=== PATIENT | female | born 2005 | race African-American/Black ===

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

== ENCOUNTER 2024-03-23 18:25 | Emergency (ER) | payer OTHER, SELFPAY ==
--- OUTSIDE RECORDS SUMMARY | 2024-03-23 18:38 | XMS REPORT | Continuity of Care Document ---
Author Name Unknown Address [address] [facility] [address] [place] [address] [facility] Address [address] [facility] [address] [place] [address] Care Team Providers Care Weekend Caregiver Name Role Phone Abhijit MEYERS, Fanta Primary Care Physician MAYTE MULTANI Attending Clinician Unavailable Jonny Pink Attending Clinician [phone] Unknown, Attending Attending Clinician Unavailab JONNY Baker Attending Clinician Unavailable Doctor Unassigned, Carrick Attending Clinician U Russ Gaspar MD Attending Clinician [phone] HOLLY ROBLEDO Attending Clinician Unavailable THAI CURRIE Attending Clinician Unavailable Thai Currie DO Attending Clinician [phone] RUSS ULLOA Attending Clinician UnavailRUSS Jonas Attending Clinician UnavailBRYNN Harmon Attending Clinician Unavailable Brynn Ying PA-C Attending Clinician [phone] Unknown, Attending Attending Clinician UnavailClaribel Kelley MD Attending Clinician [phone] GETACHEW NICOLE Attending Clinician Unavailable Getachew Nicole PA-C Attending Clinician [phone] CLARIBEL CHOU Attending Clinician UnavailAdarsh Barbosa Attending Clinician Unavailable Ryan Cordero RN Attending Clinician Unavailabl e Only, Ang Db Test Attending Clinician Unavailabl angela Rodriguez MD, Seven Martinez Attending Clinician [phone] SEVEN RODRIGUEZ Attending Clinician Unavailable [place] WIRE LOOP MACHINE OPERATOR, Anikadebbie Attending Clinician [phone] OMEDWARD ABARCAADRIANAYAMILE Attending Clinician Unavailabl e Omaghomi WIRE LOOP MACHINE OPERATOR, Omayemi Attending Clinician [phone] SANJANA ODONNELL Attending Clinician Unavailabl e Belle WIRE LOOP MACHINE OPERATOR, Sanjana Attending Clinician [phone] Provider, [facility] Attending Clinician Unavailable ZIYAD MATOS Attending Clinician Unavaila ble Maunie ACNP, Ziyad Attending Clinician + [phone] SYMONE GILMAN Attending Clinician Unavailable Ebrahim WIRE LOOP MACHINE OPERATOR, Tayia Attending Clinician [phone] ELISE LOOMIS Attending Clinician Unavailable KENYETTA MIMS Attending Clinician Unavailable Kenyetta Mims MD Attending Clinician [phone] Nurse, Adc Pob Immunization Attending Clinician Unavailable Jonathan Rodriguez DO Attending Clinician [phone] JONATHAN RODRIGUEZ Attending Clinician Unavail able SHANTELLE MCALLISTER Attending Clinician Unavailable Shantelle Mcallister NP Attending Clinician [phone] Sendy SAL, Rekha Oliver Attending Clinician Unavailab babar Enriquez WIRE LOOP MACHINE OPERATOR, Arielle Attending Clinician [phone] ARIELLE ENRIQUEZ Attending Clinician Unavailable Juan Pablo SAL, Sunni Vinson Attending Clinician Unavaila ble Provider, [facility] Attending Clinician Un available MariiaChristen Miguel Attending Clinician [phone] CHRISTEN WARREN Attending Clinician Unavailab le Hugo, Adarsh Fam Pob I Attending Clinician Unavailab babar PEREZ, Huan Attending Clinician [phone] HUAN RAZO Attending Clinician Unavailable Jairo MEYERS, Len Arndt Attending Clinici an Carlos Napoles Attending Clinician [phone] CARLOS FORD Attending Clinician Unavailtatum Canseco RN, Swetha Rangel Attending Clinician Unavailable Joyce Oliver Attending Clinician LEN GILL Attending Clinician Unavailable RUSS ULLOA Admitting Clinician SANJANA Lobato Admitting Clinician Cristina miller Payers Payer Name Policy Type Policy Number Effective Date Expirati on Date Source [employer] MEDICAID [id number] 2014 00:00:00 Problems Condition Name Condition Details Condition Category Status Onset Date Resolution Date Last Treatment Date Treating Clinician Comments Source No known active problems No known active problems Disease [facility] Allergies, Adverse Reactions, Alerts Allergy Name Allergy Type Status Severity Reaction(s) Onset Date Inactive Date Treating Clinician Comments Source NO KNOWN ALLERGIE S Drug Class Active [facility] Social History Social Habit Start Date Stop Date Quantity Comments Source History SDOH Alcohol Comment [place] [facility] Gender identity [facility] Alcoholic beverage intake 2023-09-29 00:00:00 2023-09-29 00:00:00 Lifetime non-drinker (finding) [facility] Alcohol intake 2023-07-01 00:00:00 2023-07-01 00:00:00 Lifetime non-drinker (finding) [facility] History of Social function 2022-11-05 00:00:00 2022-11-05 00:00:00 [facility] Exposure to SARS-CoV-2 (event) 2022-06-29 00:00:00 2022-07-09 08:17:00 Not sure [facility] Tobacco use and exposure 2021-11-25 00:00:00 2021-11-25 00:00:00 Smokeless tobacco non-user [facility] History SDOH Alcohol Frequency 2020-01-16 00:00:00 2020-01-16 00:00:00 1 [facility] History SDOH Alcohol Std Drinks 2020-01-16 00:00:00 2020-01-16 00:00:00 99 [facility] History SDOH Alcohol Binge 2020-01-16 00:00:00 2020-01-16 00:00:00 1 [facility] Sex assigned at 2004 00:00:00 2005 00:00:00 [facility] Smoking Status Start Date Stop Date Source Never smoked tobacco [facility] Medications Ordered Medication Name Filled Medication Name Start Date Stop Date Current Medication? Ordering Clinician Indication Dosage Frequency Signature (SIG) Comments Components Source ondansetron 8 mg tablet 2023-04 0-04 00:00: 00 02-02 04:59 :00 Yes [id number] 8mg Take 1 tablet by mouth every 8 (eight) hours as needed for Nausea and Vomiting (N/V) for up to 5 days. [facility] norethindro ne-e.estrad ioL-iron (LOESTRIN FE 1.5/30) 1.5 mg-30 mcg (21)/75 mg (7) tablet 6- 00:00: 00 Yes [id number] 1{tbl} Take 1 tablet by mouth in the morning. [facility] fluticasone propionate 50 mcg/actuati on nasal spray 06-23 00:00: 00 Yes [id number] 2{spray } Use 2 Sprays in each nostril in the morning. [facility] cetirizine 10 mg tablet 06-23 00:00: 00 Yes [id number] 10mg Take 1 tablet by mouth in the morning. [facility] azelastine 137 mcg (0.1 %) nasal spray 06-23 00:00: 00 Yes [id number] 1{spray } Use 1 [place] in each nostril in the morning and 1 [place] in the evening. Use in each nostril as directed [facility] bromphenira mine-pseudo ephedrine-D M (BROMFED DM) 2-30-10 mg/5 mL syrup 06-23 00:00: 00 Yes [id number] 5mL Take 5 mL by mouth 3 (three) times daily as needed for Cough or Cold symptoms. [facility] oseltamivir (TAMIFLU) 75 mg capsule 2022-04- 00:00: 00 04-13 05:59 :00 No [id number] 75mg Take 1 capsule by mouth in the morning and 1 capsule in the evening. Do all this for 5 days. [facility] ciprofloxac in-dexameth asone 0.3-0.1 % otic drops 7-13 00:00: 00 Yes [id number] 19619 4[drp] Place 4 Drops in left ear in the morning and 4 Drops in the evening. [facility] norethindro ne-e.estrad ioL-iron (LOESTRIN FE 1.5/30) 1.5 mg-30 mcg (21)/75 mg (7) per tablet 15 00:00: 00 09-28 00:00 :00 No [id number] 1{tbl} Take 1 tablet by mouth in the morning. [facility] triamcinolo ne acetonide 0.1 % cream 10-05 00:00: 00 10-16 04:59 :00 No [id number] Apply to area(s) 3 (three) times daily for 10 days. [facility] norethindro ne-e.estrad ioL-iron (LOESTRIN FE 1.5/30) 1.5 mg-30 mcg (21)/75 mg (7) per tablet -16 00:00: 00 10-08 00:00 :00 No [id number] 1{tbl} Take 1 tablet by mouth in the morning. [facility] benzonatate 200 mg capsule 2-16 00:00: 00 Yes [id number] 200mg Take 1 capsule by mouth 3 (three) times daily as needed for Cough. [facility] fluticasone propionate 50 mcg/actuati on nasal spray 2-16 00:00: 00 Yes [id number] 1{spray } Use 1 [place] in each nostril in the morning. [facility] medroxyPROG ESTERone (PROVERA) 10 mg tablet 2-09 00:00: 00 06-19 05:59 :00 No [id number] 10mg Take 1 tablet by mouth in the morning for 14 days. [facility] bromphenira mine-pseudo ephedrine-D M (BROMFED DM) 2-30-10 mg/5 mL syrup 2021-04 00:00: 00 Yes [id number] 5mL Take 5 mL by mouth 4 (four) times daily as needed for Congestion /Allergies or Cough. [facility] fluticasone propionate 50 mcg/actuati on nasal spray 2021-04 00:00: 00 Yes [id number] 2{spray } Use 2 Sprays in each nostril in the morning. [facility] ibuprofen (IBU) tablet 600 mg 12-24 07:00: 00 12-24 06:14 :00 No 600mg 600 mg, Oral, ONCE, 1 dose, On Wed12/24/21 at 0200, DAMARI [facility] APPLY TOPICALLY TO THE AFFECTED AREA THREE TIMES DAILY 12-08 00:00: 00 No &lt - 00:00: 00 No TAKE 12.5 ML BY MOUTH TWICE DAILY FOR 5 DAYS 12-03 00:00: 00 No 6 TAKE 1 TABLET BY MOUTH ONCE DAILY 12-03 00:00: 00 No 75 hydrocortis one 2.5 % cream 11-25 00:00: 00 Yes [id number] Apply to area(s) 3 (three) times daily. [facility] diphenhydrA MINE (BENADRYL) 25 mg capsule 11-25 00:00: 00 12-01 04:59 :00 No [id number] 50mg Take 2 capsules by mouth every 6 (six) hours as needed for Allergies or Itching for up to 5 days. [facility] meloxicam 7.5 mg tablet 10-22 00:00: 00 Yes 7.5mg Take 7.5 mg by mouth in the morning. [facility] traMADoL-ac etaminophen 37.5-325 mg per tablet 10-22 00:00: 00 Yes TAKE 1 TABLET BY MOUTH EVERY 6 HOURS NEEDED FOR 10 DAYS [facility] &lt - 00:00: 00 No ibuprofen (IBU) tablet 600 mg 2020-04 03:00: 00 04-01 02:05 :00 No 600mg 600 mg, Oral, ONCE, 1 dose, On Wed03/31/21 at 2100, [facility] acetaminoph en (TYLENOL) tablet 650 mg 2020-04 03:00: 00 04-01 02:05 :00 No 650mg 650 mg, Oral, ONCE, 1 dose, On Wed03/31/21 at 2100, [facility] triamcinolo ne acetonide 0.1 % cream 2019-04 00:00: 00 Yes [id number] Apply to area(s) 2 (two) times daily. [facility] PREVIDENT 5000 BOOSTER PLUS 1.1 % Pste 12-27 00:00: 00 Yes BRUSH IN TEETH BID. DO NOT RINSE AFTER. [facility] cetirizine 10 mg tablet 12-14 00:00: 00 No 1mg cetirizine (ZYRTEC) 5 mg chewable tablet 08-15 23:22: 12 Yes 5mg Take 5 mg by mouth daily. [facility] cetirizine 10 mg tablet 01-01 00:00: 00 No 1mg Flonase 50 mcg/actuati on nasal spray,suspe nsion 01-01 00:00: 00 No 1mcg/ac tuation Loratadine- D 10 mg-240 mg tablet,exte nded release 24 hr 08-17 00:00: 00 No 1mg cetirizine 10 mg tablet 05-17 00:00: 00 No 1mg Bromfed DM 2 mg-30 mg-10 mg/5 mL syrup 05-17 00:00: 00 No 10mg/5 mL azithromyci n 250 mg tablet 07-14 00:00: 00 No mg Flonase 50 mcg/actuati on nasal spray,suspe nsion 05-05 00:00: 00 No 1mcg/ac tuation cetirizine 10 mg tablet 12-31 00:00: 00 No 1mg Flonase 50 mcg/actuati on nasal spray,suspe nsion 12-31 00:00: 00 No 1mcg/ac tuation Bromfed DM 2 mg-30 mg-10 mg/5 mL syrup 09-24 00:00: 00 No 75mg/5 mL cetirizine 10 mg tablet 12-12 00:00: 00 No 1mg Amoxil 875 mg tablet 12-12 00:00: 00 No 1mg cetirizine 10 mg tablet 11-27 00:00: 00 No 1mg Flonase 50 mcg/actuati on nasal spray,suspe nsion 11-27 00:00: 00 No 1mcg/ac tuation Tessalon Perle 100 mg capsule 09-25 00:00: 00 No 12mg amoxicillin 500 mg tablet 08-24 00:00: 00 No 1mg Zyrtec 5 mg chewable tablet 16 00:00: 00 No 1mg No known medications No Un caty ity [facility] No known medications No Un caty ity [facility] No known medications No Un caty ity [facility] No known medications No Un caty ity [facility] No known medications No Un caty ity [facility] No known medications No Un caty ity [facility] No known medications No Un caty [facility] Immunizations Ordered Immunization Name Filled Immunization Name Date Status Comments Source Meningococcal B, OMV 2023-03-22 00:00:00 Completed [facility] Influenza Virus Vaccine Quad IM, Preserv and ABX Free 6 MO-64 YRS (FLUCELVAX) 2023-02-17 00:00:00 Completed [facility] Meningococcal B, OMV 2023-02-17 00:00:00 Completed SARS-COV-2 COVID-19 PFIZER KARAN-SUCROSE VACCINE (VERONICA TOP) 2021-05-28 00:00:00 Completed [facility] SARS-COV-2 COVID-19 PFIZER KARAN-SUCROSE VACCINE (VERONICA TOP) 2021-05-28 00:00:00 Completed [facility] SARS-COV-2 COVID-19 PFIZER KARAN-SUCROSE VACCINE (VERONICA TOP) 2021-05-28 00:00:00 Completed [facility] SARS-COV-2 COVID-19 PFIZER KARAN-SUCROSE VACCINE (VERONICA TOP) 2021-05-28 00:00:00 Completed [facility] SARS-COV-2 COVID-19 PFIZER KARAN-SUCROSE VACCINE (VERONICA TOP) 2021-05-28 00:00:00 Completed [facility] SARS-COV-2 COVID-19 PFIZER KARAN-SUCROSE VACCINE (VERONICA TOP) 2021-05-28 00:00:00 Completed [facility] SARS-COV-2 COVID-19 PFIZER KARAN-SUCROSE VACCINE (VERONICA TOP) 2021-05-28 00:00:00 Completed [facility] SARS-COV-2 COVID-19 PFIZER KARAN-SUCROSE VACCINE (VERONICA TOP) 2021-05-28 00:00:00 Completed [facility] SARS-COV-2 COVID-19 PFIZER KARAN-SUCROSE VACCINE (VERONICA TOP) 2021-05-28 00:00:00 Completed [facility] SARS-COV-2 COVID-19 PFIZER KARAN-SUCROSE VACCINE (VERONICA TOP) 2021-05-28 00:00:00 Completed [facility] SARS-COV-2 COVID-19 PFIZER KARAN-SUCROSE VACCINE (VERONICA TOP) 2021-05-28 00:00:00 Completed [facility] SARS-COV-2 COVID-19 PFIZER KARAN-SUCROSE VACCINE (VERONICA TOP) 2021-05-28 00:00:00 Completed [facility] SARS-COV-2 COVID-19 PFIZER KARAN-SUCROSE VACCINE (VERONICA TOP) 2021-05-28 00:00:00 Completed [facility] SARS-COV-2 COVID-19 PFIZER KARAN-SUCROSE VACCINE (VERONICA TOP) 2021-05-28 00:00:00 Completed [facility] SARS-COV-2 COVID-19 PFIZER KARAN-SUCROSE VACCINE (VERONICA TOP) 2021-05-28 00:00:00 Completed [facility] SARS-COV-2 COVID-19 PFIZER KARAN-SUCROSE VACCINE (VERONICA TOP) 2021-05-28 00:00:00 Completed [facility] SARS-COV-2 COVID-19 PFIZER KARAN-SUCROSE VACCINE (VERONICA TOP) 2021-05-28 00:00:00 Completed [facility] SARS-COV-2 COVID-19 PFIZER KARAN-SUCROSE VACCINE (VERONICA TOP) 2021-05-28 00:00:00 Completed [facility] SARS-COV-2 COVID-19 PFIZER KARAN-SUCROSE VACCINE (VEROINCA TOP) 2021-05-28 00:00:00 Completed [facility] SARS-COV-2 COVID-19 PFIZER KARAN-SUCROSE VACCINE (VERONICA TOP) 2021-05-28 00:00:00 Completed [facility] SARS-COV-2 COVID-19 PFIZER KARAN-SUCROSE VACCINE (VERONICA TOP) 2021-05-28 00:00:00 Completed [facility] SARS-COV-2 COVID-19 PFIZER KARAN-SUCROSE VACCINE (VERONICA TOP) 2021-05-28 00:00:00 Completed [facility] SARS-COV-2 COVID-19 PFIZER KARAN-SUCROSE VACCINE (VERONICA TOP) 2021-05-28 00:00:00 Completed [facility] SARS-COV-2 COVID-19 PFIZER KARAN-SUCROSE VACCINE (VERONICA TOP) 2021-05-28 00:00:00 Completed [facility] SARS-COV-2 COVID-19 PFIZER KARAN-SUCROSE VACCINE (VERONICA TOP) 2021-05-28 00:00:00 Completed [facility] SARS-COV-2 COVID-19 PFIZER KARAN-SUCROSE VACCINE (VERONICA TOP) 2021-05-28 00:00:00 Completed [facility] SARS-COV-2 COVID-19 PFIZER KARAN-SUCROSE VACCINE (VERONICA TOP) 2021-05-28 00:00:00 Completed [facility] SARS-COV-2 COVID-19 PFIZER KARAN-SUCROSE VACCINE (VERONICA TOP) 2021-05-28 00:00:00 Completed [facility] SARS-COV-2 COVID-19 PFIZER KARAN-SUCROSE VACCINE (VERONICA TOP) 2021-05-28 00:00:00 Completed [facility] SARS-COV-2 COVID-19 PFIZER KARAN-SUCROSE VACCINE (VERONICA TOP) 2021-05-28 00:00:00 Completed [facility] SARS-COV-2 COVID-19 PFIZER KARAN-SUCROSE VACCINE (VERONICA TOP) 2021-05-28 00:00:00 Completed [facility] SARS-COV-2 COVID-19 PFIZER KARAN-SUCROSE VACCINE (VERONICA TOP) 2021-05-28 00:00:00 Completed [facility] Meningococcal Polysaccharide (groups A, C, Y and W-135) conjugate vaccine (MCV4P) 2020-12-26 00:00:00 Completed meningococcal MCV4P 2020-12-26 00:00:00 Completed meningococcal MCV4P 2020-12-26 00:00:00 Completed SARS-COV-2 COVID-19 PFIZER VACCINE 2020-09-30 00:00:00 Completed [facility] SARS-COV-2 COVID-19 PFIZER VACCINE 2020-09-30 00:00:00 Completed [facility] SARS-COV-2 COVID-19 PFIZER VACCINE 2020-09-30 00:00:00 Completed [facility] SARS-COV-2 COVID-19 PFIZER VACCINE 2020-09-30 00:00:00 Completed [facility] SARS-COV-2 COVID-19 PFIZER VACCINE 2020-09-30 00:00:00 Completed [facility] SARS-COV-2 COVID-19 PFIZER VACCINE 2020-09-30 00:00:00 Completed [facility] SARS-COV-2 COVID-19 PFIZER VACCINE 2020-09-30 00:00:00 Completed [facility] SARS-COV-2 COVID-19 PFIZER VACCINE 2020-09-30 00:00:00 Completed [facility] SARS-COV-2 COVID-19 PFIZER VACCINE 2020-09-30 00:00:00 Completed [facility] SARS-COV-2 COVID-19 PFIZER VACCINE 2020-09-30 00:00:00 Completed [facility] SARS-COV-2 COVID-19 PFIZER VACCINE 2020-09-30 00:00:00 Completed [facility] SARS-COV-2 COVID-19 PFIZER VACCINE 2020-09-30 00:00:00 Completed [facility] SARS-COV-2 COVID-19 PFIZER VACCINE 2020-09-30 00:00:00 Completed [facility] SARS-COV-2 COVID-19 PFIZER VACCINE 2020-09-30 00:00:00 Completed [facility] SARS-COV-2 COVID-19 PFIZER VACCINE 2020-09-30 00:00:00 Completed [facility] SARS-COV-2 COVID-19 PFIZER VACCINE 2020-09-30 00:00:00 Completed [facility] SARS-COV-2 COVID-19 PFIZER VACCINE 2020-09-30 00:00:00 Completed [facility] SARS-COV-2 COVID-19 PFIZER VACCINE 2020-09-30 00:00:00 Completed [facility] SARS-COV-2 COVID-19 PFIZER VACCINE 2020-09-30 00:00:00 Completed [facility] SARS-COV-2 COVID-19 PFIZER VACCINE 2020-09-30 00:00:00 Completed [facility] SARS-COV-2 COVID-19 PFIZER VACCINE 2020-09-30 00:00:00 Completed [facility] SARS-COV-2 COVID-19 PFIZER VACCINE 2020-09-30 00:00:00 Completed [facility] SARS-COV-2 COVID-19 PFIZER VACCINE 2020-09-30 00:00:00 Completed [facility] SARS-COV-2 COVID-19 PFIZER VACCINE 2020-09-30 00:00:00 Completed [facility] SARS-COV-2 COVID-19 PFIZER VACCINE 2020-09-30 00:00:00 Completed [facility] SARS-COV-2 COVID-19 PFIZER VACCINE 2020-09-30 00:00:00 Completed [facility] SARS-COV-2 COVID-19 PFIZER VACCINE 2020-09-30 00:00:00 Completed [facility] SARS-COV-2 COVID-19 PFIZER VACCINE 2020-09-30 00:00:00 Completed [facility] SARS-COV-2 COVID-19 PFIZER VACCINE 2020-09-30 00:00:00 Completed [facility] SARS-COV-2 COVID-19 PFIZER VACCINE 2020-09-30 00:00:00 Completed [facility] SARS-COV-2 COVID-19 PFIZER VACCINE 2020-09-30 00:00:00 Completed [facility] SARS-COV-2 COVID-19 PFIZER VACCINE 2020-09-30 00:00:00 Completed [facility] SARS-COV-2 COVID-19 PFIZER VACCINE 2020-09-30 00:00:00 Completed [facility] SARS-COV-2 COVID-19 PFIZER VACCINE 2020-09-30 00:00:00 Completed [facility] SARS-COV-2 COVID-19 PFIZER VACCINE 2020-09-30 00:00:00 Completed [facility] SARS-COV-2 COVID-19 PFIZER VACCINE 2020-09-30 00:00:00 Completed [facility] SARS-COV-2 COVID-19 PFIZER VACCINE 2020-09-30 00:00:00 Completed [facility] SARS-COV-2 COVID-19 PFIZER VACCINE 2020-09-30 00:00:00 Completed [facility] SARS-COV-2 COVID-19 PFIZER VACCINE 2020-09-30 00:00:00 Completed [facility] SARS-COV-2 COVID-19 PFIZER VACCINE 2020-09-30 00:00:00 Completed [facility] SARS-COV-2 COVID-19 PFIZER VACCINE 2020-09-30 00:00:00 Completed SARS-COV-2 COVID-19 PFIZER VACCINE 2020-09-10 00:00:00 Completed [facility] SARS-COV-2 COVID-19 PFIZER VACCINE 2020-09-10 00:00:00 Completed [facility] SARS-COV-2 COVID-19 PFIZER VACCINE 2020-09-10 00:00:00 Completed [facility] SARS-COV-2 COVID-19 PFIZER VACCINE 2020-09-10 00:00:00 Completed [facility] SARS-COV-2 COVID-19 PFIZER VACCINE 2020-09-10 00:00:00 Completed [facility] SARS-COV-2 COVID-19 PFIZER VACCINE 2020-09-10 00:00:00 Completed [facility] SARS-COV-2 COVID-19 PFIZER VACCINE 2020-09-10 00:00:00 Completed [facility] SARS-COV-2 COVID-19 PFIZER VACCINE 2020-09-10 00:00:00 Completed [facility] SARS-COV-2 COVID-19 PFIZER VACCINE 2020-09-10 00:00:00 Completed [facility] SARS-COV-2 COVID-19 PFIZER VACCINE 2020-09-10 00:00:00 Completed [facility] SARS-COV-2 COVID-19 PFIZER VACCINE 2020-09-10 00:00:00 Completed [facility] SARS-COV-2 COVID-19 PFIZER VACCINE 2020-09-10 00:00:00 Completed [facility] SARS-COV-2 COVID-19 PFIZER VACCINE 2020-09-10 00:00:00 Completed [facility] SARS-COV-2 COVID-19 PFIZER VACCINE 2020-09-10 00:00:00 Completed [facility] SARS-COV-2 COVID-19 PFIZER VACCINE 2020-09-10 00:00:00 Completed [facility] SARS-COV-2 COVID-19 PFIZER VACCINE 2020-09-10 00:00:00 Completed [facility] SARS-COV-2 COVID-19 PFIZER VACCINE 2020-09-10 00:00:00 Completed [facility] SARS-COV-2 COVID-19 PFIZER VACCINE 2020-09-10 00:00:00 Completed [facility] SARS-COV-2 COVID-19 PFIZER VACCINE 2020-09-10 00:00:00 Completed [facility] SARS-COV-2 COVID-19 PFIZER VACCINE 2020-09-10 00:00:00 Completed [facility] SARS-COV-2 COVID-19 PFIZER VACCINE 2020-09-10 00:00:00 Completed [facility] SARS-COV-2 COVID-19 PFIZER VACCINE 2020-09-10 00:00:00 Completed [facility] SARS-COV-2 COVID-19 PFIZER VACCINE 2020-09-10 00:00:00 Completed [facility] SARS-COV-2 COVID-19 PFIZER VACCINE 2020-09-10 00:00:00 Completed [facility] SARS-COV-2 COVID-19 PFIZER VACCINE 2020-09-10 00:00:00 Completed [facility] SARS-COV-2 COVID-19 PFIZER VACCINE 2020-09-10 00:00:00 Completed [facility] SARS-COV-2 COVID-19 PFIZER VACCINE 2020-09-10 00:00:00 Completed [facility] SARS-COV-2 COVID-19 PFIZER VACCINE 2020-09-10 00:00:00 Completed [facility] SARS-COV-2 COVID-19 PFIZER VACCINE 2020-09-10 00:00:00 Completed [facility] SARS-COV-2 COVID-19 PFIZER VACCINE 2020-09-10 00:00:00 Completed [facility] SARS-COV-2 COVID-19 PFIZER VACCINE 2020-09-10 00:00:00 Completed [facility] SARS-COV-2 COVID-19 PFIZER VACCINE 2020-09-10 00:00:00 Completed [facility] SARS-COV-2 COVID-19 PFIZER VACCINE 2020-09-10 00:00:00 Completed [facility] SARS-COV-2 COVID-19 PFIZER VACCINE 2020-09-10 00:00:00 Completed [facility] SARS-COV-2 COVID-19 PFIZER VACCINE 2020-09-10 00:00:00 Completed [facility] SARS-COV-2 COVID-19 PFIZER VACCINE 2020-09-10 00:00:00 Completed [facility] SARS-COV-2 COVID-19 PFIZER VACCINE 2020-09-10 00:00:00 Completed [facility] SARS-COV-2 COVID-19 PFIZER VACCINE 2020-09-10 00:00:00 Completed [facility] SARS-COV-2 COVID-19 PFIZER VACCINE 2020-09-10 00:00:00 Completed [facility] SARS-COV-2 COVID-19 PFIZER VACCINE 2020-09-10 00:00:00 Completed [facility] SARS-COV-2 COVID-19 PFIZER VACCINE 2020-09-10 00:00:00 Completed [facility] Influenza Virus Vaccine 2019-03-04 00:00:00 Completed [facility] Influenza Virus Vaccine 2019-03-04 00:00:00 Completed [facility] Influenza Virus Vaccine 2019-03-04 00:00:00 Completed [facility] Influenza Virus Vaccine 2019-03-04 00:00:00 Completed [facility] Influenza Virus Vaccine 2019-03-04 00:00:00 Completed [facility] Influenza Virus Vaccine 2019-03-04 00:00:00 Completed [facility] Influenza Virus Vaccine 2019-03-04 00:00:00 Completed [facility] Influenza Virus Vaccine 2019-03-04 00:00:00 Completed [facility] Influenza Virus Vaccine 2019-03-04 00:00:00 Completed [facility] Influenza Virus Vaccine 2019-03-04 00:00:00 Completed [facility] Influenza Virus Vaccine 2019-03-04 00:00:00 Completed [facility] Influenza Virus Vaccine 2019-03-04 00:00:00 Completed [facility] Influenza Virus Vaccine 2019-03-04 00:00:00 Completed [facility] Influenza Virus Vaccine 2019-03-04 00:00:00 Completed [facility] Influenza Virus Vaccine 2019-03-04 00:00:00 Completed [facility] Influenza Virus Vaccine 2019-03-04 00:00:00 Completed [facility] Influenza Virus Vaccine 2019-03-04 00:00:00 Completed [facility] Influenza Virus Vaccine 2019-03-04 00:00:00 Completed [facility] Influenza Virus Vaccine 2019-03-04 00:00:00 Completed [facility] Influenza Virus Vaccine 2019-03-04 00:00:00 Completed [facility] Influenza Virus Vaccine 2019-03-04 00:00:00 Completed [facility] Influenza Virus Vaccine 2019-03-04 00:00:00 Completed [facility] Influenza Virus Vaccine 2019-03-04 00:00:00 Completed [facility] Influenza Virus Vaccine 2019-03-04 00:00:00 Completed [facility] Influenza Virus Vaccine 2019-03-04 00:00:00 Completed [facility] Influenza Virus Vaccine 2019-03-04 00:00:00 Completed [facility] Influenza Virus Vaccine 2019-03-04 00:00:00 Completed [facility] Influenza Virus Vaccine 2019-03-04 00:00:00 Completed [facility] Influenza Virus Vaccine 2019-03-04 00:00:00 Completed [facility] Influenza Virus Vaccine 2019-03-04 00:00:00 Completed [facility] Influenza Virus Vaccine 2019-03-04 00:00:00 Completed [facility] Influenza Virus Vaccine 2019-03-04 00:00:00 Completed [facility] Influenza Virus Vaccine 2019-03-04 00:00:00 Completed [facility] Influenza Virus Vaccine 2019-03-04 00:00:00 Completed [facility] Influenza Virus Vaccine 2019-03-04 00:00:00 Completed [facility] Influenza Virus Vaccine 2019-03-04 00:00:00 Completed [facility] Influenza Virus Vaccine 2019-03-04 00:00:00 Completed [facility] Influenza Virus Vaccine 2019-03-04 00:00:00 Completed [facility] Influenza Virus Vaccine 2019-03-04 00:00:00 Completed [facility] Influenza Virus Vaccine 2019-03-04 00:00:00 Completed [facility] Influenza Virus Vaccine 2019-03-04 00:00:00 Completed [facility] Influenza Virus Vaccine 2019-03-04 00:00:00 Completed [facility] Influenza Virus Vaccine 2019-03-04 00:00:00 Completed [facility] Influenza Virus Vaccine 2019-03-04 00:00:00 Completed Influenza Virus Vaccine 2019-03-04 00:00:00 Completed [facility] Influenza Virus Vaccine Quad IM, Preserv and ABX Free 6 MO-64 YRS (FLUCELVAX) 2019-03-04 00:00:00 Completed Influenza Virus Vaccine 2019-03-04 00:00:00 Completed [facility] Influenza Virus Vaccine 2019-03-04 00:00:00 Completed [facility] Influenza Virus Vaccine 2019-03-04 00:00:00 Completed [facility] Influenza Virus Vaccine 2019-03-04 00:00:00 Completed [facility] Influenza Virus Vaccine 2019-03-04 00:00:00 Completed [facility] Influenza Virus Vaccine 2019-03-04 00:00:00 Completed [facility] Influenza Virus Vaccine 2019-03-04 00:00:00 Completed [facility] Influenza Virus Vaccine 2019-03-04 00:00:00 Completed [facility] Influenza Virus Vaccine 2018-03-11 00:00:00 Completed [facility] Influenza Virus Vaccine 2018-03-11 00:00:00 Completed [facility] Influenza Virus Vaccine 2018-03-11 00:00:00 Completed [facility] Influenza Virus Vaccine 2018-03-11 00:00:00 Completed [facility] Influenza Virus Vaccine 2018-03-11 00:00:00 Completed [facility] Influenza Virus Vaccine 2018-03-11 00:00:00 Completed [facility] Influenza Virus Vaccine 2018-03-11 00:00:00 Completed [facility] Influenza Virus Vaccine 2018-03-11 00:00:00 Completed [facility] Influenza Virus Vaccine 2018-03-11 00:00:00 Completed [facility] Influenza Virus Vaccine 2018-03-11 00:00:00 Completed [facility] Influenza Virus Vaccine 2018-03-11 00:00:00 Completed [facility] Influenza Virus Vaccine 2018-03-11 00:00:00 Completed [facility] Influenza Virus Vaccine 2018-03-11 00:00:00 Completed [facility] Influenza Virus Vaccine 2018-03-11 00:00:00 Completed [facility] Influenza Virus Vaccine 2018-03-11 00:00:00 Completed [facility] Influenza Virus Vaccine 2018-03-11 00:00:00 Completed [facility] Influenza Virus Vaccine 2018-03-11 00:00:00 Completed [facility] Influenza Virus Vaccine 2018-03-11 00:00:00 Completed [facility] Influenza Virus Vaccine 2018-03-11 00:00:00 Completed [facility] Influenza Virus Vaccine 2018-03-11 00:00:00 Completed [facility] Influenza Virus Vaccine 2018-03-11 00:00:00 Completed [facility] Influenza Virus Vaccine 2018-03-11 00:00:00 Completed [facility] Influenza Virus Vaccine 2018-03-11 00:00:00 Completed [facility] Influenza Virus Vaccine 2018-03-11 00:00:00 Completed [facility] Influenza Virus Vaccine 2018-03-11 00:00:00 Completed [facility] Influenza Virus Vaccine 2018-03-11 00:00:00 Completed [facility] Influenza Virus Vaccine 2018-03-11 00:00:00 Completed [facility] Influenza Virus Vaccine 2018-03-11 00:00:00 Completed [facility] Influenza Virus Vaccine 2018-03-11 00:00:00 Completed [facility] Influenza Virus Vaccine 2018-03-11 00:00:00 Completed [facility] Influenza Virus Vaccine 2018-03-11 00:00:00 Completed [facility] Influenza Virus Vaccine 2018-03-11 00:00:00 Completed [facility] Influenza Virus Vaccine 2018-03-11 00:00:00 Completed [facility] Influenza Virus Vaccine 2018-03-11 00:00:00 Completed [facility] Influenza Virus Vaccine 2018-03-11 00:00:00 Completed [facility] Influenza Virus Vaccine 2018-03-11 00:00:00 Completed [facility] Influenza Virus Vaccine 2018-03-11 00:00:00 Completed [facility] Influenza Virus Vaccine 2018-03-11 00:00:00 Completed [facility] Influenza Virus Vaccine 2018-03-11 00:00:00 Completed [facility] Influenza Virus Vaccine 2018-03-11 00:00:00 Completed [facility] Influenza Virus Vaccine 2018-03-11 00:00:00 Completed [facility] Influenza Virus Vaccine 2018-03-11 00:00:00 Completed [facility] Influenza Virus Vaccine 2018-03-11 00:00:00 Completed [facility] Influenza Virus Vaccine 2018-03-11 00:00:00 Completed Influenza Virus Vaccine 2018-03-11 00:00:00 Completed [facility] Influenza Virus Vaccine - Whole 2018-03-11 00:00:00 Completed Influenza Virus Vaccine 2018-03-11 00:00:00 Completed [facility] Influenza Virus Vaccine 2018-03-11 00:00:00 Completed [facility] Influenza Virus Vaccine 2018-03-11 00:00:00 Completed [facility] Influenza Virus Vaccine 2018-03-11 00:00:00 Completed [facility] Influenza Virus Vaccine 2018-03-11 00:00:00 Completed [facility] Influenza Virus Vaccine 2018-03-11 00:00:00 Completed [facility] Influenza Virus Vaccine 2018-03-11 00:00:00 Completed [facility] Influenza Virus Vaccine 2018-03-11 00:00:00 Completed [facility] Influenza, seasonal, inj 2018-03-11 00:00:00 Completed Influenza, seasonal, inj 2018-03-11 00:00:00 Completed Influenza, seasonal, inj 2017-05-14 00:00:00 Completed Influenza, seasonal, inj 2017-05-14 00:00:00 Completed HPV 2017-04-17 00:00:00 Completed [facility] HPV 2017-04-17 00:00:00 Completed [facility] HPV 2017-04-17 00:00:00 Completed [facility] HPV 2017-04-17 00:00:00 Completed [facility] HPV 2017-04-17 00:00:00 Completed [facility] HPV 2017-04-17 00:00:00 Completed [facility] HPV 2017-04-17 00:00:00 Completed [facility] HPV 2017-04-17 00:00:00 Completed [facility] HPV 2017-04-17 00:00:00 Completed [facility] HPV 2017-04-17 00:00:00 Completed [facility] HPV 2017-04-17 00:00:00 Completed [facility] HPV 2017-04-17 00:00:00 Completed [facility] HPV 2017-04-17 00:00:00 Completed [facility] HPV 2017-04-17 00:00:00 Completed [facility] HPV 2017-04-17 00:00:00 Completed [facility] HPV 2017-04-17 00:00:00 Completed [facility] HPV 2017-04-17 00:00:00 Completed [facility] HPV 2017-04-17 00:00:00 Completed [facility] HPV 2017-04-17 00:00:00 Completed [facility] HPV 2017-04-17 00:00:00 Completed [facility] HPV 2017-04-17 00:00:00 Completed [facility] HPV 2017-04-17 00:00:00 Completed [facility] HPV 2017-04-17 00:00:00 Completed [facility] HPV 2017-04-17 00:00:00 Completed [facility] HPV 2017-04-17 00:00:00 Completed [facility] HPV 2017-04-17 00:00:00 Completed [facility] HPV 2017-04-17 00:00:00 Completed [facility] HPV 2017-04-17 00:00:00 Completed [facility] HPV 2017-04-17 00:00:00 Completed [facility] HPV 2017-04-17 00:00:00 Completed [facility] HPV 2017-04-17 00:00:00 Completed [facility] HPV 2017-04-17 00:00:00 Completed [facility] HPV 2017-04-17 00:00:00 Completed [facility] HPV 2017-04-17 00:00:00 Completed [facility] HPV 2017-04-17 00:00:00 Completed [facility] HPV 2017-04-17 00:00:00 Completed [facility] HPV 2017-04-17 00:00:00 Completed [facility] HPV 2017-04-17 00:00:00 Completed [facility] HPV 2017-04-17 00:00:00 Completed [facility] HPV 2017-04-17 00:00:00 Completed [facility] HPV 2017-04-17 00:00:00 Completed [facility] HPV 2017-04-17 00:00:00 Completed [facility] HPV 2017-04-17 00:00:00 Completed [facility] HPV 2017-04-17 00:00:00 Completed [facility] HPV 2017-04-17 00:00:00 Completed HPV 2017-04-17 00:00:00 Completed [facility] HPV 2017-04-17 00:00:00 Completed [facility] HPV 2017-04-17 00:00:00 Completed [facility] HPV 2017-04-17 00:00:00 Completed [facility] HPV 2017-04-17 00:00:00 Completed [facility] HPV 2017-04-17 00:00:00 Completed [facility] HPV 2017-04-17 00:00:00 Completed [facility] HPV 2017-04-17 00:00:00 Completed [facility] HPV9 2017-04-07 00:00:00 Completed HPV9 2017-04-07 00:00:00 Completed HPV9 2017-04-07 00:00:00 Completed Influenza, seasonal, inj 2017-02-12 00:00:00 Completed Influenza, seasonal, inj 2017-02-12 00:00:00 Completed HPV 2016-10-06 00:00:00 Completed [facility] Meningococcal Vaccine 2016-10-06 00:00:00 Completed [facility] TDAP 2016-10-06 00:00:00 Completed [facility] HPV 2016-10-06 00:00:00 Completed [facility] Meningococcal Vaccine 2016-10-06 00:00:00 Completed [facility] TDAP 2016-10-06 00:00:00 Completed [facility] HPV 2016-10-06 00:00:00 Completed [facility] Meningococcal Vaccine 2016-10-06 00:00:00 Completed [facility] TDAP 2016-10-06 00:00:00 Completed [facility] HPV 2016-10-06 00:00:00 Completed [facility] Meningococcal Vaccine 2016-10-06 00:00:00 Completed [facility] TDAP 2016-10-06 00:00:00 Completed [facility] HPV 2016-10-06 00:00:00 Completed [facility] Meningococcal Vaccine 2016-10-06 00:00:00 Completed [facility] TDAP 2016-10-06 00:00:00 Completed [facility] HPV 2016-10-06 00:00:00 Completed [facility] Meningococcal Vaccine 2016-10-06 00:00:00 Completed [facility] TDAP 2016-10-06 00:00:00 Completed [facility] HPV 2016-10-06 00:00:00 Completed [facility] Meningococcal Vaccine 2016-10-06 00:00:00 Completed [facility] TDAP 2016-10-06 00:00:00 Completed [facility] HPV 2016-10-06 00:00:00 Completed [facility] Meningococcal Vaccine 2016-10-06 00:00:00 Completed [facility] TDAP 2016-10-06 00:00:00 Completed [facility] HPV 2016-10-06 00:00:00 Completed [facility] Meningococcal Vaccine 2016-10-06 00:00:00 Completed [facility] TDAP 2016-10-06 00:00:00 Completed [facility] HPV 2016-10-06 00:00:00 Completed [facility] Meningococcal Vaccine 2016-10-06 00:00:00 Completed [facility] TDAP 2016-10-06 00:00:00 Completed [facility] HPV 2016-10-06 00:00:00 Completed [facility] Meningococcal Vaccine 2016-10-06 00:00:00 Completed [facility] TDAP 2016-10-06 00:00:00 Completed [facility] HPV 2016-10-06 00:00:00 Completed [facility] Meningococcal Vaccine 2016-10-06 00:00:00 Completed [facility] TDAP 2016-10-06 00:00:00 Completed [facility] HPV 2016-10-06 00:00:00 Completed [facility] Meningococcal Vaccine 2016-10-06 00:00:00 Completed [facility] TDAP 2016-10-06 00:00:00 Completed [facility] HPV 2016-10-06 00:00:00 Completed [facility] Meningococcal Vaccine 2016-10-06 00:00:00 Completed [facility] TDAP 2016-10-06 00:00:00 Completed [facility] HPV 2016-10-06 00:00:00 Completed [facility] Meningococcal Vaccine 2016-10-06 00:00:00 Completed [facility] TDAP 2016-10-06 00:00:00 Completed [facility] HPV 2016-10-06 00:00:00 Completed [facility] Meningococcal Vaccine 2016-10-06 00:00:00 Completed [facility] TDAP 2016-10-06 00:00:00 Completed [facility] HPV 2016-10-06 00:00:00 Completed [facility] HPV 2016-10-06 00:00:00 Completed [facility] Meningococcal Vaccine 2016-10-06 00:00:00 Completed [facility] TDAP 2016-10-06 00:00:00 Completed [facility] Meningococcal Vaccine 2016-10-06 00:00:00 Completed [facility] HPV 2016-10-06 00:00:00 Completed [facility] Meningococcal Vaccine 2016-10-06 00:00:00 Completed [facility] TDAP 2016-10-06 00:00:00 Completed [facility] HPV 2016-10-06 00:00:00 Completed [facility] TDAP 2016-10-06 00:00:00 Completed [facility] Meningococcal Vaccine 2016-10-06 00:00:00 Completed [facility] TDAP 2016-10-06 00:00:00 Completed [facility] HPV 2016-10-06 00:00:00 Completed [facility] Meningococcal Vaccine 2016-10-06 00:00:00 Completed [facility] TDAP 2016-10-06 00:00:00 Completed [facility] HPV 2016-10-06 00:00:00 Completed [facility] Meningococcal Vaccine 2016-10-06 00:00:00 Completed [facility] TDAP 2016-10-06 00:00:00 Completed [facility] HPV 2016-10-06 00:00:00 Completed [facility] Meningococcal Vaccine 2016-10-06 00:00:00 Completed [facility] TDAP 2016-10-06 00:00:00 Completed [facility] HPV 2016-10-06 00:00:00 Completed [facility] Meningococcal Vaccine 2016-10-06 00:00:00 Completed [facility] TDAP 2016-10-06 00:00:00 Completed [facility] HPV 2016-10-06 00:00:00 Completed [facility] Meningococcal Vaccine 2016-10-06 00:00:00 Completed [facility] TDAP 2016-10-06 00:00:00 Completed [facility] HPV 2016-10-06 00:00:00 Completed [facility] Meningococcal Vaccine 2016-10-06 00:00:00 Completed [facility] TDAP 2016-10-06 00:00:00 Completed [facility] HPV 2016-10-06 00:00:00 Completed [facility] Meningococcal Vaccine 2016-10-06 00:00:00 Completed [facility] TDAP 2016-10-06 00:00:00 Completed [facility] HPV 2016-10-06 00:00:00 Completed [facility] Meningococcal Vaccine 2016-10-06 00:00:00 Completed [facility] TDAP 2016-10-06 00:00:00 Completed [facility] HPV 2016-10-06 00:00:00 Completed [facility] Meningococcal Vaccine 2016-10-06 00:00:00 Completed [facility] TDAP 2016-10-06 00:00:00 Completed [facility] HPV 2016-10-06 00:00:00 Completed [facility] Meningococcal Vaccine 2016-10-06 00:00:00 Completed [facility] TDAP 2016-10-06 00:00:00 Completed [facility] HPV 2016-10-06 00:00:00 Completed [facility] Meningococcal Vaccine 2016-10-06 00:00:00 Completed [facility] TDAP 2016-10-06 00:00:00 Completed [facility] HPV 2016-10-06 00:00:00 Completed [facility] Meningococcal Vaccine 2016-10-06 00:00:00 Completed [facility] TDAP 2016-10-06 00:00:00 Completed [facility] HPV 2016-10-06 00:00:00 Completed [facility] HPV 2016-10-06 00:00:00 Completed [facility] Meningococcal Vaccine 2016-10-06 00:00:00 Completed [facility] TDAP 2016-10-06 00:00:00 Completed [facility] Meningococcal Vaccine 2016-10-06 00:00:00 Completed [facility] HPV 2016-10-06 00:00:00 Completed [facility] Meningococcal Vaccine 2016-10-06 00:00:00 Completed [facility] TDAP 2016-10-06 00:00:00 Completed [facility] HPV 2016-10-06 00:00:00 Completed [facility] Tdap 2016-10-06 00:00:00 Completed [facility] Meningococcal Vaccine 2016-10-06 00:00:00 Completed [facility] TDAP 2016-10-06 00:00:00 Completed [facility] HPV 2016-10-06 00:00:00 Completed [facility] Meningococcal Vaccine 2016-10-06 00:00:00 Completed [facility] TDAP 2016-10-06 00:00:00 Completed [facility] HPV 2016-10-06 00:00:00 Completed [facility] Meningococcal Vaccine 2016-10-06 00:00:00 Completed [facility] TDAP 2016-10-06 00:00:00 Completed [facility] HPV 2016-10-06 00:00:00 Completed [facility] HPV 2016-10-06 00:00:00 Completed [facility] Meningococcal Vaccine 2016-10-06 00:00:00 Completed [facility] TDAP 2016-10-06 00:00:00 Completed [facility] Meningococcal Vaccine 2016-10-06 00:00:00 Completed [facility] HPV 2016-10-06 00:00:00 Completed [facility] Meningococcal Vaccine 2016-10-06 00:00:00 Completed [facility] TDAP 2016-10-06 00:00:00 Completed [facility] HPV 2016-10-06 00:00:00 Completed [facility] Tdap 2016-10-06 00:00:00 Completed [facility] Meningococcal Vaccine 2016-10-06 00:00:00 Completed [facility] TDAP 2016-10-06 00:00:00 Completed [facility] HPV 2016-10-06 00:00:00 Completed [facility] Meningococcal Vaccine 2016-10-06 00:00:00 Completed [facility] TDAP 2016-10-06 00:00:00 Completed [facility] HPV 2016-10-06 00:00:00 Completed [facility] HPV 2016-10-06 00:00:00 Completed Meningococcal Vaccine 2016-10-06 00:00:00 Completed TDAP 2016-10-06 00:00:00 Completed Meningococcal Vaccine 2016-10-06 00:00:00 Completed [facility] HPV9 2016-10-06 00:00:00 Completed Meningococcal Polysaccharide (groups A, C, Y and W-135) conjugate vaccine (MCV4P) 2016-10-06 00:00:00 Completed TDAP 2016-10-06 00:00:00 Completed [facility] HPV 2016-10-06 00:00:00 Completed [facility] Meningococcal Vaccine 2016-10-06 00:00:00 Completed [facility] TDAP 2016-10-06 00:00:00 Completed [facility] HPV 2016-10-06 00:00:00 Completed [facility] Meningococcal Vaccine 2016-10-06 00:00:00 Completed [facility] TDAP 2016-10-06 00:00:00 Completed [facility] HPV 2016-10-06 00:00:00 Completed [facility] Meningococcal Vaccine 2016-10-06 00:00:00 Completed [facility] TDAP 2016-10-06 00:00:00 Completed [facility] HPV 2016-10-06 00:00:00 Completed [facility] Meningococcal Vaccine 2016-10-06 00:00:00 Completed [facility] TDAP 2016-10-06 00:00:00 Completed [facility] HPV 2016-10-06 00:00:00 Completed [facility] Meningococcal Vaccine 2016-10-06 00:00:00 Completed [facility] TDAP 2016-10-06 00:00:00 Completed [facility] HPV 2016-10-06 00:00:00 Completed [facility] Meningococcal Vaccine 2016-10-06 00:00:00 Completed [facility] TDAP 2016-10-06 00:00:00 Completed [facility] HPV 2016-10-06 00:00:00 Completed [facility] Meningococcal Vaccine 2016-10-06 00:00:00 Completed [facility] TDAP 2016-10-06 00:00:00 Completed [facility] HPV 2016-10-06 00:00:00 Completed [facility] Meningococcal Vaccine 2016-10-06 00:00:00 Completed [facility] TDAP 2016-10-06 00:00:00 Completed [facility] Tdap 2016-10-06 00:00:00 Completed meningococcal MCV4P 2016-10-06 00:00:00 Completed HPV9 2016-10-06 00:00:00 Completed Tdap 2016-10-06 00:00:00 Completed meningococcal MCV4P 2016-10-06 00:00:00 Completed HPV9 2016-10-06 00:00:00 Completed Influenza Virus Vaccine 2016-01-15 00:00:00 Completed [facility] Influenza Virus Vaccine 2016-01-15 00:00:00 Completed [facility] Influenza Virus Vaccine 2016-01-15 00:00:00 Completed [facility] Influenza Virus Vaccine 2016-01-15 00:00:00 Completed [facility] Influenza Virus Vaccine 2016-01-15 00:00:00 Completed [facility] Influenza Virus Vaccine 2016-01-15 00:00:00 Completed [facility] Influenza Virus Vaccine 2016-01-15 00:00:00 Completed [facility] Influenza Virus Vaccine 2016-01-15 00:00:00 Completed [facility] Influenza Virus Vaccine 2016-01-15 00:00:00 Completed [facility] Influenza Virus Vaccine 2016-01-15 00:00:00 Completed [facility] Influenza Virus Vaccine 2016-01-15 00:00:00 Completed [facility] Influenza Virus Vaccine 2016-01-15 00:00:00 Completed [facility] Influenza Virus Vaccine 2016-01-15 00:00:00 Completed [facility] Influenza Virus Vaccine 2016-01-15 00:00:00 Completed [facility] Influenza Virus Vaccine 2016-01-15 00:00:00 Completed [facility] Influenza Virus Vaccine 2016-01-15 00:00:00 Completed [facility] Influenza Virus Vaccine 2016-01-15 00:00:00 Completed [facility] Influenza Virus Vaccine 2016-01-15 00:00:00 Completed [facility] Influenza Virus Vaccine 2016-01-15 00:00:00 Completed [facility] Influenza Virus Vaccine 2016-01-15 00:00:00 Completed [facility] Influenza Virus Vaccine 2016-01-15 00:00:00 Completed [facility] Influenza Virus Vaccine 2016-01-15 00:00:00 Completed [facility] Influenza Virus Vaccine 2016-01-15 00:00:00 Completed [facility] Influenza Virus Vaccine 2016-01-15 00:00:00 Completed [facility] Influenza Virus Vaccine 2016-01-15 00:00:00 Completed [facility] Influenza Virus Vaccine 2016-01-15 00:00:00 Completed [facility] Influenza Virus Vaccine 2016-01-15 00:00:00 Completed [facility] Influenza Virus Vaccine 2016-01-15 00:00:00 Completed [facility] Influenza Virus Vaccine 2016-01-15 00:00:00 Completed [facility] Influenza Virus Vaccine 2016-01-15 00:00:00 Completed [facility] Influenza Virus Vaccine 2016-01-15 00:00:00 Completed [facility] Influenza Virus Vaccine 2016-01-15 00:00:00 Completed [facility] Influenza Virus Vaccine 2016-01-15 00:00:00 Completed [facility] Influenza Virus Vaccine 2016-01-15 00:00:00 Completed [facility] Influenza Virus Vaccine 2016-01-15 00:00:00 Completed [facility] Influenza Virus Vaccine 2016-01-15 00:00:00 Completed [facility] Influenza Virus Vaccine 2016-01-15 00:00:00 Completed [facility] Influenza Virus Vaccine 2016-01-15 00:00:00 Completed [facility] Influenza Virus Vaccine 2016-01-15 00:00:00 Completed [facility] Influenza Virus Vaccine 2016-01-15 00:00:00 Completed [facility] Influenza Virus Vaccine 2016-01-15 00:00:00 Completed [facility] Influenza Virus Vaccine 2016-01-15 00:00:00 Completed [facility] Influenza Virus Vaccine 2016-01-15 00:00:00 Completed [facility] Influenza Virus Vaccine 2016-01-15 00:00:00 Completed [facility] Influenza Virus Vaccine 2016-01-15 00:00:00 Completed Influenza Virus Vaccine - Whole 2016-01-15 00:00:00 Completed Influenza Virus Vaccine 2016-01-15 00:00:00 Completed [facility] Influenza Virus Vaccine 2016-01-15 00:00:00 Completed [facility] Influenza Virus Vaccine 2016-01-15 00:00:00 Completed [facility] Influenza Virus Vaccine 2016-01-15 00:00:00 Completed [facility] Influenza Virus Vaccine 2016-01-15 00:00:00 Completed [facility] Influenza Virus Vaccine 2016-01-15 00:00:00 Completed [facility] Influenza Virus Vaccine 2016-01-15 00:00:00 Completed [facility] Influenza Virus Vaccine 2016-01-15 00:00:00 Completed [facility] Influenza, seasonal, inj 2016-01-15 00:00:00 Completed Influenza, seasonal, inj 2016-01-15 00:00:00 Completed Influenza, seasonal, inj 2016-01-15 00:00:00 Completed Influenza, seasonal, inj 2016-01-15 00:00:00 Completed Influenza Virus Vaccine 2014-02-20 00:00:00 Completed [facility] Influenza Virus Vaccine 2014-02-20 00:00:00 Completed [facility] Influenza Virus Vaccine 2014-02-20 00:00:00 Completed [facility] Influenza Virus Vaccine 2014-02-20 00:00:00 Completed [facility] Influenza Virus Vaccine 2014-02-20 00:00:00 Completed [facility] Influenza Virus Vaccine 2014-02-20 00:00:00 Completed [facility] Influenza Virus Vaccine 2014-02-20 00:00:00 Completed [facility] Influenza Virus Vaccine 2014-02-20 00:00:00 Completed [facility] Influenza Virus Vaccine 2014-02-20 00:00:00 Completed [facility] Influenza Virus Vaccine 2014-02-20 00:00:00 Completed [facility] Influenza Virus Vaccine 2014-02-20 00:00:00 Completed [facility] Influenza Virus Vaccine 2014-02-20 00:00:00 Completed [facility] Influenza Virus Vaccine 2014-02-20 00:00:00 Completed [facility] Influenza Virus Vaccine 2014-02-20 00:00:00 Completed [facility] Influenza Virus Vaccine 2014-02-20 00:00:00 Completed [facility] Influenza Virus Vaccine 2014-02-20 00:00:00 Completed [facility] Influenza Virus Vaccine 2014-02-20 00:00:00 Completed [facility] Influenza Virus Vaccine 2014-02-20 00:00:00 Completed [facility] Influenza Virus Vaccine 2014-02-20 00:00:00 Completed [facility] Influenza Virus Vaccine 2014-02-20 00:00:00 Completed [facility] Influenza Virus Vaccine 2014-02-20 00:00:00 Completed [facility] Influenza Virus Vaccine 2014-02-20 00:00:00 Completed [facility] Influenza Virus Vaccine 2014-02-20 00:00:00 Completed [facility] Influenza Virus Vaccine 2014-02-20 00:00:00 Completed [facility] Influenza Virus Vaccine 2014-02-20 00:00:00 Completed [facility] Influenza Virus Vaccine 2014-02-20 00:00:00 Completed [facility] Influenza Virus Vaccine 2014-02-20 00:00:00 Completed [facility] Influenza Virus Vaccine 2014-02-20 00:00:00 Completed [facility] Influenza Virus Vaccine 2014-02-20 00:00:00 Completed [facility] Influenza Virus Vaccine 2014-02-20 00:00:00 Completed [facility] Influenza Virus Vaccine 2014-02-20 00:00:00 Completed [facility] Influenza Virus Vaccine 2014-02-20 00:00:00 Completed [facility] Influenza Virus Vaccine 2014-02-20 00:00:00 Completed [facility] Influenza Virus Vaccine 2014-02-20 00:00:00 Completed [facility] Influenza Virus Vaccine 2014-02-20 00:00:00 Completed [facility] Influenza Virus Vaccine 2014-02-20 00:00:00 Completed [facility] Influenza Virus Vaccine 2014-02-20 00:00:00 Completed [facility] Influenza Virus Vaccine 2014-02-20 00:00:00 Completed [facility] Influenza Virus Vaccine 2014-02-20 00:00:00 Completed [facility] Influenza Virus Vaccine 2014-02-20 00:00:00 Completed [facility] Influenza Virus Vaccine 2014-02-20 00:00:00 Completed [facility] Influenza Virus Vaccine 2014-02-20 00:00:00 Completed [facility] Influenza Virus Vaccine 2014-02-20 00:00:00 Completed [facility] Influenza Virus Vaccine 2014-02-20 00:00:00 Completed [facility] Influenza Virus Vaccine 2014-02-20 00:00:00 Completed Influenza Virus Vaccine - Whole 2014-02-20 00:00:00 Completed Influenza Virus Vaccine 2014-02-20 00:00:00 Completed [facility] Influenza Virus Vaccine 2014-02-20 00:00:00 Completed [facility] Influenza Virus Vaccine 2014-02-20 00:00:00 Completed [facility] Influenza Virus Vaccine 2014-02-20 00:00:00 Completed [facility] Influenza Virus Vaccine 2014-02-20 00:00:00 Completed [facility] Influenza Virus Vaccine 2014-02-20 00:00:00 Completed [facility] Influenza Virus Vaccine 2014-02-20 00:00:00 Completed [facility] Influenza Virus Vaccine 2014-02-20 00:00:00 Completed [facility] Influenza, seasonal, inj 2014-02-20 00:00:00 Completed Influenza, seasonal, inj 2014-02-20 00:00:00 Completed Influenza Virus Vaccine 2013-03-20 00:00:00 Completed [facility] Influenza Virus Vaccine 2013-03-20 00:00:00 Completed [facility] Influenza Virus Vaccine 2013-03-20 00:00:00 Completed [facility] Influenza Virus Vaccine 2013-03-20 00:00:00 Completed [facility] Influenza Virus Vaccine 2013-03-20 00:00:00 Completed [facility] Influenza Virus Vaccine 2013-03-20 00:00:00 Completed [facility] Influenza Virus Vaccine 2013-03-20 00:00:00 Completed [facility] Influenza Virus Vaccine 2013-03-20 00:00:00 Completed [facility] Influenza Virus Vaccine 2013-03-20 00:00:00 Completed [facility] Influenza Virus Vaccine 2013-03-20 00:00:00 Completed [facility] Influenza Virus Vaccine 2013-03-20 00:00:00 Completed [facility] Influenza Virus Vaccine 2013-03-20 00:00:00 Completed [facility] Influenza Virus Vaccine 2013-03-20 00:00:00 Completed [facility] Influenza Virus Vaccine 2013-03-20 00:00:00 Completed [facility] Influenza Virus Vaccine 2013-03-20 00:00:00 Completed [facility] Influenza Virus Vaccine 2013-03-20 00:00:00 Completed [facility] Influenza Virus Vaccine 2013-03-20 00:00:00 Completed [facility] Influenza Virus Vaccine 2013-03-20 00:00:00 Completed [facility] Influenza Virus Vaccine 2013-03-20 00:00:00 Completed [facility] Influenza Virus Vaccine 2013-03-20 00:00:00 Completed [facility] Influenza Virus Vaccine 2013-03-20 00:00:00 Completed [facility] Influenza Virus Vaccine 2013-03-20 00:00:00 Completed [facility] Influenza Virus Vaccine 2013-03-20 00:00:00 Completed [facility] Influenza Virus Vaccine 2013-03-20 00:00:00 Completed [facility] Influenza Virus Vaccine 2013-03-20 00:00:00 Completed [facility] Influenza Virus Vaccine 2013-03-20 00:00:00 Completed [facility] Influenza Virus Vaccine 2013-03-20 00:00:00 Completed [facility] Influenza Virus Vaccine 2013-03-20 00:00:00 Completed [facility] Influenza Virus Vaccine 2013-03-20 00:00:00 Completed [facility] Influenza Virus Vaccine 2013-03-20 00:00:00 Completed [facility] Influenza Virus Vaccine 2013-03-20 00:00:00 Completed [facility] Influenza Virus Vaccine 2013-03-20 00:00:00 Completed [facility] Influenza Virus Vaccine 2013-03-20 00:00:00 Completed [facility] Influenza Virus Vaccine 2013-03-20 00:00:00 Completed [facility] Influenza Virus Vaccine 2013-03-20 00:00:00 Completed [facility] Influenza Virus Vaccine 2013-03-20 00:00:00 Completed [facility] Influenza Virus Vaccine 2013-03-20 00:00:00 Completed [facility] Influenza Virus Vaccine 2013-03-20 00:00:00 Completed [facility] Influenza Virus Vaccine 2013-03-20 00:00:00 Completed [facility] Influenza Virus Vaccine 2013-03-20 00:00:00 Completed [facility] Influenza Virus Vaccine 2013-03-20 00:00:00 Completed [facility] Influenza Virus Vaccine 2013-03-20 00:00:00 Completed [facility] Influenza Virus Vaccine 2013-03-20 00:00:00 Completed [facility] Influenza Virus Vaccine 2013-03-20 00:00:00 Completed [facility] Influenza Virus Vaccine 2013-03-20 00:00:00 Completed Influenza Virus Vaccine - Whole 2013-03-20 00:00:00 Completed Influenza Virus Vaccine 2013-03-20 00:00:00 Completed [facility] Influenza Virus Vaccine 2013-03-20 00:00:00 Completed [facility] Influenza Virus Vaccine 2013-03-20 00:00:00 Completed [facility] Influenza Virus Vaccine 2013-03-20 00:00:00 Completed [facility] Influenza Virus Vaccine 2013-03-20 00:00:00 Completed [facility] Influenza Virus Vaccine 2013-03-20 00:00:00 Completed [facility] Influenza Virus Vaccine 2013-03-20 00:00:00 Completed [facility] Influenza Virus Vaccine 2013-03-20 00:00:00 Completed [facility] Influenza, seasonal, inj 2013-03-20 00:00:00 Completed Influenza, seasonal, inj 2013-03-20 00:00:00 Completed MMR 2009-12-06 00:00:00 Completed [facility] MMR 2009-12-06 00:00:00 Completed [facility] Polio (IPV/OPV) 2009-12-06 00:00:00 Completed [facility] DTP 2009-12-06 00:00:00 Completed [facility] Polio (IPV/OPV) 2009-12-06 00:00:00 Completed [facility] DTP 2009-12-06 00:00:00 Completed [facility] MMR 2009-12-06 00:00:00 Completed [facility] Polio (IPV/OPV) 2009-12-06 00:00:00 Completed [facility] DTP 2009-12-06 00:00:00 Completed [facility] MMR 2009-12-06 00:00:00 Completed [facility] Polio (IPV/OPV) 2009-12-06 00:00:00 Completed [facility] DTP 2009-12-06 00:00:00 Completed [facility] MMR 2009-12-06 00:00:00 Completed [facility] Polio (IPV/OPV) 2009-12-06 00:00:00 Completed [facility] DTP 2009-12-06 00:00:00 Completed [facility] MMR 2009-12-06 00:00:00 Completed [facility] Polio (IPV/OPV) 2009-12-06 00:00:00 Completed [facility] DTP 2009-12-06 00:00:00 Completed [facility] MMR 2009-12-06 00:00:00 Completed [facility] Polio (IPV/OPV) 2009-12-06 00:00:00 Completed [facility] DTP 2009-12-06 00:00:00 Completed [facility] MMR 2009-12-06 00:00:00 Completed [facility] Polio (IPV/OPV) 2009-12-06 00:00:00 Completed [facility] DTP 2009-12-06 00:00:00 Completed [facility] MMR 2009-12-06 00:00:00 Completed [facility] Polio (IPV/OPV) 2009-12-06 00:00:00 Completed [facility] DTP 2009-12-06 00:00:00 Completed [facility] MMR 2009-12-06 00:00:00 Completed [facility] Polio (IPV/OPV) 2009-12-06 00:00:00 Completed [facility] DTP 2009-12-06 00:00:00 Completed [facility] MMR 2009-12-06 00:00:00 Completed [facility] Polio (IPV/OPV) 2009-12-06 00:00:00 Completed [facility] DTP 2009-12-06 00:00:00 Completed [facility] MMR 2009-12-06 00:00:00 Completed [facility] Polio (IPV/OPV) 2009-12-06 00:00:00 Completed [facility] DTP 2009-12-06 00:00:00 Completed [facility] MMR 2009-12-06 00:00:00 Completed [facility] Polio (IPV/OPV) 2009-12-06 00:00:00 Completed [facility] DTP 2009-12-06 00:00:00 Completed [facility] MMR 2009-12-06 00:00:00 Completed [facility] Polio (IPV/OPV) 2009-12-06 00:00:00 Completed [facility] DTP 2009-12-06 00:00:00 Completed [facility] DTP 2009-12-06 00:00:00 Completed [facility] MMR 2009-12-06 00:00:00 Completed [facility] Polio (IPV/OPV) 2009-12-06 00:00:00 Completed [facility] DTP 2009-12-06 00:00:00 Completed [facility] MMR 2009-12-06 00:00:00 Completed [facility] Polio (IPV/OPV) 2009-12-06 00:00:00 Completed [facility] DTP 2009-12-06 00:00:00 Completed [facility] MMR 2009-12-06 00:00:00 Completed [facility] Polio (IPV/OPV) 2009-12-06 00:00:00 Completed [facility] DTP 2009-12-06 00:00:00 Completed [facility] MMR 2009-12-06 00:00:00 Completed [facility] MMR 2009-12-06 00:00:00 Completed [facility] Polio (IPV/OPV) 2009-12-06 00:00:00 Completed [facility] DTP 2009-12-06 00:00:00 Completed [facility] Polio (IPV/OPV) 2009-12-06 00:00:00 Completed [facility] MMR 2009-12-06 00:00:00 Completed [facility] Polio (IPV/OPV) 2009-12-06 00:00:00 Completed [facility] DTP 2009-12-06 00:00:00 Completed [facility] MMR 2009-12-06 00:00:00 Completed [facility] Polio (IPV/OPV) 2009-12-06 00:00:00 Completed [facility] DTP 2009-12-06 00:00:00 Completed [facility] MMR 2009-12-06 00:00:00 Completed [facility] Polio (IPV/OPV) 2009-12-06 00:00:00 Completed [facility] DTP 2009-12-06 00:00:00 Completed [facility] MMR 2009-12-06 00:00:00 Completed [facility] Polio (IPV/OPV) 2009-12-06 00:00:00 Completed [facility] DTP 2009-12-06 00:00:00 Completed [facility] MMR 2009-12-06 00:00:00 Completed [facility] Polio (IPV/OPV) 2009-12-06 00:00:00 Completed [facility] DTP 2009-12-06 00:00:00 Completed [facility] MMR 2009-12-06 00:00:00 Completed [facility] Polio (IPV/OPV) 2009-12-06 00:00:00 Completed [facility] DTP 2009-12-06 00:00:00 Completed [facility] MMR 2009-12-06 00:00:00 Completed [facility] Polio (IPV/OPV) 2009-12-06 00:00:00 Completed [facility] DTP 2009-12-06 00:00:00 Completed [facility] MMR 2009-12-06 00:00:00 Completed [facility] Polio (IPV/OPV) 2009-12-06 00:00:00 Completed [facility] DTP 2009-12-06 00:00:00 Completed [facility] MMR 2009-12-06 00:00:00 Completed [facility] Polio (IPV/OPV) 2009-12-06 00:00:00 Completed [facility] DTP 2009-12-06 00:00:00 Completed [facility] MMR 2009-12-06 00:00:00 Completed [facility] Polio (IPV/OPV) 2009-12-06 00:00:00 Completed [facility] DTP 2009-12-06 00:00:00 Completed [facility] MMR 2009-12-06 00:00:00 Completed [facility] Polio (IPV/OPV) 2009-12-06 00:00:00 Completed [facility] DTP 2009-12-06 00:00:00 Completed [facility] DTP 2009-12-06 00:00:00 Completed [facility] MMR 2009-12-06 00:00:00 Completed [facility] Polio (IPV/OPV) 2009-12-06 00:00:00 Completed [facility] DTP 2009-12-06 00:00:00 Completed [facility] MMR 2009-12-06 00:00:00 Completed [facility] Polio (IPV/OPV) 2009-12-06 00:00:00 Completed [facility] DTP 2009-12-06 00:00:00 Completed [facility] MMR 2009-12-06 00:00:00 Completed [facility] Polio (IPV/OPV) 2009-12-06 00:00:00 Completed [facility] DTP 2009-12-06 00:00:00 Completed [facility] MMR 2009-12-06 00:00:00 Completed [facility] Polio (IPV/OPV) 2009-12-06 00:00:00 Completed [facility] MMR 2009-12-06 00:00:00 Completed [facility] DTP 2009-12-06 00:00:00 Completed [facility] Polio (IPV/OPV) 2009-12-06 00:00:00 Completed [facility] MMR 2009-12-06 00:00:00 Completed [facility] Polio (IPV/OPV) 2009-12-06 00:00:00 Completed [facility] DTP 2009-12-06 00:00:00 Completed [facility] MMR 2009-12-06 00:00:00 Completed [facility] Polio (IPV/OPV) 2009-12-06 00:00:00 Completed [facility] DTP 2009-12-06 00:00:00 Completed [facility] DTP 2009-12-06 00:00:00 Completed [facility] MMR 2009-12-06 00:00:00 Completed [facility] Polio (IPV/OPV) 2009-12-06 00:00:00 Completed [facility] DTP 2009-12-06 00:00:00 Completed [facility] MMR 2009-12-06 00:00:00 Completed [facility] Polio (IPV/OPV) 2009-12-06 00:00:00 Completed [facility] DTP 2009-12-06 00:00:00 Completed [facility] MMR 2009-12-06 00:00:00 Completed [facility] MMR 2009-12-06 00:00:00 Completed [facility] Polio (IPV/OPV) 2009-12-06 00:00:00 Completed [facility] DTP 2009-12-06 00:00:00 Completed [facility] Polio (IPV/OPV) 2009-12-06 00:00:00 Completed [facility] MMR 2009-12-06 00:00:00 Completed [facility] Polio (IPV/OPV) 2009-12-06 00:00:00 Completed [facility] DTP 2009-12-06 00:00:00 Completed [facility] DTP 2009-12-06 00:00:00 Completed [facility] MMR 2009-12-06 00:00:00 Completed [facility] Polio (IPV/OPV) 2009-12-06 00:00:00 Completed [facility] DTP 2009-12-06 00:00:00 Completed [facility] DTP 2009-12-06 00:00:00 Completed MMR 2009-12-06 00:00:00 Completed [facility] Polio (IPV/OPV) 2009-12-06 00:00:00 Completed Dtap/ipv 2009-12-06 00:00:00 Completed MMR 2009-12-06 00:00:00 Completed [facility] Polio (IPV/OPV) 2009-12-06 00:00:00 Completed [facility] DTP 2009-12-06 00:00:00 Completed [facility] MMR 2009-12-06 00:00:00 Completed [facility] Polio (IPV/OPV) 2009-12-06 00:00:00 Completed [facility] DTP 2009-12-06 00:00:00 Completed [facility] MMR 2009-12-06 00:00:00 Completed [facility] Polio (IPV/OPV) 2009-12-06 00:00:00 Completed [facility] DTP 2009-12-06 00:00:00 Completed [facility] MMR 2009-12-06 00:00:00 Completed [facility] Polio (IPV/OPV) 2009-12-06 00:00:00 Completed [facility] DTP 2009-12-06 00:00:00 Completed [facility] MMR 2009-12-06 00:00:00 Completed [facility] Polio (IPV/OPV) 2009-12-06 00:00:00 Completed [facility] DTP 2009-12-06 00:00:00 Completed [facility] MMR 2009-12-06 00:00:00 Completed [facility] Polio (IPV/OPV) 2009-12-06 00:00:00 Completed [facility] DTP 2009-12-06 00:00:00 Completed [facility] MMR 2009-12-06 00:00:00 Completed [facility] DTaP-IPV 2009-12-06 00:00:00 Completed Polio (IPV/OPV) 2009-12-06 00:00:00 Completed [facility] DTP 2009-12-06 00:00:00 Completed [facility] MMR 2009-12-06 00:00:00 Completed [facility] Polio (IPV/OPV) 2009-12-06 00:00:00 Completed [facility] DTP 2009-12-06 00:00:00 Completed [facility] MMR 2009-12-06 00:00:00 Completed [facility] Polio (IPV/OPV) 2009-12-06 00:00:00 Completed [facility] MMR 2009-12-06 00:00:00 Completed DTaP-IPV 2009-12-06 00:00:00 Completed MMR 2009-12-06 00:00:00 Completed HEPATITIS A 2007-05-09 00:00:00 Completed [facility] HEPATITIS A 2007-05-09 00:00:00 Completed [facility] HEPATITIS A 2007-05-09 00:00:00 Completed [facility] HEPATITIS A 2007-05-09 00:00:00 Completed [facility] HEPATITIS A 2007-05-09 00:00:00 Completed [facility] HEPATITIS A 2007-05-09 00:00:00 Completed [facility] HEPATITIS A 2007-05-09 00:00:00 Completed [facility] HEPATITIS A 2007-05-09 00:00:00 Completed [facility] HEPATITIS A 2007-05-09 00:00:00 Completed [facility] HEPATITIS A 2007-05-09 00:00:00 Completed [facility] HEPATITIS A 2007-05-09 00:00:00 Completed [facility] HEPATITIS A 2007-05-09 00:00:00 Completed [facility] HEPATITIS A 2007-05-09 00:00:00 Completed [facility] HEPATITIS A 2007-05-09 00:00:00 Completed [facility] HEPATITIS A 2007-05-09 00:00:00 Completed [facility] HEPATITIS A 2007-05-09 00:00:00 Completed [facility] HEPATITIS A 2007-05-09 00:00:00 Completed [facility] HEPATITIS A 2007-05-09 00:00:00 Completed [facility] HEPATITIS A 2007-05-09 00:00:00 Completed [facility] HEPATITIS A 2007-05-09 00:00:00 Completed [facility] HEPATITIS A 2007-05-09 00:00:00 Completed [facility] HEPATITIS A 2007-05-09 00:00:00 Completed [facility] HEPATITIS A 2007-05-09 00:00:00 Completed [facility] HEPATITIS A 2007-05-09 00:00:00 Completed [facility] HEPATITIS A 2007-05-09 00:00:00 Completed [facility] HEPATITIS A 2007-05-09 00:00:00 Completed [facility] HEPATITIS A 2007-05-09 00:00:00 Completed [facility] HEPATITIS A 2007-05-09 00:00:00 Completed [facility] HEPATITIS A 2007-05-09 00:00:00 Completed [facility] HEPATITIS A 2007-05-09 00:00:00 Completed [facility] HEPATITIS A 2007-05-09 00:00:00 Completed [facility] HEPATITIS A 2007-05-09 00:00:00 Completed [facility] HEPATITIS A 2007-05-09 00:00:00 Completed [facility] Hep A, ped/adol, 2 dose 2007-05-09 00:00:00 Completed HEPATITIS A 2007-05-09 00:00:00 Completed [facility] HEPATITIS A 2007-05-09 00:00:00 Completed [facility] HEPATITIS A 2007-05-09 00:00:00 Completed [facility] HEPATITIS A 2007-05-09 00:00:00 Completed [facility] HEPATITIS A 2007-05-09 00:00:00 Completed [facility] HEPATITIS A 2007-05-09 00:00:00 Completed [facility] HEPATITIS A 2007-05-09 00:00:00 Completed [facility] HEPATITIS A 2007-05-09 00:00:00 Completed [facility] HEPATITIS A 2007-05-09 00:00:00 Completed [facility] HEPATITIS A 2007-05-09 00:00:00 Completed [facility] Hep A, ped/adol, 2 dose 2007-05-09 00:00:00 Completed HEPATITIS A 2007-05-09 00:00:00 Completed [facility] HEPATITIS A 2007-05-09 00:00:00 Completed [facility] HEPATITIS A 2007-05-09 00:00:00 Completed [facility] HEPATITIS A 2007-05-09 00:00:00 Completed [facility] HEPATITIS A 2007-05-09 00:00:00 Completed [facility] HEPATITIS A 2007-05-09 00:00:00 Completed [facility] HEPATITIS A 2007-05-09 00:00:00 Completed [facility] HEPATITIS A 2007-05-09 00:00:00 Completed [facility] HEPATITIS A 2007-05-09 00:00:00 Completed [facility] HEPATITIS A 2007-05-09 00:00:00 Completed [facility] DTaP 2006-07-23 00:00:00 Completed MMR 2006-07-23 00:00:00 Completed [facility] HIB 4 Dose Schedule 2006-07-23 00:00:00 Completed [facility] MMR 2006-07-23 00:00:00 Completed [facility] Varicella (varivax)(chicken pox) 2006-07-23 00:00:00 Completed [facility] Pneumococcal 7 Conjugate, PCV7 (Prevnar7) 2006-07-23 00:00:00 [facility] [facility] D[facility] 2006-07-23 00:00:00 Completed [facility] HEPATITIS A 2006-07-23 00:00:00 Completed [facility] HIB 4 Dose Schedule 2006-07-23 00:00:00 Completed [facility] Varicella (varivax)(chicken pox) 2006-07-23 00:00:00 Completed [facility] Pneumococcal 7 Conjugate, PCV7 (Prevnar7) 2006-07-23 00:00:00 Completed [facility] Hep A, ped/adol, 2 dose 2006-07-23 00:00:00 Completed DTP 2006-07-23 00:00:00 Completed [facility] HEPATITIS A 2006-07-23 00:00:00 Completed [facility] HIB 4 Dose Schedule 2006-07-23 00:00:00 Completed [facility] MMR 2006-07-23 00:00:00 Completed [facility] Varicella (varivax)(chicken pox) 2006-07-23 00:00:00 Completed [facility] Pneumococcal 7 Conjugate, PCV7 (Prevnar7) 2006-07-23 00:00:00 Completed [facility] DTP 2006-07-23 00:00:00 Completed [facility] HEPATITIS A 2006-07-23 00:00:00 Completed [facility] HIB 4 Dose Schedule 2006-07-23 00:00:00 Completed [facility] MMR 2006-07-23 00:00:00 Completed [facility] Hib (PRP-OMP) 2006-07-23 00:00:00 Completed Varicella (varivax)(chicken pox) 2006-07-23 00:00:00 Completed [facility] Pneumococcal 7 Conjugate, PCV7 (Prevnar7) 2006-07-23 00:00:00 Completed [facility] DTP 2006-07-23 00:00:00 Completed [facility] HEPATITIS A 2006-07-23 00:00:00 Completed [facility] HIB 4 Dose Schedule 2006-07-23 00:00:00 Completed [facility] MMR 2006-07-23 00:00:00 Completed [facility] Varicella (varivax)(chicken pox) 2006-07-23 00:00:00 Completed [facility] Pneumococcal 7 Conjugate, PCV7 (Prevnar7) 2006-07-23 00:00:00 Completed [facility] DTP 2006-07-23 00:00:00 Completed [facility] HEPATITIS A 2006-07-23 00:00:00 Completed [facility] MMRV 2006-07-23 00:00:00 Completed HIB 4 Dose Schedule 2006-07-23 00:00:00 Completed [facility] MMR 2006-07-23 00:00:00 Completed [facility] Varicella (varivax)(chicken pox) 2006-07-23 00:00:00 Completed [facility] Pneumococcal 7 Conjugate, PCV7 (Prevnar7) 2006-07-23 00:00:00 Completed [facility] DTP 2006-07-23 00:00:00 Completed [facility] HEPATITIS A 2006-07-23 00:00:00 Completed [facility] HIB 4 Dose Schedule 2006-07-23 00:00:00 Completed [facility] MMR 2006-07-23 00:00:00 Completed [facility] Varicella (varivax)(chicken pox) 2006-07-23 00:00:00 Completed [facility] Pneumococcal 7 Conjugate, PCV7 (Prevnar7) 2006-07-23 00:00:00 Completed [facility] Pneumococcal conjugate P 2006-07-23 00:00:00 Completed DTP 2006-07-23 00:00:00 Completed [facility] HEPATITIS A 2006-07-23 00:00:00 Completed [facility] HIB 4 Dose Schedule 2006-07-23 00:00:00 Completed [facility] MMR 2006-07-23 00:00:00 Completed [facility] Varicella (varivax)(chicken pox) 2006-07-23 00:00:00 Completed [facility] Pneumococcal 7 Conjugate, PCV7 (Prevnar7) 2006-07-23 00:00:00 Completed [facility] DTP 2006-07-23 00:00:00 Completed [facility] HEPATITIS A 2006-07-23 00:00:00 Completed [facility] HIB 4 Dose Schedule 2006-07-23 00:00:00 Completed [facility] MMR 2006-07-23 00:00:00 Completed [facility] DTaP 2006-07-23 00:00:00 Completed Varicella (varivax)(chicken pox) 2006-07-23 00:00:00 Completed [facility] Pneumococcal 7 Conjugate, PCV7 (Prevnar7) 2006-07-23 00:00:00 Completed [facility] DTP 2006-07-23 00:00:00 Completed [facility] HEPATITIS A 2006-07-23 00:00:00 Completed [facility] HIB 4 Dose Schedule 2006-07-23 00:00:00 Completed [facility] MMR 2006-07-23 00:00:00 Completed [facility] Varicella (varivax)(chicken pox) 2006-07-23 00:00:00 Completed [facility] Pneumococcal 7 Conjugate, PCV7 (Prevnar7) 2006-07-23 00:00:00 Completed [facility] DTP 2006-07-23 00:00:00 Completed [facility] HEPATITIS A 2006-07-23 00:00:00 Completed [facility] Hep A, ped/adol, 2 dose 2006-07-23 00:00:00 Completed HIB 4 Dose Schedule 2006-07-23 00:00:00 Completed [facility] MMR 2006-07-23 00:00:00 Completed [facility] Varicella (varivax)(chicken pox) 2006-07-23 00:00:00 Completed [facility] Pneumococcal 7 Conjugate, PCV7 (Prevnar7) 2006-07-23 00:00:00 Completed [facility] DTP 2006-07-23 00:00:00 Completed [facility] HEPATITIS A 2006-07-23 00:00:00 Completed [facility] HIB 4 Dose Schedule 2006-07-23 00:00:00 Completed [facility] MMR 2006-07-23 00:00:00 Completed [facility] Varicella (varivax)(chicken pox) 2006-07-23 00:00:00 Completed [facility] Pneumococcal 7 Conjugate, PCV7 (Prevnar7) 2006-07-23 00:00:00 Completed [facility] Hib (PRP-OMP) 2006-07-23 00:00:00 Completed DTP 2006-07-23 00:00:00 Completed [facility] HEPATITIS A 2006-07-23 00:00:00 Completed [facility] HIB 4 Dose Schedule 2006-07-23 00:00:00 Completed [facility] MMR 2006-07-23 00:00:00 Completed [facility] Varicella (varivax)(chicken pox) 2006-07-23 00:00:00 Completed [facility] Pneumococcal 7 Conjugate, PCV7 (Prevnar7) 2006-07-23 00:00:00 Completed [facility] DTP 2006-07-23 00:00:00 Completed [facility] HEPATITIS A 2006-07-23 00:00:00 Completed [facility] HIB 4 Dose Schedule 2006-07-23 00:00:00 Completed [facility] MMR 2006-07-23 00:00:00 Completed [facility] MMRV 2006-07-23 00:00:00 Completed Varicella (varivax)(chicken pox) 2006-07-23 00:00:00 Completed [facility] Pneumococcal 7 Conjugate, PCV7 (Prevnar7) 2006-07-23 00:00:00 Completed [facility] DTP 2006-07-23 00:00:00 Completed [facility] DTP 2006-07-23 00:00:00 Completed [facility] HEPATITIS A 2006-07-23 00:00:00 Completed [facility] HEPATITIS A 2006-07-23 00:00:00 Completed [facility] HIB 4 Dose Schedule 2006-07-23 00:00:00 Completed [facility] MMR 2006-07-23 00:00:00 Completed [facility] Varicella (varivax)(chicken pox) 2006-07-23 00:00:00 Completed [facility] Pneumococcal 7 Conjugate, PCV7 (Prevnar7) 2006-07-23 00:00:00 Completed [facility] Pneumococcal conjugate P 2006-07-23 00:00:00 Completed DTP 2006-07-23 00:00:00 Completed [facility] HEPATITIS A 2006-07-23 00:00:00 Completed [facility] HIB 4 Dose Schedule 2006-07-23 00:00:00 Completed [facility] MMR 2006-07-23 00:00:00 Completed [facility] Varicella (varivax)(chicken pox) 2006-07-23 00:00:00 Completed [facility] HIB 4 Dose Schedule 2006-07-23 00:00:00 Completed [facility] Pneumococcal 7 Conjugate, PCV7 (Prevnar7) 2006-07-23 00:00:00 Completed [facility] DTP 2006-07-23 00:00:00 Completed [facility] HEPATITIS A 2006-07-23 00:00:00 Completed [facility] HIB 4 Dose Schedule 2006-07-23 00:00:00 Completed [facility] MMR 2006-07-23 00:00:00 Completed [facility] Varicella (varivax)(chicken pox) 2006-07-23 00:00:00 Completed [facility] Pneumococcal 7 Conjugate, PCV7 (Prevnar7) 2006-07-23 00:00:00 Completed [facility] DTP 2006-07-23 00:00:00 Completed [facility] HEPATITIS A 2006-07-23 00:00:00 Completed [facility] HIB 4 Dose Schedule 2006-07-23 00:00:00 Completed [facility] MMR 2006-07-23 00:00:00 Completed [facility] MMR 2006-07-23 00:00:00 Completed [facility] Varicella (varivax)(chicken pox) 2006-07-23 00:00:00 Completed [facility] Pneumococcal 7 Conjugate, PCV7 (Prevnar7) 2006-07-23 00:00:00 Completed [facility] DTP 2006-07-23 00:00:00 Completed [facility] HEPATITIS A 2006-07-23 00:00:00 Completed [facility] HIB 4 Dose Schedule 2006-07-23 00:00:00 Completed [facility] MMR 2006-07-23 00:00:00 Completed [facility] Varicella (varivax)(chicken pox) 2006-07-23 00:00:00 Completed [facility] Pneumococcal 7 Conjugate, PCV7 (Prevnar7) 2006-07-23 00:00:00 Completed [facility] Varicella (varivax)(chicken pox) 2006-07-23 00:00:00 Completed [facility] DTP 2006-07-23 00:00:00 Completed [facility] HEPATITIS A 2006-07-23 00:00:00 Completed [facility] HIB 4 Dose Schedule 2006-07-23 00:00:00 Completed [facility] MMR 2006-07-23 00:00:00 Completed [facility] Varicella (varivax)(chicken pox) 2006-07-23 00:00:00 Completed [facility] Pneumococcal 7 Conjugate, PCV7 (Prevnar7) 2006-07-23 00:00:00 Completed [facility] Pneumococcal 7 Conjugate, PCV7 (Prevnar7) 2006-07-23 00:00:00 Completed [facility] DTP 2006-07-23 00:00:00 Completed [facility] HEPATITIS A 2006-07-23 00:00:00 Completed [facility] HIB 4 Dose Schedule 2006-07-23 00:00:00 Completed [facility] MMR 2006-07-23 00:00:00 Completed [facility] Varicella (varivax)(chicken pox) 2006-07-23 00:00:00 Completed [facility] Pneumococcal 7 Conjugate, PCV7 (Prevnar7) 2006-07-23 00:00:00 Completed [facility] DTP 2006-07-23 00:00:00 Completed [facility] HEPATITIS A 2006-07-23 00:00:00 Completed [facility] HIB 4 Dose Schedule 2006-07-23 00:00:00 Completed [facility] MMR 2006-07-23 00:00:00 Completed [facility] Varicella (varivax)(chicken pox) 2006-07-23 00:00:00 Completed [facility] Pneumococcal 7 Conjugate, PCV7 (Prevnar7) 2006-07-23 00:00:00 Completed [facility] DTP 2006-07-23 00:00:00 Completed [facility] HEPATITIS A 2006-07-23 00:00:00 Completed [facility] HIB 4 Dose Schedule 2006-07-23 00:00:00 Completed [facility] MMR 2006-07-23 00:00:00 Completed [facility] Varicella (varivax)(chicken pox) 2006-07-23 00:00:00 Completed [facility] Pneumococcal 7 Conjugate, PCV7 (Prevnar7) 2006-07-23 00:00:00 Completed [facility] DTP 2006-07-23 00:00:00 Completed [facility] HEPATITIS A 2006-07-23 00:00:00 Completed [facility] HIB 4 Dose Schedule 2006-07-23 00:00:00 Completed [facility] MMR 2006-07-23 00:00:00 Completed [facility] Varicella (varivax)(chicken pox) 2006-07-23 00:00:00 Completed [facility] Pneumococcal 7 Conjugate, PCV7 (Prevnar7) 2006-07-23 00:00:00 Completed [facility] DTP 2006-07-23 00:00:00 Completed [facility] HEPATITIS A 2006-07-23 00:00:00 Completed [facility] HIB 4 Dose Schedule 2006-07-23 00:00:00 Completed [facility] MMR 2006-07-23 00:00:00 Completed [facility] Varicella (varivax)(chicken pox) 2006-07-23 00:00:00 Completed [facility] Pneumococcal 7 Conjugate, PCV7 (Prevnar7) 2006-07-23 00:00:00 Completed [facility] DTP 2006-07-23 00:00:00 Completed [facility] HEPATITIS A 2006-07-23 00:00:00 Completed [facility] HIB 4 Dose Schedule 2006-07-23 00:00:00 Completed [facility] MMR 2006-07-23 00:00:00 Completed [facility] Varicella (varivax)(chicken pox) 2006-07-23 00:00:00 Completed [facility] Pneumococcal 7 Conjugate, PCV7 (Prevnar7) 2006-07-23 00:00:00 Completed [facility] DTP 2006-07-23 00:00:00 Completed [facility] HEPATITIS A 2006-07-23 00:00:00 Completed [facility] HIB 4 Dose Schedule 2006-07-23 00:00:00 Completed [facility] MMR 2006-07-23 00:00:00 Completed [facility] Varicella (varivax)(chicken pox) 2006-07-23 00:00:00 Completed [facility] Pneumococcal 7 Conjugate, PCV7 (Prevnar7) 2006-07-23 00:00:00 Completed [facility] DTP 2006-07-23 00:00:00 Completed [facility] HEPATITIS A 2006-07-23 00:00:00 Completed [facility] HIB 4 Dose Schedule 2006-07-23 00:00:00 Completed [facility] MMR 2006-07-23 00:00:00 Completed [facility] Varicella (varivax)(chicken pox) 2006-07-23 00:00:00 Completed [facility] Pneumococcal 7 Conjugate, PCV7 (Prevnar7) 2006-07-23 00:00:00 Completed [facility] DTP 2006-07-23 00:00:00 Completed [facility] HEPATITIS A 2006-07-23 00:00:00 Completed [facility] HIB 4 Dose Schedule 2006-07-23 00:00:00 Completed [facility] MMR 2006-07-23 00:00:00 Completed [facility] Varicella (varivax)(chicken pox) 2006-07-23 00:00:00 Completed [facility] Pneumococcal 7 Conjugate, PCV7 (Prevnar7) 2006-07-23 00:00:00 Completed [facility] DTP 2006-07-23 00:00:00 Completed [facility] HEPATITIS A 2006-07-23 00:00:00 Completed [facility] DTP 2006-07-23 00:00:00 Completed [facility] HIB 4 Dose Schedule 2006-07-23 00:00:00 Completed [facility] MMR 2006-07-23 00:00:00 Completed [facility] HEPATITIS A 2006-07-23 00:00:00 Completed [facility] Varicella (varivax)(chicken pox) 2006-07-23 00:00:00 Completed [facility] Pneumococcal 7 Conjugate, PCV7 (Prevnar7) 2006-07-23 00:00:00 Completed [facility] DTP 2006-07-23 00:00:00 Completed [facility] HEPATITIS A 2006-07-23 00:00:00 Completed [facility] HIB 4 Dose Schedule 2006-07-23 00:00:00 Completed [facility] MMR 2006-07-23 00:00:00 Completed [facility] Varicella (varivax)(chicken pox) 2006-07-23 00:00:00 Completed [facility] Pneumococcal 7 Conjugate, PCV7 (Prevnar7) 2006-07-23 00:00:00 Completed [facility] HIB 4 Dose Schedule 2006-07-23 00:00:00 Completed [facility] DTP 2006-07-23 00:00:00 Completed [facility] HEPATITIS A 2006-07-23 00:00:00 Completed [facility] HIB 4 Dose Schedule 2006-07-23 00:00:00 Completed [facility] MMR 2006-07-23 00:00:00 Completed [facility] Varicella (varivax)(chicken pox) 2006-07-23 00:00:00 Completed [facility] Pneumococcal 7 Conjugate, PCV7 (Prevnar7) 2006-07-23 00:00:00 Completed [facility] DTP 2006-07-23 00:00:00 Completed [facility] HEPATITIS A 2006-07-23 00:00:00 Completed [facility] HIB 4 Dose Schedule 2006-07-23 00:00:00 Completed [facility] MMR 2006-07-23 00:00:00 Completed [facility] MMR 2006-07-23 00:00:00 Completed [facility] Varicella (varivax)(chicken pox) 2006-07-23 00:00:00 Completed [facility] Pneumococcal 7 Conjugate, PCV7 (Prevnar7) 2006-07-23 00:00:00 Completed [facility] DTP 2006-07-23 00:00:00 Completed [facility] HEPATITIS A 2006-07-23 00:00:00 Completed [facility] HIB 4 Dose Schedule 2006-07-23 00:00:00 Completed [facility] MMR 2006-07-23 00:00:00 Completed [facility] Varicella (varivax)(chicken pox) 2006-07-23 00:00:00 Completed [facility] Pneumococcal 7 Conjugate, PCV7 (Prevnar7) 2006-07-23 00:00:00 Completed [facility] Varicella (varivax)(chicken pox) 2006-07-23 00:00:00 Completed [facility] Pneumococcal 7 Conjugate, PCV7 (Prevnar7) 2006-07-23 00:00:00 Completed [facility] DTP 2006-07-23 00:00:00 Completed [facility] HEPATITIS A 2006-07-23 00:00:00 Completed [facility] HIB 4 Dose Schedule 2006-07-23 00:00:00 Completed [facility] MMR 2006-07-23 00:00:00 Completed [facility] Varicella (varivax)(chicken pox) 2006-07-23 00:00:00 Completed [facility] Pneumococcal 7 Conjugate, PCV7 (Prevnar7) 2006-07-23 00:00:00 Completed [facility] DTP 2006-07-23 00:00:00 Completed [facility] DTP 2006-07-23 00:00:00 Completed [facility] HEPATITIS A 2006-07-23 00:00:00 Completed [facility] HIB 4 Dose Schedule 2006-07-23 00:00:00 Completed [facility] MMR 2006-07-23 00:00:00 Completed [facility] HEPATITIS A 2006-07-23 00:00:00 Completed [facility] Varicella (varivax)(chicken pox) 2006-07-23 00:00:00 Completed [facility] Pneumococcal 7 Conjugate, PCV7 (Prevnar7) 2006-07-23 00:00:00 Completed [facility] HIB 4 Dose Schedule 2006-07-23 00:00:00 Completed [facility] DTP 2006-07-23 00:00:00 Completed [facility] HEPATITIS A 2006-07-23 00:00:00 Completed [facility] HIB 4 Dose Schedule 2006-07-23 00:00:00 Completed [facility] MMR 2006-07-23 00:00:00 Completed [facility] Varicella (varivax)(chicken pox) 2006-07-23 00:00:00 Completed [facility] Pneumococcal 7 Conjugate, PCV7 (Prevnar7) 2006-07-23 00:00:00 Completed [facility] DTP 2006-07-23 00:00:00 Completed [facility] HEPATITIS A 2006-07-23 00:00:00 Completed [facility] HIB 4 Dose Schedule 2006-07-23 00:00:00 Completed [facility] MMR 2006-07-23 00:00:00 Completed [facility] MMR 2006-07-23 00:00:00 Completed [facility] Varicella (varivax)(chicken pox) 2006-07-23 00:00:00 Completed [facility] Pneumococcal 7 Conjugate, PCV7 (Prevnar7) 2006-07-23 00:00:00 Completed [facility] DTP 2006-07-23 00:00:00 Completed [facility] HEPATITIS A 2006-07-23 00:00:00 Completed [facility] HIB 4 Dose Schedule 2006-07-23 00:00:00 Completed [facility] MMR 2006-07-23 00:00:00 Completed [facility] Varicella (varivax)(chicken pox) 2006-07-23 00:00:00 Completed [facility] Pneumococcal 7 Conjugate, PCV7 (Prevnar7) 2006-07-23 00:00:00 Completed [facility] Varicella (varivax)(chicken pox) 2006-07-23 00:00:00 Completed [facility] Pneumococcal 7 Conjugate, PCV7 (Prevnar7) 2006-07-23 00:00:00 Completed [facility] DTP 2006-07-23 00:00:00 Completed [facility] HEPATITIS A 2006-07-23 00:00:00 Completed [facility] DTP 2006-07-23 00:00:00 Completed [facility] HEPATITIS A 2006-07-23 00:00:00 Completed [facility] HIB 4 Dose Schedule 2006-07-23 00:00:00 Completed [facility] MMR 2006-07-23 00:00:00 Completed [facility] Varicella (varivax)(chicken pox) 2006-07-23 00:00:00 Completed [facility] Pneumococcal 7 Conjugate, PCV7 (Prevnar7) 2006-07-23 00:00:00 Completed [facility] DTP 2006-07-23 00:00:00 Completed [facility] HEPATITIS A 2006-07-23 00:00:00 Completed [facility] HIB 4 Dose Schedule 2006-07-23 00:00:00 Completed [facility] DTP 2006-07-23 00:00:00 Completed HEPATITIS A 2006-07-23 00:00:00 Completed [facility] HIB 4 Dose Schedule 2006-07-23 00:00:00 Completed MMR 2006-07-23 00:00:00 Completed Varicella (varivax)(chicken pox) 2006-07-23 00:00:00 Completed Pneumococcal 7 Conjugate, PCV7 (Prevnar7) 2006-07-23 00:00:00 Completed [facility] DTaP, Unspecified Formulation 2006-07-23 00:00:00 Completed [facility] Hib-HbOC 2006-07-23 00:00:00 Completed MMR 2006-07-23 00:00:00 Completed [facility] Proquad (MMR/VARICELLA) 2006-07-23 00:00:00 Completed Varicella (varivax)(chicken pox) 2006-07-23 00:00:00 Completed [facility] Pneumococcal 7 Conjugate, PCV7 (Prevnar7) 2006-07-23 00:00:00 Completed [facility] DTP 2006-07-23 00:00:00 Completed [facility] HEPATITIS A 2006-07-23 00:00:00 Completed [facility] HIB 4 Dose Schedule 2006-07-23 00:00:00 Completed [facility] MMR 2006-07-23 00:00:00 Completed [facility] Varicella (varivax)(chicken pox) 2006-07-23 00:00:00 Completed [facility] Pneumococcal 7 Conjugate, PCV7 (Prevnar7) 2006-07-23 00:00:00 Completed [facility] DTP 2006-07-23 00:00:00 Completed [facility] HEPATITIS A 2006-07-23 00:00:00 Completed [facility] HIB 4 Dose Schedule 2006-07-23 00:00:00 Completed [facility] MMR 2006-07-23 00:00:00 Completed [facility] Varicella (varivax)(chicken pox) 2006-07-23 00:00:00 Completed [facility] Pneumococcal 7 Conjugate, PCV7 (Prevnar7) 2006-07-23 00:00:00 Completed [facility] DTP 2006-07-23 00:00:00 Completed [facility] HEPATITIS A 2006-07-23 00:00:00 Completed [facility] HIB 4 Dose Schedule 2006-07-23 00:00:00 Completed [facility] MMR 2006-07-23 00:00:00 Completed [facility] Varicella (varivax)(chicken pox) 2006-07-23 00:00:00 Completed [facility] Pneumococcal 7 Conjugate, PCV7 (Prevnar7) 2006-07-23 00:00:00 Completed [facility] DTP 2006-07-23 00:00:00 Completed [facility] HEPATITIS A 2006-07-23 00:00:00 Completed [facility] HIB 4 Dose Schedule 2006-07-23 00:00:00 Completed [facility] MMR 2006-07-23 00:00:00 Completed [facility] Varicella (varivax)(chicken pox) 2006-07-23 00:00:00 Completed [facility] Pneumococcal 7 Conjugate, PCV7 (Prevnar7) 2006-07-23 00:00:00 Completed [facility] DTP 2006-07-23 00:00:00 Completed [facility] HEPATITIS A 2006-07-23 00:00:00 Completed [facility] HIB 4 Dose Schedule 2006-07-23 00:00:00 Completed [facility] MMR 2006-07-23 00:00:00 Completed [facility] Varicella (varivax)(chicken pox) 2006-07-23 00:00:00 Completed [facility] Pneumococcal 7 Conjugate, PCV7 (Prevnar7) 2006-07-23 00:00:00 Completed [facility] DTP 2006-07-23 00:00:00 Completed [facility] HEPATITIS A 2006-07-23 00:00:00 Completed [facility] HIB 4 Dose Schedule 2006-07-23 00:00:00 Completed [facility] MMR 2006-07-23 00:00:00 Completed [facility] Varicella (varivax)(chicken pox) 2006-07-23 00:00:00 Completed [facility] Pneumococcal 7 Conjugate, PCV7 (Prevnar7) 2006-07-23 00:00:00 Completed [facility] DTP 2006-07-23 00:00:00 Completed [facility] HEPATITIS A 2006-07-23 00:00:00 Completed [facility] HIB 4 Dose Schedule 2006-07-23 00:00:00 Completed [facility] MMR 2006-07-23 00:00:00 Completed [facility] Varicella (varivax)(chicken pox) 2006-07-23 00:00:00 Completed [facility] Pneumococcal 7 Conjugate, PCV7 (Prevnar7) 2006-07-23 00:00:00 Completed [facility] DTP 2006-07-23 00:00:00 Completed [facility] HEPATITIS A 2006-07-23 00:00:00 Completed [facility] HIB 4 Dose Schedule 2006-07-23 00:00:00 Completed [facility] MMR 2006-07-23 00:00:00 Completed [facility] Varicella (varivax)(chicken pox) 2006-07-23 00:00:00 Completed [facility] Pneumococcal 7 Conjugate, PCV7 (Prevnar7) 2006-07-23 00:00:00 Completed [facility] Pneumococcal conjugate P 2005-12-18 00:00:00 Completed varicella 2005-12-18 00:00:00 Completed Pneumococcal conjugate P 2005-12-18 00:00:00 Completed varicella 2005-12-18 00:00:00 Completed Varicella (varivax)(chicken pox) 2005-12-18 00:00:00 Completed [facility] Pneumococcal 7 Conjugate, PCV7 (Prevnar7) 2005-12-18 00:00:00 Completed [facility] Varicella (varivax)(chicken pox) 2005-12-18 00:00:00 Completed [facility] Pneumococcal 7 Conjugate, PCV7 (Prevnar7) 2005-12-18 00:00:00 Completed [facility] Varicella (varivax)(chicken pox) 2005-12-18 00:00:00 Completed [facility] Pneumococcal 7 Conjugate, PCV7 (Prevnar7) 2005-12-18 00:00:00 Completed [facility] Varicella (varivax)(chicken pox) 2005-12-18 00:00:00 Completed [facility] Pneumococcal 7 Conjugate, PCV7 (Prevnar7) 2005-12-18 00:00:00 Completed [facility] Varicella (varivax)(chicken pox) 2005-12-18 00:00:00 Completed [facility] Pneumococcal 7 Conjugate, PCV7 (Prevnar7) 2005-12-18 00:00:00 Completed [facility] Varicella (varivax)(chicken pox) 2005-12-18 00:00:00 Completed [facility] Pneumococcal 7 Conjugate, PCV7 (Prevnar7) 2005-12-18 00:00:00 Completed [facility] Varicella (varivax)(chicken pox) 2005-12-18 00:00:00 Completed [facility] Pneumococcal 7 Conjugate, PCV7 (Prevnar7) 2005-12-18 00:00:00 Completed [facility] Varicella (varivax)(chicken pox) 2005-12-18 00:00:00 Completed [facility] Pneumococcal 7 Conjugate, PCV7 (Prevnar7) 2005-12-18 00:00:00 Completed [facility] Varicella (varivax)(chicken pox) 2005-12-18 00:00:00 Completed [facility] Pneumococcal 7 Conjugate, PCV7 (Prevnar7) 2005-12-18 00:00:00 Completed [facility] Varicella (varivax)(chicken pox) 2005-12-18 00:00:00 Completed [facility] Pneumococcal 7 Conjugate, PCV7 (Prevnar7) 2005-12-18 00:00:00 Completed [facility] Varicella (varivax)(chicken pox) 2005-12-18 00:00:00 Completed [facility] Pneumococcal 7 Conjugate, PCV7 (Prevnar7) 2005-12-18 00:00:00 Completed [facility] Varicella (varivax)(chicken pox) 2005-12-18 00:00:00 Completed [facility] Pneumococcal 7 Conjugate, PCV7 (Prevnar7) 2005-12-18 00:00:00 Completed [facility] Varicella (varivax)(chicken pox) 2005-12-18 00:00:00 Completed [facility] Pneumococcal 7 Conjugate, PCV7 (Prevnar7) 2005-12-18 00:00:00 Completed [facility] Varicella (varivax)(chicken pox) 2005-12-18 00:00:00 Completed [facility] Pneumococcal 7 Conjugate, PCV7 (Prevnar7) 2005-12-18 00:00:00 Completed [facility] Varicella (varivax)(chicken pox) 2005-12-18 00:00:00 Completed [facility] Pneumococcal 7 Conjugate, PCV7 (Prevnar7) 2005-12-18 00:00:00 Completed [facility] Varicella (varivax)(chicken pox) 2005-12-18 00:00:00 Completed [facility] Pneumococcal 7 Conjugate, PCV7 (Prevnar7) 2005-12-18 00:00:00 Completed [facility] Varicella (varivax)(chicken pox) 2005-12-18 00:00:00 Completed [facility] Pneumococcal 7 Conjugate, PCV7 (Prevnar7) 2005-12-18 00:00:00 Completed [facility] Varicella (varivax)(chicken pox) 2005-12-18 00:00:00 Completed [facility] Pneumococcal 7 Conjugate, PCV7 (Prevnar7) 2005-12-18 00:00:00 Completed [facility] Varicella (varivax)(chicken pox) 2005-12-18 00:00:00 Completed [facility] Varicella (varivax)(chicken pox) 2005-12-18 00:00:00 Completed [facility] Pneumococcal 7 Conjugate, PCV7 (Prevnar7) 2005-12-18 00:00:00 Completed [facility] Pneumococcal 7 Conjugate, PCV7 (Prevnar7) 2005-12-18 00:00:00 Completed [facility] Varicella (varivax)(chicken pox) 2005-12-18 00:00:00 Completed [facility] Pneumococcal 7 Conjugate, PCV7 (Prevnar7) 2005-12-18 00:00:00 Completed [facility] Varicella (varivax)(chicken pox) 2005-12-18 00:00:00 Completed [facility] Pneumococcal 7 Conjugate, PCV7 (Prevnar7) 2005-12-18 00:00:00 Completed [facility] Varicella (varivax)(chicken pox) 2005-12-18 00:00:00 Completed [facility] Pneumococcal 7 Conjugate, PCV7 (Prevnar7) 2005-12-18 00:00:00 Completed [facility] Varicella (varivax)(chicken pox) 2005-12-18 00:00:00 Completed [facility] Pneumococcal 7 Conjugate, PCV7 (Prevnar7) 2005-12-18 00:00:00 Completed [facility] Varicella (varivax)(chicken pox) 2005-12-18 00:00:00 Completed [facility] Pneumococcal 7 Conjugate, PCV7 (Prevnar7) 2005-12-18 00:00:00 Completed [facility] Varicella (varivax)(chicken pox) 2005-12-18 00:00:00 Completed [facility] Pneumococcal 7 Conjugate, PCV7 (Prevnar7) 2005-12-18 00:00:00 Completed [facility] Varicella (varivax)(chicken pox) 2005-12-18 00:00:00 Completed [facility] Pneumococcal 7 Conjugate, PCV7 (Prevnar7) 2005-12-18 00:00:00 Completed [facility] Varicella (varivax)(chicken pox) 2005-12-18 00:00:00 Completed [facility] Pneumococcal 7 Conjugate, PCV7 (Prevnar7) 2005-12-18 00:00:00 Completed [facility] Varicella (varivax)(chicken pox) 2005-12-18 00:00:00 Completed [facility] Pneumococcal 7 Conjugate, PCV7 (Prevnar7) 2005-12-18 00:00:00 Completed [facility] Varicella (varivax)(chicken pox) 2005-12-18 00:00:00 Completed [facility] Pneumococcal 7 Conjugate, PCV7 (Prevnar7) 2005-12-18 00:00:00 Completed [facility] Varicella (varivax)(chicken pox) 2005-12-18 00:00:00 Completed [facility] Pneumococcal 7 Conjugate, PCV7 (Prevnar7) 2005-12-18 00:00:00 Completed [facility] Varicella (varivax)(chicken pox) 2005-12-18 00:00:00 Completed [facility] Pneumococcal 7 Conjugate, PCV7 (Prevnar7) 2005-12-18 00:00:00 Completed [facility] Varicella (varivax)(chicken pox) 2005-12-18 00:00:00 Completed [facility] Pneumococcal 7 Conjugate, PCV7 (Prevnar7) 2005-12-18 00:00:00 Completed [facility] Varicella (varivax)(chicken pox) 2005-12-18 00:00:00 Completed [facility] Pneumococcal 7 Conjugate, PCV7 (Prevnar7) 2005-12-18 00:00:00 Completed [facility] Varicella (varivax)(chicken pox) 2005-12-18 00:00:00 Completed [facility] Varicella (varivax)(chicken pox) 2005-12-18 00:00:00 Completed [facility] Pneumococcal 7 Conjugate, PCV7 (Prevnar7) 2005-12-18 00:00:00 Completed [facility] Pneumococcal 7 Conjugate, PCV7 (Prevnar7) 2005-12-18 00:00:00 Completed [facility] Varicella (varivax)(chicken pox) 2005-12-18 00:00:00 Completed [facility] Pneumococcal 7 Conjugate, PCV7 (Prevnar7) 2005-12-18 00:00:00 Completed [facility] Varicella (varivax)(chicken pox) 2005-12-18 00:00:00 Completed [facility] Pneumococcal 7 Conjugate, PCV7 (Prevnar7) 2005-12-18 00:00:00 Completed [facility] Varicella (varivax)(chicken pox) 2005-12-18 00:00:00 Completed [facility] Pneumococcal 7 Conjugate, PCV7 (Prevnar7) 2005-12-18 00:00:00 Completed [facility] Varicella (varivax)(chicken pox) 2005-12-18 00:00:00 Completed [facility] Pneumococcal 7 Conjugate, PCV7 (Prevnar7) 2005-12-18 00:00:00 Completed [facility] Varicella (varivax)(chicken pox) 2005-12-18 00:00:00 Completed [facility] Varicella (varivax)(chicken pox) 2005-12-18 00:00:00 Completed [facility] Pneumococcal 7 Conjugate, PCV7 (Prevnar7) 2005-12-18 00:00:00 Completed [facility] Pneumococcal 7 Conjugate, PCV7 (Prevnar7) 2005-12-18 00:00:00 Completed [facility] Varicella (varivax)(chicken pox) 2005-12-18 00:00:00 Completed [facility] Pneumococcal 7 Conjugate, PCV7 (Prevnar7) 2005-12-18 00:00:00 Completed [facility] Varicella (varivax)(chicken pox) 2005-12-18 00:00:00 Completed Pneumococcal 7 Conjugate, PCV7 (Prevnar7) 2005-12-18 00:00:00 Completed Pneumococcal 13 Conjugate, PCV13 (Prevnar 13) 2005-12-18 00:00:00 Completed Varicella (varivax)(chicken pox) 2005-12-18 00:00:00 Completed [facility] Pneumococcal 7 Conjugate, PCV7 (Prevnar7) 2005-12-18 00:00:00 Completed [facility] Varicella (varivax)(chicken pox) 2005-12-18 00:00:00 Completed [facility] Pneumococcal 7 Conjugate, PCV7 (Prevnar7) 2005-12-18 00:00:00 Completed [facility] Varicella (varivax)(chicken pox) 2005-12-18 00:00:00 Completed [facility] Pneumococcal 7 Conjugate, PCV7 (Prevnar7) 2005-12-18 00:00:00 Completed [facility] Varicella (varivax)(chicken pox) 2005-12-18 00:00:00 Completed [facility] Pneumococcal 7 Conjugate, PCV7 (Prevnar7) 2005-12-18 00:00:00 Completed [facility] Varicella (varivax)(chicken pox) 2005-12-18 00:00:00 Completed [facility] Pneumococcal 7 Conjugate, PCV7 (Prevnar7) 2005-12-18 00:00:00 Completed [facility] Varicella (varivax)(chicken pox) 2005-12-18 00:00:00 Completed [facility] Pneumococcal 7 Conjugate, PCV7 (Prevnar7) 2005-12-18 00:00:00 Completed [facility] Varicella (varivax)(chicken pox) 2005-12-18 00:00:00 Completed [facility] Pneumococcal 7 Conjugate, PCV7 (Prevnar7) 2005-12-18 00:00:00 Completed [facility] Varicella (varivax)(chicken pox) 2005-12-18 00:00:00 Completed [facility] Pneumococcal 7 Conjugate, PCV7 (Prevnar7) 2005-12-18 00:00:00 Completed [facility] Varicella (varivax)(chicken pox) 2005-12-18 00:00:00 Completed [facility] Pneumococcal 7 Conjugate, PCV7 (Prevnar7) 2005-12-18 00:00:00 Completed [facility] DTaP-Hep B-IPV 2005-07-22 00:00:00 Completed Hib (PRP-OMP) 2005-07-22 00:00:00 Completed Pneumococcal conjugate P 2005-07-22 00:00:00 Completed DTaP-Hep B-IPV 2005-07-22 00:00:00 Completed Hib (PRP-OMP) 2005-07-22 00:00:00 Completed Pneumococcal conjugate P 2005-07-22 00:00:00 Completed HIB 4 Dose Schedule 2005-07-22 00:00:00 Completed [facility] Hep B, Adol or Pedi Dosage 2005-07-22 00:00:00 Completed [facility] Polio (IPV/OPV) 2005-07-22 00:00:00 Completed [facility] Pneumococcal 7 Conjugate, PCV7 (Prevnar7) 2005-07-22 00:00:00 Completed [facility] DTP 2005-07-22 00:00:00 Completed [facility] Polio (IPV/OPV) 2005-07-22 00:00:00 Completed [facility] HIB 4 Dose Schedule 2005-07-22 00:00:00 Completed [facility] Hep B, Adol or Pedi Dosage 2005-07-22 00:00:00 Completed [facility] Pneumococcal 7 Conjugate, PCV7 (Prevnar7) 2005-07-22 00:00:00 Completed [facility] DTP 2005-07-22 00:00:00 Completed [facility] HIB 4 Dose Schedule 2005-07-22 00:00:00 Completed [facility] Hep B, Adol or Pedi Dosage 2005-07-22 00:00:00 Completed [facility] Polio (IPV/OPV) 2005-07-22 00:00:00 Completed [facility] Pneumococcal 7 Conjugate, PCV7 (Prevnar7) 2005-07-22 00:00:00 Completed [facility] DTP 2005-07-22 00:00:00 Completed [facility] HIB 4 Dose Schedule 2005-07-22 00:00:00 Completed [facility] Hep B, Adol or Pedi Dosage 2005-07-22 00:00:00 Completed [facility] Polio (IPV/OPV) 2005-07-22 00:00:00 Completed [facility] Pneumococcal 7 Conjugate, PCV7 (Prevnar7) 2005-07-22 00:00:00 Completed [facility] DTP 2005-07-22 00:00:00 Completed [facility] HIB 4 Dose Schedule 2005-07-22 00:00:00 Completed [facility] Hep B, Adol or Pedi Dosage 2005-07-22 00:00:00 Completed [facility] Polio (IPV/OPV) 2005-07-22 00:00:00 Completed [facility] Pneumococcal 7 Conjugate, PCV7 (Prevnar7) 2005-07-22 00:00:00 Completed [facility] DTP 2005-07-22 00:00:00 Completed [facility] HIB 4 Dose Schedule 2005-07-22 00:00:00 Completed [facility] Hep B, Adol or Pedi Dosage 2005-07-22 00:00:00 Completed [facility] Polio (IPV/OPV) 2005-07-22 00:00:00 Completed [facility] Pneumococcal 7 Conjugate, PCV7 (Prevnar7) 2005-07-22 00:00:00 Completed [facility] DTP 2005-07-22 00:00:00 Completed [facility] HIB 4 Dose Schedule 2005-07-22 00:00:00 Completed [facility] Hep B, Adol or Pedi Dosage 2005-07-22 00:00:00 Completed [facility] Polio (IPV/OPV) 2005-07-22 00:00:00 Completed [facility] Pneumococcal 7 Conjugate, PCV7 (Prevnar7) 2005-07-22 00:00:00 Completed [facility] DTP 2005-07-22 00:00:00 Completed [facility] HIB 4 Dose Schedule 2005-07-22 00:00:00 Completed [facility] Hep B, Adol or Pedi Dosage 2005-07-22 00:00:00 Completed [facility] Polio (IPV/OPV) 2005-07-22 00:00:00 Completed [facility] Pneumococcal 7 Conjugate, PCV7 (Prevnar7) 2005-07-22 00:00:00 Completed [facility] DTP 2005-07-22 00:00:00 Completed [facility] HIB 4 Dose Schedule 2005-07-22 00:00:00 Completed [facility] Hep B, Adol or Pedi Dosage 2005-07-22 00:00:00 Completed [facility] Polio (IPV/OPV) 2005-07-22 00:00:00 Completed [facility] Pneumococcal 7 Conjugate, PCV7 (Prevnar7) 2005-07-22 00:00:00 Completed [facility] DTP 2005-07-22 00:00:00 Completed [facility] HIB 4 Dose Schedule 2005-07-22 00:00:00 Completed [facility] Hep B, Adol or Pedi Dosage 2005-07-22 00:00:00 Completed [facility] Polio (IPV/OPV) 2005-07-22 00:00:00 Completed [facility] Pneumococcal 7 Conjugate, PCV7 (Prevnar7) 2005-07-22 00:00:00 Completed [facility] DTP 2005-07-22 00:00:00 Completed [facility] HIB 4 Dose Schedule 2005-07-22 00:00:00 Completed [facility] Hep B, Adol or Pedi Dosage 2005-07-22 00:00:00 Completed [facility] Polio (IPV/OPV) 2005-07-22 00:00:00 Completed [facility] Pneumococcal 7 Conjugate, PCV7 (Prevnar7) 2005-07-22 00:00:00 Completed [facility] DTP 2005-07-22 00:00:00 Completed [facility] HIB 4 Dose Schedule 2005-07-22 00:00:00 Completed [facility] Hep B, Adol or Pedi Dosage 2005-07-22 00:00:00 Completed [facility] Polio (IPV/OPV) 2005-07-22 00:00:00 Completed [facility] Pneumococcal 7 Conjugate, PCV7 (Prevnar7) 2005-07-22 00:00:00 Completed [facility] DTP 2005-07-22 00:00:00 Completed [facility] HIB 4 Dose Schedule 2005-07-22 00:00:00 Completed [facility] Hep B, Adol or Pedi Dosage 2005-07-22 00:00:00 Completed [facility] Polio (IPV/OPV) 2005-07-22 00:00:00 Completed [facility] Pneumococcal 7 Conjugate, PCV7 (Prevnar7) 2005-07-22 00:00:00 Completed [facility] DTP 2005-07-22 00:00:00 Completed [facility] HIB 4 Dose Schedule 2005-07-22 00:00:00 Completed [facility] Hep B, Adol or Pedi Dosage 2005-07-22 00:00:00 Completed [facility] Polio (IPV/OPV) 2005-07-22 00:00:00 Completed [facility] Pneumococcal 7 Conjugate, PCV7 (Prevnar7) 2005-07-22 00:00:00 Completed [facility] DTP 2005-07-22 00:00:00 Completed [facility] DTP 2005-07-22 00:00:00 Completed [facility] HIB 4 Dose Schedule 2005-07-22 00:00:00 Completed [facility] Hep B, Adol or Pedi Dosage 2005-07-22 00:00:00 Completed [facility] Polio (IPV/OPV) 2005-07-22 00:00:00 Completed [facility] Pneumococcal 7 Conjugate, PCV7 (Prevnar7) 2005-07-22 00:00:00 Completed [facility] DTP 2005-07-22 00:00:00 Completed [facility] HIB 4 Dose Schedule 2005-07-22 00:00:00 Completed [facility] Hep B, Adol or Pedi Dosage 2005-07-22 00:00:00 Completed [facility] HIB 4 Dose Schedule 2005-07-22 00:00:00 Completed [facility] Polio (IPV/OPV) 2005-07-22 00:00:00 Completed [facility] Pneumococcal 7 Conjugate, PCV7 (Prevnar7) 2005-07-22 00:00:00 Completed [facility] Hep B, Adol or Pedi Dosage 2005-07-22 00:00:00 Completed [facility] DTP 2005-07-22 00:00:00 Completed [facility] HIB 4 Dose Schedule 2005-07-22 00:00:00 Completed [facility] Hep B, Adol or Pedi Dosage 2005-07-22 00:00:00 Completed [facility] Polio (IPV/OPV) 2005-07-22 00:00:00 Completed [facility] Pneumococcal 7 Conjugate, PCV7 (Prevnar7) 2005-07-22 00:00:00 Completed [facility] DTP 2005-07-22 00:00:00 Completed [facility] HIB 4 Dose Schedule 2005-07-22 00:00:00 Completed [facility] Hep B, Adol or Pedi Dosage 2005-07-22 00:00:00 Completed [facility] Polio (IPV/OPV) 2005-07-22 00:00:00 Completed [facility] Pneumococcal 7 Conjugate, PCV7 (Prevnar7) 2005-07-22 00:00:00 Completed [facility] Polio (IPV/OPV) 2005-07-22 00:00:00 Completed [facility] DTP 2005-07-22 00:00:00 Completed [facility] HIB 4 Dose Schedule 2005-07-22 00:00:00 Completed [facility] Hep B, Adol or Pedi Dosage 2005-07-22 00:00:00 Completed [facility] Polio (IPV/OPV) 2005-07-22 00:00:00 Completed [facility] Pneumococcal 7 Conjugate, PCV7 (Prevnar7) 2005-07-22 00:00:00 Completed [facility] DTP 2005-07-22 00:00:00 Completed [facility] Pneumococcal 7 Conjugate, PCV7 (Prevnar7) 2005-07-22 00:00:00 Completed [facility] HIB 4 Dose Schedule 2005-07-22 00:00:00 Completed [facility] Hep B, Adol or Pedi Dosage 2005-07-22 00:00:00 Completed [facility] Polio (IPV/OPV) 2005-07-22 00:00:00 Completed [facility] Pneumococcal 7 Conjugate, PCV7 (Prevnar7) 2005-07-22 00:00:00 Completed [facility] DTP 2005-07-22 00:00:00 Completed [facility] HIB 4 Dose Schedule 2005-07-22 00:00:00 Completed [facility] Hep B, Adol or Pedi Dosage 2005-07-22 00:00:00 Completed [facility] Polio (IPV/OPV) 2005-07-22 00:00:00 Completed [facility] Pneumococcal 7 Conjugate, PCV7 (Prevnar7) 2005-07-22 00:00:00 Completed [facility] DTP 2005-07-22 00:00:00 Completed [facility] HIB 4 Dose Schedule 2005-07-22 00:00:00 Completed [facility] Hep B, Adol or Pedi Dosage 2005-07-22 00:00:00 Completed [facility] Polio (IPV/OPV) 2005-07-22 00:00:00 Completed [facility] Pneumococcal 7 Conjugate, PCV7 (Prevnar7) 2005-07-22 00:00:00 Completed [facility] DTP 2005-07-22 00:00:00 Completed [facility] HIB 4 Dose Schedule 2005-07-22 00:00:00 Completed [facility] Hep B, Adol or Pedi Dosage 2005-07-22 00:00:00 Completed [facility] Polio (IPV/OPV) 2005-07-22 00:00:00 Completed [facility] Pneumococcal 7 Conjugate, PCV7 (Prevnar7) 2005-07-22 00:00:00 Completed [facility] DTP 2005-07-22 00:00:00 Completed [facility] HIB 4 Dose Schedule 2005-07-22 00:00:00 Completed [facility] Hep B, Adol or Pedi Dosage 2005-07-22 00:00:00 Completed [facility] Polio (IPV/OPV) 2005-07-22 00:00:00 Completed [facility] Pneumococcal 7 Conjugate, PCV7 (Prevnar7) 2005-07-22 00:00:00 Completed [facility] DTP 2005-07-22 00:00:00 Completed [facility] HIB 4 Dose Schedule 2005-07-22 00:00:00 Completed [facility] Hep B, Adol or Pedi Dosage 2005-07-22 00:00:00 Completed [facility] Polio (IPV/OPV) 2005-07-22 00:00:00 Completed [facility] Pneumococcal 7 Conjugate, PCV7 (Prevnar7) 2005-07-22 00:00:00 Completed [facility] DTP 2005-07-22 00:00:00 Completed [facility] HIB 4 Dose Schedule 2005-07-22 00:00:00 Completed [facility] Hep B, Adol or Pedi Dosage 2005-07-22 00:00:00 Completed [facility] Polio (IPV/OPV) 2005-07-22 00:00:00 Completed [facility] Pneumococcal 7 Conjugate, PCV7 (Prevnar7) 2005-07-22 00:00:00 Completed [facility] DTP 2005-07-22 00:00:00 Completed [facility] HIB 4 Dose Schedule 2005-07-22 00:00:00 Completed [facility] Hep B, Adol or Pedi Dosage 2005-07-22 00:00:00 Completed [facility] Polio (IPV/OPV) 2005-07-22 00:00:00 Completed [facility] Pneumococcal 7 Conjugate, PCV7 (Prevnar7) 2005-07-22 00:00:00 Completed [facility] DTP 2005-07-22 00:00:00 Completed [facility] HIB 4 Dose Schedule 2005-07-22 00:00:00 Completed [facility] Hep B, Adol or Pedi Dosage 2005-07-22 00:00:00 Completed [facility] Polio (IPV/OPV) 2005-07-22 00:00:00 Completed [facility] Pneumococcal 7 Conjugate, PCV7 (Prevnar7) 2005-07-22 00:00:00 Completed [facility] DTP 2005-07-22 00:00:00 Completed [facility] HIB 4 Dose Schedule 2005-07-22 00:00:00 Completed [facility] Hep B, Adol or Pedi Dosage 2005-07-22 00:00:00 Completed [facility] Polio (IPV/OPV) 2005-07-22 00:00:00 Completed [facility] Pneumococcal 7 Conjugate, PCV7 (Prevnar7) 2005-07-22 00:00:00 Completed [facility] DTP 2005-07-22 00:00:00 Completed [facility] DTP 2005-07-22 00:00:00 Completed [facility] HIB 4 Dose Schedule 2005-07-22 00:00:00 Completed [facility] Hep B, Adol or Pedi Dosage 2005-07-22 00:00:00 Completed [facility] Polio (IPV/OPV) 2005-07-22 00:00:00 Completed [facility] Pneumococcal 7 Conjugate, PCV7 (Prevnar7) 2005-07-22 00:00:00 Completed [facility] DTP 2005-07-22 00:00:00 Completed [facility] HIB 4 Dose Schedule 2005-07-22 00:00:00 Completed [facility] Hep B, Adol or Pedi Dosage 2005-07-22 00:00:00 Completed [facility] Polio (IPV/OPV) 2005-07-22 00:00:00 Completed [facility] Pneumococcal 7 Conjugate, PCV7 (Prevnar7) 2005-07-22 00:00:00 Completed [facility] HIB 4 Dose Schedule 2005-07-22 00:00:00 Completed [facility] Hep B, Adol or Pedi Dosage 2005-07-22 00:00:00 Completed [facility] DTP 2005-07-22 00:00:00 Completed [facility] HIB 4 Dose Schedule 2005-07-22 00:00:00 Completed [facility] Hep B, Adol or Pedi Dosage 2005-07-22 00:00:00 Completed [facility] Polio (IPV/OPV) 2005-07-22 00:00:00 Completed [facility] Pneumococcal 7 Conjugate, PCV7 (Prevnar7) 2005-07-22 00:00:00 Completed [facility] DTP 2005-07-22 00:00:00 Completed [facility] HIB 4 Dose Schedule 2005-07-22 00:00:00 Completed [facility] Hep B, Adol or Pedi Dosage 2005-07-22 00:00:00 Completed [facility] Polio (IPV/OPV) 2005-07-22 00:00:00 Completed [facility] Pneumococcal 7 Conjugate, PCV7 (Prevnar7) 2005-07-22 00:00:00 Completed [facility] Polio (IPV/OPV) 2005-07-22 00:00:00 Completed [facility] DTP 2005-07-22 00:00:00 Completed [facility] HIB 4 Dose Schedule 2005-07-22 00:00:00 Completed [facility] Hep B, Adol or Pedi Dosage 2005-07-22 00:00:00 Completed [facility] Polio (IPV/OPV) 2005-07-22 00:00:00 Completed [facility] Pneumococcal 7 Conjugate, PCV7 (Prevnar7) 2005-07-22 00:00:00 Completed [facility] Pneumococcal 7 Conjugate, PCV7 (Prevnar7) 2005-07-22 00:00:00 Completed [facility] DTP 2005-07-22 00:00:00 Completed [facility] HIB 4 Dose Schedule 2005-07-22 00:00:00 Completed [facility] Hep B, Adol or Pedi Dosage 2005-07-22 00:00:00 Completed [facility] Polio (IPV/OPV) 2005-07-22 00:00:00 Completed [facility] Pneumococcal 7 Conjugate, PCV7 (Prevnar7) 2005-07-22 00:00:00 Completed [facility] DTP 2005-07-22 00:00:00 Completed [facility] DTP 2005-07-22 00:00:00 Completed [facility] HIB 4 Dose Schedule 2005-07-22 00:00:00 Completed [facility] Hep B, Adol or Pedi Dosage 2005-07-22 00:00:00 Completed [facility] Polio (IPV/OPV) 2005-07-22 00:00:00 Completed [facility] Pneumococcal 7 Conjugate, PCV7 (Prevnar7) 2005-07-22 00:00:00 Completed [facility] HIB 4 Dose Schedule 2005-07-22 00:00:00 Completed [facility] Hep B, Adol or Pedi Dosage 2005-07-22 00:00:00 Completed [facility] DTP 2005-07-22 00:00:00 Completed [facility] HIB 4 Dose Schedule 2005-07-22 00:00:00 Completed [facility] Hep B, Adol or Pedi Dosage 2005-07-22 00:00:00 Completed [facility] Polio (IPV/OPV) 2005-07-22 00:00:00 Completed [facility] Pneumococcal 7 Conjugate, PCV7 (Prevnar7) 2005-07-22 00:00:00 Completed [facility] DTP 2005-07-22 00:00:00 Completed [facility] HIB 4 Dose Schedule 2005-07-22 00:00:00 Completed [facility] Hep B, Adol or Pedi Dosage 2005-07-22 00:00:00 Completed [facility] Polio (IPV/OPV) 2005-07-22 00:00:00 Completed [facility] Pneumococcal 7 Conjugate, PCV7 (Prevnar7) 2005-07-22 00:00:00 Completed [facility] Polio (IPV/OPV) 2005-07-22 00:00:00 Completed [facility] DTP 2005-07-22 00:00:00 Completed [facility] HIB 4 Dose Schedule 2005-07-22 00:00:00 Completed [facility] Hep B, Adol or Pedi Dosage 2005-07-22 00:00:00 Completed [facility] Polio (IPV/OPV) 2005-07-22 00:00:00 Completed [facility] Pneumococcal 7 Conjugate, PCV7 (Prevnar7) 2005-07-22 00:00:00 Completed [facility] DTP 2005-07-22 00:00:00 Completed [facility] Pneumococcal 7 Conjugate, PCV7 (Prevnar7) 2005-07-22 00:00:00 Completed [facility] DTP 2005-07-22 00:00:00 Completed [facility] HIB 4 Dose Schedule 2005-07-22 00:00:00 Completed [facility] Hep B, Adol or Pedi Dosage 2005-07-22 00:00:00 Completed [facility] Polio (IPV/OPV) 2005-07-22 00:00:00 Completed [facility] Pneumococcal 7 Conjugate, PCV7 (Prevnar7) 2005-07-22 00:00:00 Completed [facility] DTP 2005-07-22 00:00:00 Completed [facility] HIB 4 Dose Schedule 2005-07-22 00:00:00 Completed [facility] Hep B, Adol or Pedi Dosage 2005-07-22 00:00:00 Completed [facility] DTP 2005-07-22 00:00:00 Completed HIB 4 Dose Schedule 2005-07-22 00:00:00 Completed [facility] Hep B, Adol or Pedi Dosage 2005-07-22 00:00:00 Completed Polio (IPV/OPV) 2005-07-22 00:00:00 Completed Pneumococcal 7 Conjugate, PCV7 (Prevnar7) 2005-07-22 00:00:00 Completed [facility] Pediarix (dtap/hep B/ipv) 2005-07-22 00:00:00 Completed Polio (IPV/OPV) 2005-07-22 00:00:00 Completed [facility] Pneumococcal 7 Conjugate, PCV7 (Prevnar7) 2005-07-22 00:00:00 Completed [facility] DTP 2005-07-22 00:00:00 Completed [facility] HIB 4 Dose Schedule 2005-07-22 00:00:00 Completed [facility] Hep B, Adol or Pedi Dosage 2005-07-22 00:00:00 Completed [facility] Polio (IPV/OPV) 2005-07-22 00:00:00 Completed [facility] Pneumococcal 7 Conjugate, PCV7 (Prevnar7) 2005-07-22 00:00:00 Completed [facility] DTP 2005-07-22 00:00:00 Completed [facility] HIB 4 Dose Schedule 2005-07-22 00:00:00 Completed [facility] Hep B, Adol or Pedi Dosage 2005-07-22 00:00:00 Completed [facility] Polio (IPV/OPV) 2005-07-22 00:00:00 Completed [facility] Pneumococcal 7 Conjugate, PCV7 (Prevnar7) 2005-07-22 00:00:00 Completed [facility] DTP 2005-07-22 00:00:00 Completed [facility] HIB 4 Dose Schedule 2005-07-22 00:00:00 Completed [facility] Hep B, Adol or Pedi Dosage 2005-07-22 00:00:00 Completed [facility] Polio (IPV/OPV) 2005-07-22 00:00:00 Completed [facility] Pneumococcal 7 Conjugate, PCV7 (Prevnar7) 2005-07-22 00:00:00 Completed [facility] DTP 2005-07-22 00:00:00 Completed [facility] HIB 4 Dose Schedule 2005-07-22 00:00:00 Completed [facility] Hep B, Adol or Pedi Dosage 2005-07-22 00:00:00 Completed [facility] Polio (IPV/OPV) 2005-07-22 00:00:00 Completed [facility] Pneumococcal 7 Conjugate, PCV7 (Prevnar7) 2005-07-22 00:00:00 Completed [facility] DTP 2005-07-22 00:00:00 Completed [facility] HIB 4 Dose Schedule 2005-07-22 00:00:00 Completed [facility] Hep B, Adol or Pedi Dosage 2005-07-22 00:00:00 Completed [facility] Polio (IPV/OPV) 2005-07-22 00:00:00 Completed [facility] Pneumococcal 7 Conjugate, PCV7 (Prevnar7) 2005-07-22 00:00:00 Completed [facility] DTP 2005-07-22 00:00:00 Completed [facility] HIB 4 Dose Schedule 2005-07-22 00:00:00 Completed [facility] Hep B, Adol or Pedi Dosage 2005-07-22 00:00:00 Completed [facility] Polio (IPV/OPV) 2005-07-22 00:00:00 Completed [facility] Pneumococcal 7 Conjugate, PCV7 (Prevnar7) 2005-07-22 00:00:00 Completed [facility] DTP 2005-07-22 00:00:00 Completed [facility] HIB 4 Dose Schedule 2005-07-22 00:00:00 Completed [facility] Hep B, Adol or Pedi Dosage 2005-07-22 00:00:00 Completed [facility] Polio (IPV/OPV) 2005-07-22 00:00:00 Completed [facility] Pneumococcal 7 Conjugate, PCV7 (Prevnar7) 2005-07-22 00:00:00 Completed [facility] DTP 2005-07-22 00:00:00 Completed [facility] HIB 4 Dose Schedule 2005-07-22 00:00:00 Completed [facility] Hep B, Adol or Pedi Dosage 2005-07-22 00:00:00 Completed [facility] Polio (IPV/OPV) 2005-07-22 00:00:00 Completed [facility] Pneumococcal 7 Conjugate, PCV7 (Prevnar7) 2005-07-22 00:00:00 Completed [facility] DTaP-Hep B-IPV 2005-04-22 00:00:00 Completed Hib (PRP-OMP) 2005-04-22 00:00:00 Completed Pneumococcal conjugate P 2005-04-22 00:00:00 Completed DTaP-Hep B-IPV 2005-04-22 00:00:00 Completed Hib (PRP-OMP) 2005-04-22 00:00:00 Completed Pneumococcal conjugate P 2005-04-22 00:00:00 Completed HIB 4 Dose Schedule 2005-04-22 00:00:00 Completed [facility] Polio (IPV/OPV) 2005-04-22 00:00:00 Completed [facility] Pneumococcal 7 Conjugate, PCV7 (Prevnar7) 2005-04-22 00:00:00 Completed [facility] Polio (IPV/OPV) 2005-04-22 00:00:00 Completed [facility] DTP 2005-04-22 00:00:00 Completed [facility] Hep B, Adol or Pedi Dosage 2005-04-22 00:00:00 Completed [facility] HIB 4 Dose Schedule 2005-04-22 00:00:00 Completed [facility] Pneumococcal 7 Conjugate, PCV7 (Prevnar7) 2005-04-22 00:00:00 Completed [facility] DTP 2005-04-22 00:00:00 Completed [facility] Hep B, Adol or Pedi Dosage 2005-04-22 00:00:00 Completed [facility] HIB 4 Dose Schedule 2005-04-22 00:00:00 Completed [facility] Polio (IPV/OPV) 2005-04-22 00:00:00 Completed [facility] Pneumococcal 7 Conjugate, PCV7 (Prevnar7) 2005-04-22 00:00:00 Completed [facility] DTP 2005-04-22 00:00:00 Completed [facility] Hep B, Adol or Pedi Dosage 2005-04-22 00:00:00 Completed [facility] HIB 4 Dose Schedule 2005-04-22 00:00:00 Completed [facility] Polio (IPV/OPV) 2005-04-22 00:00:00 Completed [facility] Pneumococcal 7 Conjugate, PCV7 (Prevnar7) 2005-04-22 00:00:00 Completed [facility] DTP 2005-04-22 00:00:00 Completed [facility] Hep B, Adol or Pedi Dosage 2005-04-22 00:00:00 Completed [facility] HIB 4 Dose Schedule 2005-04-22 00:00:00 Completed [facility] Polio (IPV/OPV) 2005-04-22 00:00:00 Completed [facility] Pneumococcal 7 Conjugate, PCV7 (Prevnar7) 2005-04-22 00:00:00 Completed [facility] DTP 2005-04-22 00:00:00 Completed [facility] Hep B, Adol or Pedi Dosage 2005-04-22 00:00:00 Completed [facility] HIB 4 Dose Schedule 2005-04-22 00:00:00 Completed [facility] Polio (IPV/OPV) 2005-04-22 00:00:00 Completed [facility] Pneumococcal 7 Conjugate, PCV7 (Prevnar7) 2005-04-22 00:00:00 Completed [facility] DTP 2005-04-22 00:00:00 Completed [facility] Hep B, Adol or Pedi Dosage 2005-04-22 00:00:00 Completed [facility] HIB 4 Dose Schedule 2005-04-22 00:00:00 Completed [facility] Polio (IPV/OPV) 2005-04-22 00:00:00 Completed [facility] Pneumococcal 7 Conjugate, PCV7 (Prevnar7) 2005-04-22 00:00:00 Completed [facility] DTP 2005-04-22 00:00:00 Completed [facility] Hep B, Adol or Pedi Dosage 2005-04-22 00:00:00 Completed [facility] HIB 4 Dose Schedule 2005-04-22 00:00:00 Completed [facility] Polio (IPV/OPV) 2005-04-22 00:00:00 Completed [facility] Pneumococcal 7 Conjugate, PCV7 (Prevnar7) 2005-04-22 00:00:00 Completed [facility] DTP 2005-04-22 00:00:00 Completed [facility] Hep B, Adol or Pedi Dosage 2005-04-22 00:00:00 Completed [facility] HIB 4 Dose Schedule 2005-04-22 00:00:00 Completed [facility] Polio (IPV/OPV) 2005-04-22 00:00:00 Completed [facility] Pneumococcal 7 Conjugate, PCV7 (Prevnar7) 2005-04-22 00:00:00 Completed [facility] DTP 2005-04-22 00:00:00 Completed [facility] Hep B, Adol or Pedi Dosage 2005-04-22 00:00:00 Completed [facility] HIB 4 Dose Schedule 2005-04-22 00:00:00 Completed [facility] Polio (IPV/OPV) 2005-04-22 00:00:00 Completed [facility] Pneumococcal 7 Conjugate, PCV7 (Prevnar7) 2005-04-22 00:00:00 Completed [facility] DTP 2005-04-22 00:00:00 Completed [facility] Hep B, Adol or Pedi Dosage 2005-04-22 00:00:00 Completed [facility] HIB 4 Dose Schedule 2005-04-22 00:00:00 Completed [facility] Polio (IPV/OPV) 2005-04-22 00:00:00 Completed [facility] Pneumococcal 7 Conjugate, PCV7 (Prevnar7) 2005-04-22 00:00:00 Completed [facility] DTP 2005-04-22 00:00:00 Completed [facility] Hep B, Adol or Pedi Dosage 2005-04-22 00:00:00 Completed [facility] HIB 4 Dose Schedule 2005-04-22 00:00:00 Completed [facility] Polio (IPV/OPV) 2005-04-22 00:00:00 Completed [facility] Pneumococcal 7 Conjugate, PCV7 (Prevnar7) 2005-04-22 00:00:00 Completed [facility] DTP 2005-04-22 00:00:00 Completed [facility] Hep B, Adol or Pedi Dosage 2005-04-22 00:00:00 Completed [facility] HIB 4 Dose Schedule 2005-04-22 00:00:00 Completed [facility] Polio (IPV/OPV) 2005-04-22 00:00:00 Completed [facility] Pneumococcal 7 Conjugate, PCV7 (Prevnar7) 2005-04-22 00:00:00 Completed [facility] DTP 2005-04-22 00:00:00 Completed [facility] Hep B, Adol or Pedi Dosage 2005-04-22 00:00:00 Completed [facility] HIB 4 Dose Schedule 2005-04-22 00:00:00 Completed [facility] Polio (IPV/OPV) 2005-04-22 00:00:00 Completed [facility] DTP 2005-04-22 00:00:00 Completed [facility] Pneumococcal 7 Conjugate, PCV7 (Prevnar7) 2005-04-22 00:00:00 Completed [facility] DTP 2005-04-22 00:00:00 Completed [facility] Hep B, Adol or Pedi Dosage 2005-04-22 00:00:00 Completed [facility] HIB 4 Dose Schedule 2005-04-22 00:00:00 Completed [facility] Polio (IPV/OPV) 2005-04-22 00:00:00 Completed [facility] Pneumococcal 7 Conjugate, PCV7 (Prevnar7) 2005-04-22 00:00:00 Completed [facility] Hep B, Adol or Pedi Dosage 2005-04-22 00:00:00 Completed [facility] DTP 2005-04-22 00:00:00 Completed [facility] Hep B, Adol or Pedi Dosage 2005-04-22 00:00:00 Completed [facility] HIB 4 Dose Schedule 2005-04-22 00:00:00 Completed [facility] HIB 4 Dose Schedule 2005-04-22 00:00:00 Completed [facility] Polio (IPV/OPV) 2005-04-22 00:00:00 Completed [facility] Pneumococcal 7 Conjugate, PCV7 (Prevnar7) 2005-04-22 00:00:00 Completed [facility] DTP 2005-04-22 00:00:00 Completed [facility] Hep B, Adol or Pedi Dosage 2005-04-22 00:00:00 Completed [facility] HIB 4 Dose Schedule 2005-04-22 00:00:00 Completed [facility] Polio (IPV/OPV) 2005-04-22 00:00:00 Completed [facility] Pneumococcal 7 Conjugate, PCV7 (Prevnar7) 2005-04-22 00:00:00 Completed [facility] DTP 2005-04-22 00:00:00 Completed [facility] Hep B, Adol or Pedi Dosage 2005-04-22 00:00:00 Completed [facility] HIB 4 Dose Schedule 2005-04-22 00:00:00 Completed [facility] Polio (IPV/OPV) 2005-04-22 00:00:00 Completed [facility] Pneumococcal 7 Conjugate, PCV7 (Prevnar7) 2005-04-22 00:00:00 Completed [facility] Polio (IPV/OPV) 2005-04-22 00:00:00 Completed [facility] DTP 2005-04-22 00:00:00 Completed [facility] Hep B, Adol or Pedi Dosage 2005-04-22 00:00:00 Completed [facility] HIB 4 Dose Schedule 2005-04-22 00:00:00 Completed [facility] Polio (IPV/OPV) 2005-04-22 00:00:00 Completed [facility] Pneumococcal 7 Conjugate, PCV7 (Prevnar7) 2005-04-22 00:00:00 Completed [facility] DTP 2005-04-22 00:00:00 Completed [facility] Pneumococcal 7 Conjugate, PCV7 (Prevnar7) 2005-04-22 00:00:00 Completed [facility] Hep B, Adol or Pedi Dosage 2005-04-22 00:00:00 Completed [facility] HIB 4 Dose Schedule 2005-04-22 00:00:00 Completed [facility] Polio (IPV/OPV) 2005-04-22 00:00:00 Completed [facility] Pneumococcal 7 Conjugate, PCV7 (Prevnar7) 2005-04-22 00:00:00 Completed [facility] DTP 2005-04-22 00:00:00 Completed [facility] Hep B, Adol or Pedi Dosage 2005-04-22 00:00:00 Completed [facility] HIB 4 Dose Schedule 2005-04-22 00:00:00 Completed [facility] Polio (IPV/OPV) 2005-04-22 00:00:00 Completed [facility] Pneumococcal 7 Conjugate, PCV7 (Prevnar7) 2005-04-22 00:00:00 Completed [facility] DTP 2005-04-22 00:00:00 Completed [facility] Hep B, Adol or Pedi Dosage 2005-04-22 00:00:00 Completed [facility] HIB 4 Dose Schedule 2005-04-22 00:00:00 Completed [facility] Polio (IPV/OPV) 2005-04-22 00:00:00 Completed [facility] Pneumococcal 7 Conjugate, PCV7 (Prevnar7) 2005-04-22 00:00:00 Completed [facility] DTP 2005-04-22 00:00:00 Completed [facility] Hep B, Adol or Pedi Dosage 2005-04-22 00:00:00 Completed [facility] HIB 4 Dose Schedule 2005-04-22 00:00:00 Completed [facility] Polio (IPV/OPV) 2005-04-22 00:00:00 Completed [facility] Pneumococcal 7 Conjugate, PCV7 (Prevnar7) 2005-04-22 00:00:00 Completed [facility] DTP 2005-04-22 00:00:00 Completed [facility] Hep B, Adol or Pedi Dosage 2005-04-22 00:00:00 Completed [facility] HIB 4 Dose Schedule 2005-04-22 00:00:00 Completed [facility] Polio (IPV/OPV) 2005-04-22 00:00:00 Completed [facility] Pneumococcal 7 Conjugate, PCV7 (Prevnar7) 2005-04-22 00:00:00 Completed [facility] DTP 2005-04-22 00:00:00 Completed [facility] Hep B, Adol or Pedi Dosage 2005-04-22 00:00:00 Completed [facility] HIB 4 Dose Schedule 2005-04-22 00:00:00 Completed [facility] Polio (IPV/OPV) 2005-04-22 00:00:00 Completed [facility] Pneumococcal 7 Conjugate, PCV7 (Prevnar7) 2005-04-22 00:00:00 Completed [facility] DTP 2005-04-22 00:00:00 Completed [facility] Hep B, Adol or Pedi Dosage 2005-04-22 00:00:00 Completed [facility] HIB 4 Dose Schedule 2005-04-22 00:00:00 Completed [facility] Polio (IPV/OPV) 2005-04-22 00:00:00 Completed [facility] Pneumococcal 7 Conjugate, PCV7 (Prevnar7) 2005-04-22 00:00:00 Completed [facility] DTP 2005-04-22 00:00:00 Completed [facility] Hep B, Adol or Pedi Dosage 2005-04-22 00:00:00 Completed [facility] HIB 4 Dose Schedule 2005-04-22 00:00:00 Completed [facility] Polio (IPV/OPV) 2005-04-22 00:00:00 Completed [facility] Pneumococcal 7 Conjugate, PCV7 (Prevnar7) 2005-04-22 00:00:00 Completed [facility] DTP 2005-04-22 00:00:00 Completed [facility] Hep B, Adol or Pedi Dosage 2005-04-22 00:00:00 Completed [facility] HIB 4 Dose Schedule 2005-04-22 00:00:00 Completed [facility] Polio (IPV/OPV) 2005-04-22 00:00:00 Completed [facility] Pneumococcal 7 Conjugate, PCV7 (Prevnar7) 2005-04-22 00:00:00 Completed [facility] DTP 2005-04-22 00:00:00 Completed [facility] Hep B, Adol or Pedi Dosage 2005-04-22 00:00:00 Completed [facility] HIB 4 Dose Schedule 2005-04-22 00:00:00 Completed [facility] Polio (IPV/OPV) 2005-04-22 00:00:00 Completed [facility] Pneumococcal 7 Conjugate, PCV7 (Prevnar7) 2005-04-22 00:00:00 Completed [facility] DTP 2005-04-22 00:00:00 Completed [facility] DTP 2005-04-22 00:00:00 Completed [facility] Hep B, Adol or Pedi Dosage 2005-04-22 00:00:00 Completed [facility] HIB 4 Dose Schedule 2005-04-22 00:00:00 Completed [facility] Polio (IPV/OPV) 2005-04-22 00:00:00 Completed [facility] Pneumococcal 7 Conjugate, PCV7 (Prevnar7) 2005-04-22 00:00:00 Completed [facility] DTP 2005-04-22 00:00:00 Completed [facility] Hep B, Adol or Pedi Dosage 2005-04-22 00:00:00 Completed [facility] Hep B, Adol or Pedi Dosage 2005-04-22 00:00:00 Completed [facility] HIB 4 Dose Schedule 2005-04-22 00:00:00 Completed [facility] Polio (IPV/OPV) 2005-04-22 00:00:00 Completed [facility] HIB 4 Dose Schedule 2005-04-22 00:00:00 Completed [facility] Pneumococcal 7 Conjugate, PCV7 (Prevnar7) 2005-04-22 00:00:00 Completed [facility] DTP 2005-04-22 00:00:00 Completed [facility] Hep B, Adol or Pedi Dosage 2005-04-22 00:00:00 Completed [facility] HIB 4 Dose Schedule 2005-04-22 00:00:00 Completed [facility] Polio (IPV/OPV) 2005-04-22 00:00:00 Completed [facility] Pneumococcal 7 Conjugate, PCV7 (Prevnar7) 2005-04-22 00:00:00 Completed [facility] DTP 2005-04-22 00:00:00 Completed [facility] Hep B, Adol or Pedi Dosage 2005-04-22 00:00:00 Completed [facility] HIB 4 Dose Schedule 2005-04-22 00:00:00 Completed [facility] Polio (IPV/OPV) 2005-04-22 00:00:00 Completed [facility] Pneumococcal 7 Conjugate, PCV7 (Prevnar7) 2005-04-22 00:00:00 Completed [facility] Polio (IPV/OPV) 2005-04-22 00:00:00 Completed [facility] DTP 2005-04-22 00:00:00 Completed [facility] Hep B, Adol or Pedi Dosage 2005-04-22 00:00:00 Completed [facility] HIB 4 Dose Schedule 2005-04-22 00:00:00 Completed [facility] Polio (IPV/OPV) 2005-04-22 00:00:00 Completed [facility] Pneumococcal 7 Conjugate, PCV7 (Prevnar7) 2005-04-22 00:00:00 Completed [facility] Pneumococcal 7 Conjugate, PCV7 (Prevnar7) 2005-04-22 00:00:00 Completed [facility] DTP 2005-04-22 00:00:00 Completed [facility] Hep B, Adol or Pedi Dosage 2005-04-22 00:00:00 Completed [facility] HIB 4 Dose Schedule 2005-04-22 00:00:00 Completed [facility] Polio (IPV/OPV) 2005-04-22 00:00:00 Completed [facility] Pneumococcal 7 Conjugate, PCV7 (Prevnar7) 2005-04-22 00:00:00 Completed [facility] DTP 2005-04-22 00:00:00 Completed [facility] DTP 2005-04-22 00:00:00 Completed [facility] Hep B, Adol or Pedi Dosage 2005-04-22 00:00:00 Completed [facility] HIB 4 Dose Schedule 2005-04-22 00:00:00 Completed [facility] Polio (IPV/OPV) 2005-04-22 00:00:00 Completed [facility] Pneumococcal 7 Conjugate, PCV7 (Prevnar7) 2005-04-22 00:00:00 Completed [facility] Hep B, Adol or Pedi Dosage 2005-04-22 00:00:00 Completed [facility] HIB 4 Dose Schedule 2005-04-22 00:00:00 Completed [facility] DTP 2005-04-22 00:00:00 Completed [facility] Hep B, Adol or Pedi Dosage 2005-04-22 00:00:00 Completed [facility] HIB 4 Dose Schedule 2005-04-22 00:00:00 Completed [facility] Polio (IPV/OPV) 2005-04-22 00:00:00 Completed [facility] Pneumococcal 7 Conjugate, PCV7 (Prevnar7) 2005-04-22 00:00:00 Completed [facility] DTP 2005-04-22 00:00:00 Completed [facility] Hep B, Adol or Pedi Dosage 2005-04-22 00:00:00 Completed [facility] HIB 4 Dose Schedule 2005-04-22 00:00:00 Completed [facility] DTP 2005-04-22 00:00:00 Completed [facility] Polio (IPV/OPV) 2005-04-22 00:00:00 Completed [facility] Pneumococcal 7 Conjugate, PCV7 (Prevnar7) 2005-04-22 00:00:00 Completed [facility] Polio (IPV/OPV) 2005-04-22 00:00:00 Completed [facility] DTP 2005-04-22 00:00:00 Completed [facility] Hep B, Adol or Pedi Dosage 2005-04-22 00:00:00 Completed [facility] HIB 4 Dose Schedule 2005-04-22 00:00:00 Completed [facility] Polio (IPV/OPV) 2005-04-22 00:00:00 Completed [facility] Pneumococcal 7 Conjugate, PCV7 (Prevnar7) 2005-04-22 00:00:00 Completed [facility] Pneumococcal 7 Conjugate, PCV7 (Prevnar7) 2005-04-22 00:00:00 Completed [facility] Hep B, Adol or Pedi Dosage 2005-04-22 00:00:00 Completed [facility] DTP 2005-04-22 00:00:00 Completed [facility] Hep B, Adol or Pedi Dosage 2005-04-22 00:00:00 Completed [facility] HIB 4 Dose Schedule 2005-04-22 00:00:00 Completed [facility] Polio (IPV/OPV) 2005-04-22 00:00:00 Completed [facility] Pneumococcal 7 Conjugate, PCV7 (Prevnar7) 2005-04-22 00:00:00 Completed [facility] DTP 2005-04-22 00:00:00 Completed [facility] Hep B, Adol or Pedi Dosage 2005-04-22 00:00:00 Completed [facility] HIB 4 Dose Schedule 2005-04-22 00:00:00 Completed [facility] DTP 2005-04-22 00:00:00 Completed Hep B, Adol or Pedi Dosage 2005-04-22 00:00:00 Completed HIB 4 Dose Schedule 2005-04-22 00:00:00 Completed Polio (IPV/OPV) 2005-04-22 00:00:00 Completed Pneumococcal 7 Conjugate, PCV7 (Prevnar7) 2005-04-22 00:00:00 Completed [facility]iar[facility] (dtap/hep B/ipv) 2005-04-22 00:00:00 Completed HIB 3 Dose Schedule 2005-04-22 00:00:00 Completed Pneumococcal 13 Conjugate, PCV13 (Prevnar 13) 2005-04-22 00:00:00 Completed Polio (IPV/OPV) 2005-04-22 00:00:00 Completed [facility] Pneumococcal 7 Conjugate, PCV7 (Prevnar7) 2005-04-22 00:00:00 Completed [facility] DTP 2005-04-22 00:00:00 Completed [facility] Hep B, Adol or Pedi Dosage 2005-04-22 00:00:00 Completed [facility] HIB 4 Dose Schedule 2005-04-22 00:00:00 Completed [facility] Polio (IPV/OPV) 2005-04-22 00:00:00 Completed [facility] Pneumococcal 7 Conjugate, PCV7 (Prevnar7) 2005-04-22 00:00:00 Completed [facility] DTP 2005-04-22 00:00:00 Completed [facility] Hep B, Adol or Pedi Dosage 2005-04-22 00:00:00 Completed [facility] HIB 4 Dose Schedule 2005-04-22 00:00:00 Completed [facility] Polio (IPV/OPV) 2005-04-22 00:00:00 Completed [facility] Pneumococcal 7 Conjugate, PCV7 (Prevnar7) 2005-04-22 00:00:00 Completed [facility] DTP 2005-04-22 00:00:00 Completed [facility] Hep B, Adol or Pedi Dosage 2005-04-22 00:00:00 Completed [facility] HIB 4 Dose Schedule 2005-04-22 00:00:00 Completed [facility] Polio (IPV/OPV) 2005-04-22 00:00:00 Completed [facility] Pneumococcal 7 Conjugate, PCV7 (Prevnar7) 2005-04-22 00:00:00 Completed [facility] DTP 2005-04-22 00:00:00 Completed [facility] Hep B, Adol or Pedi Dosage 2005-04-22 00:00:00 Completed [facility] HIB 4 Dose Schedule 2005-04-22 00:00:00 Completed [facility] Polio (IPV/OPV) 2005-04-22 00:00:00 Completed [facility] Pneumococcal 7 Conjugate, PCV7 (Prevnar7) 2005-04-22 00:00:00 Completed [facility] DTP 2005-04-22 00:00:00 Completed [facility] Hep B, Adol or Pedi Dosage 2005-04-22 00:00:00 Completed [facility] HIB 4 Dose Schedule 2005-04-22 00:00:00 Completed [facility] Polio (IPV/OPV) 2005-04-22 00:00:00 Completed [facility] Pneumococcal 7 Conjugate, PCV7 (Prevnar7) 2005-04-22 00:00:00 Completed [facility] DTP 2005-04-22 00:00:00 Completed [facility] Hep B, Adol or Pedi Dosage 2005-04-22 00:00:00 Completed [facility] HIB 4 Dose Schedule 2005-04-22 00:00:00 Completed [facility] Polio (IPV/OPV) 2005-04-22 00:00:00 Completed [facility] Pneumococcal 7 Conjugate, PCV7 (Prevnar7) 2005-04-22 00:00:00 Completed [facility] DTP 2005-04-22 00:00:00 Completed [facility] Hep B, Adol or Pedi Dosage 2005-04-22 00:00:00 Completed [facility] HIB 4 Dose Schedule 2005-04-22 00:00:00 Completed [facility] Polio (IPV/OPV) 2005-04-22 00:00:00 Completed [facility] Pneumococcal 7 Conjugate, PCV7 (Prevnar7) 2005-04-22 00:00:00 Completed [facility] DTP 2005-04-22 00:00:00 Completed [facility] Hep B, Adol or Pedi Dosage 2005-04-22 00:00:00 Completed [facility] [facility] 2005-04-22 00:00:00 Completed [facility] Polio (IPV/OPV) 2005-04-22 00:00:00 Completed [facility] Pneumococcal 7 Conjugate, PCV7 (Prevnar7) 2005-04-22 00:00:00 Completed [facility] DTaP-Hep B-IPV 2005-02-12 00:00:00 Completed Hib (PRP-OMP) 2005-02-12 00:00:00 Completed Pneumococcal conjugate P 2005-02-12 00:00:00 Completed DTaP-Hep B-IPV 2005-02-12 00:00:00 Completed Hib (PRP-OMP) 2005-02-12 00:00:00 Completed Pneumococcal conjugate P 2005-02-12 00:00:00 Completed Polio (IPV/OPV) 2005-02-12 00:00:00 Completed [facility] Polio (IPV/OPV) 2005-02-12 00:00:00 Completed [facility] Pneumococcal 7 Conjugate, PCV7 (Prevnar7) 2005-02-12 00:00:00 Completed [facility] DTP 2005-02-12 00:00:00 Completed [facility] Hep B, Adol or Pedi Dosage 2005-02-12 00:00:00 Completed [facility] HIB 4 Dose Schedule 2005-02-12 00:00:00 Completed [facility] Pneumococcal 7 Conjugate, PCV7 (Prevnar7) 2005-02-12 00:00:00 Completed [facility] DTP 2005-02-12 00:00:00 Completed [facility] Hep B, Adol or Pedi Dosage 2005-02-12 00:00:00 Completed [facility] HIB 4 Dose Schedule 2005-02-12 00:00:00 Completed [facility] Polio (IPV/OPV) 2005-02-12 00:00:00 Completed [facility] Pneumococcal 7 Conjugate, PCV7 (Prevnar7) 2005-02-12 00:00:00 Completed [facility] DTP 2005-02-12 00:00:00 Completed [facility] Hep B, Adol or Pedi Dosage 2005-02-12 00:00:00 Completed [facility] HIB 4 Dose Schedule 2005-02-12 00:00:00 Completed [facility] Polio (IPV/OPV) 2005-02-12 00:00:00 Completed [facility] Pneumococcal 7 Conjugate, PCV7 (Prevnar7) 2005-02-12 00:00:00 Completed [facility] DTP 2005-02-12 00:00:00 Completed [facility] Hep B, Adol or Pedi Dosage 2005-02-12 00:00:00 Completed [facility] HIB 4 Dose Schedule 2005-02-12 00:00:00 Completed [facility] Polio (IPV/OPV) 2005-02-12 00:00:00 Completed [facility] Pneumococcal 7 Conjugate, PCV7 (Prevnar7) 2005-02-12 00:00:00 Completed [facility] DTP 2005-02-12 00:00:00 Completed [facility] Hep B, Adol or Pedi Dosage 2005-02-12 00:00:00 Completed [facility] HIB 4 Dose Schedule 2005-02-12 00:00:00 Completed [facility] Polio (IPV/OPV) 2005-02-12 00:00:00 Completed [facility] Pneumococcal 7 Conjugate, PCV7 (Prevnar7) 2005-02-12 00:00:00 Completed [facility] DTP 2005-02-12 00:00:00 Completed [facility] Hep B, Adol or Pedi Dosage 2005-02-12 00:00:00 Completed [facility] HIB 4 Dose Schedule 2005-02-12 00:00:00 Completed [facility] Polio (IPV/OPV) 2005-02-12 00:00:00 Completed [facility] Pneumococcal 7 Conjugate, PCV7 (Prevnar7) 2005-02-12 00:00:00 Completed [facility] DTP 2005-02-12 00:00:00 Completed [facility] Hep B, Adol or Pedi Dosage 2005-02-12 00:00:00 Completed [facility] HIB 4 Dose Schedule 2005-02-12 00:00:00 Completed [facility] Polio (IPV/OPV) 2005-02-12 00:00:00 Completed [facility] Pneumococcal 7 Conjugate, PCV7 (Prevnar7) 2005-02-12 00:00:00 Completed [facility] DTP 2005-02-12 00:00:00 Completed [facility] Hep B, Adol or Pedi Dosage 2005-02-12 00:00:00 Completed [facility] HIB 4 Dose Schedule 2005-02-12 00:00:00 Completed [facility] Polio (IPV/OPV) 2005-02-12 00:00:00 Completed [facility] Pneumococcal 7 Conjugate, PCV7 (Prevnar7) 2005-02-12 00:00:00 Completed [facility] DTP 2005-02-12 00:00:00 Completed [facility] Hep B, Adol or Pedi Dosage 2005-02-12 00:00:00 Completed [facility] HIB 4 Dose Schedule 2005-02-12 00:00:00 Completed [facility] Polio (IPV/OPV) 2005-02-12 00:00:00 Completed [facility] Pneumococcal 7 Conjugate, PCV7 (Prevnar7) 2005-02-12 00:00:00 Completed [facility] DTP 2005-02-12 00:00:00 Completed [facility] Hep B, Adol or Pedi Dosage 2005-02-12 00:00:00 Completed [facility] HIB 4 Dose Schedule 2005-02-12 00:00:00 Completed [facility] Polio (IPV/OPV) 2005-02-12 00:00:00 Completed [facility] Pneumococcal 7 Conjugate, PCV7 (Prevnar7) 2005-02-12 00:00:00 Completed [facility] DTP 2005-02-12 00:00:00 Completed [facility] Hep B, Adol or Pedi Dosage 2005-02-12 00:00:00 Completed [facility] HIB 4 Dose Schedule 2005-02-12 00:00:00 Completed [facility] Polio (IPV/OPV) 2005-02-12 00:00:00 Completed [facility] Pneumococcal 7 Conjugate, PCV7 (Prevnar7) 2005-02-12 00:00:00 Completed [facility] DTP 2005-02-12 00:00:00 Completed [facility] Hep B, Adol or Pedi Dosage 2005-02-12 00:00:00 Completed [facility] HIB 4 Dose Schedule 2005-02-12 00:00:00 Completed [facility] Polio (IPV/OPV) 2005-02-12 00:00:00 Completed [facility] Pneumococcal 7 Conjugate, PCV7 (Prevnar7) 2005-02-12 00:00:00 Completed [facility] DTP 2005-02-12 00:00:00 Completed [facility] Hep B, Adol or Pedi Dosage 2005-02-12 00:00:00 Completed [facility] HIB 4 Dose Schedule 2005-02-12 00:00:00 Completed [facility] DTP 2005-02-12 00:00:00 Completed [facility] Polio (IPV/OPV) 2005-02-12 00:00:00 Completed [facility] Pneumococcal 7 Conjugate, PCV7 (Prevnar7) 2005-02-12 00:00:00 Completed [facility] DTP 2005-02-12 00:00:00 Completed [facility] Hep B, Adol or Pedi Dosage 2005-02-12 00:00:00 Completed [facility] HIB 4 Dose Schedule 2005-02-12 00:00:00 Completed [facility] Polio (IPV/OPV) 2005-02-12 00:00:00 Completed [facility] Pneumococcal 7 Conjugate, PCV7 (Prevnar7) 2005-02-12 00:00:00 Completed [facility] Hep B, Adol or Pedi Dosage 2005-02-12 00:00:00 Completed [facility] DTP 2005-02-12 00:00:00 Completed [facility] HIB 4 Dose Schedule 2005-02-12 00:00:00 Completed [facility] Hep B, Adol or Pedi Dosage 2005-02-12 00:00:00 Completed [facility] HIB 4 Dose Schedule 2005-02-12 00:00:00 Completed [facility] Polio (IPV/OPV) 2005-02-12 00:00:00 Completed [facility] Pneumococcal 7 Conjugate, PCV7 (Prevnar7) 2005-02-12 00:00:00 Completed [facility] DTP 2005-02-12 00:00:00 Completed [facility] Hep B, Adol or Pedi Dosage 2005-02-12 00:00:00 Completed [facility] HIB 4 Dose Schedule 2005-02-12 00:00:00 Completed [facility] Polio (IPV/OPV) 2005-02-12 00:00:00 Completed [facility] Pneumococcal 7 Conjugate, PCV7 (Prevnar7) 2005-02-12 00:00:00 Completed [facility] DTP 2005-02-12 00:00:00 Completed [facility] Hep B, Adol or Pedi Dosage 2005-02-12 00:00:00 Completed [facility] HIB 4 Dose Schedule 2005-02-12 00:00:00 Completed [facility] Polio (IPV/OPV) 2005-02-12 00:00:00 Completed [facility] Pneumococcal 7 Conjugate, PCV7 (Prevnar7) 2005-02-12 00:00:00 Completed [facility] Polio (IPV/OPV) 2005-02-12 00:00:00 Completed [facility] DTP 2005-02-12 00:00:00 Completed [facility] Hep B, Adol or Pedi Dosage 2005-02-12 00:00:00 Completed [facility] HIB 4 Dose Schedule 2005-02-12 00:00:00 Completed [facility] Polio (IPV/OPV) 2005-02-12 00:00:00 Completed [facility] Pneumococcal 7 Conjugate, PCV7 (Prevnar7) 2005-02-12 00:00:00 Completed [facility] Pneumococcal 7 Conjugate, PCV7 (Prevnar7) 2005-02-12 00:00:00 Completed [facility] DTP 2005-02-12 00:00:00 Completed [facility] Hep B, Adol or Pedi Dosage 2005-02-12 00:00:00 Completed [facility] HIB 4 Dose Schedule 2005-02-12 00:00:00 Completed [facility] Polio (IPV/OPV) 2005-02-12 00:00:00 Completed [facility] Pneumococcal 7 Conjugate, PCV7 (Prevnar7) 2005-02-12 00:00:00 Completed [facility] DTP 2005-02-12 00:00:00 Completed [facility] Hep B, Adol or Pedi Dosage 2005-02-12 00:00:00 Completed [facility] HIB 4 Dose Schedule 2005-02-12 00:00:00 Completed [facility] Polio (IPV/OPV) 2005-02-12 00:00:00 Completed [facility] Pneumococcal 7 Conjugate, PCV7 (Prevnar7) 2005-02-12 00:00:00 Completed [facility] DTP 2005-02-12 00:00:00 Completed [facility] Hep B, Adol or Pedi Dosage 2005-02-12 00:00:00 Completed [facility] HIB 4 Dose Schedule 2005-02-12 00:00:00 Completed [facility] Polio (IPV/OPV) 2005-02-12 00:00:00 Completed [facility] Pneumococcal 7 Conjugate, PCV7 (Prevnar7) 2005-02-12 00:00:00 Completed [facility] DTP 2005-02-12 00:00:00 Completed [facility] Hep B, Adol or Pedi Dosage 2005-02-12 00:00:00 Completed [facility] HIB 4 Dose Schedule 2005-02-12 00:00:00 Completed [facility] Polio (IPV/OPV) 2005-02-12 00:00:00 Completed [facility] Pneumococcal 7 Conjugate, PCV7 (Prevnar7) 2005-02-12 00:00:00 Completed [facility] DTP 2005-02-12 00:00:00 Completed [facility] Hep B, Adol or Pedi Dosage 2005-02-12 00:00:00 Completed [facility] HIB 4 Dose Schedule 2005-02-12 00:00:00 Completed [facility] Polio (IPV/OPV) 2005-02-12 00:00:00 Completed [facility] Pneumococcal 7 Conjugate, PCV7 (Prevnar7) 2005-02-12 00:00:00 Completed [facility] DTP 2005-02-12 00:00:00 Completed [facility] Hep B, Adol or Pedi Dosage 2005-02-12 00:00:00 Completed [facility] HIB 4 Dose Schedule 2005-02-12 00:00:00 Completed [facility] Polio (IPV/OPV) 2005-02-12 00:00:00 Completed [facility] Pneumococcal 7 Conjugate, PCV7 (Prevnar7) 2005-02-12 00:00:00 Completed [facility] DTP 2005-02-12 00:00:00 Completed [facility] Hep B, Adol or Pedi Dosage 2005-02-12 00:00:00 Completed [facility] HIB 4 Dose Schedule 2005-02-12 00:00:00 Completed [facility] Polio (IPV/OPV) 2005-02-12 00:00:00 Completed [facility] Pneumococcal 7 Conjugate, PCV7 (Prevnar7) 2005-02-12 00:00:00 Completed [facility] DTP 2005-02-12 00:00:00 Completed [facility] Hep B, Adol or Pedi Dosage 2005-02-12 00:00:00 Completed [facility] HIB 4 Dose Schedule 2005-02-12 00:00:00 Completed [facility] Polio (IPV/OPV) 2005-02-12 00:00:00 Completed [facility] Pneumococcal 7 Conjugate, PCV7 (Prevnar7) 2005-02-12 00:00:00 Completed [facility] DTP 2005-02-12 00:00:00 Completed [facility] Hep B, Adol or Pedi Dosage 2005-02-12 00:00:00 Completed [facility] HIB 4 Dose Schedule 2005-02-12 00:00:00 Completed [facility] Polio (IPV/OPV) 2005-02-12 00:00:00 Completed [facility] Pneumococcal 7 Conjugate, PCV7 (Prevnar7) 2005-02-12 00:00:00 Completed [facility] DTP 2005-02-12 00:00:00 Completed [facility] Hep B, Adol or Pedi Dosage 2005-02-12 00:00:00 Completed [facility] HIB 4 Dose Schedule 2005-02-12 00:00:00 Completed [facility] Polio (IPV/OPV) 2005-02-12 00:00:00 Completed [facility] DTP 2005-02-12 00:00:00 Completed [facility] Pneumococcal 7 Conjugate, PCV7 (Prevnar7) 2005-02-12 00:00:00 Completed [facility] DTP 2005-02-12 00:00:00 Completed [facility] Hep B, Adol or Pedi Dosage 2005-02-12 00:00:00 Completed [facility] HIB 4 Dose Schedule 2005-02-12 00:00:00 Completed [facility] Polio (IPV/OPV) 2005-02-12 00:00:00 Completed [facility] Pneumococcal 7 Conjugate, PCV7 (Prevnar7) 2005-02-12 00:00:00 Completed [facility] Hep B, Adol or Pedi Dosage 2005-02-12 00:00:00 Completed [facility] DTP 2005-02-12 00:00:00 Completed [facility] Hep B, Adol or Pedi Dosage 2005-02-12 00:00:00 Completed [facility] HIB 4 Dose Schedule 2005-02-12 00:00:00 Completed [facility] HIB 4 Dose Schedule 2005-02-12 00:00:00 Completed [facility] Polio (IPV/OPV) 2005-02-12 00:00:00 Completed [facility] Pneumococcal 7 Conjugate, PCV7 (Prevnar7) 2005-02-12 00:00:00 Completed [facility] DTP 2005-02-12 00:00:00 Completed [facility] Hep B, Adol or Pedi Dosage 2005-02-12 00:00:00 Completed [facility] HIB 4 Dose Schedule 2005-02-12 00:00:00 Completed [facility] Polio (IPV/OPV) 2005-02-12 00:00:00 Completed [facility] Pneumococcal 7 Conjugate, PCV7 (Prevnar7) 2005-02-12 00:00:00 Completed [facility] DTP 2005-02-12 00:00:00 Completed [facility] Hep B, Adol or Pedi Dosage 2005-02-12 00:00:00 Completed [facility] HIB 4 Dose Schedule 2005-02-12 00:00:00 Completed [facility] Polio (IPV/OPV) 2005-02-12 00:00:00 Completed [facility] Pneumococcal 7 Conjugate, PCV7 (Prevnar7) 2005-02-12 00:00:00 Completed [facility] Polio (IPV/OPV) 2005-02-12 00:00:00 Completed [facility] DTP 2005-02-12 00:00:00 Completed [facility] Hep B, Adol or Pedi Dosage 2005-02-12 00:00:00 Completed [facility] HIB 4 Dose Schedule 2005-02-12 00:00:00 Completed [facility] Polio (IPV/OPV) 2005-02-12 00:00:00 Completed [facility] Pneumococcal 7 Conjugate, PCV7 (Prevnar7) 2005-02-12 00:00:00 Completed [facility] Pneumococcal 7 Conjugate, PCV7 (Prevnar7) 2005-02-12 00:00:00 Completed [facility] DTP 2005-02-12 00:00:00 Completed [facility] Hep B, Adol or Pedi Dosage 2005-02-12 00:00:00 Completed [facility] HIB 4 Dose Schedule 2005-02-12 00:00:00 Completed [facility] Polio (IPV/OPV) 2005-02-12 00:00:00 Completed [facility] Pneumococcal 7 Conjugate, PCV7 (Prevnar7) 2005-02-12 00:00:00 Completed [facility] DTP 2005-02-12 00:00:00 Completed [facility] DTP 2005-02-12 00:00:00 Completed [facility] Hep B, Adol or Pedi Dosage 2005-02-12 00:00:00 Completed [facility] HIB 4 Dose Schedule 2005-02-12 00:00:00 Completed [facility] Polio (IPV/OPV) 2005-02-12 00:00:00 Completed [facility] Pneumococcal 7 Conjugate, PCV7 (Prevnar7) 2005-02-12 00:00:00 Completed [facility] Hep B, Adol or Pedi Dosage 2005-02-12 00:00:00 Completed [facility] HIB 4 Dose Schedule 2005-02-12 00:00:00 Completed [facility] DTP 2005-02-12 00:00:00 Completed [facility] DTP 2005-02-12 00:00:00 Completed [facility] Hep B, Adol or Pedi Dosage 2005-02-12 00:00:00 Completed [facility] HIB 4 Dose Schedule 2005-02-12 00:00:00 Completed [facility] Polio (IPV/OPV) 2005-02-12 00:00:00 Completed [facility] Pneumococcal 7 Conjugate, PCV7 (Prevnar7) 2005-02-12 00:00:00 Completed [facility] DTP 2005-02-12 00:00:00 Completed [facility] Hep B, Adol or Pedi Dosage 2005-02-12 00:00:00 Completed [facility] HIB 4 Dose Schedule 2005-02-12 00:00:00 Completed [facility] Polio (IPV/OPV) 2005-02-12 00:00:00 Completed [facility] Pneumococcal 7 Conjugate, PCV7 (Prevnar7) 2005-02-12 00:00:00 Completed [facility] Polio (IPV/OPV) 2005-02-12 00:00:00 Completed [facility] DTP 2005-02-12 00:00:00 Completed [facility] Hep B, Adol or Pedi Dosage 2005-02-12 00:00:00 Completed [facility] HIB 4 Dose Schedule 2005-02-12 00:00:00 Completed [facility] Polio (IPV/OPV) 2005-02-12 00:00:00 Completed [facility] Pneumococcal 7 Conjugate, PCV7 (Prevnar7) 2005-02-12 00:00:00 Completed [facility] Pneumococcal 7 Conjugate, PCV7 (Prevnar7) 2005-02-12 00:00:00 Completed [facility] Hep B, Adol or Pedi Dosage 2005-02-12 00:00:00 Completed [facility] HIB 4 Dose Schedule 2005-02-12 00:00:00 Completed [facility] DTP 2005-02-12 00:00:00 Completed [facility] Hep B, Adol or Pedi Dosage 2005-02-12 00:00:00 Completed [facility] HIB 4 Dose Schedule 2005-02-12 00:00:00 Completed [facility] Polio (IPV/OPV) 2005-02-12 00:00:00 Completed [facility] Pneumococcal 7 Conjugate, PCV7 (Prevnar7) 2005-02-12 00:00:00 Completed [facility] DTP 2005-02-12 00:00:00 Completed [facility] Hep B, Adol or Pedi Dosage 2005-02-12 00:00:00 Completed [facility] HIB 4 Dose Schedule 2005-02-12 00:00:00 Completed [facility] DTP 2005-02-12 00:00:00 Completed [facility] Hep B, Adol or Pedi Dosage 2005-02-12 00:00:00 Completed HIB 4 Dose Schedule 2005-02-12 00:00:00 Completed Polio (IPV/OPV) 2005-02-12 00:00:00 Completed Pneumococcal 7 Conjugate, PCV7 (Prevnar7) 2005-02-12 00:00:00 Completed [facility] (dtap/hep B/ipv) 2005-02-12 00:00:00 Completed HIB 3 Dose Schedule 2005-02-12 00:00:00 Completed Pneumococcal 13 Conjugate, PCV13 (Prevnar 13) 2005-02-12 00:00:00 Completed Polio (IPV/OPV) 2005-02-12 00:00:00 Completed [facility] Pneumococcal 7 Conjugate, PCV7 (Prevnar7) 2005-02-12 00:00:00 Completed [facility] DTP 2005-02-12 00:00:00 Completed [facility] Hep B, Adol or Pedi Dosage 2005-02-12 00:00:00 Completed [facility] HIB 4 Dose Schedule 2005-02-12 00:00:00 Completed [facility] Polio (IPV/OPV) 2005-02-12 00:00:00 Completed [facility] Pneumococcal 7 Conjugate, PCV7 (Prevnar7) 2005-02-12 00:00:00 Completed [facility] DTP 2005-02-12 00:00:00 Completed [facility] Hep B, Adol or Pedi Dosage 2005-02-12 00:00:00 Completed [facility] HIB 4 Dose Schedule 2005-02-12 00:00:00 Completed [facility] Polio (IPV/OPV) 2005-02-12 00:00:00 Completed [facility] Pneumococcal 7 Conjugate, PCV7 (Prevnar7) 2005-02-12 00:00:00 Completed [facility] DTP 2005-02-12 00:00:00 Completed [facility] Hep B, Adol or Pedi Dosage 2005-02-12 00:00:00 Completed [facility] HIB 4 Dose Schedule 2005-02-12 00:00:00 Completed [facility] Polio (IPV/OPV) 2005-02-12 00:00:00 Completed [facility] Pneumococcal 7 Conjugate, PCV7 (Prevnar7) 2005-02-12 00:00:00 Completed [facility] DTP 2005-02-12 00:00:00 Completed [facility] Hep B, Adol or Pedi Dosage 2005-02-12 00:00:00 Completed [facility] HIB 4 Dose Schedule 2005-02-12 00:00:00 Completed [facility] Polio (IPV/OPV) 2005-02-12 00:00:00 Completed [facility] Pneumococcal 7 Conjugate, PCV7 (Prevnar7) 2005-02-12 00:00:00 Completed [facility] DTP 2005-02-12 00:00:00 Completed [facility] Hep B, Adol or Pedi Dosage 2005-02-12 00:00:00 Completed [facility] HIB 4 Dose Schedule 2005-02-12 00:00:00 Completed [facility] Polio (IPV/OPV) 2005-02-12 00:00:00 Completed [facility] Pneumococcal 7 Conjugate, PCV7 (Prevnar7) 2005-02-12 00:00:00 Completed [facility] DTP 2005-02-12 00:00:00 Completed [facility] Hep B, Adol or Pedi Dosage 2005-02-12 00:00:00 Completed [facility] HIB 4 Dose Schedule 2005-02-12 00:00:00 Completed [facility] Polio (IPV/OPV) 2005-02-12 00:00:00 Completed [facility] Pneumococcal 7 Conjugate, PCV7 (Prevnar7) 2005-02-12 00:00:00 Completed [facility] DTP 2005-02-12 00:00:00 Completed [facility] Hep B, Adol or Pedi Dosage 2005-02-12 00:00:00 Completed [facility] HIB 4 Dose Schedule 2005-02-12 00:00:00 Completed [facility] Polio (IPV/OPV) 2005-02-12 00:00:00 Completed [facility] Pneumococcal 7 Conjugate, PCV7 (Prevnar7) 2005-02-12 00:00:00 Completed [facility] DTP 2005-02-12 00:00:00 Completed [facility] Hep B, Adol or Pedi Dosage 2005-02-12 00:00:00 Completed [facility] HIB 4 Dose Schedule 2005-02-12 00:00:00 Completed [facility] Polio (IPV/OPV) 2005-02-12 00:00:00 Completed [facility] Pneumococcal 7 Conjugate, PCV7 (Prevnar7) 2005-02-12 00:00:00 Completed [facility] Hep B, adolescent or ped 2004 00:00:00 Completed Hep B, adolescent or ped 2004 00:00:00 Completed Hep B, Adol or Pedi Dosage 2004 00:00:00 Completed [facility] Hep B, Adol or Pedi Dosage 2004 00:00:00 Completed [facility] Hep B, Adol or Pedi Dosage 2004 00:00:00 Completed [facility] Hep B, Adol or Pedi Dosage 2004 00:00:00 Completed [facility] Hep B, Adol or Pedi Dosage 2004 00:00:00 Completed [facility] Hep B, Adol or Pedi Dosage 2004 00:00:00 Completed [facility] Hep B, Adol or Pedi Dosage 2004 00:00:00 Completed [facility] Hep B, Adol or Pedi Dosage 2004 00:00:00 Completed [facility] Hep B, Adol or Pedi Dosage 2004 00:00:00 Completed [facility] Hep B, Adol or Pedi Dosage 2004 00:00:00 Completed [facility] Hep B, Adol or Pedi Dosage 2004 00:00:00 Completed [facility] Hep B, Adol or Pedi Dosage 2004 00:00:00 Completed [facility] Hep B, Adol or Pedi Dosage 2004 00:00:00 Completed [facility] Hep B, Adol or Pedi Dosage 2004 00:00:00 Completed [facility] Hep B, Adol or Pedi Dosage 2004 00:00:00 Completed [facility] Hep B, Adol or Pedi Dosage 2004 00:00:00 Completed [facility] Hep B, Adol or Pedi Dosage 2004 00:00:00 Completed [facility] Hep B, Adol or Pedi Dosage 2004 00:00:00 Completed [facility] Hep B, Adol or Pedi Dosage 2004 00:00:00 Completed [facility] Hep B, Adol or Pedi Dosage 2004 00:00:00 Completed [facility] Hep B, Adol or Pedi Dosage 2004 00:00:00 Completed [facility] Hep B, Adol or Pedi Dosage 2004 00:00:00 Completed [facility] Hep B, Adol or Pedi Dosage 2004 00:00:00 Completed [facility] Hep B, Adol or Pedi Dosage 2004 00:00:00 Completed [facility] Hep B, Adol or Pedi Dosage 2004 00:00:00 Completed [facility] Hep B, Adol or Pedi Dosage 2004 00:00:00 Completed [facility] Hep B, Adol or Pedi Dosage 2004 00:00:00 Completed [facility] Hep B, Adol or Pedi Dosage 2004 00:00:00 Completed [facility] Hep B, Adol or Pedi Dosage 2004 00:00:00 Completed [facility] Hep B, Adol or Pedi Dosage 2004 00:00:00 Completed [facility] Hep B, Adol or Pedi Dosage 2004 00:00:00 Completed [facility] Hep B, Adol or Pedi Dosage 2004 00:00:00 Completed [facility] Hep B, Adol or Pedi Dosage 2004 00:00:00 Completed [facility] Hep B, Adol or Pedi Dosage 2004 00:00:00 Completed [facility] Hep B, Adol or Pedi Dosage 2004 00:00:00 Completed [facility] Hep B, Adol or Pedi Dosage 2004 00:00:00 Completed [facility] Hep B, Adol or Pedi Dosage 2004 00:00:00 Completed [facility] Hep B, Adol or Pedi Dosage 2004 00:00:00 Completed [facility] Hep B, Adol or Pedi Dosage 2004 00:00:00 Completed [facility] Hep B, Adol or Pedi Dosage 2004 00:00:00 Completed [facility] Hep B, Adol or Pedi Dosage 2004 00:00:00 Completed [facility] Hep B, Adol or Pedi Dosage 2004 00:00:00 Completed [facility] Hep B, Adol or Pedi Dosage 2004 00:00:00 Completed [facility] Hep B, Adol or Pedi Dosage 2004 00:00:00 Completed [facility] Hep B, Adol or Pedi Dosage 2004 00:00:00 Completed Hep B, Adol or Pedi Dosage 2004 00:00:00 Completed [facility] Hep B, Adol or Pedi Dosage 2004 00:00:00 Completed [facility] Hep B, Adol or Pedi Dosage 2004 00:00:00 Completed [facility] Hep B, Adol or Pedi Dosage 2004 00:00:00 Completed [facility] Hep B, Adol or Pedi Dosage 2004 00:00:00 Completed [facility] Hep B, Adol or Pedi Dosage 2004 00:00:00 Completed [facility] Hep B, Adol or Pedi Dosage 2004 00:00:00 Completed [facility] Hep B, Adol or Pedi Dosage 2004 00:00:00 Completed [facility] DTP Unknown Completed [facility] HEPATITIS A Unknown Completed [facility] Hep B, Adol or Pedi Dosage Unknown Completed [facility] HIB 4 Dose Schedule Unknown Completed [facility] HPV Unknown Completed [facility] Influenza Virus Vaccine Unknown Completed [facility] Meningococcal Vaccine Unknown Completed [facility] MMR Unknown Completed [facility] Polio (IPV/OPV) [facility] Completed [facility] Varicella (varivax)(chicken pox) Unknown Completed [facility] Pneumococcal 7 Conjugate, PCV7 (Prevnar7) Unknown Completed [facility] SARS-COV-2 COVID-19 PFIZER VACCINE Unknown Completed [facility] SARS-COV-2 COVID-19 PFIZER KARAN-SUCROSE VACCINE (VERONICA TOP) Unknown Completed [facility] DTP Unknown Completed [facility] HEPATITIS A Unknown Completed [facility] Hep B, Adol or Pedi Dosage Unknown Completed [facility] HIB 4 Dose Schedule Unknown Completed [facility] HPV Unknown Completed [facility] Influenza Virus Vaccine Unknown Completed [facility] Meningococcal Vaccine Unknown Completed [facility] MMR Unknown Completed [facility] Polio (IPV/OPV) Unknown [facility] Unknown Completed [facility] Varicella (varivax)(chicken pox) Unknown Completed [facility] Pneumococcal 7 Conjugate, PCV7 (Prevnar7) Unknown Completed [facility] SARS-COV-2 COVID-19 PFIZER VACCINE Unknown Completed [facility] SARS-COV-2 COVID-19 PFIZER KARAN-SUCROSE VACCINE (VERONICA TOP) Unknown Completed [facility] DTP Unknown Completed [facility] HEPATITIS A Unknown Completed [facility] Hep B, Adol or Pedi Dosage Unknown Completed [facility] HIB 4 Dose Schedule Unknown Completed [facility] HPV Unknown Completed [facility] Influenza Virus Vaccine Unknown Completed [facility] Meningococcal Vaccine Unknown Completed [facility] MMR Unknown Completed [facility] Polio (IPV/OPV) Unknown [facility] Unknown Completed [facility] Varicella (varivax)(chicken pox) Unknown Completed [facility] Pneumococcal 7 Conjugate, PCV7 (Prevnar7) Unknown Completed [facility] SARS-COV-2 COVID-19 PFIZER VACCINE Unknown Completed [facility] SARS-COV-2 COVID-19 PFIZER KARAN-SUCROSE VACCINE (VERONICA TOP) Unknown Completed [facility] DTaP, Unspecified Formulation Unknown Completed [facility] Pediarix (dtap/hep B/ipv) Unknown Completed [facility] Dtap/ipv Unknown Completed [facility] Influenza Virus Vaccine Quad IM, Preserv and ABX Free 6 MO-64 YRS (FLUCELVAX) Unknown Completed [facility] Influenza Virus Vaccine - Whole Unknown Completed [facility] Hib-HbOC Unknown Completed [facility] HIB 3 Dose Schedule Unknown Completed [facility] HPV9 Unknown Completed [facility] Meningococcal Polysaccharide (groups A, C, Y and W-135) conjugate vaccine (MCV4P) Unknown Completed [facility] Proquad (MMR/VARICELLA) Unknown Completed [facility] Pneumococcal 13 Conjugate, PCV13 (Prevnar 13) Unknown Completed [facility] Meningococcal B, OMV Unknown Completed [facility] DTP Unknown Completed [facility] HEPATITIS A Unknown Completed [facility] Hep B, Adol or Pedi Dosage Unknown Completed [facility] HIB 4 Dose Schedule Unknown Completed [facility] HPV Unknown Completed [facility] Influenza Virus Vaccine Unknown Completed [facility] Meningococcal Vaccine Unknown Completed [facility] MMR Unknown Completed [facility] Polio (IPV/OPV) Unknown [facility] Unknown Completed [facility] Varicella (varivax)(chicken pox) Unknown Completed [facility] Pneumococcal 7 Conjugate, PCV7 (Prevnar7) Unknown Completed [facility] SARS-COV-2 COVID-19 PFIZER VACCINE Unknown Completed [facility] SARS-COV-2 COVID-19 PFIZER KARAN-SUCROSE VACCINE (VERONICA TOP) Unknown Completed [facility] DTaP, Unspecified Formulation Unknown Completed [facility] Pediarix (dtap/hep B/ipv) Unknown Completed [facility] Dtap/ipv Unknown Completed [facility] Influenza Virus Vaccine Quad IM, Preserv and ABX Free 6 MO-64 YRS (FLUCELVAX) Unknown Completed [facility] Influenza Virus Vaccine - Whole Unknown Completed [facility] Hib-HbOC Unknown Completed [facility] HIB 3 Dose Schedule Unknown Completed [facility] HPV9 Unknown Completed [facility] Meningococcal Polysaccharide (groups A, C, Y and W-135) conjugate vaccine (MCV4P) Unknown Completed [facility] Proquad (MMR/VARICELLA) Unknown Completed [facility] Pneumococcal 13 Conjugate, PCV13 (Prevnar 13) Unknown Completed [facility] Meningococcal B, OMV Unknown Completed [facility] DTP Unknown Completed [facility] HEPATITIS A Unknown Completed [facility] Hep B, Adol or Pedi Dosage Unknown Completed [facility] HIB 4 Dose Schedule Unknown Completed [facility] HPV Unknown Completed [facility] Influenza Virus Vaccine Unknown Completed [facility] Meningococcal Vaccine Unknown Completed [facility] MMR Unknown Completed [facility] Polio (IPV/OPV) Unknown [facility] Unknown Completed [facility] Varicella (varivax)(chicken pox) Unknown Completed [facility] Pneumococcal 7 Conjugate, PCV7 (Prevnar7) Unknown Completed [facility] SARS-COV-2 COVID-19 PFIZER VACCINE Unknown Completed [facility] SARS-COV-2 COVID-19 PFIZER KARAN-SUCROSE VACCINE (VERONICA TOP) Unknown Completed [facility] DTaP, Unspecified Formulation Unknown Completed [facility] Pediarix (dtap/hep B/ipv) Unknown Completed [facility] Dtap/ipv Unknown Completed [facility] Influenza Virus Vaccine Quad IM, Preserv and ABX Free 6 MO-64 YRS (FLUCELVAX) Unknown Completed [facility] Influenza Virus Vaccine - Whole Unknown Completed [facility] Hib-HbOC Unknown Completed [facility] HIB 3 Dose Schedule Unknown Completed [facility] HPV9 Unknown Completed [facility] Meningococcal Polysaccharide (groups A, C, Y and W-135) conjugate vaccine (MCV4P) Unknown Completed [facility] Proquad (MMR/VARICELLA) Unknown Completed [facility] Pneumococcal 13 Conjugate, PCV13 (Prevnar 13) Unknown Completed [facility] Meningococcal B, OMV Unknown Completed [facility] DTP Unknown Completed [facility] HEPATITIS A Unknown Completed [facility] Hep B, Adol or Pedi Dosage Unknown Completed [facility] HIB 4 Dose Schedule Unknown Completed [facility] HPV Unknown Completed [facility] Influenza Virus Vaccine Unknown Completed [facility] Meningococcal Vaccine Unknown Completed [facility] MMR Unknown Completed [facility] Polio (IPV/OPV) Unknown [facility] Unknown Completed [facility] Varicella (varivax)(chicken pox) Unknown Completed [facility] Pneumococcal 7 Conjugate, PCV7 (Prevnar7) Unknown Completed [facility] SARS-COV-2 COVID-19 PFIZER VACCINE Unknown Completed [facility] SARS-COV-2 COVID-19 PFIZER KARAN-SUCROSE VACCINE (VERONICA TOP) Unknown Completed [facility] DTaP, Unspecified Formulation Unknown Completed [facility] Pediarix (dtap/hep B/ipv) Unknown Completed [facility] Dtap/ipv Unknown Completed [facility] Influenza Virus Vaccine Quad IM, Preserv and ABX Free 6 MO-64 YRS (FLUCELVAX) Unknown Completed [facility] Influenza Virus Vaccine - Whole Unknown Completed [facility] Hib-HbOC Unknown Completed [facility] HIB 3 Dose Schedule Unknown Completed [facility] HPV9 Unknown Completed [facility] Meningococcal Polysaccharide (groups A, C, Y and W-135) conjugate vaccine (MCV4P) Unknown Completed [facility] Proquad (MMR/VARICELLA) Unknown Completed [facility] Pneumococcal 13 Conjugate, PCV13 (Prevnar 13) Unknown Completed [facility] Meningococcal B, OMV Unknown Completed [facility] DTP Unknown Completed [facility] HEPATITIS A Unknown Completed [facility] Hep B, Adol or Pedi Dosage Unknown Completed [facility] HIB 4 Dose Schedule Unknown Completed [facility] HPV Unknown Completed [facility] Influenza Virus Vaccine Unknown Completed [facility] Meningococcal Vaccine Unknown Completed [facility] MMR Unknown Completed [facility] Polio (IPV/OPV) Unknown [facility] Unknown Completed [facility] Varicella (varivax)(chicken pox) Unknown Completed [facility] Pneumococcal 7 Conjugate, PCV7 (Prevnar7) Unknown Completed [facility] SARS-COV-2 COVID-19 PFIZER VACCINE Unknown Completed [facility] SARS-COV-2 COVID-19 PFIZER KARAN-SUCROSE VACCINE (VERONICA TOP) Unknown Completed [facility] DTaP, Unspecified Formulation Unknown Completed [facility] Pediarix (dtap/hep B/ipv) Unknown Completed [facility] Dtap/ipv Unknown Completed [facility] Influenza Virus Vaccine Quad IM, Preserv and ABX Free 6 MO-64 YRS (FLUCELVAX) Unknown Completed [facility] Influenza Virus Vaccine - Whole Unknown Completed [facility] Hib-HbOC Unknown Completed [facility] HIB 3 Dose Schedule Unknown Completed [facility] HPV9 Unknown Completed [facility] Meningococcal Polysaccharide (groups A, C, Y and W-135) conjugate vaccine (MCV4P) Unknown Completed [facility] Proquad (MMR/VARICELLA) Unknown Completed [facility] Pneumococcal 13 Conjugate, PCV13 (Prevnar 13) Unknown Completed [facility] Meningococcal B, OMV Unknown Completed [facility] DTP Unknown Completed [facility] HEPATITIS A Unknown Completed [facility] Hep B, Adol or Pedi Dosage Unknown Completed [facility] HIB 4 Dose Schedule Unknown Completed [facility] HPV Unknown Completed [facility] Influenza Virus Vaccine Unknown Completed [facility] Meningococcal Vaccine Unknown Completed [facility] MMR Unknown Completed [facility] Polio (IPV/OPV) Unknown [facility] Unknown Completed [facility] Varicella (varivax)(chicken pox) Unknown Completed [facility] Pneumococcal 7 Conjugate, PCV7 (Prevnar7) Unknown Completed [facility] SARS-COV-2 COVID-19 PFIZER VACCINE Unknown Completed [facility] SARS-COV-2 COVID-19 PFIZER KARAN-SUCROSE VACCINE (VERONICA TOP) Unknown Completed [facility] DTaP, Unspecified Formulation Unknown Completed [facility] Pediarix (dtap/hep B/ipv) Unknown Completed [facility] Dtap/ipv Unknown Completed [facility] Influenza Virus Vaccine Quad IM, Preserv and ABX Free 6 MO-64 YRS (FLUCELVAX) Unknown Completed [facility] Influenza Virus Vaccine - Whole Unknown Completed [facility] Hib-HbOC Unknown Completed [facility] HIB 3 Dose Schedule Unknown Completed [facility] HPV9 Unknown Completed [facility] Meningococcal Polysaccharide (groups A, C, Y and W-135) conjugate vaccine (MCV4P) Unknown Completed [facility] Proquad (MMR/VARICELLA) Unknown Completed [facility] Pneumococcal 13 Conjugate, PCV13 (Prevnar 13) Unknown Completed [facility] Meningococcal B, OMV Unknown Completed [facility] DTP Unknown Completed [facility] HEPATITIS A Unknown Completed [facility] Hep B, Adol or Pedi Dosage Unknown Completed [facility] HIB 4 Dose Schedule Unknown Completed [facility] HPV Unknown Completed [facility] Influenza Virus Vaccine Unknown Completed [facility] Meningococcal Vaccine Unknown Completed [facility] MMR Unknown Completed [facility] Polio (IPV/OPV) Unknown [facility] TD[facility] Unknown Completed [facility] Varicella (varivax)(chicken pox) Unknown Completed [facility] Pneumococcal 7 Conjugate, PCV7 (Prevnar7) Unknown Completed [facility] SARS-COV-2 COVID-19 PFIZER VACCINE Unknown Completed [facility] SARS-COV-2 COVID-19 PFIZER KARAN-SUCROSE VACCINE (VERONICA TOP) Unknown Completed [facility] DTaP, Unspecified Formulation Unknown Completed [facility] Pediarix (dtap/hep B/ipv) Unknown Completed [facility] Dtap/ipv Unknown Completed [facility] Influenza Virus Vaccine Quad IM, Preserv and ABX Free 6 MO-64 YRS (FLUCELVAX) Unknown Completed [facility] Influenza Virus Vaccine - Whole Unknown Completed [facility] Hib-HbOC Unknown Completed [facility] HIB 3 Dose Schedule Unknown Completed [facility] HPV9 Unknown Completed [facility] Meningococcal Polysaccharide (groups A, C, Y and W-135) conjugate vaccine (MCV4P) Unknown Completed [facility] Proquad (MMR/VARICELLA) Unknown Completed [facility] Pneumococcal 13 Conjugate, PCV13 (Prevnar 13) Unknown Completed [facility] Meningococcal B, OMV Unknown Completed [facility] DTP Unknown Completed [facility] HEPATITIS A Unknown Completed [facility] Hep B, Adol or Pedi Dosage Unknown Completed [facility] HIB 4 Dose Schedule Unknown Completed [facility] HPV Unknown Completed [facility] Influenza Virus Vaccine Unknown Completed [facility] Meningococcal Vaccine Unknown Completed [facility] MMR Unknown Completed [facility] Polio (IPV/OPV) Unknown [facility] TD[facility] Unknown Completed [facility] Varicella (varivax)(chicken pox) Unknown Completed [facility] Pneumococcal 7 Conjugate, PCV7 (Prevnar7) Unknown Completed [facility] SARS-COV-2 COVID-19 PFIZER VACCINE Unknown Completed [facility] SARS-COV-2 COVID-19 PFIZER KARAN-SUCROSE VACCINE (VERONICA TOP) Unknown Completed [facility] DTaP, Unspecified Formulation Unknown Completed [facility] Pediarix (dtap/hep B/ipv) Unknown Completed [facility] Dtap/ipv Unknown Completed [facility] Influenza Virus Vaccine Quad IM, Preserv and ABX Free 6 MO-64 YRS (FLUCELVAX) Unknown Completed [facility] Influenza Virus Vaccine - Whole Unknown Completed [facility] Hib-HbOC Unknown Completed [facility] HIB 3 Dose Schedule Unknown Completed [facility] HPV9 Unknown Completed [facility] Meningococcal Polysaccharide (groups A, C, Y and W-135) conjugate vaccine (MCV4P) Unknown Completed [facility] Proquad (MMR/VARICELLA) Unknown Completed [facility] Pneumococcal 13 Conjugate, PCV13 (Prevnar 13) Unknown Completed [facility] Meningococcal B, OMV Unknown Completed [facility] Meningococcal Vaccine Unknown Completed [facility] TDAP Unknown Completed [facility] SARS-COV-2 COVID-19 PFIZER KARAN-SUCROSE VACCINE (VERONICA TOP) Unknown Completed [facility] DTaP, Unspecified Formulation Unknown Completed [facility] Dtap/ipv Unknown Completed [facility] Hib-HbOC Unknown Completed [facility] Proquad (MMR/VARICELLA) Unknown Completed [facility] DTP Unknown Completed [facility] HEPATITIS A Unknown Completed [facility] Hep B, Adol or Pedi Dosage Unknown Completed [facility] HIB 4 Dose Schedule Unknown Completed [facility] HPV Unknown Completed [facility] Influenza Virus Vaccine Unknown Completed [facility] MMR Unknown Completed [facility] Polio (IPV/OPV) Unknown [facility] Varicella (varivax)(chicken pox) Unknown Completed [facility] Pneumococcal 7 Conjugate, PCV7 (Prevnar7) Unknown Completed [facility] SARS-COV-2 COVID-19 PFIZER VACCINE Unknown Completed [facility] Pediarix (dtap/hep B/ipv) Unknown Completed [facility] Influenza Virus Vaccine Quad IM, Preserv and ABX Free 6 MO-64 YRS (FLUCELVAX) Unknown Completed [facility] Influenza Virus Vaccine - Whole Unknown Completed [facility] HIB 3 Dose Schedule Unknown Completed [facility] HPV9 Unknown Completed [facility] Meningococcal Polysaccharide (groups A, C, Y and W-135) conjugate vaccine (MCV4P) Unknown Completed [facility] Pneumococcal 13 Conjugate, PCV13 (Prevnar 13) Unknown Completed [facility] Meningococcal B, OMV Unknown Completed [facility] Meningococcal Vaccine Unknown Completed [facility] TDAP Unknown Completed [facility] SARS-COV-2 COVID-19 PFIZER KARAN-SUCROSE VACCINE (VERONICA TOP) Unknown Completed [facility] DTaP, Unspecified Formulation Unknown Completed [facility] Dtap/ipv Unknown Completed [facility] Hib-HbOC Unknown Completed [facility] Proquad (MMR/VARICELLA) Unknown Completed [facility] DTP Unknown Completed [facility] HEPATITIS A Unknown Completed [facility] Hep B, Adol or Pedi Dosage Unknown Completed [facility] HIB 4 Dose Schedule Unknown Completed [facility] HPV Unknown Completed [facility] Influenza Virus Vaccine Unknown Completed [facility] MMR Unknown Completed [facility] Polio (IPV/OPV) Unknown [facility] Varicella (varivax)(chicken pox) Unknown Completed [facility] Pneumococcal 7 Conjugate, PCV7 (Prevnar7) Unknown Completed [facility] SARS-COV-2 COVID-19 PFIZER VACCINE Unknown Completed [facility] Pediarix (dtap/hep B/ipv) Unknown Completed [facility] Influenza Virus Vaccine Quad IM, Preserv and ABX Free 6 MO-64 YRS (FLUCELVAX) Unknown Completed [facility] Influenza Virus Vaccine - Whole Unknown Completed [facility] HIB 3 Dose Schedule Unknown Completed [facility] HPV9 Unknown Completed [facility] Meningococcal Polysaccharide (groups A, C, Y and W-135) conjugate vaccine (MCV4P) Unknown Completed [facility] Pneumococcal 13 Conjugate, PCV13 (Prevnar 13) Unknown Completed [facility] Meningococcal B, OMV Unknown Completed [facility] DTP Unknown Completed [facility] HEPATITIS A Unknown Completed [facility] Hep B, Adol or Pedi Dosage Unknown Completed [facility] HIB 4 Dose Schedule Unknown Completed [facility] HPV Unknown Completed [facility] Influenza Virus Vaccine Unknown Completed [facility] Meningococcal Vaccine Unknown Completed [facility] MMR Unknown Completed [facility] Polio (IPV/OPV) Unknown [facility] TD[facility] Unknown Completed [facility] Varicella (varivax)(chicken pox) Unknown Completed [facility] Pneumococcal 7 Conjugate, PCV7 (Prevnar7) Unknown Completed [facility] SARS-COV-2 COVID-19 PFIZER VACCINE Unknown Completed [facility] SARS-COV-2 COVID-19 PFIZER KARAN-SUCROSE VACCINE (VERONICA TOP) Unknown Completed [facility] DTaP, Unspecified Formulation Unknown Completed [facility] Pediarix (dtap/hep B/ipv) Unknown Completed [facility] Dtap/ipv Unknown Completed [facility] Influenza Virus Vaccine Quad IM, Preserv and ABX Free 6 MO-64 YRS (FLUCELVAX) Unknown Completed [facility] Influenza Virus Vaccine - Whole Unknown Completed [facility] Hib-HbOC Unknown Completed [facility] HIB 3 Dose Schedule Unknown Completed [facility] HPV9 Unknown Completed [facility] Meningococcal Polysaccharide (groups A, C, Y and W-135) conjugate vaccine (MCV4P) Unknown Completed [facility] Proquad (MMR/VARICELLA) Unknown Completed [facility] Pneumococcal 13 Conjugate, PCV13 (Prevnar 13) Unknown Completed [facility] Meningococcal B, OMV Unknown Completed [facility] DTP Unknown Completed [facility] HEPATITIS A Unknown Completed [facility] Hep B, Adol or Pedi Dosage Unknown Completed [facility] HIB 4 Dose Schedule Unknown Completed [facility] HPV Unknown Completed [facility] Influenza Virus Vaccine Unknown Completed [facility] Meningococcal Vaccine Unknown Completed [facility] MMR Unknown Completed [facility] Polio (IPV/OPV) Unknown [facility] TDAP Unknown Completed [facility] Varicella (varivax)(chicken pox) Unknown Completed [facility] Pneumococcal 7 Conjugate, PCV7 (Prevnar7) Unknown Completed [facility] SARS-COV-2 COVID-19 PFIZER VACCINE Unknown Completed [facility] SARS-COV-2 COVID-19 PFIZER KARAN-SUCROSE VACCINE (VERONICA TOP) Unknown Completed [facility] DTaP, Unspecified Formulation Unknown Completed [facility] Pediarix (dtap/hep B/ipv) Unknown Completed [facility] Dtap/ipv Unknown Completed [facility] Influenza Virus Vaccine Quad IM, Preserv and ABX Free 6 MO-64 YRS (FLUCELVAX) Unknown Completed [facility] Influenza Virus Vaccine - Whole Unknown Completed [facility] Hib-HbOC Unknown Completed [facility] HIB 3 Dose Schedule Unknown Completed [facility] HPV9 Unknown Completed [facility] Meningococcal Polysaccharide (groups A, C, Y and W-135) conjugate vaccine (MCV4P) Unknown Completed [facility] Proquad (MMR/VARICELLA) Unknown Completed [facility] Pneumococcal 13 Conjugate, PCV13 (Prevnar 13) Unknown Completed [facility] Meningococcal B, OMV Unknown Completed [facility] DTP Unknown Completed [facility] HEPATITIS A Unknown Completed [facility] Hep B, Adol or Pedi Dosage Unknown Completed [facility] HIB 4 Dose Schedule Unknown Completed [facility] HPV Unknown Completed [facility] Influenza Virus Vaccine Unknown Completed [facility] Meningococcal Vaccine Unknown Completed [facility] MMR Unknown Completed [facility] Polio (IPV/OPV) Unknown [facility] TD[facility] Unknown Completed [facility] Varicella (varivax)(chicken pox) Unknown Completed [facility] Pneumococcal 7 Conjugate, PCV7 (Prevnar7) Unknown Completed [facility] SARS-COV-2 COVID-19 PFIZER VACCINE Unknown Completed [facility] SARS-COV-2 COVID-19 PFIZER KARAN-SUCROSE VACCINE (VERONICA TOP) Unknown Completed [facility] DTaP, Unspecified Formulation Unknown Completed [facility] Pediarix (dtap/hep B/ipv) Unknown Completed [facility] Dtap/ipv Unknown Completed [facility] Influenza Virus Vaccine Quad IM, Preserv and ABX Free 6 MO-64 YRS (FLUCELVAX) Unknown Completed [facility] Influenza Virus Vaccine - Whole Unknown Completed [facility] Hib-HbOC Unknown Completed [facility] HIB 3 Dose Schedule Unknown Completed [facility] HPV9 Unknown Completed [facility] Meningococcal Polysaccharide (groups A, C, Y and W-135) conjugate vaccine (MCV4P) Unknown Completed [facility] Proquad (MMR/VARICELLA) Unknown Completed [facility] Pneumococcal 13 Conjugate, PCV13 (Prevnar 13) Unknown Completed [facility] Meningococcal B, OMV Unknown Completed [facility] DTP Unknown Completed [facility] HEPATITIS A Unknown Completed [facility] Hep B, Adol or Pedi Dosage Unknown Completed [facility] HIB 4 Dose Schedule Unknown Completed [facility] HPV Unknown Completed [facility] Influenza Virus Vaccine Unknown Completed [facility] Meningococcal Vaccine Unknown Completed [facility] MMR Unknown Completed [facility] Polio (IPV/OPV) Unknown [facility] TDAP Unknown Completed [facility] Varicella (varivax)(chicken pox) Unknown Completed [facility] Pneumococcal 7 Conjugate, PCV7 (Prevnar7) Unknown Completed [facility] SARS-COV-2 COVID-19 PFIZER VACCINE Unknown Completed [facility] SARS-COV-2 COVID-19 PFIZER KARAN-SUCROSE VACCINE (VERONICA TOP) Unknown Completed [facility] DTaP, Unspecified Formulation Unknown Completed [facility] Pediarix (dtap/hep B/ipv) Unknown Completed [facility] Dtap/ipv Unknown Completed [facility] Influenza Virus Vaccine Quad IM, Preserv and ABX Free 6 MO-64 YRS (FLUCELVAX) Unknown Completed [facility] Influenza Virus Vaccine - Whole Unknown Completed [facility] Hib-HbOC Unknown Completed [facility] HIB 3 Dose Schedule Unknown Completed [facility] HPV9 Unknown Completed [facility] Meningococcal Polysaccharide (groups A, C, Y and W-135) conjugate vaccine (MCV4P) Unknown Completed [facility] Proquad (MMR/VARICELLA) Unknown Completed [facility] Pneumococcal 13 Conjugate, PCV13 (Prevnar 13) Unknown Completed [facility] Meningococcal B, OMV Unknown Completed [facility] Meningococcal Vaccine Unknown Completed [facility] TDAP Unknown Completed [facility] SARS-COV-2 COVID-19 PFIZER KARAN-SUCROSE VACCINE (VERONICA TOP) Unknown Completed [facility] DTaP, Unspecified Formulation Unknown Completed [facility] Dtap/ipv Unknown Completed [facility] Hib-HbOC Unknown Completed [facility] Proquad (MMR/VARICELLA) Unknown Completed [facility] DTP Unknown Completed [facility] HEPATITIS A Unknown Completed [facility] Hep B, Adol or Pedi Dosage Unknown Completed [facility] HIB 4 Dose Schedule Unknown Completed [facility] HPV Unknown Completed [facility] Influenza Virus Vaccine Unknown Completed [facility] MMR Unknown Completed [facility] Polio (IPV/OPV) Unknown [facility] Varicella (varivax)(chicken pox) Unknown Completed [facility] Pneumococcal 7 Conjugate, PCV7 (Prevnar7) Unknown Completed [facility] SARS-COV-2 COVID-19 PFIZER VACCINE Unknown Completed [facility] Pediarix (dtap/hep B/ipv) Unknown Completed [facility] Influenza Virus Vaccine Quad IM, Preserv and ABX Free 6 MO-64 YRS (FLUCELVAX) Unknown Completed [facility] Influenza Virus Vaccine - Whole Unknown Completed [facility] HIB 3 Dose Schedule Unknown Completed [facility] HPV9 Unknown Completed [facility] Meningococcal Polysaccharide (groups A, C, Y and W-135) conjugate vaccine (MCV4P) Unknown Completed [facility] Pneumococcal 13 Conjugate, PCV13 (Prevnar 13) Unknown Completed [facility] Meningococcal B, OMV Unknown Completed [facility] DTP Unknown Completed [facility] HEPATITIS A Unknown Completed [facility] Hep B, Adol or Pedi Dosage Unknown Completed [facility] HIB 4 Dose Schedule Unknown Completed [facility] HPV Unknown Completed [facility] Influenza Virus Vaccine Unknown Completed [facility] Meningococcal Vaccine Unknown Completed [facility] MMR Unknown Completed [facility] Polio (IPV/OPV) Unknown [facility] TDAP Unknown Completed [facility] Varicella (varivax)(chicken pox) Unknown Completed [facility] Pneumococcal 7 Conjugate, PCV7 (Prevnar7) Unknown Completed [facility] SARS-COV-2 COVID-19 PFIZER VACCINE Unknown Completed [facility] SARS-COV-2 COVID-19 PFIZER KARAN-SUCROSE VACCINE (VERONICA TOP) Unknown Completed [facility] DTaP, Unspecified Formulation Unknown Completed [facility] Pediarix (dtap/hep B/ipv) Unknown Completed [facility] Dtap/ipv Unknown Completed [facility] Influenza Virus Vaccine Quad IM, Preserv and ABX Free 6 MO-64 YRS (FLUCELVAX) Unknown Completed [facility] Influenza Virus Vaccine - Whole Unknown Completed [facility] Hib-HbOC Unknown Completed [facility] HIB 3 Dose Schedule Unknown Completed [facility] HPV9 Unknown Completed [facility] Meningococcal Polysaccharide (groups A, C, Y and W-135) conjugate vaccine (MCV4P) Unknown Completed [facility] Proquad (MMR/VARICELLA) Unknown Completed [facility] Pneumococcal 13 Conjugate, PCV13 (Prevnar 13) Unknown Completed [facility] Meningococcal B, OMV Unknown Completed [facility] DTP Unknown Completed [facility] HEPATITIS A Unknown Completed [facility] Hep B, Adol or Pedi Dosage Unknown Completed [facility] HIB 4 Dose Schedule Unknown Completed [facility] HPV Unknown Completed [facility] Influenza Virus Vaccine Unknown Completed [facility] Meningococcal Vaccine Unknown Completed [facility] MMR Unknown Completed [facility] Polio (IPV/OPV) Unknown [facility] TDAP Unknown Completed [facility] Varicella (varivax)(chicken pox) Unknown Completed [facility] Pneumococcal 7 Conjugate, PCV7 (Prevnar7) Unknown Completed [facility] SARS-COV-2 COVID-19 PFIZER VACCINE Unknown Completed [facility] SARS-COV-2 COVID-19 PFIZER KARAN-SUCROSE VACCINE (VERONICA TOP) Unknown Completed [facility] DTaP, Unspecified Formulation Unknown Completed [facility] Pediarix (dtap/hep B/ipv) Unknown Completed [facility] Dtap/ipv Unknown Completed [facility] Influenza Virus Vaccine Quad IM, Preserv and ABX Free 6 MO-64 YRS (FLUCELVAX) Unknown Completed [facility] Influenza Virus Vaccine - Whole Unknown Completed [facility] Hib-HbOC Unknown Completed [facility] HIB 3 Dose Schedule Unknown Completed [facility] HPV9 Unknown Completed [facility] Meningococcal Polysaccharide (groups A, C, Y and W-135) conjugate vaccine (MCV4P) Unknown Completed [facility] Proquad (MMR/VARICELLA) Unknown Completed [facility] Pneumococcal 13 Conjugate, PCV13 (Prevnar 13) Unknown Completed [facility] Meningococcal B, OMV Unknown Completed [facility] Vital Signs Vital Name Observation Time Observation Value Comments S ource Systolic blood pressure 2024-01-28 15:36:00 106 mm[Hg] [facility] Diastolic blood pressure 2024-01-28 15:36:00 74 mm[Hg] [facility] Heart rate 2024-01-28 15:36:00 80 /min [facility] Body temperature 2024-01-28 15:36:00 36.78 [facility] Respiratory rate 2024-01-28 15:36:00 20 /min [facility] Body weight 2024-01-28 15:36:00 101.878 kg [facility] Oxygen saturation in Arterial blood by Pulse oximetry 2024-01-28 15:36:00 99 /min [facility] Systolic blood pressure 2023-09-29 15:25:00 121 mm[Hg] [facility] Diastolic blood pressure 2023-09-29 15:25:00 65 mm[Hg] [facility] Heart rate 2023-09-29 15:25:00 71 /min [facility] Respiratory rate 2023-09-29 15:25:00 18 /min [facility] Body height 2023-09-29 15:25:00 180.3 cm [facility] Body weight 2023-09-29 15:25:00 97.07 kg [facility] BMI 2023-09-29 15:25:00 29.85 kg/m2 [facility] Body mass index (BMI) [Percentile] Per age and sex 2023-09-29 15:25:00 93.87 % [facility] Systolic blood pressure 2023-09-13 02:53:00 127 mm[Hg] [facility] Diastolic blood pressure 2023-09-13 02:53:00 89 mm[Hg] [facility] Heart rate 2023-09-13 02:53:00 91 /min [facility] Body temperature 2023-09-13 02:53:00 37.5 [facility] Respiratory rate 2023-09-13 02:53:00 18 /min [facility] Body height 2023-09-13 02:53:00 180.3 cm [facility] Body weight 2023-09-13 02:53:00 99.791 kg [facility] BMI 2023-09-13 02:53:00 30.68 kg/m2 [facility] Body mass index (BMI) [Percentile] Per age and sex 2023-09-13 02:53:00 94.84 % [facility] Oxygen saturation in Arterial blood by Pulse oximetry 2023-09-13 02:53:00 99 /min [facility] Systolic blood pressure 2023-07-01 20:03:00 128 mm[Hg] [facility] Diastolic blood pressure 2023-07-01 20:03:00 82 mm[Hg] [facility] Heart rate 2023-07-01 20:03:00 91 /min [facility] Respiratory rate 2023-07-01 20:03:00 20 /min [facility] Body height 2023-07-01 20:03:00 177.8 cm [facility] Body weight 2023-07-01 20:03:00 107.956 kg [facility] BMI 2023-07-01 20:03:00 34.15 kg/m2 [facility] Body mass index (BMI) [Percentile] Per age and sex 2023-07-01 20:03:00 96.81 % [facility] Oxygen saturation in Arterial blood by Pulse oximetry 2023-07-01 20:03:00 98 /min [facility] Systolic blood pressure 2023-06-24 00:21:00 131 mm[Hg] [facility] Diastolic blood pressure 2023-06-24 00:21:00 81 mm[Hg] [facility] Heart rate 2023-06-24 00:21:00 111 /min [facility] Body temperature 2023-06-24 00:21:00 36.67 [facility] Body height 2023-06-24 00:21:00 180.3 cm [facility] Body weight 2023-06-24 00:21:00 107.049 kg [facility] BMI 2023-06-24 00:21:00 32.92 kg/m2 [facility] Body mass index (BMI) [Percentile] Per age and sex 2023-06-24 00:21:00 96.20 % [facility] Systolic blood pressure 2023-06-17 15:10:00 102 mm[Hg] [facility] Diastolic blood pressure 2023-06-17 15:10:00 65 mm[Hg] [facility] Heart rate 2023-06-17 15:10:00 72 /min [facility] Body height 2023-06-17 15:10:00 180.3 cm [facility] Body weight 2023-06-17 15:10:00 109.408 kg [facility] BMI 2023-06-17 15:10:00 33.64 kg/m2 [facility] Body mass index (BMI) [Percentile] Per age and sex 2023-06-17 15:10:00 96.57 % [facility] Oxygen saturation in Arterial blood by Pulse oximetry 2023-06-17 15:10:00 100 /min [facility] Systolic blood pressure 2023-04-07 23:27:00 115 mm[Hg] [facility] Diastolic blood pressure 2023-04-07 23:27:00 70 mm[Hg] [facility] Heart rate 2023-04-07 23:27:00 103 /min [facility] Body temperature 2023-04-07 23:27:00 37.22 [facility] Respiratory rate 2023-04-07 23:27:00 18 /min [facility] Body height 2023-04-07 23:27:00 177.8 cm [facility] Body weight 2023-04-07 23:27:00 107.094 kg [facility] BMI 2023-04-07 23:27:00 33.88 kg/m2 [facility] Body mass index (BMI) [Percentile] Per age and sex 2023-04-07 23:27:00 96.77 % [facility] Oxygen saturation in Arterial blood by Pulse oximetry 2023-04-07 23:27:00 97 /min [facility] Systolic blood pressure 2023-02-17 14:46:00 113 mm[Hg] [facility] Diastolic blood pressure 2023-02-17 14:46:00 77 mm[Hg] [facility] Heart rate 2023-02-17 14:46:00 118 /min [facility] Body temperature 2023-02-17 14:46:00 37.11 [facility] Respiratory rate 2023-02-17 14:46:00 16 /min [facility] Body height 2023-02-17 14:46:00 177.8 cm [facility] Body weight 2023-02-17 14:46:00 103.964 kg [facility] BMI 2023-02-17 14:46:00 32.89 kg/m2 [facility] Body mass index (BMI) [Percentile] Per age and sex 2023-02-17 14:46:00 96.32 % [facility] Oxygen saturation in Arterial blood by Pulse oximetry 2023-02-17 14:46:00 98 /min [facility] Systolic blood pressure 2022-11-05 14:09:00 108 mm[Hg] [facility] Diastolic blood pressure 2022-11-05 14:09:00 73 mm[Hg] [facility] Heart rate 2022-11-05 14:09:00 87 /min [facility] Body temperature 2022-11-05 14:09:00 37.17 [facility] Body height 2022-11-05 14:09:00 177.8 cm [facility] Body weight 2022-11-05 14:09:00 108.041 kg [facility] BMI 2022-11-05 14:09:00 34.18 kg/m2 [facility] Body mass index (BMI) [Percentile] Per age and sex 2022-11-05 14:09:00 97.54 % [facility] Systolic blood pressure 2022-10-08 16:11:00 121 mm[Hg] [facility] Diastolic blood pressure 2022-10-08 16:11:00 73 mm[Hg] [facility] Heart rate 2022-10-08 16:11:00 72 /min [facility] Body temperature 2022-10-08 16:11:00 36.72 [facility] Respiratory rate 2022-10-08 16:11:00 18 /min [facility] Body height 2022-10-08 16:11:00 177.8 cm [facility] Body weight 2022-10-08 16:11:00 108.591 kg [facility] BMI 2022-10-08 16:11:00 34.35 kg/m2 [facility] Body mass index (BMI) [Percentile] Per age and sex 2022-10-08 16:11:00 97.63 % [facility] Systolic blood pressure 2022-10-05 16:38:00 123 mm[Hg] [facility] Diastolic blood pressure 2022-10-05 16:38:00 78 mm[Hg] [facility] Heart rate 2022-10-05 16:38:00 104 /min [facility] Body temperature 2022-10-05 16:38:00 37.17 [facility] Respiratory rate 2022-10-05 16:38:00 18 /min [facility] Body height 2022-10-05 16:38:00 177.8 cm [facility] Body weight 2022-10-05 16:38:00 109.816 kg [facility] BMI 2022-10-05 16:38:00 34.74 kg/m2 [facility] Body mass index (BMI) [Percentile] Per age and sex 2022-10-05 16:38:00 97.77 % [facility] Oxygen saturation in Arterial blood by Pulse oximetry 2022-10-05 16:38:00 97 /min [facility] Systolic blood pressure 2022-07-09 13:48:00 112 mm[Hg] [facility] Diastolic blood pressure 2022-07-09 13:48:00 72 mm[Hg] [facility] Heart rate 2022-07-09 13:48:00 90 /min [facility] Body temperature 2022-07-09 13:48:00 36.61 [facility] Respiratory rate 2022-07-09 13:48:00 18 /min [facility] Body height 2022-07-09 13:48:00 167.6 cm [facility] Body weight 2022-07-09 13:48:00 113.127 kg [facility] BMI 2022-07-09 13:48:00 40.25 kg/m2 [facility] Body mass index (BMI) [Percentile] Per age and sex 2022-07-09 13:48:00 98.93 % [facility] Systolic blood pressure 2022-06-11 19:09:00 120 mm[Hg] [facility] Diastolic blood pressure 2022-06-11 19:09:00 79 mm[Hg] [facility] Heart rate 2022-06-11 19:09:00 73 /min [facility] Body temperature 2022-06-11 19:09:00 36.89 [facility] Respiratory rate 2022-06-11 19:09:00 14 /min [facility] Body height 2022-06-11 19:09:00 177.8 cm [facility] Body weight 2022-06-11 19:09:00 112.9 kg [facility] BMI 2022-06-11 19:09:00 35.71 kg/m2 [facility] Body mass index (BMI) [Percentile] Per age and sex 2022-06-11 19:09:00 98.16 % [facility] Oxygen saturation in Arterial blood by Pulse oximetry 2022-06-11 19:09:00 99 /min [facility] Systolic blood pressure 2022-06-04 15:41:00 112 mm[Hg] [facility] Diastolic blood pressure 2022-06-04 15:41:00 76 mm[Hg] [facility] Heart rate 2022-06-04 15:41:00 99 /min [facility] Body temperature 2022-06-04 15:41:00 36.94 [facility] Respiratory rate 2022-06-04 15:41:00 18 /min [facility] Body height 2022-06-04 15:41:00 177.8 cm [facility] Body weight 2022-06-04 15:41:00 113.671 kg [facility] BMI 2022-06-04 15:41:00 35.96 kg/m2 [facility] Body mass index (BMI) [Percentile] Per age and sex 2022-06-04 15:41:00 98.23 % [facility] Systolic blood pressure 2022-03-30 21:00:00 111 mm[Hg] [facility] Diastolic blood pressure 2022-03-30 21:00:00 72 mm[Hg] [facility] Heart rate 2022-03-30 21:00:00 73 /min [facility] Body temperature 2022-03-30 21:00:00 36.78 [facility] Respiratory rate 2022-03-30 21:00:00 16 /min [facility] Body height 2022-03-30 21:00:00 180.4 cm [facility] Body weight 2022-03-30 21:00:00 112.265 kg [facility] BMI 2022-03-30 21:00:00 34.51 kg/m2 [facility] Body mass index (BMI) [Percentile] Per age and sex 2022-03-30 21:00:00 97.88 % [facility] Oxygen saturation in Arterial blood by Pulse oximetry 2022-03-30 21:00:00 98 /min [facility] Systolic blood pressure 2022-02-25 18:12:00 123 mm[Hg] [facility] Diastolic blood pressure 2022-02-25 18:12:00 80 mm[Hg] [facility] Heart rate 2022-02-25 18:12:00 109 /min [facility] Body temperature 2022-02-25 18:12:00 37.11 [facility] Respiratory rate 2022-02-25 18:12:00 18 /min [facility] Body height 2022-02-25 18:12:00 180.3 cm [facility] Body weight 2022-02-25 18:12:00 112.038 kg [facility] BMI 2022-02-25 18:12:00 34.45 kg/m2 [facility] Body mass index (BMI) [Percentile] Per age and sex 2022-02-25 18:12:00 97.89 % [facility] Oxygen saturation in Arterial blood by Pulse oximetry 2022-02-25 18:12:00 98 /min [facility] Systolic blood pressure 2021-12-24 05:55:00 133 mm[Hg] [facility] Diastolic blood pressure 2021-12-24 05:55:00 87 mm[Hg] [facility] Heart rate 2021-12-24 05:55:00 114 /min [facility] Body temperature 2021-12-24 05:55:00 37.33 [facility] Respiratory rate 2021-12-24 05:55:00 18 /min [facility] Body height 2021-12-24 05:55:00 180.3 cm [facility] Body weight 2021-12-24 05:55:00 108.863 kg [facility] BMI 2021-12-24 05:55:00 33.47 kg/m2 [facility] Body mass index (BMI) [Percentile] Per age and sex 2021-12-24 05:55:00 97.60 % [facility] Oxygen saturation in Arterial blood by Pulse oximetry 2021-12-24 05:55:00 97 /min [facility] Systolic blood pressure 2021-11-25 14:09:00 100 mm[Hg] [facility] Diastolic blood pressure 2021-11-25 14:09:00 67 mm[Hg] [facility] Heart rate 2021-11-25 14:09:00 90 /min [facility] Body temperature 2021-11-25 14:09:00 36.72 [facility] Respiratory rate 2021-11-25 14:09:00 18 /min [facility] Body height 2021-11-25 14:09:00 177.1 cm [facility] Body weight 2021-11-25 14:09:00 110.632 kg [facility] BMI 2021-11-25 14:09:00 35.27 kg/m2 [facility] Body mass index (BMI) [Percentile] Per age and sex 2021-11-25 14:09:00 98.21 % [facility] Oxygen saturation in Arterial blood by Pulse oximetry 2021-11-25 14:09:00 98 /min [facility] Systolic blood pressure 2021-06-03 07:12:00 122 mm[Hg] [facility] Diastolic blood pressure 2021-06-03 07:12:00 80 mm[Hg] [facility] Heart rate 2021-06-03 07:12:00 113 /min [facility] Body temperature 2021-06-03 07:12:00 36 [facility] Respiratory rate 2021-06-03 07:12:00 20 /min [facility] Body height 2021-06-03 07:12:00 172.7 cm [facility] Body weight 2021-06-03 07:12:00 108.138 kg [facility] BMI 2021-06-03 07:12:00 36.25 kg/m2 [facility] Body mass index (BMI) [Percentile] Per age and sex 2021-06-03 07:12:00 98.58 % [facility] Oxygen saturation in Arterial blood by Pulse oximetry 2021-06-03 07:12:00 100 /min [facility] Systolic blood pressure 2021-04-01 03:45:00 102 mm[Hg] [facility] Diastolic blood pressure 2021-04-01 03:45:00 60 mm[Hg] [facility] Heart rate 2021-04-01 03:45:00 126 /min [facility] Body temperature 2021-04-01 03:45:00 37.89 [facility] Oxygen saturation in Arterial blood by Pulse oximetry 2021-04-01 03:45:00 96 /min [facility] Respiratory rate 2021-04-01 01:47:00 22 /min [facility] Body weight 2021-04-01 01:47:00 107.049 kg [facility] Systolic blood pressure 2020-12-20 16:01:00 112 mm[Hg] [facility] Diastolic blood pressure 2020-12-20 16:01:00 73 mm[Hg] [facility] Heart rate 2020-12-20 16:01:00 79 /min [facility] Body temperature 2020-12-20 16:01:00 37.17 [facility] Respiratory rate 2020-12-20 16:01:00 18 /min [facility] Body weight 2020-12-20 16:01:00 108.546 kg [facility] Oxygen saturation in Arterial blood by Pulse oximetry 2020-12-20 16:01:00 97 /min [facility] Systolic blood pressure 2020-08-21 00:26:00 118 mm[Hg] [facility] Diastolic blood pressure 2020-08-21 00:26:00 75 mm[Hg] [facility] Heart rate 2020-08-21 00:26:00 92 /min [facility] Body temperature 2020-08-21 00:26:00 37.39 [facility] Respiratory rate 2020-08-21 00:26:00 17 /min [facility] Body weight 2020-08-21 00:26:00 109.226 kg [facility] Oxygen saturation in Arterial blood by Pulse oximetry 2020-08-21 00:26:00 99 /min [facility] Systolic blood pressure 2020-03-11 23:58:00 123 mm[Hg] [facility] Diastolic blood pressure 2020-03-11 23:58:00 74 mm[Hg] [facility] Heart rate 2020-03-11 23:58:00 90 /min [facility] Body temperature 2020-03-11 23:58:00 36.33 [facility] Respiratory rate 2020-03-11 23:58:00 16 /min [facility] Body height 2020-03-11 23:58:00 160 cm [facility] Body weight 2020-03-11 23:58:00 106.595 kg [facility] BMI 2020-03-11 23:58:00 41.63 kg/m2 [facility] Oxygen saturation in Arterial blood by Pulse oximetry 2020-03-11 23:58:00 99 /min [facility] Systolic blood pressure 2020-01-16 13:32:00 131 mm[Hg] [facility] Diastolic blood pressure 2020-01-16 13:32:00 85 mm[Hg] [facility] Heart rate 2020-01-16 13:32:00 111 /min [facility] Body temperature 2020-01-16 13:32:00 37.06 Cynthia [facility] Respiratory rate 2020-01-16 13:32:00 16 /min [facility] Body height 2020-01-16 13:32:00 175.3 cm [facility] Body weight 2020-01-16 13:32:00 107.616 kg [facility] BMI 2020-01-16 13:32:00 35.04 kg/m2 [facility] Systolic blood pressure 2019-12-19 18:58:00 128 mm[Hg] [facility] Diastolic blood pressure 2019-12-19 18:58:00 80 mm[Hg] [facility] Heart rate 2019-12-19 18:58:00 93 /min [facility] Body temperature 2019-12-19 18:58:00 37.44 Cynthia [facility] Respiratory rate 2019-12-19 18:58:00 18 /min [facility] Body weight 2019-12-19 18:58:00 99.791 kg [facility] acute hospital Oxygen saturation in Arterial blood by Pulse oximetry 2019-12-19 18:58:00 100 /min [facility] BP Systolic 2021-12-08 08:28:00 120 mm[Hg] BP [...] 14:28:00 107.00 /min Respiratory Rate 2021-12-03 14:28:00 Body Temperature 2021-02-07 17:46:00 Heart Rate 2021-02-07 17:46:00 124.00 /min Respiratory Rate 2021-02-07 17:46:00 BP Systolic 2021-02-07 17:46:00 126 mm[Hg] BP Diastolic 2021-02-07 17:46:00 78 mm[Hg] Weight Measured 2021-02-07 17:46:00 238.20 pounds Height Measured 2021-02-07 17:46:00 70.00 inches BP Diastolic 2021-01-31 10:34:00 80 mm[Hg] Weight [...] 2016-12-09 14:02:00 Procedures Procedure Date / Time Performed Performing Clinician Source POCT MOLECULAR FLU 2024-01-28 15:33:00 Unknown, Attend ing [facility] POCT MOLECULAR STREP 2024-01-28 15:31:00 Unknown, Attangela schultz [facility] POCT SARS-COV-2 ANTIGEN (BINAX NOW) 2024-01-28 15:25:00 Jonny Pickens [facility] MR KNEE RIGHT WO CONTRAST 2023-06-25 14:44:58 Russ Ulloa [facility] POCT SARS-COV-2 ANTIGEN (BINAX NOW) 2023-06-24 00:31:00 Brynn Ying [facility] POCT MOLECULAR STREP 2023-06-24 00:11:00 Unknown, Attangela schultz [facility] XR KNEE <3 VW RIGHT 2023-06-17 15:18:42 Dylan Ulloa [facility] POCT MOLECULAR FLU 2023-04-07 23:34:00 Unknown, Attend [facility] MENINGOCOCCAL B VACCINE, OMV, 2 DOSE, IM 2023-03-22 15:53:33 Marcela [facility] ASSIGNMENT OF BENEFITS 2023-03-22 15:24:13 Docto r Unassigned, Carrick [facility] MENINGOCOCCAL B VACCINE, OMV, 2 DOSE, IM 2023-02-17 15:18:47 Marcela [facility] FLU VACC (), 6 MO-64 YRS, .5ML, IM, QUAD (FLUCELVAX) 2023-02-17 15:08:33 Marcela [facility] POCT SARS-COV-2 ANTIGEN (BINAX NOW) 2023-01-07 15:25:00 Brynn Ying [facility] PATIENT FINANCIAL POLICY 2022-07-09 13:18:07 Doctor Unassigned, Carrick [facility] POCT TEST 2022-07-09 00:00:00 Shen Ying [facility] CONSENT/REFUSAL FOR DIAGNOSIS AND TREATMENT 2022-06-22 02:11:01 Doctor Unassigned, Carrick [facility] POCT MOLECULAR FLU 2022-06-11 19:11:00 Unknown, Attend [facility] POCT TEST 2022-06-04 21:48:00 Shen Ying [facility] AUTHORIZATION TO RELEASE PHI TO [facility] 2022-06-04 06:01:00 Doctor Unassigned, Carrick [facility] REFERRAL- REQUEST/RESPONSE 2022-04-22 06:01:00 Doctor Unassigned, Carrick [facility] XR SCAPULA LEFT 2022-03-31 19:27:00 Sanjana Odonnell [facility] XR SHOULDER 2+ VW LEFT 2022-03-31 19:21:00 Ursula Odonnell [facility] XR CHEST 2 VW 2022-02-25 18:44:00 [facility] 2022-02-25 18:14:00 Unknown, Attend [facility] POCT MOLECULAR STREP 2022-02-25 18:10:00 Unknown, Atte marion [facility] ASSIGNMENT OF BENEFITS 2022-02-25 17:56:55 Docto r Unassigned, Carrick [facility] CONSENT/REFUSAL FOR DIAGNOSIS AND TREATMENT 2021-12-24 05:46:57 Doctor Unassigned, Carrick [facility] REFERRAL- REQUEST/RESPONSE 2021-12-08 05:01:00 Doctor Unassigned, Carrick [facility] RAPID STREP SCREEN FOR GROUP A 2021-06-03 07:45:00 Kenyetta Mims [facility] COVID-19 (ID NOW RAPID TESTING) 2021-06-03 07:45:00 Kenyetta Mims [facility] NOTICE OF PRIVACY PRACTICES 2021-06-03 07:00:56 Doctor Unassigned, Carrick [facility] CONSENT/REFUSAL FOR DIAGNOSIS AND TREATMENT 2021-06-03 07:00:24 Doctor Unassigned, Carrick [facility] SARS-COV-2 COVID-19 VACCINE 12 YRS+,0.3ML,IM (PFIZER - VERONICA TOP) 2021-05-28 21:20:06 Doctor Unassigned, Carrick [facility] RAPID STREP SCREEN FOR GROUP A 2021-04-01 02:09:00 Shantelle Mcallister [facility] RAPID INFLUENZA A/B 2021-04-01 02:09:00 Shantelle Mcallister [facility] COVID-19 (ID NOW RAPID TESTING) 2021-04-01 02:09:00 Shantelle Mcallister [facility] CONSENT/REFUSAL FOR DIAGNOSIS AND TREATMENT 2021-04-01 01:39:50 Doctor Unassigned, Carrick [facility] [address]46 Us Pelvic Nonobstetric Complete 2021-01-31 00:00:00 59101 Us Soft Tissue Head Neck Real Time Imge Docmtn 2021-01-31 00:00:00 ASSIGNMENT OF BENEFITS 2020-12-20 15:41:26 Docto r Unassigned, Carrick [facility] ASSIGNMENT OF BENEFITS 2020-01-16 13:07:47 Docto r Unassigned, Carrick [facility] CONSENT/REFUSAL FOR DIAGNOSIS AND TREATMENT 2019-12-19 18:48:19 Doctor Unassigned, Carrick [facility] ASSIGNMENT OF BENEFITS 2019-10-02 18:34:07 Docto r Unassigned, Carrick [facility] Plan of Care Planned Activity Planned Date Details Comments Source Goal Plan of Care Note [code = 80987-2] Goal Plan of Care Note [code = 93914-2] Goal Plan of Care Note [code = 32872-3] Goal Plan of Care Note [code = 89980-2] Goal Plan of Care Note [code = 74528-1] Goal Plan of Care Note [code = 24241-0] Goal Plan of Care Note [code = 26865-9] Goal Plan of Care Note [code = 63518-4] Goal Plan of Care Note [code = 71257-9] Goal Plan of Care Note [code = 27732-6] Goal Plan of Care Note [code = 70658-9] Goal Plan of Care Note [code = 67730-1] Goal Plan of Care Note [code = 44408-5] Goal Plan of Care Note [code = 01314-6] Goal Plan of Care Note [code = 17700-7] Goal Plan of Care Note [code = 29768-8] Goal Plan of Care Note [code = 36816-0] Goal Plan of Care Note [code = 68767-2] Goal Plan of Care Note [code = 85865-6] Goal Plan of Care Note [code = 82367-6] Goal Plan of Care Note [code = 67374-1] Goal Plan of Care Note [code = 36908-9] Goal Plan of Care Note [code = 40370-8] Goal Plan of Care Note [code = 29110-1] Goal Plan of Care Note [code = 14471-3] Goal Plan of Care Note [code = 39916-7] Goal Plan of Care Note [code = 00644-1] Goal Plan of Care Note [code = 57856-4] Goal Plan of Care Note [code = 38903-6] Goal Plan of Care Note [code = 59214-0] Goal Plan of Care Note [code = 60334-0] Goal Plan of Care Note [code = 85973-0] Goal Plan of Care Note [code = 29474-4] Goal Plan of Care Note [code = 51114-8] Goal Plan of Care Note [code = 46775-2] Goal Plan of Care Note [code = 25988-0] Encounters Start Date/Time End Date/Time Encounter Type Admission Type Attending [facility] Facility Care Department Encounter ID Source 2021-10-22 15:01:[address] [facility] [id number] Common [facility] 2021-02-21 14:26:40 Emergency [facility] [id number] [facility] 2024-01-28 09:40:00 2024-01-28 10:00:00 Urgent Care Jonny Pickens Unknown, Attending [facility] 1.2.840.114 350.1.13.10 4.2.7.2.686 [id number] [facility] 2024-01-28 09:40:00 2024-01-28 09:40:00 Outpatient JONNY RIVERA [facility] [id number] [facility] 2023-11-25 09:00:00 2023-11-25 09:00:00 Outpatient R [facility] [id number] [facility] 2023-09-13 00:00:00 2023-10-16 18:20:58 Patient Secure Msg Doctor Unassigned, Carrick [facility] 1.2840.114 350.1.13.10 4.2.7.2.686 [id number] [facility] 2023-10-15 00:00:00 2023-10-15 00:00:00 Telephone Dominic Russ Chaudhari [facility] 1.840.114 350.1.13.10 4.2.7.2.686 [id number] [facility] 2023-09-29 10:00:00 2023-09-29 10:36:49 Outpatient R HOLLY ROBLEDO [facility] [id number] [facility] 2023-09-29 10:00:00 2023-09-29 10:36:49 Office Visit Holly Robledo [facility] 1.840.114 350.1.13.10 4.2.7.2.686 [id number] [facility] 2023-09-12 21:57:00 2023-09-12 22:18:00 Emergency X SINGER THAI [facility] ERT [id number] [facility] 2023-09-12 21:57:00 2023-09-12 22:18:00 Emergency CurrieThai [facility] 1.840.114 350.1.13.10 4.2.7.2.686 [id number] [facility] 2023-07-29 00:00:00 2023-09-04 18:14:50 Patient Secure Msg Doctor Unassigned, Carrick [facility] 1.2840.114 350.1.13.10 4.2.7.2.686 [id number] [facility] 2023-08-20 00:00:00 2023-08-20 00:00:00 Telephone Russ Ulloa [facility] 1.2.840.114 350.1.13.10 4.2.7.2.686 [id number] [facility] 2023-07-26 00:00:00 2023-07-26 00:00:00 Telephone Russ Ulloa [facility] 1.2.840.114 350.1.13.10 4.2.7.2.686 [id number] [facility] 2023-07-01 14:15:00 2023-07-01 14:15:00 Office Visit Russ Ulloa [facility] 1.2.840.114 350.1.13.10 4.2.7.2.686 [id number] [facility] 2023-07-01 14:15:00 2023-07-01 14:11:12 Outpatient R RUSS ULLOA CRAIG [facility] [id number] [facility] 2023-06-25 07:52:49 2023-06-25 23:59:00 Outpatient R RUSS ULLOA CRAIG [facility] [id number] [facility] 2023-06-25 07:52:49 2023-06-25 23:59:00 Hospital Encounter Russ Ulloa [facility] 1.2.840.114 350.1.13.10 4.2.7.2.686 [id number] [facility] 2023-06-23 18:00:00 2023-06-23 18:48:42 Outpatient BRYNN SMITH [facility] [id number] [facility] 2023-06-23 18:00:00 2023-06-23 18:48:42 Urgent Care Brynn Ying Unknown, Attending [facility] 1.114 350.1.13.10 4.2.7.2.686 [id number] [facility] 2023-06-17 09:13:01 2023-06-17 23:59:00 Hospital Encounter Russ Ulloa [facility] 1.114 350.1.13.10 4.2.7.2.686 [id number] [facility] 2023-06-17 09:15:00 2023-06-17 09:46:40 Outpatient R RUSS ULLOA CRAIG [facility] [id number] [facility] 2023-06-17 09:15:00 2023-06-17 09:46:40 Office Visit Russ [facility]ll[facility] 1.114 350.1.13.10 4.2.7.2.686 [id number] [facility] 2023-06-14 00:00:00 2023-06-14 00:00:00 Telephone Ob-Archie [facility] 1.84.114 350.1.13.10 4.2.7.2.686 [id number] [facility] 2023-04-07 16:40:00 2023-04-07 18:27:51 Outpatient R GETACHEW NICOLE [facility] [id number] [facility] 2023-04-07 16:40:00 2023-04-07 18:27:51 Urgent Care Getachew Nicole Unknown, Attending [facility] 1.84.114 350.1.13.10 4.2.7.2.686 [id number] [facility] 2023-03-22 09:40:00 2023-03-22 09:40:00 Nurse Visit Nurse, Adc Fam Marcela [facility] 1..840.114 350.1.13.10 4.2.7.2.686 [id number] [facility] 2023-03-22 09:40:00 2023-03-22 09:32:57 Outpatient R OBI-ARCHIE , CLARIBEL OBI-ARCHIE , [facility] [id number] [facility] 2023-03-22 00:00:00 2023-03-22 00:00:00 Orders Only Doctor Unassigned, Carrick [facility] 1.840.114 350.1.13.10 4.2.7.2.686 [id number] [facility] 2023-02-17 10:00:00 2023-02-17 10:40:00 Office Visit Gerald [facility] 1..840.114 350.1.13.10 4.2.7.2.686 [id number] [facility] 2023-02-17 10:00:00 2023-02-17 10:00:00 Outpatient R OBI-ARCHIE , CLARIBEL OBI-ARCHIE , [facility] [id number] [facility] 2023-01-08 00:00:00 2023-01-08 00:00:00 Letter (Out) Ryan Cordero [facility] 1..114 350.1.13.10 4.2.7.2.686 [id number] [facility] 2023-01-07 10:00:00 2023-01-07 10:15:00 Laboratory Only Only, Ang Db Test Unknown, Attending Van[place]han, [facility] 1..840.114 350.1.13.10 4.2.7.2.686 [id number] [facility] 2023-01-07 10:00:00 2023-01-07 10:00:00 [facility] [id number] [facility] 2022-11-05 09:00:00 2022-11-05 09:21:52 Outpatient R [facility] [id number] [facility] 2022-11-05 09:00:00 2022-11-05 09:21:52 Urgent Care Brynn Ying Unknown, Attending [facility] 1..840.114 350.1.13.10 4.2.7.2.686 [id number] [facility] 2022-10-08 11:00:00 2022-10-08 11:30:00 Office [facility] 1..840.114 350.1.13.10 4.2.7.2.686 [id number] [facility] 2022-10-08 11:00:00 2022-10-08 11:00:00 Outpatient R SEVEN RODRIGUEZ [facility] [id number] [facility] 2022-10-05 11:20:00 2022-10-05 11:58:20 Outpatient R JONNY PICKENS [facility] [id number] [facility] 2022-10-05 11:20:00 2022-10-05 11:58:20 Urgent Care Jonny Pickens Unknown, Attending [facility] 1..840.114 350.1.13.10 4.2.7.2.686 [id number] [facility] 2022-07-09 08:30:00 2022-07-09 09:13:28 Outpatient R STEPAN [facility] [id number] [facility] 2022-07-09 08:30:00 2022-07-09 09:13:28 Office Visit Brynn Ying [facility] 1.2.840.114 350.1.13.10 4.2.7.2.686 [id number] [facility] 2022-07-09 00:00:00 2022-07-09 00:00:00 Orders Only Doctor Unassigned, Carrick [facility] 1..840.114 350.1.13.10 4.2.7.2.686 [id number] [facility] 2022-06-21 20:11:00 2022-06-21 20:20:00 Emergency X [facility] ERT [id number] [facility] 2022-06-21 00:00:00 2022-06-21 00:00:00 Orders Only Doctor Unassigned, Carrick [facility] 1.2840.114 350.1.13.10 4.2.7.2.686 [id number] [facility] 2022-06-11 13:00:00 2022-06-11 13:30:26 Outpatient R SORIN ROSE [facility] [id number] [facility] 2022-06-11 13:00:00 2022-06-11 13:30:26 Urgent Care Sorin Rose Unknown, Attending [facility] 1..840.114 350.1.13.10 4.2.7.2.686 [id number] [facility] 2022-06-05 00:00:00 2022-06-05 00:00:00 Telephone Stepan Brynn [facility] 1.2.840.114 350.1.13.10 4.2.7.2.686 [id number] [facility] 2022-06-04 09:30:00 2022-06-04 10:05:20 Outpatient R BRYNN YING [facility] [id number] [facility] 2022-06-04 09:30:00 2022-06-04 10:05:20 Office Visit Brynn Ying [facility] 1.2.840.114 350.1.13.10 4.2.7.2.686 [id number] [facility] 2022-06-04 00:00:00 2022-06-04 00:00:00 [facility] 1.2.840.114 350.1.13.10 4.2.7.2.686 [id number] [facility] 2022-06-04 00:00:00 2022-06-04 00:00:00 Orders Only Doctor Unassigned, Carrick [facility] 1.2.840.114 350.1.13.10 4.2.7.2.686 [id number] [facility] 2022-04-23 00:00:00 2022-04-23 00:00:00 Patient Secure Msg Doctor Unassigned, Carrick [facility] 1.2.840.114 350.1.13.10 4.2.7.2.686 [id number] [facility] 2022-04-22 00:00:00 2022-04-22 00:00:00 Orders Only Doctor Unassigned, Carrick [facility] 1.2.840.114 350.1.13.10 4.2.7.2.686 [id number] [facility] 2022-03-31 13:08:18 2022-03-31 23:59:00 Outpatient R SANJANA ODONNELL [facility] [id number] [facility] 2022-03-31 13:08:18 2022-03-31 23:59:00 Hospital [facility] 1.2.840.114 350.1.13.10 4.2.7.2.686 [id number] [facility] 2022-03-31 13:08:18 2022-03-31 23:59:00 Hospital Encounter Sanjana Odonnell [facility] 1.2.840.114 350.1.13.10 4.2.7.2.686 [id number] [facility] 2022-03-31 00:00:00 2022-03-31 00:00:00 Letter (Out) Provider, Ang Db Urgent Care [facility] 1.2.840.114 350.1.13.10 4.2.7.2.686 [id number] [facility] 2022-03-30 16:36:01 2022-03-30 23:59:00 Hospital Encounter Sanjana Odonnell [facility] 1.2840.114 350.1.13.10 4.2.7.2.686 [id number] [facility] 2022-03-30 15:40:00 2022-03-30 17:01:43 Outpatient R SANJANA ODONNELL [facility] [id number] [facility] 2022-03-30 15:40:00 2022-03-30 17:01:43 Urgent Care Sanjana Odonnell Unknown, Attending [facility] 1.2.840.114 350.1.13.10 4.2.7.2.686 [id number] [facility] 2022-03-30 16:36:00 2022-03-30 16:36:00 Hospital Encounter Sanjana Odonnell [facility] 1.2840.114 350.1.13.10 4.2.7.2.686 [id number] [facility] 2022-03-30 00:00:00 2022-03-30 00:00:00 Letter (Out) Sanjana Odonnell [facility] 1.20.114 350.1.13.10 4.2.7.2.686 [id number] [facility] 2022-02-25 13:34:51 2022-02-25 23:59:00 Outpatient R SANJANA ODONNELL [facility] [id number] [facility] 2022-02-25 13:34:51 2022-02-25 23:59:00 Hospital Encounter Sanjana Odonnell [facility] 1.2840.114 350.1.13.10 4.2.7.2.686 [id number] [facility] 2022-02-25 13:00:00 2022-02-25 13:20:00 Urgent Care Sanjana Odonnell Unknown, Attending [facility] 1.2840.114 350.1.13.10 4.2.7.2.686 [id number] [facility] 2022-02-25 00:00:00 2022-02-25 00:00:00 Orders Only Doctor Unassigned, Carrick [facility] 1.2840.114 350.1.13.10 4.2.7.2.686 [id number] [facility] 2022-02-25 00:00:00 2022-02-25 00:00:00 Letter (Out) BelleSanjana [facility] 1.2.114 350.1.13.10 4.2.7.2.686 [id number] [facility] 2022-01-15 00:00:00 2022-01-15 00:00:00 Patient Secure Msg Doctor Unassigned, Carrick [facility] 1..114 350.1.13.10 4.2.7.2.686 [id number] [facility] 2021-12-24 01:03:00 2021-12-24 01:19:[address] [facility] E[facility] [id number] [facility] 2021-12-24 01:03:00 2021-12-24 01:19:00 Emergency Ziyad Matos [facility] 1.0.114 350.1.13.10 4.2.7.2.686 [id number] [facility] 2021-12-24 00:00:00 2021-12-24 00:00:00 Orders Only Doctor Unassigned, Carrick [facility] ..114 350.1.13.10 4.2.7.2.686 [id number] [facility] 2021-12-08 00:00:00 2021-12-08 00:00:00 Outpatient Visit [id number] 2021-12-08 00:00:00 2021-12-08 00:00:00 Orders Only Doctor Unassigned, Carrick [facility] 1.0.114 350.1.13.10 4.2.7.2.686 [id number] [facility] 2021-12-03 00:00:00 2021-12-03 00:00:00 Outpatient Visit [id number] 2021-11-25 09:00:00 2021-11-25 09:20:26 Outpatient R MUKUL [facility]RA[facility] [id number] [facility] 2021-11-25 09:00:00 2021-11-25 09:20:26 Urgent Care Raineralph [facility] .840.114 350.1.13.10 4.2.7.2.686 [id number] [facility] 2021-07-07 15:45:00 2021-07-07 15:45:00 Outpatient R RUSS ULLOA [facility] [id number] [facility] 2021-06-30 12:00:00 2021-06-30 12:19:15 Outpatient R ELISE LOOMIS [facility] [id number] [facility] 2021-06-03 01:15:00 2021-06-03 02:28:00 Emergency X KENYETTA MIMS [facility] ERT [id number] [facility] 2021-06-03 01:15:00 2021-06-03 02:28:00 Emergency Kenyetta Mims S [facility] .840.114 350.1.13.10 4.2.7.2.686 [id number] [facility] 2021-05-28 14:30:00 2021-05-28 14:30:00 Imm/Inj Visit Nurse, Adarsh Arambula ImmunizatiJonathan Carey [facility] 1.0.114 350.1.13.10 4.2.7.2.686 [id number] [facility] 2021-05-28 14:30:00 2021-05-28 14:28:03 [facility] [id number] 2021-04-25 13:30:00 2021-04-25 13:30:00 Outpatient Vahid RODRIGUEZ [facility] [id number] [facility] 2021-03-31 19:48:00 2021-03-31 21:51:00 Emergency X YOSSIELENA SHANTELLE [facility] ERT [id number] [facility] 2021-03-31 19:48:00 2021-03-31 21:51:00 Emergency YossiBailey castellanoala [facility] 1.114 350.1.13.10 4.2.7.2.686 [id number] [facility] 2021-03-31 00:00:00 2021-03-31 00:00:00 Orders Only Doctor Unassigned, Carrick [facility] 1.114 350.1.13.10 4.2.7.2.686 [id number] [facility] 2021-03-19 00:00:00 2021-03-19 00:00:00 Letter (Out) Rekha Kaba [facility] 1.114 350.1.13.10 4.2.7.2.686 [id number] [facility] 2021-03-18 10:53:08 2021-03-18 11:08:08 Laboratory Only Only, Ang Arielle Smith [facility] 1.114 350.1.13.10 4.2.7.2.686 [id number] [facility] 2021-03-18 11:00:00 2021-03-18 11:00:00 Outpatient Vahid [facility] [facility] [id number] [facility] 2020-12-21 00:00:00 2020-12-21 00:00:00 Telephone Juan Pablo Sunni Alisson [facility] 1.2.840.114 350.1.13.10 4.2.7.2.686 [id number] [facility] 2020-12-20 10:41:54 2020-12-20 11:01:54 Urgent Care Mina [facility] 1.2840.114 350.1.13.10 4.2.7.2.686 [id number] [facility] 2020-12-20 11:00:00 2020-12-20 11:00:00 Outpatient Vahid ENRIQUEZ ARIELLE [facility] [id number] [facility] 2020-12-20 00:00:00 2020-12-20 00:00:00 Letter (Out) Doctor Unassigned, Carrick [facility] 1.2840.114 350.1.13.10 4.2.7.2.686 [id number] [facility] 2020-12-20 00:00:00 2020-12-20 00:00:00 Orders Only Doctor Unassigned, Carrick [facility] 1.2840.114 350.1.13.10 4.2.7.2.686 [id number] [facility] 2020-12-20 00:00:00 2020-12-20 00:00:00 Letter (Out) Doctor Unassigned, Carrick [facility] 1.2840.114 350.1.13.10 4.2.7.2.686 [id number] [facility] 2020-09-30 09:40:00 2020-09-30 09:40:00 Outpatient JONATHAN RUSH [facility] [id number] [facility] 2020-09-10 10:20:00 2020-09-10 10:20:00 Outpatient Vahid RODRIGUEZJONATHAN [facility] [id number] [facility] 2020-08-20 19:13:14 2020-08-20 20:02:22 Urgent Care Provider, Frank [facility] Christen [facility] Office Building One .114 350.1.13.10 4.2.7.2.686 [id number] [facility] 2020-08-20 19:20:00 2020-08-20 19:20:00 Outpatient Vahid WARREN CHRISTEN [facility] [id number] [facility] 2020-06-14 00:00:00 2020-06-14 00:00:00 Telephone Provider, Frank [facility] Office Building One .114 350.1.13.10 4.2.7.2.686 [id number] [facility] 2020-06-07 11:27:45 2020-06-07 11:47:45 Laboratory Only [facility] .114 350.1.13.10 4.2.7.2.686 [id number] [facility] 2020-06-07 11:40:00 2020-06-07 11:40:00 Outpatient HUAN ALVA [facility] [id number] [facility] 2020-06-07 00:00:00 2020-06-07 00:00:00 Letter (Out) Doctor Unassigned, Carrick [facility] 1.114 350.1.13.10 4.2.7.2.686 [id number] [facility] 2020-03-11 18:00:00 2020-03-11 18:00:00 Outpatient R [facility] [id number] [facility] 2020-03-11 17:44:55 2020-03-11 17:59:55 Urgent Care Len Gill Unknown, Attending [facility] 1.114 350.1.13.10 4.2.7.2.686 [id number] [facility] 2020-01-16 08:14:45 2020-01-16 09:06:49 Office Visit Carlos Ford [facility] [employer] [facility] 1.114 350.1.13.10 4.2.7.2.686 [id number] [facility] 2020-01-16 08:00:00 2020-01-16 08:00:00 Outpatient R CARLOS FORD [facility] [id number] [facility] 2020-01-16 00:00:00 2020-01-16 00:00:00 Orders Only Doctor Unassigned, Carrick [facility] 1..114 350.1.13.10 4.2.7.2.686 [id number] [facility] 2019-12-21 00:00:00 2019-12-21 00:00:00 Telephone Swetha Canseco [facility] 1..114 350.1.13.10 4.2.7.2.686 [id number] [facility] 2019-12-19 13:59:00 2019-12-19 14:42:00 Emergency Joyce Patton [facility] 1.2840.114 350.1.13.10 4.2.7.2.686 [id number] [facility] 2019-12-19 00:00:00 2019-12-19 00:00:00 Orders Only Doctor Unassigned, Carrick [facility] 1.20.114 350.1.13.10 4.2.7.2.686 [id number] [facility] 2019-10-02 14:42:09 2019-10-02 14:54:35 Billing Encounter Len [facility] 1.2840.114 350.1.13.10 4.2.7.2.686 [id number] [facility] 2019-10-02 13:40:00 2019-10-02 13:40:00 Outpatient R JAIRO LEN [facility] [id number] [facility] 2019-10-02 00:00:00 2019-10-02 00:00:00 Orders Only Doctor Unassigned, Carrick [facility] 1.2840.114 350.1.13.10 4.2.7.2.686 [id number] [facility] Results Test Description Test Time Test Comments Results Result Co mments Source [facility] SARS-COV-2 ANTIGEN (BINAX NOW)2024-01-28 15:41:00* Test Item Value Reference Range Interpretation Comme nts POCT SARS-COV-2 ANTIGEN (test code = 54334-9) Not Detected Not Detected, See Comment On board controls acceptable with C Line (test code = 3574) Yes ANAYA (test code = ANAYA) accurate developme nt and interpretation of all internal controls Lab Interpretation (test code = 71766-6) Normal [facility] MOLECULAR [id number] 15:38:44* Test Item Value Reference Range Interpretation Comme nts POCT Molecular Strep (test c ode = 85177-5) Negative Negative Lab Interpretation (test cod e = 25560-8) [facility] [id number] 16:31:17 EXAM: MRI RIGHT KNEE HISTORY: Right knee pain, unspecified chronicity, suspected meniscalinjury. COMPARISON: Right knee radiograph dated 06/17/2023 TECHNIQUE: Multiplanar multi-weighted MR imaging of the right knee wasperformed without intravenous or intra-articular contrast. FINDINGS: BONE AND JOINT: No effusion is present. The chondral surfaces and bonemarrow signal intensity are unremarkable. Minimal lateral patellar tile andsubluxation. The modified patellar tendon to patellar length ratio measures2 in keeping with patella laith. MENISCI: ?No meniscal tear is seen. There is no meniscal extrusion. LIGAMENTS AND TENDONS: The ACL, PCL, biceps femoris tendon, fibularcollateral ligament, medial collateral ligament, popliteus tendon, IT band,patellofemoral retinacula and extensor mechanism are unremarkable. SOFT TISSUES: Moderate edema deep to the patellar tendon at the superior lateral Hoffa'sfat pad.The popliteal neurovascular bundle is within normal limits. Trace fluidaccumulates at the proximal aspect of the semimembranosus/medialgastrocnemius bursa.[facility] SARS-COV-2 ANTIGEN (BINAX NOW)2023-06-24 00:31:00* Test Item Value Reference Range Interpretation Comme nts POCT SARS-COV-2 ANTIGEN (jalen t code = 44394-3) Not Detected Not Detected On board controls acceptable with C Line (test code = 3574) Yes Lab Interpretation (test cod e = 66936-6) Normal [facility] MOLECULAR [id number] 00:19:45* Test Item Value Reference Range Interpretation Comme nts POCT Molecular Strep (test c ode = 05060-3) Negative Negative Lab Interpretation (test cod e = 36238-6) [facility] VW [id number] 18:00:22EXAM: XR KNEE <3 VW RIGHT HISTORY: 17 years-old Female with right knee pain. COMPARISON: 06/30/2021. FINDINGS: Radiographs of the right knee redemonstrate elevated positioning of thepatella relativeto the femur. ?No acute displaced fracture or dislocation.Joint spaces are preserved. Alignment otherwise is within normal limits.Mild prepatellar soft tissue swelling is seen. Trace knee joint effusion. [facility] Molecular [id number] 00:16:11* Test Item Value Reference Range Interpretation Comme nts POCT Molecular FluA (test co de = 60534-6) Negative Negative POCT Molecular FluB (test co de = 51976-4) Negative Negative Lab Interpretation (test cod e = 48255-0) Normal [facility] SARS-COV-2 ANTIGEN (BINAX NOW)2023-01-07 15:25:00* Test Item Value Reference Range Interpretation Comme nts POCT SARS-COV-2 ANTIGEN (jalen t code = 57688-5) Not Detected Not Detected On board controls acceptable with C Line (test code = 3574) Yes [facility] [id number] 14:45:00* Test Item Value Reference Range Interpretation Comme nts POCT PREG (test code = 1605) Negative On board controls acceptable with C Line (test code = 3574) Yes POCT PREG LOT # (test code = 3575) POCT PREG TEST DATE ( test code = 3576) [facility] [id number] 14:45:00* Test Item Value Reference Range Interpretation Comme nts POCT PREG (test code = 1605) Negative On board controls acceptable with C Line (test code = 3574) Yes POCT PREG LOT # (test code = 3575) POCT PREG TEST DATE ( test code = 3576) [facility] MOLECULAR [id number] 19:23:08* Test Item Value Reference Range Interpretation Comme nts POCT Molecular FluA (test co de = 90083-2) Negative Negative POCT Molecular FluB (test co de = 58304-5) Negative Negative Lab Interpretation (test cod e = 77784-2) Normal [facility] [id number] 21:48:00* Test Item Value Reference Range Interpretation Comme nts POCT PREG (test code = 1605) Negative On board controls acceptable with C Line (test code = 3574) Yes POCT PREG LOT # (test code = 3575) POCT PREG TEST DATE ( test code = 3576) [facility] [id number] 21:48:00* Test Item Value Reference Range Interpretation Comme nts POCT PREG (test code = 1605) Negative On board controls acceptable with C Line (test code = 3574) Yes POCT PREG LOT # (test code = 3575) POCT PREG TEST DATE ( test code = 3576) [facility] MOLECULAR [id number] 18:25:56* Test Item Value Reference Range Interpretation Comme nts POCT Molecular FluA (test co de = 33808-2) Negative Negative POCT Molecular FluB (test co de = 76894-1) Negative Negative Lab Interpretation (test cod e = 31846-6) [facility] [id number] 18:17:49* Test Item Value Reference Range Interpretation Comme nts POCT Molecular Strep (test c ode = 46228-5) Negative Negative Lab Interpretation (test cod e = 22203-9) Normal [facility] PRO[facility] (T3U, T4, T7, TSH) 2020-12-27 00:00:00* Test Item Value Reference Range Interpretation Comme nts T-UPTAKE (test code = 2817) 27.2 % THYROX. BIND. CAPAC. (test c ode = 92827) 1.2 T4 (THYROXINE) (test code = 2819) 8.3 UG/DL CORRECTED T4 (FTI) (test cod e = 2820) 6.9 UG/DL TSH, THIRD GENERATION (test code = 2821) 0.653 UIU/ML CBC W/AUTO [id number] 00:00:00* Test Item Value Reference Range Interpretation Comme nts WBC (test code = 1001) 10.7 K/UL [...] = 1013) 0.4 % IMMATURE GRANULOCYTES (test code = 1036) 0.3 % NUCLEATED RBCS (test code = 1065) 0.0 /100WBC'S PLATELET COUNT (test code = 1015) 223 K/UL ABSOLUTE NEUTROPHILS (test c ode = 1066) 7.00 K/UL ABSOLUTE LYMPHOCYTES (test c ode = 1067) 2.91 K/UL ABSOLUTE MONOCYTES (test cod e = 1068) 0.60 K/UL ABSOLUTE EOSINOPHILS (test c ode = 1040) 0.16 K/UL ABSOLUTE BASOPHILS (test cod e = 1069) 0.04 K/UL ABS IMMATURE GRANULOCYTES (t est code = 1020) 0.03 K/UL ABS NUCLEATED RBCS (test cod e = 78534) 0.00 K/UL HEMOGLOBIN [id number] 00:00:00* Test Item Value Reference Range Interpretation Comme nts HEMOGLOBIN A1c (test code = 58375) 5.7 % COMPREHENSIVE METABOLIC [id number] 00:00:00* Test Item Value Reference Range Interpretation Comme nts GLUCOSE (test code = 2217) 97 MG/DL BUN (test code = 2208) 11 MG/DL CREATININE (test code = 2214) 0.80 MG/DL eGFR AMER. (test code = 57288) (NOTE) ML/MIN/1.73 eGFR NON- AMER. (test code = 70042) NO CALC ML/MIN/1.73 CALC BUN/CREAT (test code = 2235) 14 RATIO SODIUM (test code = 2231) 145 MEQ/L POTASSIUM (test code = 2228) 4.6 MEQ/L CHLORIDE (test code = 2215) 107 MEQ/L CARBON DIOXIDE (test code = 2206) 25 MEQ/L CALCIUM (test code = 2209) 9.9 MG/DL PROTEIN, TOTAL (test code = 2229) 7.4 G/DL ALBUMIN (test code = 2201) 4.8 G/DL CALC GLOBULIN (test code = 2240) 2.6 G/DL CALC A/G RATIO (test code = 2234) 1.8 RATIO BILIRUBIN, TOTAL (test code = 2207) 0.6 MG/DL ALKALINE PHOSPHATASE (test code = 2204) 121 U/L AST (test code = 2218) 36 U/L ALT (test code = 2219) 64 U/L LIPID [id number] 00:00:00* Test Item Value Reference Range Interpretation Comme nts CHOLESTEROL (test code = 2210) 102 MG/DL TRIGLYCERIDES (test code = 2232) 98 MG/DL HDL CHOLESTEROL (test code = 2220) 44 MG/DL CALC LDL CHOL (test code = 2237) 40 MG/DL RISK RATIO LDL/HDL (test cod e = 2238) 0.91 RATIO FSH + LH [id number] 00:00:00* Test Item Value Reference Range Interpretation Comme nts FOLLICLE STIM HORMONE (test code = 2700) 3.6 IU/L LUTEINIZING HORMONE (test co de = 2776) 8.8 IU/L THYROID II PROFILE (T3U, T4, T7, TSH)2020-12-27 00:00:00* Test Item Value Reference Range Interpretation Comme nts T-UPTAKE (test code = 2817) 27.2 % THYROX. BIND. CAPAC. (test c ode = 16904) 1.2 T4 (THYROXINE) (test code = 2819) 8.3 UG/DL CORRECTED T4 (FTI) (test cod e = 2820) 6.9 UG/DL TSH, THIRD GENERATION (test code = 2821) 0.653 UIU/ML CBC W/AUTO [id number] 00:00:00* Test Item Value Reference Range Interpretation Comme nts WBC (test code = 1001) 10.7 K/UL [...] = 1013) 0.4 % IMMATURE GRANULOCYTES (test code = 1036) 0.3 % NUCLEATED RBCS (test code = 1065) 0.0 /100WBC'S PLATELET COUNT (test code = 1015) 223 K/UL ABSOLUTE NEUTROPHILS (test c ode = 1066) 7.00 K/UL ABSOLUTE LYMPHOCYTES (test c ode = 1067) 2.91 K/UL ABSOLUTE MONOCYTES (test cod e = 1068) 0.60 K/UL ABSOLUTE EOSINOPHILS (test c ode = 1040) 0.16 K/UL ABSOLUTE BASOPHILS (test cod e = 1069) 0.04 K/UL ABS IMMATURE GRANULOCYTES (t est code = 1020) 0.03 K/UL ABS NUCLEATED RBCS (test cod e = 09866) 0.00 K/UL HEMOGLOBIN [id number] 00:00:00* Test Item Value Reference Range Interpretation Comme nts HEMOGLOBIN A1c (test code = 11570) 5.7 % COMPREHENSIVE METABOLIC [id number] 00:00:00* Test Item Value Reference Range Interpretation Comme nts GLUCOSE (test code = 2217) 97 MG/DL BUN (test code = 2208) 11 MG/DL CREATININE (test code = 2214) 0.80 MG/DL eGFR AMER. (test code = 30190) (NOTE) ML/MIN/1.73 eGFR NON- AMER. (test code = 26799) NO CALC ML/MIN/1.73 CALC BUN/CREAT (test code = 2235) 14 RATIO SODIUM (test code = 2231) 145 MEQ/L POTASSIUM (test code = 2228) 4.6 MEQ/L CHLORIDE (test code = 2215) 107 MEQ/L CARBON DIOXIDE (test code = 2206) 25 MEQ/L CALCIUM (test code = 2209) 9.9 MG/DL PROTEIN, TOTAL (test code = 2229) 7.4 G/DL ALBUMIN (test code = 2201) 4.8 G/DL CALC GLOBULIN (test code = 2240) 2.6 G/DL CALC A/G RATIO (test code = 2234) 1.8 RATIO BILIRUBIN, TOTAL (test code = 2207) 0.6 MG/DL ALKALINE PHOSPHATASE (test code = 2204) 121 U/L AST (test code = 2218) 36 U/L ALT (test code = 2219) 64 U/L LIPID [id number] 00:00:00* Test Item Value Reference Range Interpretation Comme nts CHOLESTEROL (test code = 2210) 102 MG/DL TRIGLYCERIDES (test code = 2232) 98 MG/DL HDL CHOLESTEROL (test code = 2220) 44 MG/DL CALC LDL CHOL (test code = 2237) 40 MG/DL RISK RATIO LDL/HDL (test cod e = 2238) 0.91 RATIO FSH + LH [id number] 00:00:00* Test Item Value Reference Range Interpretation Comme nts FOLLICLE STIM HORMONE (test code = 2700) 3.6 IU/L LUTEINIZING HORMONE (test co de = 2776) 8.8 IU/L LIPID [id number] 00:00:00* Test Item Value Reference Range Interpretation Comme nts CHOLESTEROL (test code = 2210) 108 MG/DL TRIGLYCERIDES (test code = 2232) 105 MG/DL HDL CHOLESTEROL (test code = 2220) 45 MG/DL CALC LDL CHOL (test code = 2237) 42 MG/DL RISK RATIO LDL/HDL (test cod e = 2238) 0.93 RATIO LIPID [id number] 00:00:00* Test Item Value Reference Range Interpretation Comme nts CHOLESTEROL (test code = 2210) 108 MG/DL TRIGLYCERIDES (test code = 2232) 105 MG/DL HDL CHOLESTEROL (test code = 2220) 45 MG/DL CALC LDL CHOL (test code = 2237) 42 MG/DL RISK RATIO LDL/HDL (test cod e = 2238) 0.93 RATIO HEMOGLOBIN [id number] 00:00:00* Test Item Value Reference Range Interpretation Comme nts HEMOGLOBIN A1c (test code = 35129) 5.5 % HEMOGLOBIN [id number] 00:00:00* Test Item Value Reference Range Interpretation Comme nts HEMOGLOBIN A1c (test code = 27323) 5.5 % Notes Date/Time Note Provider Source 2023-09-12 22:17:08 Pt given printed and verbal discharge instructions regarding partial thinckness burn of finger of left hand. Discussed ibuprofen and to take with food to avoid GI distress. Pt verbalized understanding of instructions, pt awake alert oriented, resp reg unlabored, skin w/d, color appropriate for race, moves all ext well,pt encouraged to follow up with pcp. Advised to seek medical attention for new/prolonged/worsening of symptoms. Awake, alert oriented, resp reg unlabored, skin w/d, pt leaving amb with steady gait, in no apparent distress, [facility] 2023-09-12 21:52:09 Pt arrived ambulatory without assist. Pt grandmother with her, okay to discuss medical care in front of her. Pt states "I was using this thing to clean a fryer and I touched the wrong part, it burned my left hand." Gala An RN [facility] 2023-08-20 16:36:53 Received PT initial exam signature needed placed in providers box Janeth Dickey [facility] 2023-07-27 10:11:48 Faxed PT orders. Dari Fiore 07/27/2023 10:11 AM Dari Fiore [facility] 2023-07-26 10:02:15 Patient grandmother is calling wants orders for PT faxed to [facility] [employer] fax# [phone], she says she verified that they do take her insurance. Sophy Vazquez [facility] 2023-06-14 08:24:48 Referral has been placed for patient with Dr. Russ Ulloa ER HAND LOOM [facility] 2023-06-14 08:15:09 Faby Oconnell is a 17 year old female and grandma is calling for a referral Patient is requesting a referral to: Dept: Orthopedics - [place] Reason for referral: Right knee pain Duration of problem: 1 year Internal / External referral: Internal Name of provider / location patient requesting: Dr. Russ Ulloa [address] [place] [address] Phone number: [phone] Fax number: [phone] Appt already scheduled?: No If yes, date of appt.: No ER HAND LOOM Sonja Adame [facility] 2023-01-07 10:00:00 Formatting of this n ote might be different from the original. Faby Oconnell is a 17 year old female here for a Rule Out Covid-19 Nasopharyngeal Swab. Patient educated on plan of care for visit, swabbing technique, risks and benefits of test and length of time to receive results. Verbal consent obtained to perform test. CDC Fact Sheet for Patients provided to patient. All droplet and contact precautions taken with appropriate PPE worn while interacting with patient. - Goggles - N95 Mask - Gloves - Gown RR=18 O2 Sat=99% Patient swabbed using appropriate nasopharyngeal technique, and patient tolerated well. Patient was discharged in stable condition. Joelle Sanchez RN 01/07/2023 10:10 AM T [facility]
[2024-03-23 19:43] LABS: Absolute Eosinophils 0.1 K/uL (0-0.5); Absolute Lymphocytes (CBC) 2.8 K/uL (0.7-4.9); Absolute Monocytes 0.7 K/uL (0.1-1.3); Absolute Neutrophil 14.2 K/uL (1.8-8.0); Basophils % 0.2 % (0-1.3); Eosinophils % 0.6 % (0-4.4); Hematocrit 38.8 % (36.0-45.0); Hemoglobin 12.9 g/dL (12.0-15.0); Lymphocytes % 15.8 % (15.3-44.8); MCH 29.2 pg (27.0-35.0); MCHC 33.3 g/dL (32.0-36.0); MCV 87.8 fL (80-100); MPV 10.2 fL (7.6-11.3); Monocytes % 3.8 % (3.3-12.3); Neutrophils % 79.6 % (41.7-73.7); Nucleated Red Blood Cells % 0.1 % (0-0); Platelets 171 thou/uL (152-406); RBC Red Blood Cell Count 4.42 M/uL (3.86-4.86); Red Cell Distribution Width 13.9 % (12.1-15.2)
[2024-03-23] MEDS ORDERED: NA CHLORIDE 0.9% 1,000 ML ONE (19:46)
[2024-03-23] MEDS ORDERED: ONDANSETRON 4 MG/2 ML VIAL ONE (19:46)
[2024-03-23 20:06] LABS: ALT/SGPT 19 U/L (13-56); AST/SGOT 13 U/L (15-37); Albumin 3.9 g/dL (3.4-5.0); Albumin/Globulin Ratio 1.1 (1.1-1.8); Alkaline Phosphatase 90 U/L (45-117); Anion Gap 12.5 mEq/L (5.0-15.0); BUN Blood Urea Nitrogen 12 mg/dL (7-18); Bicarbonate 22 mEq/L (21-32); Bilirubin Direct 0.2 mg/dL (0-0.2); Bilirubin Indirect, Calculated 0.5 mg/dL (0.2-0.8); Bilirubin Total 0.7 mg/dL (0.2-1.0); Globulin 3.5 g/dL (2.3-3.5); Glomerular Filtration Rate 130 ml/min (=/>90); Glucose Level 184 mg/dL (74-106); Potassium 3.5 mEq/L (3.5-5.1); Protein, Total 7.4 g/dL (6.4-8.2); Sodium Level 139 mEq/L (136-145)
[2024-03-23 20:27] LABS: Blood Morphology Comment NOT SEEN (NOT SEEN); Platelet Estimate ADEQ; Platelets Clumped FEW; White Blood Cell Scan OK (OK)
[2024-03-23 20:30] LABS: PTT, Activated Partial Thromb 19.5 SECONDS (24.3-36.9); Protime INR 0.98
--- NOTE | 2024-03-23 21:52 | ER ---
Nurse's Notes [facility] [place] Name: Faby Oconnell Age: 18 yrs Sex: Female : 2005 Arrival Date: 03/23/2024 Time: 18:25 Bed 7 Private MD: Diagnosis: Adverse effect of other psychotropic drugs Presentation: 03/23 18:49 Chief complaint: Patient states: took an edible from a vape shop about 5 pm. me1 Grandmother brought patient as she is difficult to arouse. Coronavirus screen: Vaccine status: Patient reports receiving the 2nd dose of the covid vaccine. Ebola Screen: No symptoms or risks identified at this time. Initial Sepsis Screen: Does the patient meet any 2 criteria? No. Patient's initial sepsis screen is negative. Does the patient have a suspected source of infection? No. Patient's initial sepsis screen is negative. Risk Assessment: Do you want to hurt yourself or someone else? Patient reports no desire to harm self or others. Onset of symptoms was March 23, 2024 at 17:00. 18:49 Method Of [place] [facility] [place] Acuity: ONIEL 3 ny1 Triage Assessment: 18:51 General: Appears comfortable, well groomed, well developed, well nourished, Behavior is me1 calm, cooperative, drowsy, Reports taking an edible from a vape shop about 5 pm. Pain: Denies pain. EENT: No signs and/or symptoms were reported regarding the EENT system. Neuro: Level of Consciousness is awake, alert, obeys commands, lethargic, listless, Oriented to person, place, time, situation, Appropriate for age. Cardiovascular: Patient's skin is warm and dry. Respiratory: Airway Respiratory effort is even, unlabored, Respiratory pattern is regular, symmetrical. GI: Reports nausea, vomiting, on arrival. : No signs and/or symptoms were reported regarding the genitourinary system. Derm: Skin is intact, is healthy with good turgor, Skin is pink, warm \T\ dry. Musculoskeletal: No signs and/or symptoms reported regarding the musculoskeletal system. 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 - Infectious Disease History:: Denies. - Social history:: Smoking status: Reported history of juuling and/or vaping. Screenin:53 [facility] ED Fall Risk Assessment (Adult) History of falling in the last 3 months, me1 including since admission No falls in past 3 months (0 pts) Confusion or Disorientation No (0 pts) Intoxicated or Sedated Yes (3 pts) Impaired Gait No (0 pts) Mobility Assist Device Used No (0 pt) Altered Elimination No (0 pt) Score/Fall Risk Level 0 - 2 = Low Risk Maintained a safe environment, Provided non-skid footwear, Hourly rounding (assess needs \T\ fall precautionary measures) done. Abuse screen: Denies threats or abuse. Nutritional screening: No deficits noted. Tuberculosis screening: No symptoms or risk factors identified. Assessment: 18:53 General: See triage assessment. me1 19:20 Reassessment: Patient and/or family updated on plan of care and expected duration. Pain br2 level reassessed. Patient is alert, oriented x 3, equal unlabored respirations, skin warm/dry/pink. General: Appears comfortable, obese, Behavior is calm, quiet, SLEEPY. Pain: Denies pain. Neuro: Dinero Agitation-Sedation Scale (RASS): 0 - Alert and Calm Level of Consciousness is awake, lethargic, Oriented to person, place, time, situation. Cardiovascular: Capillary refill < 3 seconds. Respiratory: Airway is patent Respiratory effort is even, unlabored, Respiratory pattern is regular, symmetrical. GI: Reports nausea, vomiting. : No signs and/or symptoms were reported regarding the genitourinary system. EENT: No signs and/or symptoms were reported regarding the EENT system. Derm: No signs and/or symptoms reported regarding the dermatologic system. Musculoskeletal: No signs and/or symptoms reported regarding the musculoskeletal system. 21:04 Reassessment: No changes from previously documented assessment. Patient and/or family br2 updated on plan of care and expected duration. Pain level reassessed. Patient is alert, oriented x 3, equal unlabored respirations, skin warm/dry/pink. Vital Signs: 18:49 BP 130 / 77; Pulse 78; Resp 15; Temp 98.5; Pulse Ox 97% ; Weight 102.06 kg; Height 5 me1 ft. 10 in. ; Pain 0/10; 19:30 BP 104 / 64; Pulse 84; Resp 18 S; Pulse Ox 99% on R/A; br2 20:28 BP 100 / 64; Pulse 69; Resp 18 S; Temp 97.1(TE); Pulse Ox 99% on R/A; br2 21:04 BP 109 / 68; Pulse 69; Resp 16 S; Pulse Ox 98% on R/A; br2 21:47 BP 113 / 77; Pulse 66; Resp 18 S; Pulse Ox 98% on R/A; br2 18:49 Body Mass Index 32.28 (102.06 kg, 177.8 cm) - Percentile 95.9 % me1 18:49 Pain Scale: Adult ny1 ED Course: 18:26 Patient arrived in ED. im 18:27 Earline Shelton PA-C is PHCP. sb4 18:27 Layton Wilson MD is Attending Physician. sb4 18:51 Triage completed. me1 18:51 Arm band placed on Patient placed in an exam room. me1 18:53 Patient has correct armband on for positive identification. Bed in low position. Call ny1 light in reach. Side rails up X2. Provided Education on: POC. Verbalized understanding.. Client placed on continuous cardiac and pulse oximetry monitoring. NIBP monitoring applied. Pulse ox on. NIBP on. 18:53 No provider procedures requiring assistance completed. me1 19:30 Inserted saline lock: 20 gauge in right hand, using aseptic technique. Blood collected. br2 Flushed with 10 mL NS. 19:42 Katelyn King, DORON is Primary Nurse. br2 20:07 PT-INR Sent. br2 20:07 Ptt, Activated Sent. br2 20:07 Salicylate Sent. br2 20:07 Urine Drug Screen Sent. br2 20:20 Inserted saline lock: 22 gauge in left wrist, using aseptic technique. Blood collected. oe Flushed with 10 mL NS. 22:03 IV discontinued, intact, bleeding controlled, No redness/swelling at site. Pressure br2 dressing applied. Administered Medications: 19:58 CANCELLED (Physician Discretion): lidocaine(1 %) 20 ml 20 ml Infiltration once; to sb4 bedside 20:07 Drug: NS 0.9% IV 1000 ml IV at 1000 ml once; to be given as a bolus over 60 minutes br2 Route: IV; Rate: 1000 ml; Site: right hand; 21:15 Follow up: Response: No adverse reaction; IV Status: Completed infusion; IV Intake: br2 1000ml 20:07 Drug: Ondansetron IVP 4 mg IVP once; over 2 minutes Route: IVP; Site: right hand; br2 20:30 Follow up: Response: No adverse reaction br2 Medication: 18:53 VIS not applicable for this client. me1 Intake: 21:15 IV: 1000ml; Total: 1000ml. br2 Outcome: 21:51 Discharge ordered by MD. sb4 22:03 Discharged to home via wheelchair, br2 22:03 Condition: improved 22:03 Discharge instructions given to patient, family, Instructed on discharge instructions, follow up and referral plans. Demonstrated understanding of instructions, follow-up care, 22:05 Patient left the ED. br2 Signatures: Jose Medina Sophia, PA-C PA-C sb4 Christine Miramontes Michelle, DORON RN me1 Katelyn King RN RN br2 Corrections: (The following items were deleted from the chart) 18:53 18:53 Neuro: me1 me1
--- NOTE | 2024-03-23 21:52 | EDPHYS ---
Physician Documentation [facility] Name: Faby Oconnell Age: 18 yrs Sex: Female : 2005 Arrival Date: 03/23/2024 Time: 18:25 Bed 7 Private MD: ED Physician Layton Wilson HPI: 03/23 18:51 This 18 yrs old Black Female presents to ER via Wheelchair with complaints of Altered sb4 Mental Status. 19:30 Patient states that she ate an "edible" from a vape shop about an hour and a half prior sb4 to arrival. Parent states that she was very lethargic and difficult to arouse so she brought her to the ED for further evaluation. Patient states that she has not taken anything like this before, she cannot tell me exactly what was in it. 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 - Infectious Disease History:: Denies. - Social history:: Smoking status: Reported history of juuling and/or vaping. ROS: 19:30 Constitutional: Negative for fever, chills, and weight loss, sb4 19:30 Neuro: Positive for altered mental status, 19:30 All other systems are negative, Exam: 19:30 Head/Face: Normocephalic, atraumatic. Eyes: Extra-ocular motions intact. Periorbital sb4 areas with no swelling, redness, or edema. ENT: Mucous membranes moist. Cardiovascular: Regular rate and rhythm with a normal S1 and S2. Respiratory: No increased work of breathing, no retractions or nasal flaring. Abdomen/GI: Soft, non-tender, no distension. Skin: Warm, dry with normal turgor. Normal color with no rashes, no lesions, and no evidence of cellulitis. 19:30 Constitutional: The patient appears alert, awake, sleepy Vital Signs: 18:49 BP 130 / 77; Pulse 78; Resp 15; Temp 98.5; Pulse Ox 97% ; Weight 102.06 kg; Height 5 me1 ft. 10 in. ; Pain 0/10; 19:30 BP 104 / 64; Pulse 84; Resp 18 S; Pulse Ox 99% on R/A; br2 20:28 BP 100 / 64; Pulse 69; Resp 18 S; Temp 97.1(TE); Pulse Ox 99% on R/A; br2 21:04 BP 109 / 68; Pulse 69; Resp 16 S; Pulse Ox 98% on R/A; br2 21:47 BP 113 / 77; Pulse 66; Resp 18 S; Pulse Ox 98% on R/A; br2 18:49 Body Mass Index 32.28 (102.06 kg, 177.8 cm) - Percentile 95.9 % me1 18:49 Pain Scale: Adult me1 MDM: 18:34 Medical Screening Exam initiated sb4 21:52 Data reviewed: vital signs, nurses notes, lab test result(s), and as a result, I will sb4 discharge patient. Counseling: I had a detailed discussion with the patient and/or guardian regarding the historical points, exam findings, and any diagnostic results supporting the discharge/admit diagnosis, lab results, to return to the emergency department if symptoms worsen or persist or if there are any questions or concerns that arise at home. 03/23 18:40 Order name: Acetaminophen; Complete Time: 20:07 sb4 03/23 18:40 Order name: Basic Metabolic Panel; Complete Time: 20:07 sb4 03/23 18:40 Order name: CBC with Diff; Complete Time: 20:35 sb4 03/23 18:40 Order name: ETOH Level; Complete Time: 19:57 sb4 03/23 18:40 Order name: Hepatic Function; Complete Time: 20:07 sb4 03/23 18:40 Order name: PT-INR; Complete Time: 21:12 sb4 03/23 18:40 Order name: Ptt, Activated; Complete Time: 21:12 sb4 03/23 18:40 Order name: Salicylate; Complete Time: 20:09 sb4 03/23 20:28 Order name: CBC Smear Scan; Complete Time: 20:35 EDMS 03/23 18:40 Order name: IV Saline Lock; Complete Time: 20:07 sb4 03/23 18:40 Order name: Labs collected and sent; Complete Time: 20:07 sb4 Administered Medications: 19:58 CANCELLED (Physician Discretion): lidocaine(1 %) 20 ml 20 ml Infiltration once; to sb4 bedside 20:07 Drug: NS 0.9% IV 1000 ml IV at 1000 ml once; to be given as a bolus over 60 minutes br2 Route: IV; Rate: 1000 ml; Site: right hand; 21:15 Follow up: Response: No adverse reaction; IV Status: Completed infusion; IV Intake: br2 1000ml 20:07 Drug: Ondansetron IVP 4 mg IVP once; over 2 minutes Route: IVP; Site: right hand; br2 20:30 Follow up: Response: No adverse reaction br2 Disposition: 20:01 Co-signature as Attending Physician, Layton Wilson MD I reviewed the patient's care rt provided by the Advanced Practice Provider and agree with the diagnosis and treatment plan. Disposition Summary: 03/23/24 21:51 Discharge Ordered Notes: Location: Home sb4 Problem: new sb4 Symptoms: have improved sb4 Condition: Stable sb4 Diagnosis - Adverse effect of other psychotropic drugs sb4 Followup: sb4 - With: Private Physician - When: As needed - Reason: Recheck today's complaints, Re-evaluation by your physician Discharge Instructions: - Discharge Summary Sheet sb4 - Nausea and Vomiting, Adult, [id number] sb4 Forms: - Patient Portal Instructions sb4 - Leadership Thank You Letter sb4 Signatures: Dispatcher [employer] Earline Feliciano PA-C PA-C sb4 Layton Wilson MD MD rt Zoie More RN RN me1 Katelyn King RN RN br2 Corrections: (The following items were deleted from the chart) 18:40 18:40 ACETAMINOPHEN+C.LAB.BRZ ordered. EDMS EDMS 18:40 18:40 BASIC METABOLIC PANEL+C.LAB.BRZ ordered. EDMS EDMS 18:40 18:40 CBC+H.LAB.BRZ ordered. EDMS EDMS 18:40 18:40 ETHANOL+C.LAB.BRZ ordered. EDMS EDMS 18:40 18:40 HEPATIC FUNCTION+C.LAB.BRZ ordered. EDMS EDMS 18:40 18:40 PROTIME (+INR)+COAG.LAB.BRZ ordered. EDMS EDMS 18:40 18:40 PTT, ACTIVATED+COAG.LAB.BRZ ordered. EDMS EDMS 18:40 18:40 SALICYLATE+C.LAB.BRZ ordered. EDMS EDMS 18:40 18:40 URINE DRUG SCREEN+UC.LAB.BRZ ordered. EDMS EDMS :58 19:57 Lidocaine Infiltration (1 %) 20 ml 20 ml Infiltration once; to bedside ordered. sb4 sb4 :58 19:57 Suture Tray Setup ordered. sb4 sb4
[2024-03-23 22:59] VITALS: TEMP 97.1
[2024-03-23 23:00] VITALS: O2SAT 98
[2024-03-23 23:01] VITALS: BP 113/77
== END 2024-03-23 22:05 | disposition home or self-care (01) ==
LOC: ER 18:25
DX: T43.8X5A Adverse effect of other psychotropic drugs, initial encounter (principal)
CPT/HCPCS: 36415; 80048; 80076; 80143; 80179; 82077; 85025; 85610; 85730; 96361; 96374; 99284; J2405; J7030

== ENCOUNTER 2024-03-29 12:12 | Emergency (ER) | payer OTHER, SELFPAY ==
--- OUTSIDE RECORDS SUMMARY | 2024-03-29 12:28 | XMS REPORT | Continuity of Care Document ---
Author Name Unknown Address [address] [facility] [address] [place] [address] [facility] Address [address] [facility] [address] [place] [address] Care Team Providers Care Marine Cargo Specialist Name Role Phone Abhijit MEYERS, [place] Primary Care Physician [phone] MAYTE MULTANI Attending Clinician Unavailable Jonny Pink Attending Clinician [phone] Unknown, Attending Attending Clinician Unavailab JONNY Baker Attending Clinician Unavailable Doctor Unassigned, [place] Attending Clinician U Russ Gaspar MD Attending Clinician [phone] HOLLY ROBLEDO Attending Clinician Unavailable THAI CURRIE Attending Clinician Unavailable Thai Currie DO Attending Clinician [phone] RUSS ULLOA Attending Clinician UnavailRUSS Jonas Attending Clinician UnavailBRYNN Harmon Attending Clinician Unavailable Brynn Ying PA-C Attending Clinician [phone] Unknown, Attending Attending Clinician UnavailClaribel Kelley MD Attending Clinician [phone] GETACHEW NICOLE Attending Clinician Unavailable Getachew Nicole PA-C Attending Clinician [phone] CLARIBEL CHOU Attending Clinician UnavailAdarsh Barbosa Attending Clinician Unavailable Ryan Cordero RN Attending Clinician Unavailabl e Only, Ang Db Test Attending Clinician Unavailabl angela Rodriguez MD, Seven Martinez Attending Clinician [phone] SEVEN RODRIGUEZ Attending Clinician Unavailable [place] CHEMISTRY LECTURER, Jonny Attending Clinician [phone] OMAGEDWARD SALVADORADRIANAYAMILE Attending Clinician Unavailabl e Omaghomi CHEMISTRY LECTURER, Omayemi Attending Clinician [phone] SANJANA ODONNELL Attending Clinician Unavailabl e Belle CHEMISTRY LECTURER, Sanjana Attending Clinician [phone] Provider, [facility] Attending Clinician Unavailable ZIYAD MATOS Attending Clinician Unavaila ble [place] ACNP, Ziyad Attending Clinician + [phone] SYMONE GILMAN Attending Clinician Unavailable Ebrahim CHEMISTRY LECTURER, Tayia Attending Clinician [phone] ELISE LOOMIS Attending Clinician Unavailable KENYETTA MIMS Attending Clinician Unavailable Kenyetta Mims MD Attending Clinician [phone] Nurse, Adc Pob Immunization Attending Clinician Unavailable Jonathan Rodriguez DO Attending Clinician [phone] JONATHAN RODRIGUEZ Attending Clinician Unavail able SHANTELLE MCALLISTER Attending Clinician Unavailable Shantelle Mcallister NP Attending Clinician [phone] Sendy SAL, Rekha Oliver Attending Clinician Unavailab babar Enriquez CHEMISTRY LECTURER, Arielle Attending Clinician [phone] ARIELLE ENRIQUEZ Attending Clinician Unavailable Sunni Almeida RN Attending Clinician Unavaila ble Provider, [facility] Attending Clinician Un available MariiaChristen Miguel Attending Clinician [phone] CHRISTEN WARREN Attending Clinician Unavailab babar Arias, Adarsh Fam Pob I Attending Clinician Unavailab babar PEREZ, Huan Attending Clinician [phone] HUAN RAZO Attending Clinician Unavailable Jairo MEYERS, Len Arndt Attending Clinici an Carlos Napoles Attending Clinician [phone] CARLOS FORD Attending Clinician Unavailtatum Canseco RN, Swetha M Attending Clinician Unavailable Joyce Oliver Attending Clinician [phone] LEN GILL Attending Clinician Unavailable RUSS ULLOA Admitting Clinician SANJANA Lobato Admitting Clinician Cristina miller Payers Payer Name Policy Type Policy Number Effective Date Expirati on Date Source [employer] MEDICA[employer] [id number] 2014 00:00:00 Problems Condition Name Condition Details Condition Category Status Onset Date Resolution Date Last Treatment Date Treating Clinician Comments Source No known active problems No known active problems Disease Univers [facility] Allergies, Adverse Reactions, Alerts Allergy Name Allergy Type Status Severity Reaction(s) Onset Date Inactive Date Treating Clinician Comments Source NO KNOWN ALLERGIE S Drug Class Active [facility] Social History Social Habit Start Date Stop Date Quantity Comments Source History SDOH Alcohol Comment [place] [facility] Gender identity [facility] Alcoholic beverage intake 2023-09-29 00:00:00 2023-09-29 00:00:00 Lifetime non-drinker (finding) [facility] Alcohol intake 2023-07-01 00:00:00 2023-07-01 00:00:00 Lifetime non-drinker (finding) [facility] History of Social function 2022-11-05 00:00:00 2022-11-05 00:00:00 [facility] Exposure to SARS-CoV-2 (event) 2022-06-29 00:00:00 2022-07-09 08:17:00 Not sure [facility] Tobacco use and exposure 2021-11-25 00:00:00 2021-11-25 00:00:00 Smokeless tobacco non-user [facility] History SDOH Alcohol Frequency 2020-01-16 00:00:00 2020-01-16 00:00:00 1 [facility] History SDOH Alcohol Std Drinks 2020-01-16 00:00:00 2020-01-16 00:00:00 99 [facility] History SDOH Alcohol Binge 2020-01-16 00:00:00 2020-01-16 00:00:00 1 [facility] Sex assigned at 2004 00:00:00 2005 00:00:00 [facility] Smoking Status Start Date Stop Date Source Never smoked tobacco [facility] Medications Ordered Medication Name Filled Medication Name Start Date Stop Date Current Medication? Ordering Clinician Indication Dosage Frequency Signature (SIG) Comments Components Source ondansetron 8 mg tablet 2023-04 0-04 00:00: 00 02-02 04:59 :00 Yes [id number] 8mg Take 1 tablet by mouth every 8 (eight) hours as needed for Nausea and Vomiting (N/V) for up to 5 days. [facility] norethindro ne-e.estrad ioL-iron (LOESTRIN FE 1.5/30) 1.5 mg-30 mcg (21)/75 mg (7) tablet 6 00:00: 00 Yes [id number] 1{tbl} Take 1 tablet by mouth in the morning. [facility] fluticasone propionate 50 mcg/actuati on nasal spray 06-23 00:00: 00 Yes [id number] 2{spray } Use 2 Sprays in each nostril in the morning. [facility] cetirizine 10 mg tablet 06-23 00:00: 00 Yes [id number] 10mg Take 1 tablet by mouth in the morning. [facility] azelastine 137 mcg (0.1 %) nasal spray 06-23 00:00: 00 Yes [id number] 1{spray } Use 1 [place] in each nostril in the morning and 1 [place] in the evening. Use in each nostril as directed [facility] bromphenira mine-pseudo ephedrine-D M (BROMFED DM) 2-30-10 mg/5 mL syrup 06-23 00:00: 00 Yes [id number] 5mL Take 5 mL by mouth 3 (three) times daily as needed for Cough or Cold symptoms. [facility] oseltamivir (TAMIFLU) 75 mg capsule 2022-04- 00:00: 00 04-13 05:59 :00 No [id number] 75mg Take 1 capsule by mouth in the morning and 1 capsule in the evening. Do all this for 5 days. [facility] ciprofloxac in-dexameth asone 0.3-0.1 % otic drops 7-13 00:00: 00 Yes [id number] 4[drp] Place 4 Drops in left ear in the morning and 4 Drops in the evening. [facility] norethindro ne-e.estrad ioL-iron (LOESTRIN FE 1.5/30) 1.5 mg-30 mcg (21)/75 mg (7) per tablet 15 00:00: 00 09-28 00:00 :00 No [id number] 1{tbl} Take 1 tablet by mouth in the morning. [facility] triamcinolo ne acetonide 0.1 % cream 12 00:00: 00 10-16 04:59 :00 No [id number] Apply to area(s) 3 (three) times daily for 10 days. [facility] norethindro ne-e.estrad ioL-iron (LOESTRIN FE 1.5/30) 1.5 mg-30 mcg (21)/75 mg (7) per tablet -16 00:00: 00 10-08 00:00 :00 No [id number] 1{tbl} Take 1 tablet by mouth in the morning. [facility] benzonatate 200 mg capsule 2-16 00:00: 00 Yes [id number] 200mg Take 1 capsule by mouth 3 (three) times daily as needed for Cough. [facility] fluticasone propionate 50 mcg/actuati on nasal spray 2-16 00:00: 00 Yes [id number] 1{spray } Use 1 [place] in each nostril in the morning. [facility] medroxyPROG ESTERone (PROVERA) 10 mg tablet 2-09 00:00: 00 06-19 05:59 :00 No [id number] 10mg Take 1 tablet by mouth in the morning for 14 days. [facility] bromphenira mine-pseudo ephedrine-D M (BROMFED DM) 2-30-10 mg/5 mL syrup 2021-04 00:00: 00 Yes [id number] 5mL Take 5 mL by mouth 4 (four) times daily as needed for Congestion /Allergies or Cough. [facility] fluticasone propionate 50 mcg/actuati on nasal spray 2021-04 00:00: 00 Yes [id number] 2{spray } Use 2 Sprays in each nostril in the morning. [facility] ibuprofen (IBU) tablet 600 mg 12-24 07:00: 00 12-24 06:14 :00 No 600mg 600 mg, Oral, ONCE, 1 dose, On Wed12/24/21 at 0200, DAMARI [facility] APPLY TOPICALLY TO THE AFFECTED AREA THREE TIMES DAILY 12-08 00:00: 00 No &lt - 00:00: 00 No TAKE 12.5 ML BY MOUTH TWICE DAILY FOR 5 DAYS 12-03 00:00: 00 No 6 TAKE 1 TABLET BY MOUTH ONCE DAILY 12-03 00:00: 00 No 75 hydrocortis one 2.5 % cream 11-25 00:00: 00 Yes [id number] Apply to area(s) 3 (three) times daily. [facility] diphenhydrA MINE (BENADRYL) 25 mg capsule 11-25 00:00: 00 12-01 04:59 :00 No [id number] 50mg Take 2 capsules by mouth every 6 (six) hours as needed for Allergies or Itching for up to 5 days. [facility] meloxicam 7.5 mg tablet 10-22 00:00: 00 Yes 7.5mg Take 7.5 mg by mouth in the morning. [facility] traMADoL-ac etaminophen 37.5-325 mg per tablet 10-22 00:00: 00 Yes TAKE 1 TABLET BY MOUTH EVERY 6 HOURS NEEDED FOR 10 DAYS [facility] &lt 10-20 00:00: 00 No ibuprofen (IBU) tablet 600 mg 2020-04 03:00: 00 04-01 02:05 :00 No 600mg 600 mg, Oral, ONCE, 1 dose, [facility]03[facility]31[facility] 2[facility] 650 mg 2020-04 03:00: 00 04-01 02:05 :00 No 650mg 650 mg, Oral, ONCE, 1 dose, On Wed03/31/21 at 2100, [facility] triamcinolo ne acetonide 0.1 % cream 2019-04 00:00: 00 Yes [id number] Apply to area(s) 2 (two) times daily. [facility] PREVIDENT 5000 BOOSTER PLUS 1.1 % Pste 12-27 00:00: 00 Yes BRUSH IN TEETH BID. DO NOT RINSE AFTER. [facility] cetirizine 10 mg tablet 12-14 00:00: 00 No 1mg cetirizine (ZYRTEC) 5 mg chewable tablet 08-15 23:22: 12 Yes 5mg Take 5 mg by mouth daily. [facility] cetirizine 10 mg tablet 01-01 00:00: [...] No known medications No Un caty ity [facility] No known medications No Un caty ity [facility] No known medications No Un caty ity [facility] No known medications No Un caty ity [facility] No known medications No Un caty ity [facility] No known medications No Un caty ity [facility] No known medications [facility] Immun[facility] Ordered Immunization Name Filled Immunization Name Date Status Comments Source Meningococcal B, OMV 2023-03-22 00:00:00 Completed [facility] Influenza Virus Vaccine Quad IM, Preserv and ABX Free 6 MO-64 YRS (FLUCELVAX) 2023-02-17 00:00:00 Completed [facility] Meningococcal B, OMV 2023-02-17 00:00:00 Completed SARS-COV-2 COVID-19 PFIZER KARAN-SUCROSE VACCINE (VERONICA TOP) 2021-05-28 00:00:00 Completed [facility] SARS-COV-2 COVID-19 PFIZER KARAN-SUCROSE VACCINE (VERONICA TOP) 2021-05-28 00:00:00 Completed [facility] SARS-COV-2 COVID-19 PFIZER KARAN-SUCROSE VACCINE (VERONICA TOP) 2021-05-28 00:00:00 Completed [facility] SARS-COV-2 COVID-19 PFIZER KARAN-SUCROSE VACCINE (VERONICA TOP) 2021-05-28 00:00:00 Completed [facility] SARS-COV-2 COVID-19 PFIZER KARAN-SUCROSE VACCINE (VERONICA TOP) 2021-05-28 00:00:00 Completed [facility] SARS-COV-2 COVID-19 PFIZER KARAN-SUCROSE VACCINE (VERONICA TOP) 2021-05-28 00:00:00 Completed [facility] SARS-COV-2 COVID-19 PFIZER KARAN-SUCROSE VACCINE (VERONICA TOP) 2021-05-28 00:00:00 Completed [facility] SARS-COV-2 COVID-19 PFIZER KARAN-SUCROSE VACCINE (VERONICA TOP) 2021-05-28 00:00:00 Completed [facility] SARS-COV-2 COVID-19 PFIZER KARAN-SUCROSE VACCINE (VERONICA TOP) 2021-05-28 00:00:00 Completed [facility] SARS-COV-2 COVID-19 PFIZER KARAN-SUCROSE VACCINE (VERONICA TOP) 2021-05-28 00:00:00 Completed [facility] SARS-COV-2 COVID-19 PFIZER KARAN-SUCROSE VACCINE (VERONICA TOP) 2021-05-28 00:00:00 Completed [facility] SARS-COV-2 COVID-19 PFIZER KARAN-SUCROSE VACCINE (VERONICA TOP) 2021-05-28 00:00:00 Completed [facility] SARS-COV-2 COVID-19 PFIZER KARAN-SUCROSE VACCINE (VERONICA TOP) 2021-05-28 00:00:00 Completed [facility] SARS-COV-2 COVID-19 PFIZER KARAN-SUCROSE VACCINE (VERONICA TOP) 2021-05-28 00:00:00 Completed [facility] SARS-COV-2 COVID-19 PFIZER KARAN-SUCROSE VACCINE (VERONICA TOP) 2021-05-28 00:00:00 Completed [facility] SARS-COV-2 COVID-19 PFIZER KARAN-SUCROSE VACCINE (VERONICA TOP) 2021-05-28 00:00:00 Completed [facility] SARS-COV-2 COVID-19 PFIZER KARAN-SUCROSE VACCINE (VERONICA TOP) 2021-05-28 00:00:00 Completed [facility] SARS-COV-2 COVID-19 PFIZER KARAN-SUCROSE VACCINE (VERONICA TOP) 2021-05-28 00:00:00 Completed [facility] SARS-COV-2 COVID-19 PFIZER KARAN-SUCROSE VACCINE (VERONICA TOP) 2021-05-28 00:00:00 Completed [facility] SARS-COV-2 COVID-19 PFIZER KARAN-SUCROSE VACCINE (VERONICA TOP) 2021-05-28 00:00:00 Completed [facility] SARS-COV-2 COVID-19 PFIZER KARAN-SUCROSE VACCINE (VERONICA TOP) 2021-05-28 00:00:00 Completed [facility] SARS-COV-2 COVID-19 PFIZER KARAN-SUCROSE VACCINE (VERONICA TOP) 2021-05-28 00:00:00 Completed [facility] SARS-COV-2 COVID-19 PFIZER KARAN-SUCROSE VACCINE (VERONICA TOP) 2021-05-28 00:00:00 Completed [facility] SARS-COV-2 COVID-19 PFIZER KARAN-SUCROSE VACCINE (VERONICA TOP) 2021-05-28 00:00:00 Completed [facility] SARS-COV-2 COVID-19 PFIZER KARAN-SUCROSE VACCINE (VERONICA TOP) 2021-05-28 00:00:00 Completed [facility] SARS-COV-2 COVID-19 PFIZER KARAN-SUCROSE VACCINE (VERONICA TOP) 2021-05-28 00:00:00 Completed [facility] SARS-COV-2 COVID-19 PFIZER KARAN-SUCROSE VACCINE (VERONICA TOP) 2021-05-28 00:00:00 Completed [facility] SARS-COV-2 COVID-19 PFIZER KARAN-SUCROSE VACCINE (VERONICA TOP) 2021-05-28 00:00:00 Completed [facility] SARS-COV-2 COVID-19 PFIZER KARAN-SUCROSE VACCINE (VERONICA TOP) 2021-05-28 00:00:00 Completed [facility] SARS-COV-2 COVID-19 PFIZER KARAN-SUCROSE VACCINE (VERONICA TOP) 2021-05-28 00:00:00 Completed [facility] SARS-COV-2 COVID-19 PFIZER KARAN-SUCROSE VACCINE (VERONICA TOP) 2021-05-28 00:00:00 Completed [facility] SARS-COV-2 COVID-19 PFIZER KARAN-SUCROSE VACCINE (VERONICA TOP) 2021-05-28 00:00:00 Completed [facility] Meningococcal Polysaccharide (groups A, C, Y and W-135) conjugate vaccine (MCV4P) 2020-12-26 00:00:00 Completed meningococcal MCV4P 2020-12-26 00:00:00 Completed meningococcal MCV4P 2020-12-26 00:00:00 Completed SARS-COV-2 COVID-19 PFIZER VACCINE 2020-09-30 00:00:00 Completed [facility] SARS-COV-2 COVID-19 PFIZER VACCINE 2020-09-30 00:00:00 Completed [facility] SARS-COV-2 COVID-19 PFIZER VACCINE 2020-09-30 00:00:00 Completed [facility] SARS-COV-2 COVID-19 PFIZER VACCINE 2020-09-30 00:00:00 Completed [facility] SARS-COV-2 COVID-19 PFIZER VACCINE 2020-09-30 00:00:00 Completed [facility] SARS-COV-2 COVID-19 PFIZER VACCINE 2020-09-30 00:00:00 Completed [facility] SARS-COV-2 COVID-19 PFIZER VACCINE 2020-09-30 00:00:00 Completed [facility] SARS-COV-2 COVID-19 PFIZER VACCINE 2020-09-30 00:00:00 Completed [facility] SARS-COV-2 COVID-19 PFIZER VACCINE 2020-09-30 00:00:00 Completed [facility] SARS-COV-2 COVID-19 PFIZER VACCINE 2020-09-30 00:00:00 Completed [facility] SARS-COV-2 COVID-19 PFIZER VACCINE 2020-09-30 00:00:00 Completed [facility] SARS-COV-2 COVID-19 PFIZER VACCINE 2020-09-30 00:00:00 Completed [facility] SARS-COV-2 COVID-19 PFIZER VACCINE 2020-09-30 00:00:00 Completed [facility] SARS-COV-2 COVID-19 PFIZER VACCINE 2020-09-30 00:00:00 Completed [facility] SARS-COV-2 COVID-19 PFIZER VACCINE 2020-09-30 00:00:00 Completed [facility] SARS-COV-2 COVID-19 PFIZER VACCINE 2020-09-30 00:00:00 Completed [facility] SARS-COV-2 COVID-19 PFIZER VACCINE 2020-09-30 00:00:00 Completed [facility] SARS-COV-2 COVID-19 PFIZER VACCINE 2020-09-30 00:00:00 Completed [facility] SARS-COV-2 COVID-19 PFIZER VACCINE 2020-09-30 00:00:00 Completed [facility] SARS-COV-2 COVID-19 PFIZER VACCINE 2020-09-30 00:00:00 Completed [facility] SARS-COV-2 COVID-19 PFIZER VACCINE 2020-09-30 00:00:00 Completed [facility] SARS-COV-2 COVID-19 PFIZER VACCINE 2020-09-30 00:00:00 Completed [facility] SARS-COV-2 COVID-19 PFIZER VACCINE 2020-09-30 00:00:00 Completed [facility] SARS-COV-2 COVID-19 PFIZER VACCINE 2020-09-30 00:00:00 Completed [facility] SARS-COV-2 COVID-19 PFIZER VACCINE 2020-09-30 00:00:00 Completed [facility] SARS-COV-2 COVID-19 PFIZER VACCINE 2020-09-30 00:00:00 Completed [facility] SARS-COV-2 COVID-19 PFIZER VACCINE 2020-09-30 00:00:00 Completed [facility] SARS-COV-2 COVID-19 PFIZER VACCINE 2020-09-30 00:00:00 Completed [facility] SARS-COV-2 COVID-19 PFIZER VACCINE 2020-09-30 00:00:00 Completed [facility] SARS-COV-2 COVID-19 PFIZER VACCINE 2020-09-30 00:00:00 Completed [facility] SARS-COV-2 COVID-19 PFIZER VACCINE 2020-09-30 00:00:00 Completed [facility] SARS-COV-2 COVID-19 PFIZER VACCINE 2020-09-30 00:00:00 Completed [facility] SARS-COV-2 COVID-19 PFIZER VACCINE 2020-09-30 00:00:00 Completed [facility] SARS-COV-2 COVID-19 PFIZER VACCINE 2020-09-30 00:00:00 Completed [facility] SARS-COV-2 COVID-19 PFIZER VACCINE 2020-09-30 00:00:00 Completed [facility] SARS-COV-2 COVID-19 PFIZER VACCINE 2020-09-30 00:00:00 Completed [facility] SARS-COV-2 COVID-19 PFIZER VACCINE 2020-09-30 00:00:00 Completed [facility] SARS-COV-2 COVID-19 PFIZER VACCINE 2020-09-30 00:00:00 Completed [facility] SARS-COV-2 COVID-19 PFIZER VACCINE 2020-09-30 00:00:00 Completed [facility] SARS-COV-2 COVID-19 PFIZER VACCINE 2020-09-30 00:00:00 Completed [facility] SARS-COV-2 COVID-19 PFIZER VACCINE 2020-09-30 00:00:00 Completed SARS-COV-2 COVID-19 PFIZER VACCINE 2020-09-10 00:00:00 Completed [facility] SARS-COV-2 COVID-19 PFIZER VACCINE 2020-09-10 00:00:00 Completed [facility] SARS-COV-2 COVID-19 PFIZER VACCINE 2020-09-10 00:00:00 Completed [facility] SARS-COV-2 COVID-19 PFIZER VACCINE 2020-09-10 00:00:00 Completed [facility] SARS-COV-2 COVID-19 PFIZER VACCINE 2020-09-10 00:00:00 Completed [facility] SARS-COV-2 COVID-19 PFIZER VACCINE 2020-09-10 00:00:00 Completed [facility] SARS-COV-2 COVID-19 PFIZER VACCINE 2020-09-10 00:00:00 Completed [facility] SARS-COV-2 COVID-19 PFIZER VACCINE 2020-09-10 00:00:00 Completed [facility] SARS-COV-2 COVID-19 PFIZER VACCINE 2020-09-10 00:00:00 Completed [facility] SARS-COV-2 COVID-19 PFIZER VACCINE 2020-09-10 00:00:00 Completed [facility] SARS-COV-2 COVID-19 PFIZER VACCINE 2020-09-10 00:00:00 Completed [facility] SARS-COV-2 COVID-19 PFIZER VACCINE 2020-09-10 00:00:00 Completed [facility] SARS-COV-2 COVID-19 PFIZER VACCINE 2020-09-10 00:00:00 Completed [facility] SARS-COV-2 COVID-19 PFIZER VACCINE 2020-09-10 00:00:00 Completed [facility] SARS-COV-2 COVID-19 PFIZER VACCINE 2020-09-10 00:00:00 Completed [facility] SARS-COV-2 COVID-19 PFIZER VACCINE 2020-09-10 00:00:00 Completed [facility] SARS-COV-2 COVID-19 PFIZER VACCINE 2020-09-10 00:00:00 Completed [facility] SARS-COV-2 COVID-19 PFIZER VACCINE 2020-09-10 00:00:00 Completed [facility] SARS-COV-2 COVID-19 PFIZER VACCINE 2020-09-10 00:00:00 Completed [facility] SARS-COV-2 COVID-19 PFIZER VACCINE 2020-09-10 00:00:00 Completed [facility] SARS-COV-2 COVID-19 PFIZER VACCINE 2020-09-10 00:00:00 Completed [facility] SARS-COV-2 COVID-19 PFIZER VACCINE 2020-09-10 00:00:00 Completed [facility] SARS-COV-2 COVID-19 PFIZER VACCINE 2020-09-10 00:00:00 Completed [facility] SARS-COV-2 COVID-19 PFIZER VACCINE 2020-09-10 00:00:00 Completed [facility] SARS-COV-2 COVID-19 PFIZER VACCINE 2020-09-10 00:00:00 Completed [facility] SARS-COV-2 COVID-19 PFIZER VACCINE 2020-09-10 00:00:00 Completed [facility] SARS-COV-2 COVID-19 PFIZER VACCINE 2020-09-10 00:00:00 Completed [facility] SARS-COV-2 COVID-19 PFIZER VACCINE 2020-09-10 00:00:00 Completed [facility] SARS-COV-2 COVID-19 PFIZER VACCINE 2020-09-10 00:00:00 Completed [facility] SARS-COV-2 COVID-19 PFIZER VACCINE 2020-09-10 00:00:00 Completed [facility] SARS-COV-2 COVID-19 PFIZER VACCINE 2020-09-10 00:00:00 Completed [facility] SARS-COV-2 COVID-19 PFIZER VACCINE 2020-09-10 00:00:00 Completed [facility] SARS-COV-2 COVID-19 PFIZER VACCINE 2020-09-10 00:00:00 Completed [facility] SARS-COV-2 COVID-19 PFIZER VACCINE 2020-09-10 00:00:00 Completed [facility] SARS-COV-2 COVID-19 PFIZER VACCINE 2020-09-10 00:00:00 Completed [facility] SARS-COV-2 COVID-19 PFIZER VACCINE 2020-09-10 00:00:00 Completed [facility] [facility] SARS-COV-2 COVID-19 PFIZER VACCINE 2020-09-10 00:00:00 Completed [facility] SARS-COV-2 COVID-19 PFIZER VACCINE 2020-09-10 00:00:00 Completed [facility] SARS-COV-2 COVID-19 PFIZER VACCINE 2020-09-10 00:00:00 Completed [facility] SARS-COV-2 COVID-19 PFIZER VACCINE 2020-09-10 00:00:00 Completed [facility] SARS-COV-2 COVID-19 PFIZER VACCINE 2020-09-10 00:00:00 Completed [facility] Influenza Virus Vaccine 2019-03-04 00:00:00 Completed [facility] Influenza Virus Vaccine 2019-03-04 00:00:00 Completed [facility] Influenza Virus Vaccine 2019-03-04 00:00:00 Completed [facility] Influenza Virus Vaccine 2019-03-04 00:00:00 Completed [facility] Influenza Virus Vaccine 2019-03-04 00:00:00 Completed [facility] Influenza Virus Vaccine 2019-03-04 00:00:00 Completed [facility] Influenza Virus Vaccine 2019-03-04 00:00:00 Completed [facility] Influenza Virus Vaccine 2019-03-04 00:00:00 Completed [facility] Influenza Virus Vaccine 2019-03-04 00:00:00 Completed [facility] Influenza Virus Vaccine 2019-03-04 00:00:00 Completed [facility] Influenza Virus Vaccine 2019-03-04 00:00:00 Completed [facility] Influenza Virus Vaccine 2019-03-04 00:00:00 Completed [facility] Influenza Virus Vaccine 2019-03-04 00:00:00 Completed [facility] Influenza Virus Vaccine 2019-03-04 00:00:00 Completed [facility] Influenza Virus Vaccine 2019-03-04 00:00:00 Completed [facility] Influenza Virus Vaccine 2019-03-04 00:00:00 Completed [facility] Influenza Virus Vaccine 2019-03-04 00:00:00 Completed [facility] Influenza Virus Vaccine 2019-03-04 00:00:00 Completed [facility] Influenza Virus Vaccine 2019-03-04 00:00:00 Completed [facility] Influenza Virus Vaccine 2019-03-04 00:00:00 Completed [facility] Influenza Virus Vaccine 2019-03-04 00:00:00 Completed [facility] Influenza Virus Vaccine 2019-03-04 00:00:00 Completed [facility] Influenza Virus Vaccine 2019-03-04 00:00:00 Completed [facility] Influenza Virus Vaccine 2019-03-04 00:00:00 Completed [facility] Influenza Virus Vaccine 2019-03-04 00:00:00 Completed [facility] Influenza Virus Vaccine 2019-03-04 00:00:00 Completed [facility] Influenza Virus Vaccine 2019-03-04 00:00:00 Completed [facility] Influenza Virus Vaccine 2019-03-04 00:00:00 Completed [facility] Influenza Virus Vaccine 2019-03-04 00:00:00 Completed [facility] Influenza Virus Vaccine 2019-03-04 00:00:00 Completed [facility] Influenza Virus Vaccine 2019-03-04 00:00:00 Completed [facility] Influenza Virus Vaccine 2019-03-04 00:00:00 Completed [facility] Influenza Virus Vaccine 2019-03-04 00:00:00 Completed [facility] Influenza Virus Vaccine 2019-03-04 00:00:00 Completed [facility] Influenza Virus Vaccine 2019-03-04 00:00:00 Completed [facility] Influenza Virus Vaccine 2019-03-04 00:00:00 Completed [facility] Influenza Virus Vaccine 2019-03-04 00:00:00 Completed [facility] Influenza Virus Vaccine 2019-03-04 00:00:00 Completed [facility] Influenza Virus Vaccine 2019-03-04 00:00:00 Completed [facility] Influenza Virus Vaccine 2019-03-04 00:00:00 Completed [facility] Influenza Virus Vaccine 2019-03-04 00:00:00 Completed [facility] Influenza Virus Vaccine 2019-03-04 00:00:00 Completed [facility] Influenza Virus Vaccine 2019-03-04 00:00:00 Completed [facility] Influenza Virus Vaccine 2019-03-04 00:00:00 Completed Influenza Virus Vaccine 2019-03-04 00:00:00 Completed [facility] Influenza Virus Vaccine Quad IM, Preserv and ABX Free 6 MO-64 YRS (FLUCELVAX) 2019-03-04 00:00:00 Completed Influenza Virus Vaccine 2019-03-04 00:00:00 Completed [facility] Influenza Virus Vaccine 2019-03-04 00:00:00 Completed [facility] Influenza Virus Vaccine 2019-03-04 00:00:00 Completed [facility] Influenza Virus Vaccine 2019-03-04 00:00:00 Completed [facility] Influenza Virus Vaccine 2019-03-04 00:00:00 Completed [facility] Influenza Virus Vaccine 2019-03-04 00:00:00 Completed [facility] Influenza Virus Vaccine 2019-03-04 00:00:00 Completed [facility] Influenza Virus Vaccine 2019-03-04 00:00:00 Completed [facility] Influenza Virus Vaccine 2018-03-11 00:00:00 Completed [facility] Influenza Virus Vaccine 2018-03-11 00:00:00 Completed [facility] Influenza Virus Vaccine 2018-03-11 00:00:00 Completed [facility] Influenza Virus Vaccine 2018-03-11 00:00:00 Completed [facility] Influenza Virus Vaccine 2018-03-11 00:00:00 Completed [facility] Influenza Virus Vaccine 2018-03-11 00:00:00 Completed [facility] Influenza Virus Vaccine 2018-03-11 00:00:00 Completed [facility] Influenza Virus Vaccine 2018-03-11 00:00:00 Completed [facility] Influenza Virus Vaccine 2018-03-11 00:00:00 Completed [facility] Influenza Virus Vaccine 2018-03-11 00:00:00 Completed [facility] Influenza Virus Vaccine 2018-03-11 00:00:00 Completed [facility] Influenza Virus Vaccine 2018-03-11 00:00:00 Completed [facility] Influenza Virus Vaccine 2018-03-11 00:00:00 Completed [facility] Influenza Virus Vaccine 2018-03-11 00:00:00 Completed [facility] Influenza Virus Vaccine 2018-03-11 00:00:00 Completed [facility] Influenza Virus Vaccine 2018-03-11 00:00:00 Completed [facility] Influenza Virus Vaccine 2018-03-11 00:00:00 Completed [facility] Influenza Virus Vaccine 2018-03-11 00:00:00 Completed [facility] Influenza Virus Vaccine 2018-03-11 00:00:00 Completed [facility] Influenza Virus Vaccine 2018-03-11 00:00:00 Completed [facility] Influenza Virus Vaccine 2018-03-11 00:00:00 Completed [facility] Influenza Virus Vaccine 2018-03-11 00:00:00 Completed [facility] Influenza Virus Vaccine 2018-03-11 00:00:00 Completed [facility] Influenza Virus Vaccine 2018-03-11 00:00:00 Completed [facility] Influenza Virus Vaccine 2018-03-11 00:00:00 Completed [facility] Influenza Virus Vaccine 2018-03-11 00:00:00 Completed [facility] Influenza Virus Vaccine 2018-03-11 00:00:00 Completed [facility] Influenza Virus Vaccine 2018-03-11 00:00:00 Completed [facility] Influenza Virus Vaccine 2018-03-11 00:00:00 Completed [facility] Influenza Virus Vaccine 2018-03-11 00:00:00 Completed [facility] Influenza Virus Vaccine 2018-03-11 00:00:00 Completed [facility] Influenza Virus Vaccine 2018-03-11 00:00:00 Completed [facility] Influenza Virus Vaccine 2018-03-11 00:00:00 Completed [facility] Influenza Virus Vaccine 2018-03-11 00:00:00 Completed [facility] Influenza Virus Vaccine 2018-03-11 00:00:00 Completed [facility] Influenza Virus Vaccine 2018-03-11 00:00:00 Completed [facility] Influenza Virus Vaccine 2018-03-11 00:00:00 Completed [facility] Influenza Virus Vaccine 2018-03-11 00:00:00 Completed [facility] Influenza Virus Vaccine 2018-03-11 00:00:00 Completed [facility] Influenza Virus Vaccine 2018-03-11 00:00:00 Completed [facility] Influenza Virus Vaccine 2018-03-11 00:00:00 Completed [facility] Influenza Virus Vaccine 2018-03-11 00:00:00 Completed [facility] Influenza Virus Vaccine 2018-03-11 00:00:00 Completed [facility] Influenza Virus Vaccine 2018-03-11 00:00:00 Completed Influenza Virus Vaccine 2018-03-11 00:00:00 Completed [facility] Influenza Virus Vaccine - Whole 2018-03-11 00:00:00 Completed Influenza Virus Vaccine 2018-03-11 00:00:00 Completed [facility] Influenza Virus Vaccine 2018-03-11 00:00:00 Completed [facility] Influenza Virus Vaccine 2018-03-11 00:00:00 Completed [facility] Influenza Virus Vaccine 2018-03-11 00:00:00 Completed [facility] Influenza Virus Vaccine 2018-03-11 00:00:00 Completed [facility] Influenza Virus Vaccine 2018-03-11 00:00:00 Completed [facility] Influenza Virus Vaccine 2018-03-11 00:00:00 Completed [facility] Influenza Virus Vaccine 2018-03-11 00:00:00 Completed [facility] Influenza, seasonal, inj 2018-03-11 00:00:00 Completed Influenza, seasonal, inj 2018-03-11 00:00:00 Completed Influenza, seasonal, inj 2017-05-14 00:00:00 Completed Influenza, seasonal, inj 2017-05-14 00:00:00 Completed HPV 2017-04-17 00:00:00 Completed [facility] HPV 2017-04-17 00:00:00 Completed [facility] HPV 2017-04-17 00:00:00 Completed [facility] HPV 2017-04-17 00:00:00 Completed [facility] HPV 2017-04-17 00:00:00 Completed [facility] HPV 2017-04-17 00:00:00 Completed [facility] HPV 2017-04-17 00:00:00 Completed [facility] HPV 2017-04-17 00:00:00 Completed [facility] HPV 2017-04-17 00:00:00 Completed [facility] HPV 2017-04-17 00:00:00 Completed [facility] HPV 2017-04-17 00:00:00 Completed [facility] HPV 2017-04-17 00:00:00 Completed [facility] HPV 2017-04-17 00:00:00 Completed [facility] HPV 2017-04-17 00:00:00 Completed [facility] HPV 2017-04-17 00:00:00 Completed [facility] HPV 2017-04-17 00:00:00 Completed [facility] HPV 2017-04-17 00:00:00 Completed [facility] HPV 2017-04-17 00:00:00 Completed [facility] HPV 2017-04-17 00:00:00 Completed [facility] HPV 2017-04-17 00:00:00 Completed [facility] HPV 2017-04-17 00:00:00 Completed [facility] HPV 2017-04-17 00:00:00 Completed [facility] HPV 2017-04-17 00:00:00 Completed [facility] HPV 2017-04-17 00:00:00 Completed [facility] HPV 2017-04-17 00:00:00 Completed [facility] HPV 2017-04-17 00:00:00 Completed [facility] HPV 2017-04-17 00:00:00 Completed [facility] HPV 2017-04-17 00:00:00 Completed [facility] HPV 2017-04-17 00:00:00 Completed [facility] HPV 2017-04-17 00:00:00 Completed [facility] HPV 2017-04-17 00:00:00 Completed [facility] HPV 2017-04-17 00:00:00 Completed [facility] HPV 2017-04-17 00:00:00 Completed [facility] HPV 2017-04-17 00:00:00 Completed [facility] HPV 2017-04-17 00:00:00 Completed [facility] HPV 2017-04-17 00:00:00 Completed [facility] HPV 2017-04-17 00:00:00 Completed [facility] HPV 2017-04-17 00:00:00 Completed [facility] HPV 2017-04-17 00:00:00 Completed [facility] HPV 2017-04-17 00:00:00 Completed [facility] HPV 2017-04-17 00:00:00 Completed [facility] HPV 2017-04-17 00:00:00 Completed [facility] HPV 2017-04-17 00:00:00 Completed [facility] HPV 2017-04-17 00:00:00 Completed [facility] HPV 2017-04-17 00:00:00 Completed HPV 2017-04-17 00:00:00 Completed [facility] HPV 2017-04-17 00:00:00 Completed [facility] HPV 2017-04-17 00:00:00 Completed [facility] HPV 2017-04-17 00:00:00 Completed [facility] HPV 2017-04-17 00:00:00 Completed [facility] HPV 2017-04-17 00:00:00 Completed [facility] HPV 2017-04-17 00:00:00 Completed [facility] HPV 2017-04-17 00:00:00 Completed [facility] HPV9 2017-04-07 00:00:00 Completed HPV9 2017-04-07 00:00:00 Completed HPV9 2017-04-07 00:00:00 Completed Influenza, seasonal, inj 2017-02-12 00:00:00 Completed Influenza, seasonal, inj 2017-02-12 00:00:00 Completed HPV 2016-10-06 00:00:00 Completed [facility] Meningococcal Vaccine 2016-10-06 00:00:00 Completed [facility] TDAP 2016-10-06 00:00:00 Completed [facility] HPV 2016-10-06 00:00:00 Completed [facility] Meningococcal Vaccine 2016-10-06 00:00:00 Completed [facility] TDAP 2016-10-06 00:00:00 Completed [facility] HPV 2016-10-06 00:00:00 Completed [facility] Meningococcal Vaccine 2016-10-06 00:00:00 Completed [facility] TDAP 2016-10-06 00:00:00 Completed [facility] HPV 2016-10-06 00:00:00 Completed [facility] Meningococcal Vaccine 2016-10-06 00:00:00 Completed [facility] TDAP 2016-10-06 00:00:00 Completed [facility] HPV 2016-10-06 00:00:00 Completed [facility] Meningococcal Vaccine 2016-10-06 00:00:00 Completed [facility] TDAP 2016-10-06 00:00:00 Completed [facility] HPV 2016-10-06 00:00:00 Completed [facility] Meningococcal Vaccine 2016-10-06 00:00:00 Completed [facility] TDAP 2016-10-06 00:00:00 Completed [facility] HPV 2016-10-06 00:00:00 Completed [facility] Meningococcal Vaccine 2016-10-06 00:00:00 Completed [facility] TDAP 2016-10-06 00:00:00 Completed [facility] HPV 2016-10-06 00:00:00 Completed [facility] Meningococcal Vaccine 2016-10-06 00:00:00 Completed [facility] TDAP 2016-10-06 00:00:00 Completed [facility] HPV 2016-10-06 00:00:00 Completed [facility] Meningococcal Vaccine 2016-10-06 00:00:00 Completed [facility] TDAP 2016-10-06 00:00:00 Completed [facility] HPV 2016-10-06 00:00:00 Completed [facility] Meningococcal Vaccine 2016-10-06 00:00:00 Completed [facility] TDAP 2016-10-06 00:00:00 Completed [facility] HPV 2016-10-06 00:00:00 Completed [facility] Meningococcal Vaccine 2016-10-06 00:00:00 Completed [facility] TDAP 2016-10-06 00:00:00 Completed [facility] HPV 2016-10-06 00:00:00 Completed [facility] Meningococcal Vaccine 2016-10-06 00:00:00 Completed [facility] TDAP 2016-10-06 00:00:00 Completed [facility] HPV 2016-10-06 00:00:00 Completed [facility] Meningococcal Vaccine 2016-10-06 00:00:00 Completed [facility] TDAP 2016-10-06 00:00:00 Completed [facility] HPV 2016-10-06 00:00:00 Completed [facility] Meningococcal Vaccine 2016-10-06 00:00:00 Completed [facility] TDAP 2016-10-06 00:00:00 Completed [facility] HPV 2016-10-06 00:00:00 Completed [facility] Meningococcal Vaccine 2016-10-06 00:00:00 Completed [facility] TDAP 2016-10-06 00:00:00 Completed [facility] HPV 2016-10-06 00:00:00 Completed [facility] Meningococcal Vaccine 2016-10-06 00:00:00 Completed [facility] TDAP 2016-10-06 00:00:00 Completed [facility] HPV 2016-10-06 00:00:00 Completed [facility] HPV 2016-10-06 00:00:00 Completed [facility] Meningococcal Vaccine 2016-10-06 00:00:00 Completed [facility] TDAP 2016-10-06 00:00:00 Completed [facility] Meningococcal Vaccine 2016-10-06 00:00:00 Completed [facility] HPV 2016-10-06 00:00:00 Completed [facility] Meningococcal Vaccine 2016-10-06 00:00:00 Completed [facility] TDAP 2016-10-06 00:00:00 Completed [facility] HPV 2016-10-06 00:00:00 Completed [facility] TDAP 2016-10-06 00:00:00 Completed [facility] Meningococcal Vaccine 2016-10-06 00:00:00 Completed [facility] TDAP 2016-10-06 00:00:00 Completed [facility] HPV 2016-10-06 00:00:00 Completed [facility] Meningococcal Vaccine 2016-10-06 00:00:00 Completed [facility] TDAP 2016-10-06 00:00:00 Completed [facility] HPV 2016-10-06 00:00:00 Completed [facility] Meningococcal Vaccine 2016-10-06 00:00:00 Completed [facility] TDAP 2016-10-06 00:00:00 Completed [facility] HPV 2016-10-06 00:00:00 Completed [facility] Meningococcal Vaccine 2016-10-06 00:00:00 Completed [facility] TDAP 2016-10-06 00:00:00 Completed [facility] HPV 2016-10-06 00:00:00 Completed [facility] Meningococcal Vaccine 2016-10-06 00:00:00 Completed [facility] TDAP 2016-10-06 00:00:00 Completed [facility] HPV 2016-10-06 00:00:00 Completed [facility] Meningococcal Vaccine 2016-10-06 00:00:00 Completed [facility] TDAP 2016-10-06 00:00:00 Completed [facility] HPV 2016-10-06 00:00:00 Completed [facility] Meningococcal Vaccine 2016-10-06 00:00:00 Completed [facility] TDAP 2016-10-06 00:00:00 Completed [facility] HPV 2016-10-06 00:00:00 Completed [facility] Meningococcal Vaccine 2016-10-06 00:00:00 Completed [facility] TDAP 2016-10-06 00:00:00 Completed [facility] HPV 2016-10-06 00:00:00 Completed [facility] Meningococcal Vaccine 2016-10-06 00:00:00 Completed [facility] TDAP 2016-10-06 00:00:00 Completed [facility] HPV 2016-10-06 00:00:00 Completed [facility] Meningococcal Vaccine 2016-10-06 00:00:00 Completed [facility] TDAP 2016-10-06 00:00:00 Completed [facility] HPV 2016-10-06 00:00:00 Completed [facility] Meningococcal Vaccine 2016-10-06 00:00:00 Completed [facility] TDAP 2016-10-06 00:00:00 Completed [facility] HPV 2016-10-06 00:00:00 Completed [facility] Meningococcal Vaccine 2016-10-06 00:00:00 Completed [facility] TDAP 2016-10-06 00:00:00 Completed [facility] HPV 2016-10-06 00:00:00 Completed [facility] Meningococcal Vaccine 2016-10-06 00:00:00 Completed [facility] TDAP 2016-10-06 00:00:00 Completed [facility] HPV 2016-10-06 00:00:00 Completed [facility] HPV 2016-10-06 00:00:00 Completed [facility] Meningococcal Vaccine 2016-10-06 00:00:00 Completed [facility] TDAP 2016-10-06 00:00:00 Completed [facility] Meningococcal Vaccine 2016-10-06 00:00:00 Completed [facility] HPV 2016-10-06 00:00:00 Completed [facility] Meningococcal Vaccine 2016-10-06 00:00:00 Completed [facility] TDAP 2016-10-06 00:00:00 Completed [facility] HPV 2016-10-06 00:00:00 Completed [facility] Tdap 2016-10-06 00:00:00 Completed [facility] Meningococcal Vaccine 2016-10-06 00:00:00 Completed [facility] TDAP 2016-10-06 00:00:00 Completed [facility] HPV 2016-10-06 00:00:00 Completed [facility] Meningococcal Vaccine 2016-10-06 00:00:00 Completed [facility] TDAP 2016-10-06 00:00:00 Completed [facility] HPV 2016-10-06 00:00:00 Completed [facility] Meningococcal Vaccine 2016-10-06 00:00:00 Completed [facility] TDAP 2016-10-06 00:00:00 Completed [facility] HPV 2016-10-06 00:00:00 Completed [facility] HPV 2016-10-06 00:00:00 Completed [facility] Meningococcal Vaccine 2016-10-06 00:00:00 Completed [facility] TDAP 2016-10-06 00:00:00 Completed [facility] Meningococcal Vaccine 2016-10-06 00:00:00 Completed [facility] HPV 2016-10-06 00:00:00 Completed [facility] Meningococcal Vaccine 2016-10-06 00:00:00 Completed [facility] TDAP 2016-10-06 00:00:00 Completed [facility] HPV 2016-10-06 00:00:00 Completed [facility] Tdap 2016-10-06 00:00:00 Completed [facility] Meningococcal Vaccine 2016-10-06 00:00:00 Completed [facility] TDAP 2016-10-06 00:00:00 Completed [facility] HPV 2016-10-06 00:00:00 Completed [facility] Meningococcal Vaccine 2016-10-06 00:00:00 Completed [facility] TDAP 2016-10-06 00:00:00 Completed [facility] HPV 2016-10-06 00:00:00 Completed [facility] HPV 2016-10-06 00:00:00 Completed Meningococcal Vaccine 2016-10-06 00:00:00 Completed TDAP 2016-10-06 00:00:00 Completed Meningococcal Vaccine 2016-10-06 00:00:00 Completed [facility] HPV9 2016-10-06 00:00:00 Completed Meningococcal Polysaccharide (groups A, C, Y and W-135) conjugate vaccine (MCV4P) 2016-10-06 00:00:00 Completed TDAP 2016-10-06 00:00:00 Completed [facility] HPV 2016-10-06 00:00:00 Completed [facility] Meningococcal Vaccine 2016-10-06 00:00:00 Completed [facility] TDAP 2016-10-06 00:00:00 Completed [facility] HPV 2016-10-06 00:00:00 Completed [facility] Meningococcal Vaccine 2016-10-06 00:00:00 Completed [facility] TDAP 2016-10-06 00:00:00 Completed [facility] HPV 2016-10-06 00:00:00 Completed [facility] Meningococcal Vaccine 2016-10-06 00:00:00 Completed [facility] TDAP 2016-10-06 00:00:00 Completed [facility] HPV 2016-10-06 00:00:00 Completed [facility] Meningococcal Vaccine 2016-10-06 00:00:00 Completed [facility] TDAP 2016-10-06 00:00:00 Completed [facility] HPV 2016-10-06 00:00:00 Completed [facility] Meningococcal Vaccine 2016-10-06 00:00:00 Completed [facility] TDAP 2016-10-06 00:00:00 Completed [facility] HPV 2016-10-06 00:00:00 Completed [facility] Meningococcal Vaccine 2016-10-06 00:00:00 Completed [facility] TDAP 2016-10-06 00:00:00 Completed [facility] HPV 2016-10-06 00:00:00 Completed [facility] Meningococcal Vaccine 2016-10-06 00:00:00 Completed [facility] TDAP 2016-10-06 00:00:00 Completed [facility] HPV 2016-10-06 00:00:00 Completed [facility] Meningococcal Vaccine 2016-10-06 00:00:00 Completed [facility] TDAP 2016-10-06 00:00:00 Completed [facility] Tdap 2016-10-06 00:00:00 Completed meningococcal MCV4P 2016-10-06 00:00:00 Completed HPV9 2016-10-06 00:00:00 Completed Tdap 2016-10-06 00:00:00 Completed meningococcal MCV4P 2016-10-06 00:00:00 Completed HPV9 2016-10-06 00:00:00 Completed Influenza Virus Vaccine 2016-01-15 00:00:00 Completed [facility] Influenza Virus Vaccine 2016-01-15 00:00:00 Completed [facility] Influenza Virus Vaccine 2016-01-15 00:00:00 Completed [facility] Influenza Virus Vaccine 2016-01-15 00:00:00 Completed [facility] Influenza Virus Vaccine 2016-01-15 00:00:00 Completed [facility] Influenza Virus Vaccine 2016-01-15 00:00:00 Completed [facility] Influenza Virus Vaccine 2016-01-15 00:00:00 Completed [facility] Influenza Virus Vaccine 2016-01-15 00:00:00 Completed [facility] Influenza Virus Vaccine 2016-01-15 00:00:00 Completed [facility] Influenza Virus Vaccine 2016-01-15 00:00:00 Completed [facility] Influenza Virus Vaccine 2016-01-15 00:00:00 Completed [facility] Influenza Virus Vaccine 2016-01-15 00:00:00 Completed [facility] Influenza Virus Vaccine 2016-01-15 00:00:00 Completed [facility] Influenza Virus Vaccine 2016-01-15 00:00:00 Completed [facility] Influenza Virus Vaccine 2016-01-15 00:00:00 Completed [facility] Influenza Virus Vaccine 2016-01-15 00:00:00 Completed [facility] Influenza Virus Vaccine 2016-01-15 00:00:00 Completed [facility] Influenza Virus Vaccine 2016-01-15 00:00:00 Completed [facility] Influenza Virus Vaccine 2016-01-15 00:00:00 Completed [facility] Influenza Virus Vaccine 2016-01-15 00:00:00 Completed [facility] Influenza Virus Vaccine 2016-01-15 00:00:00 Completed [facility] Influenza Virus Vaccine 2016-01-15 00:00:00 Completed [facility] Influenza Virus Vaccine 2016-01-15 00:00:00 Completed [facility] Influenza Virus Vaccine 2016-01-15 00:00:00 Completed [facility] Influenza Virus Vaccine 2016-01-15 00:00:00 Completed [facility] Influenza Virus Vaccine 2016-01-15 00:00:00 Completed [facility] Influenza Virus Vaccine 2016-01-15 00:00:00 Completed [facility] Influenza Virus Vaccine 2016-01-15 00:00:00 Completed [facility] Influenza Virus Vaccine 2016-01-15 00:00:00 Completed [facility] Influenza Virus Vaccine 2016-01-15 00:00:00 Completed [facility] Influenza Virus Vaccine 2016-01-15 00:00:00 Completed [facility] Influenza Virus Vaccine 2016-01-15 00:00:00 Completed [facility] Influenza Virus Vaccine 2016-01-15 00:00:00 Completed [facility] Influenza Virus Vaccine 2016-01-15 00:00:00 Completed [facility] Influenza Virus Vaccine 2016-01-15 00:00:00 Completed [facility] Influenza Virus Vaccine 2016-01-15 00:00:00 Completed [facility] Influenza Virus Vaccine 2016-01-15 00:00:00 Completed [facility] Influenza Virus Vaccine 2016-01-15 00:00:00 Completed [facility] Influenza Virus Vaccine 2016-01-15 00:00:00 Completed [facility] Influenza Virus Vaccine 2016-01-15 00:00:00 Completed [facility] Influenza Virus Vaccine 2016-01-15 00:00:00 Completed [facility] Influenza Virus Vaccine 2016-01-15 00:00:00 Completed [facility] Influenza Virus Vaccine 2016-01-15 00:00:00 Completed [facility] Influenza Virus Vaccine 2016-01-15 00:00:00 Completed [facility] Influenza Virus Vaccine 2016-01-15 00:00:00 Completed Influenza Virus Vaccine - Whole 2016-01-15 00:00:00 Completed Influenza Virus Vaccine 2016-01-15 00:00:00 Completed [facility] Influenza Virus Vaccine 2016-01-15 00:00:00 Completed [facility] Influenza Virus Vaccine 2016-01-15 00:00:00 Completed [facility] Influenza Virus Vaccine 2016-01-15 00:00:00 Completed [facility] Influenza Virus Vaccine 2016-01-15 00:00:00 Completed [facility] Influenza Virus Vaccine 2016-01-15 00:00:00 Completed [facility] Influenza Virus Vaccine 2016-01-15 00:00:00 Completed [facility] Influenza Virus Vaccine 2016-01-15 00:00:00 Completed [facility] Influenza, seasonal, inj 2016-01-15 00:00:00 Completed Influenza, seasonal, inj 2016-01-15 00:00:00 Completed Influenza, seasonal, inj 2016-01-15 00:00:00 Completed Influenza, seasonal, inj 2016-01-15 00:00:00 Completed Influenza Virus Vaccine 2014-02-20 00:00:00 Completed [facility] Influenza Virus Vaccine 2014-02-20 00:00:00 Completed [facility] Influenza Virus Vaccine 2014-02-20 00:00:00 Completed [facility] Influenza Virus Vaccine 2014-02-20 00:00:00 Completed [facility] Influenza Virus Vaccine 2014-02-20 00:00:00 Completed [facility] Influenza Virus Vaccine 2014-02-20 00:00:00 Completed [facility] Influenza Virus Vaccine 2014-02-20 00:00:00 Completed [facility] Influenza Virus Vaccine 2014-02-20 00:00:00 Completed [facility] Influenza Virus Vaccine 2014-02-20 00:00:00 Completed [facility] Influenza Virus Vaccine 2014-02-20 00:00:00 Completed [facility] Influenza Virus Vaccine 2014-02-20 00:00:00 Completed [facility] Influenza Virus Vaccine 2014-02-20 00:00:00 Completed [facility] Influenza Virus Vaccine 2014-02-20 00:00:00 Completed [facility] Influenza Virus Vaccine 2014-02-20 00:00:00 Completed [facility] Influenza Virus Vaccine 2014-02-20 00:00:00 Completed [facility] Influenza Virus Vaccine 2014-02-20 00:00:00 Completed [facility] Influenza Virus Vaccine 2014-02-20 00:00:00 Completed [facility] Influenza Virus Vaccine 2014-02-20 00:00:00 Completed [facility] Influenza Virus Vaccine 2014-02-20 00:00:00 Completed [facility] Influenza Virus Vaccine 2014-02-20 00:00:00 Completed [facility] Influenza Virus Vaccine 2014-02-20 00:00:00 Completed [facility] Influenza Virus Vaccine 2014-02-20 00:00:00 Completed [facility] Influenza Virus Vaccine 2014-02-20 00:00:00 Completed [facility] Influenza Virus Vaccine 2014-02-20 00:00:00 Completed [facility] Influenza Virus Vaccine 2014-02-20 00:00:00 Completed [facility] Influenza Virus Vaccine 2014-02-20 00:00:00 Completed [facility] Influenza Virus Vaccine 2014-02-20 00:00:00 Completed [facility] Influenza Virus Vaccine 2014-02-20 00:00:00 Completed [facility] Influenza Virus Vaccine 2014-02-20 00:00:00 Completed [facility] Influenza Virus Vaccine 2014-02-20 00:00:00 Completed [facility] Influenza Virus Vaccine 2014-02-20 00:00:00 Completed [facility] Influenza Virus Vaccine 2014-02-20 00:00:00 Completed [facility] Influenza Virus Vaccine 2014-02-20 00:00:00 Completed [facility] Influenza Virus Vaccine 2014-02-20 00:00:00 Completed [facility] Influenza Virus Vaccine 2014-02-20 00:00:00 Completed [facility] Influenza Virus Vaccine 2014-02-20 00:00:00 Completed [facility] Influenza Virus Vaccine 2014-02-20 00:00:00 Completed [facility] Influenza Virus Vaccine 2014-02-20 00:00:00 Completed [facility] Influenza Virus Vaccine 2014-02-20 00:00:00 Completed [facility] Influenza Virus Vaccine 2014-02-20 00:00:00 Completed [facility] Influenza Virus Vaccine 2014-02-20 00:00:00 Completed [facility] Influenza Virus Vaccine 2014-02-20 00:00:00 Completed [facility] Influenza Virus Vaccine 2014-02-20 00:00:00 Completed [facility] Influenza Virus Vaccine 2014-02-20 00:00:00 Completed [facility] Influenza Virus Vaccine 2014-02-20 00:00:00 Completed Influenza Virus Vaccine - Whole 2014-02-20 00:00:00 Completed Influenza Virus Vaccine 2014-02-20 00:00:00 Completed [facility] Influenza Virus Vaccine 2014-02-20 00:00:00 Completed [facility] Influenza Virus Vaccine 2014-02-20 00:00:00 Completed [facility] Influenza Virus Vaccine 2014-02-20 00:00:00 Completed [facility] Influenza Virus Vaccine 2014-02-20 00:00:00 Completed [facility] Influenza Virus Vaccine 2014-02-20 00:00:00 Completed [facility] Influenza Virus Vaccine 2014-02-20 00:00:00 Completed [facility] Influenza Virus Vaccine 2014-02-20 00:00:00 Completed [facility] Influenza, seasonal, inj 2014-02-20 00:00:00 Completed Influenza, seasonal, inj 2014-02-20 00:00:00 Completed Influenza Virus Vaccine 2013-03-20 00:00:00 Completed [facility] Influenza Virus Vaccine 2013-03-20 00:00:00 Completed [facility] Influenza Virus Vaccine 2013-03-20 00:00:00 Completed [facility] Influenza Virus Vaccine 2013-03-20 00:00:00 Completed [facility] Influenza Virus Vaccine 2013-03-20 00:00:00 Completed [facility] Influenza Virus Vaccine 2013-03-20 00:00:00 Completed [facility] Influenza Virus Vaccine 2013-03-20 00:00:00 Completed [facility] Influenza Virus Vaccine 2013-03-20 00:00:00 Completed [facility] Influenza Virus Vaccine 2013-03-20 00:00:00 Completed [facility] Influenza Virus Vaccine 2013-03-20 00:00:00 Completed [facility] Influenza Virus Vaccine 2013-03-20 00:00:00 Completed [facility] Influenza Virus Vaccine 2013-03-20 00:00:00 Completed [facility] Influenza Virus Vaccine 2013-03-20 00:00:00 Completed [facility] Influenza Virus Vaccine 2013-03-20 00:00:00 Completed [facility] Influenza Virus Vaccine 2013-03-20 00:00:00 Completed [facility] Influenza Virus Vaccine 2013-03-20 00:00:00 Completed [facility] Influenza Virus Vaccine 2013-03-20 00:00:00 Completed [facility] Influenza Virus Vaccine 2013-03-20 00:00:00 Completed [facility] Influenza Virus Vaccine 2013-03-20 00:00:00 Completed [facility] Influenza Virus Vaccine 2013-03-20 00:00:00 Completed [facility] Influenza Virus Vaccine 2013-03-20 00:00:00 Completed [facility] Influenza Virus Vaccine 2013-03-20 00:00:00 Completed [facility] Influenza Virus Vaccine 2013-03-20 00:00:00 Completed [facility] Influenza Virus Vaccine 2013-03-20 00:00:00 Completed [facility] Influenza Virus Vaccine 2013-03-20 00:00:00 Completed [facility] Influenza Virus Vaccine 2013-03-20 00:00:00 Completed [facility] Influenza Virus Vaccine 2013-03-20 00:00:00 Completed [facility] Influenza Virus Vaccine 2013-03-20 00:00:00 Completed [facility] Influenza Virus Vaccine 2013-03-20 00:00:00 Completed [facility] Influenza Virus Vaccine 2013-03-20 00:00:00 Completed [facility] Influenza Virus Vaccine 2013-03-20 00:00:00 Completed [facility] Influenza Virus Vaccine 2013-03-20 00:00:00 Completed [facility] Influenza Virus Vaccine 2013-03-20 00:00:00 Completed [facility] Influenza Virus Vaccine 2013-03-20 00:00:00 Completed [facility] Influenza Virus Vaccine 2013-03-20 00:00:00 Completed [facility] Influenza Virus Vaccine 2013-03-20 00:00:00 Completed [facility] Influenza Virus Vaccine 2013-03-20 00:00:00 Completed [facility] Influenza Virus Vaccine 2013-03-20 00:00:00 Completed [facility] Influenza Virus Vaccine 2013-03-20 00:00:00 Completed [facility] Influenza Virus Vaccine 2013-03-20 00:00:00 Completed [facility] Influenza Virus Vaccine 2013-03-20 00:00:00 Completed [facility] Influenza Virus Vaccine 2013-03-20 00:00:00 Completed [facility] Influenza Virus Vaccine 2013-03-20 00:00:00 Completed [facility] Influenza Virus Vaccine 2013-03-20 00:00:00 Completed [facility] Influenza Virus Vaccine 2013-03-20 00:00:00 Completed Influenza Virus Vaccine - Whole 2013-03-20 00:00:00 Completed Influenza Virus Vaccine 2013-03-20 00:00:00 Completed [facility] Influenza Virus Vaccine 2013-03-20 00:00:00 Completed [facility] Influenza Virus Vaccine 2013-03-20 00:00:00 Completed [facility] Influenza Virus Vaccine 2013-03-20 00:00:00 Completed [facility] Influenza Virus Vaccine 2013-03-20 00:00:00 Completed [facility] Influenza Virus Vaccine 2013-03-20 00:00:00 Completed [facility] Influenza Virus Vaccine 2013-03-20 00:00:00 Completed [facility] Influenza Virus Vaccine 2013-03-20 00:00:00 Completed [facility] Influenza, seasonal, inj 2013-03-20 00:00:00 Completed Influenza, seasonal, inj 2013-03-20 00:00:00 Completed MMR 2009-12-06 00:00:00 Completed [facility] MMR 2009-12-06 00:00:00 Completed [facility] Polio (IPV/OPV) 2009-12-06 00:00:00 Completed [facility] DTP 2009-12-06 00:00:00 Completed [facility] Polio (IPV/OPV) 2009-12-06 00:00:00 Completed [facility] DTP 2009-12-06 00:00:00 Completed [facility] MMR 2009-12-06 00:00:00 Completed [facility] Polio (IPV/OPV) 2009-12-06 00:00:00 Completed [facility] DTP 2009-12-06 00:00:00 Completed [facility] MMR 2009-12-06 00:00:00 Completed [facility] Polio (IPV/OPV) 2009-12-06 00:00:00 Completed [facility] DTP 2009-12-06 00:00:00 Completed [facility] MMR 2009-12-06 00:00:00 Completed [facility] Polio (IPV/OPV) 2009-12-06 00:00:00 Completed [facility] DTP 2009-12-06 00:00:00 Completed [facility] MMR 2009-12-06 00:00:00 Completed [facility] Polio (IPV/OPV) 2009-12-06 00:00:00 Completed [facility] DTP 2009-12-06 00:00:00 Completed [facility] MMR 2009-12-06 00:00:00 Completed [facility] Polio (IPV/OPV) 2009-12-06 00:00:00 Completed [facility] DTP 2009-12-06 00:00:00 Completed [facility] MMR 2009-12-06 00:00:00 Completed [facility] Polio (IPV/OPV) 2009-12-06 00:00:00 Completed [facility] DTP 2009-12-06 00:00:00 Completed [facility] MMR 2009-12-06 00:00:00 Completed [facility] Polio (IPV/OPV) 2009-12-06 00:00:00 Completed [facility] DTP 2009-12-06 00:00:00 Completed [facility] MMR 2009-12-06 00:00:00 Completed [facility] Polio (IPV/OPV) 2009-12-06 00:00:00 Completed [facility] DTP 2009-12-06 00:00:00 Completed [facility] MMR 2009-12-06 00:00:00 Completed [facility] Polio (IPV/OPV) 2009-12-06 00:00:00 Completed [facility] DTP 2009-12-06 00:00:00 Completed [facility] MMR 2009-12-06 00:00:00 Completed [facility] Polio (IPV/OPV) 2009-12-06 00:00:00 Completed [facility] DTP 2009-12-06 00:00:00 Completed [facility] MMR 2009-12-06 00:00:00 Completed [facility] Polio (IPV/OPV) 2009-12-06 00:00:00 Completed [facility] DTP 2009-12-06 00:00:00 Completed [facility] MMR 2009-12-06 00:00:00 Completed [facility] Polio (IPV/OPV) 2009-12-06 00:00:00 Completed [facility] DTP 2009-12-06 00:00:00 Completed [facility] DTP 2009-12-06 00:00:00 Completed [facility] MMR 2009-12-06 00:00:00 Completed [facility] Polio (IPV/OPV) 2009-12-06 00:00:00 Completed [facility] DTP 2009-12-06 00:00:00 Completed [facility] MMR 2009-12-06 00:00:00 Completed [facility] Polio (IPV/OPV) 2009-12-06 00:00:00 [facility] [facility] 2009-12-06 00:00:00 Completed [facility] MMR 2009-12-06 00:00:00 Completed [facility] Polio (IPV/OPV) 2009-12-06 00:00:00 Completed [facility] DTP 2009-12-06 00:00:00 Completed [facility] MMR 2009-12-06 00:00:00 Completed [facility] MMR 2009-12-06 00:00:00 Completed [facility] Polio (IPV/OPV) 2009-12-06 00:00:00 Completed [facility] DTP 2009-12-06 00:00:00 Completed [facility] Polio (IPV/OPV) 2009-12-06 00:00:00 Completed [facility] MMR 2009-12-06 00:00:00 Completed [facility] Polio (IPV/OPV) 2009-12-06 00:00:00 Completed [facility] DTP 2009-12-06 00:00:00 Completed [facility] MMR 2009-12-06 00:00:00 Completed [facility] Polio (IPV/OPV) 2009-12-06 00:00:00 Completed [facility] DTP 2009-12-06 00:00:00 Completed [facility] MMR 2009-12-06 00:00:00 Completed [facility] Polio (IPV/OPV) 2009-12-06 00:00:00 Completed [facility] DTP 2009-12-06 00:00:00 Completed [facility] MMR 2009-12-06 00:00:00 Completed [facility] Polio (IPV/OPV) 2009-12-06 00:00:00 Completed [facility] DTP 2009-12-06 00:00:00 Completed [facility] MMR 2009-12-06 00:00:00 Completed [facility] Polio (IPV/OPV) 2009-12-06 00:00:00 Completed [facility] DTP 2009-12-06 00:00:00 Completed [facility] MMR 2009-12-06 00:00:00 Completed [facility] Polio (IPV/OPV) 2009-12-06 00:00:00 Completed [facility] DTP 2009-12-06 00:00:00 Completed [facility] MMR 2009-12-06 00:00:00 Completed [facility] Polio (IPV/OPV) 2009-12-06 00:00:00 Completed [facility] DTP 2009-12-06 00:00:00 Completed [facility] MMR 2009-12-06 00:00:00 Completed [facility] Polio (IPV/OPV) 2009-12-06 00:00:00 Completed [facility] DTP 2009-12-06 00:00:00 Completed [facility] MMR 2009-12-06 00:00:00 Completed [facility] Polio (IPV/OPV) 2009-12-06 00:00:00 Completed [facility] DTP 2009-12-06 00:00:00 Completed [facility] MMR 2009-12-06 00:00:00 Completed [facility] Polio (IPV/OPV) 2009-12-06 00:00:00 Completed [facility] DTP 2009-12-06 00:00:00 Completed [facility] MMR 2009-12-06 00:00:00 Completed [facility] Polio (IPV/OPV) 2009-12-06 00:00:00 Completed [facility] DTP 2009-12-06 00:00:00 Completed [facility] DTP 2009-12-06 00:00:00 Completed [facility] MMR 2009-12-06 00:00:00 Completed [facility] Polio (IPV/OPV) 2009-12-06 00:00:00 Completed [facility] DTP 2009-12-06 00:00:00 Completed [facility] MMR 2009-12-06 00:00:00 Completed [facility] Polio (IPV/OPV) 2009-12-06 00:00:00 Completed [facility] DTP 2009-12-06 00:00:00 Completed [facility] MMR 2009-12-06 00:00:00 Completed [facility] Polio (IPV/OPV) 2009-12-06 00:00:00 Completed [facility] DTP 2009-12-06 00:00:00 Completed [facility] MMR 2009-12-06 00:00:00 Completed [facility] Polio (IPV/OPV) 2009-12-06 00:00:00 Completed [facility] MMR 2009-12-06 00:00:00 Completed [facility] DTP 2009-12-06 00:00:00 Completed [facility] Polio (IPV/OPV) 2009-12-06 00:00:00 Completed [facility] MMR 2009-12-06 00:00:00 Completed [facility] Polio (IPV/OPV) 2009-12-06 00:00:00 Completed [facility] DTP 2009-12-06 00:00:00 Completed [facility] MMR 2009-12-06 00:00:00 Completed [facility] Polio (IPV/OPV) 2009-12-06 00:00:00 Completed [facility] DTP 2009-12-06 00:00:00 Completed [facility] DTP 2009-12-06 00:00:00 Completed [facility] MMR 2009-12-06 00:00:00 Completed [facility] Polio (IPV/OPV) 2009-12-06 00:00:00 Completed [facility] DTP 2009-12-06 00:00:00 Completed [facility] MMR 2009-12-06 00:00:00 Completed [facility] Polio (IPV/OPV) 2009-12-06 00:00:00 Completed [facility] DTP 2009-12-06 00:00:00 Completed [facility] MMR 2009-12-06 00:00:00 Completed [facility] MMR 2009-12-06 00:00:00 Completed [facility] Polio (IPV/OPV) 2009-12-06 00:00:00 Completed [facility] DTP 2009-12-06 00:00:00 Completed [facility] Polio (IPV/OPV) 2009-12-06 00:00:00 Completed [facility] MMR 2009-12-06 00:00:00 Completed [facility] Polio (IPV/OPV) 2009-12-06 00:00:00 Completed [facility] DTP 2009-12-06 00:00:00 Completed [facility] DTP 2009-12-06 00:00:00 Completed [facility] MMR 2009-12-06 00:00:00 Completed [facility] Polio (IPV/OPV) 2009-12-06 00:00:00 Completed [facility] DTP 2009-12-06 00:00:00 Completed [facility] DTP 2009-12-06 00:00:00 Completed MMR 2009-12-06 00:00:00 Completed [facility] Polio (IPV/OPV) 2009-12-06 00:00:00 Completed Dtap/ipv 2009-12-06 00:00:00 Completed MMR 2009-12-06 00:00:00 Completed [facility] Polio (IPV/OPV) 2009-12-06 00:00:00 Completed [facility] DTP 2009-12-06 00:00:00 Completed [facility] MMR 2009-12-06 00:00:00 Completed [facility] Polio (IPV/OPV) 2009-12-06 00:00:00 Completed [facility] DTP 2009-12-06 00:00:00 Completed [facility] MMR 2009-12-06 00:00:00 Completed [facility] Polio (IPV/OPV) 2009-12-06 00:00:00 Completed [facility] DTP 2009-12-06 00:00:00 Completed [facility] MMR 2009-12-06 00:00:00 Completed [facility] Polio (IPV/OPV) 2009-12-06 00:00:00 Completed [facility] DTP 2009-12-06 00:00:00 Completed [facility] MMR 2009-12-06 00:00:00 Completed [facility] Polio (IPV/OPV) 2009-12-06 00:00:00 Completed [facility] DTP 2009-12-06 00:00:00 Completed [facility] MMR 2009-12-06 00:00:00 Completed [facility] Polio (IPV/OPV) 2009-12-06 00:00:00 Completed [facility] DTP 2009-12-06 00:00:00 Completed [facility] MMR 2009-12-06 00:00:00 Completed [facility] DTaP-IPV 2009-12-06 00:00:00 Completed Polio (IPV/OPV) 2009-12-06 00:00:00 Completed [facility] DTP 2009-12-06 00:00:00 Completed [facility] MMR 2009-12-06 00:00:00 Completed [facility] Polio (IPV/OPV) 2009-12-06 00:00:00 Completed [facility] DTP 2009-12-06 00:00:00 Completed [facility] MMR 2009-12-06 00:00:00 Completed [facility] Polio (IPV/OPV) 2009-12-06 00:00:00 Completed [facility] MMR 2009-12-06 00:00:00 Completed DTaP-IPV 2009-12-06 00:00:00 Completed MMR 2009-12-06 00:00:00 Completed HEPATITIS A 2007-05-09 00:00:00 Completed [facility] HEPATITIS A 2007-05-09 00:00:00 Completed [facility] HEPATITIS A 2007-05-09 00:00:00 Completed [facility] HEPATITIS A 2007-05-09 00:00:00 Completed [facility] HEPATITIS A 2007-05-09 00:00:00 Completed [facility] HEPATITIS A 2007-05-09 00:00:00 Completed [facility] HEPATITIS A 2007-05-09 00:00:00 Completed [facility] HEPATITIS A 2007-05-09 00:00:00 Completed [facility] HEPATITIS A 2007-05-09 00:00:00 Completed [facility] HEPATITIS A 2007-05-09 00:00:00 Completed [facility] HEPATITIS A 2007-05-09 00:00:00 Completed [facility] HEPATITIS A 2007-05-09 00:00:00 Completed [facility] HEPATITIS A 2007-05-09 00:00:00 Completed [facility] HEPATITIS A 2007-05-09 00:00:00 Completed [facility] HEPATITIS A 2007-05-09 00:00:00 Completed [facility] HEPATITIS A 2007-05-09 00:00:00 Completed [facility] HEPATITIS A 2007-05-09 00:00:00 Completed [facility] HEPATITIS A 2007-05-09 00:00:00 Completed [facility] HEPATITIS A 2007-05-09 00:00:00 Completed [facility] HEPATITIS A 2007-05-09 00:00:00 Completed [facility] HEPATITIS A 2007-05-09 00:00:00 Completed [facility] HEPATITIS A 2007-05-09 00:00:00 Completed [facility] HEPATITIS A 2007-05-09 00:00:00 Completed [facility] HEPATITIS A 2007-05-09 00:00:00 Completed [facility] HEPATITIS A 2007-05-09 00:00:00 Completed [facility] HEPATITIS A 2007-05-09 00:00:00 Completed [facility] HEPATITIS A 2007-05-09 00:00:00 Completed [facility] HEPATITIS A 2007-05-09 00:00:00 Completed [facility] HEPATITIS A 2007-05-09 00:00:00 Completed [facility] HEPATITIS A 2007-05-09 00:00:00 Completed [facility] HEPATITIS A 2007-05-09 00:00:00 Completed [facility] HEPATITIS A 2007-05-09 00:00:00 Completed [facility] HEPATITIS A 2007-05-09 00:00:00 Completed [facility] Hep A, ped/adol, 2 dose 2007-05-09 00:00:00 Completed HEPATITIS A 2007-05-09 00:00:00 Completed [facility] HEPATITIS A 2007-05-09 00:00:00 Completed [facility] HEPATITIS A 2007-05-09 00:00:00 Completed [facility] HEPATITIS A 2007-05-09 00:00:00 Completed [facility] HEPATITIS A 2007-05-09 00:00:00 Completed [facility] HEPATITIS A 2007-05-09 00:00:00 Completed [facility] HEPATITIS A 2007-05-09 00:00:00 Completed [facility] HEPATITIS A 2007-05-09 00:00:00 Completed [facility] HEPATITIS A 2007-05-09 00:00:00 Completed [facility] HEPATITIS A 2007-05-09 00:00:00 Completed [facility] Hep A, ped/adol, 2 dose 2007-05-09 00:00:00 Completed HEPATITIS A 2007-05-09 00:00:00 Completed [facility] HEPATITIS A 2007-05-09 00:00:00 Completed [facility] HEPATITIS A 2007-05-09 00:00:00 Completed [facility] HEPATITIS A 2007-05-09 00:00:00 Completed [facility] HEPATITIS A 2007-05-09 00:00:00 Completed [facility] HEPATITIS A 2007-05-09 00:00:00 Completed [facility] HEPATITIS A 2007-05-09 00:00:00 Completed [facility] HEPATITIS A 2007-05-09 00:00:00 Completed [facility] HEPATITIS A 2007-05-09 00:00:00 Completed [facility] HEPATITIS A 2007-05-09 00:00:00 Completed [facility] DTaP 2006-07-23 00:00:00 Completed MMR 2006-07-23 00:00:00 Completed [facility] HIB 4 Dose Schedule 2006-07-23 00:00:00 Completed [facility] MMR 2006-07-23 00:00:00 Completed [facility] Varicella (varivax)(chicken pox) 2006-07-23 00:00:00 Completed [facility] Pneumococcal 7 Conjugate, PCV7 (Prevnar7) 2006-07-23 00:00:00 Completed [facility] DTP 2006-07-23 00:00:00 Completed [facility] HEPATITIS A 2006-07-23 00:00:00 Completed [facility] HIB 4 Dose Schedule 2006-07-23 00:00:00 Completed [facility] Varicella (varivax)(chicken pox) 2006-07-23 00:00:00 Completed [facility] Pneumococcal 7 Conjugate, PCV7 (Prevnar7) 2006-07-23 00:00:00 Completed [facility] Hep A, ped/adol, 2 dose 2006-07-23 00:00:00 Completed DTP 2006-07-23 00:00:00 Completed [facility] HEPATITIS A 2006-07-23 00:00:00 Completed [facility] HIB 4 Dose Schedule 2006-07-23 00:00:00 Completed [facility] MMR 2006-07-23 00:00:00 Completed [facility] Varicella (varivax)(chicken pox) 2006-07-23 00:00:00 Completed [facility] Pneumococcal 7 Conjugate, PCV7 (Prevnar7) 2006-07-23 00:00:00 Completed [facility] DTP 2006-07-23 00:00:00 Completed [facility] HEPATITIS A 2006-07-23 00:00:00 Completed [facility] HIB 4 Dose Schedule 2006-07-23 00:00:00 Completed [facility] MMR 2006-07-23 00:00:00 Completed [facility] Hib (PRP-OMP) 2006-07-23 00:00:00 Completed Varicella (varivax)(chicken pox) 2006-07-23 00:00:00 Completed [facility] Pneumococcal 7 Conjugate, PCV7 (Prevnar7) 2006-07-23 00:00:00 Completed [facility] DTP 2006-07-23 00:00:00 Completed [facility] HEPATITIS A 2006-07-23 00:00:00 Completed [facility] HIB 4 Dose Schedule 2006-07-23 00:00:00 Completed [facility] MMR 2006-07-23 00:00:00 Completed [facility] Varicella (varivax)(chicken pox) 2006-07-23 00:00:00 Completed [facility] Pneumococcal 7 Conjugate, PCV7 (Prevnar7) 2006-07-23 00:00:00 Completed [facility] DTP 2006-07-23 00:00:00 Completed [facility] HEPATITIS A 2006-07-23 00:00:00 Completed [facility] MMRV 2006-07-23 00:00:00 Completed HIB 4 Dose Schedule 2006-07-23 00:00:00 Completed [facility] MMR 2006-07-23 00:00:00 Completed [facility] Varicella (varivax)(chicken pox) 2006-07-23 00:00:00 Completed [facility] Pneumococcal 7 Conjugate, PCV7 (Prevnar7) 2006-07-23 00:00:00 Completed [facility] DTP 2006-07-23 00:00:00 Completed [facility] HEPATITIS A 2006-07-23 00:00:00 Completed [facility] HIB 4 Dose Schedule 2006-07-23 00:00:00 Completed [facility] MMR 2006-07-23 00:00:00 Completed [facility] Varicella (varivax)(chicken pox) 2006-07-23 00:00:00 Completed [facility] Pneumococcal 7 Conjugate, PCV7 (Prevnar7) 2006-07-23 00:00:00 Completed [facility] Pneumococcal conjugate P 2006-07-23 00:00:00 Completed DTP 2006-07-23 00:00:00 Completed [facility] HEPATITIS A 2006-07-23 00:00:00 Completed [facility] HIB 4 Dose Schedule 2006-07-23 00:00:00 Completed [facility] MMR 2006-07-23 00:00:00 Completed [facility] Varicella (varivax)(chicken pox) 2006-07-23 00:00:00 Completed [facility] Pneumococcal 7 Conjugate, PCV7 (Prevnar7) 2006-07-23 00:00:00 Completed [facility] DTP 2006-07-23 00:00:00 Completed [facility] HEPATITIS A 2006-07-23 00:00:00 Completed [facility] HIB 4 Dose Schedule 2006-07-23 00:00:00 Completed [facility] MMR 2006-07-23 00:00:00 Completed [facility] DTaP 2006-07-23 00:00:00 Completed Varicella (varivax)(chicken pox) 2006-07-23 00:00:00 Completed [facility] Pneumococcal 7 Conjugate, PCV7 (Prevnar7) 2006-07-23 00:00:00 Completed [facility] DTP 2006-07-23 00:00:00 Completed [facility] HEPATITIS A 2006-07-23 00:00:00 Completed [facility] HIB 4 Dose Schedule 2006-07-23 00:00:00 Completed [facility] MMR 2006-07-23 00:00:00 Completed [facility] Varicella (varivax)(chicken pox) 2006-07-23 00:00:00 Completed [facility] Pneumococcal 7 Conjugate, PCV7 (Prevnar7) 2006-07-23 00:00:00 Completed [facility] DTP 2006-07-23 00:00:00 Completed [facility] HEPATITIS A 2006-07-23 00:00:00 Completed [facility] Hep A, ped/adol, 2 dose 2006-07-23 00:00:00 Completed HIB 4 Dose Schedule 2006-07-23 00:00:00 Completed [facility] MMR 2006-07-23 00:00:00 Completed [facility] Varicella (varivax)(chicken pox) 2006-07-23 00:00:00 Completed [facility] Pneumococcal 7 Conjugate, PCV7 (Prevnar7) 2006-07-23 00:00:00 Completed [facility] DTP 2006-07-23 00:00:00 Completed [facility] HEPATITIS A 2006-07-23 00:00:00 Completed [facility] HIB 4 Dose Schedule 2006-07-23 00:00:00 Completed [facility] MMR 2006-07-23 00:00:00 Completed [facility] Varicella (varivax)(chicken pox) 2006-07-23 00:00:00 Completed [facility] Pneumococcal 7 Conjugate, PCV7 (Prevnar7) 2006-07-23 00:00:00 Completed [facility] Hib (PRP-OMP) 2006-07-23 00:00:00 Completed DTP 2006-07-23 00:00:00 Completed [facility] HEPATITIS A 2006-07-23 00:00:00 Completed [facility] HIB 4 Dose Schedule 2006-07-23 00:00:00 Completed [facility] MMR 2006-07-23 00:00:00 Completed [facility] Varicella (varivax)(chicken pox) 2006-07-23 00:00:00 Completed [facility] Pneumococcal 7 Conjugate, PCV7 (Prevnar7) 2006-07-23 00:00:00 Completed [facility] DTP 2006-07-23 00:00:00 Completed [facility] HEPATITIS A 2006-07-23 00:00:00 Completed [facility] HIB 4 Dose Schedule 2006-07-23 00:00:00 Completed [facility] MMR 2006-07-23 00:00:00 Completed [facility] MMRV 2006-07-23 00:00:00 Completed Varicella (varivax)(chicken pox) 2006-07-23 00:00:00 Completed [facility] Pneumococcal 7 Conjugate, PCV7 (Prevnar7) 2006-07-23 00:00:00 Completed [facility] DTP 2006-07-23 00:00:00 Completed [facility] DTP 2006-07-23 00:00:00 Completed [facility] HEPATITIS A 2006-07-23 00:00:00 Completed [facility] HEPATITIS A 2006-07-23 00:00:00 Completed [facility] HIB 4 Dose Schedule 2006-07-23 00:00:00 Completed [facility] MMR 2006-07-23 00:00:00 Completed [facility] Varicella (varivax)(chicken pox) 2006-07-23 00:00:00 Completed [facility] Pneumococcal 7 Conjugate, PCV7 (Prevnar7) 2006-07-23 00:00:00 Completed [facility] Pneumococcal conjugate P 2006-07-23 00:00:00 Completed DTP 2006-07-23 00:00:00 Completed [facility] HEPATITIS A 2006-07-23 00:00:00 Completed [facility] HIB 4 Dose Schedule 2006-07-23 00:00:00 Completed [facility] MMR 2006-07-23 00:00:00 Completed [facility] Varicella (varivax)(chicken pox) 2006-07-23 00:00:00 Completed [facility] HIB 4 Dose Schedule 2006-07-23 00:00:00 Completed [facility] Pneumococcal 7 Conjugate, PCV7 (Prevnar7) 2006-07-23 00:00:00 Completed [facility] DTP 2006-07-23 00:00:00 Completed [facility] HEPATITIS A 2006-07-23 00:00:00 Completed [facility] HIB 4 Dose Schedule 2006-07-23 00:00:00 Completed [facility] MMR 2006-07-23 00:00:00 Completed [facility] Varicella (varivax)(chicken pox) 2006-07-23 00:00:00 Completed [facility] Pneumococcal 7 Conjugate, PCV7 (Prevnar7) 2006-07-23 00:00:00 Completed [facility] DTP 2006-07-23 00:00:00 Completed [facility] HEPATITIS A 2006-07-23 00:00:00 Completed [facility] HIB 4 Dose Schedule 2006-07-23 00:00:00 Completed [facility] MMR 2006-07-23 00:00:00 Completed [facility] MMR 2006-07-23 00:00:00 Completed [facility] Varicella (varivax)(chicken pox) 2006-07-23 00:00:00 Completed [facility] Pneumococcal 7 Conjugate, PCV7 (Prevnar7) 2006-07-23 00:00:00 [facility] [facility] DTP 2006-07-23 00:00:00 Completed [facility] HEPATITIS A 2006-07-23 00:00:00 Completed [facility] HIB 4 Dose Schedule 2006-07-23 00:00:00 Completed [facility] MMR 2006-07-23 00:00:00 Completed [facility] Varicella (varivax)(chicken pox) 2006-07-23 00:00:00 Completed [facility] Pneumococcal 7 Conjugate, PCV7 (Prevnar7) 2006-07-23 00:00:00 Completed [facility] Varicella (varivax)(chicken pox) 2006-07-23 00:00:00 Completed [facility] DTP 2006-07-23 00:00:00 Completed [facility] HEPATITIS A 2006-07-23 00:00:00 Completed [facility] HIB 4 Dose Schedule 2006-07-23 00:00:00 Completed [facility] MMR 2006-07-23 00:00:00 Completed [facility] Varicella (varivax)(chicken pox) 2006-07-23 00:00:00 Completed [facility] Pneumococcal 7 Conjugate, PCV7 (Prevnar7) 2006-07-23 00:00:00 Completed [facility] Pneumococcal 7 Conjugate, PCV7 (Prevnar7) 2006-07-23 00:00:00 Completed [facility] DTP 2006-07-23 00:00:00 Completed [facility] HEPATITIS A 2006-07-23 00:00:00 Completed [facility] HIB 4 Dose Schedule 2006-07-23 00:00:00 Completed [facility] MMR 2006-07-23 00:00:00 Completed [facility] Varicella (varivax)(chicken pox) 2006-07-23 00:00:00 Completed [facility] Pneumococcal 7 Conjugate, PCV7 (Prevnar7) 2006-07-23 00:00:00 Completed [facility] DTP 2006-07-23 00:00:00 Completed [facility] HEPATITIS A 2006-07-23 00:00:00 Completed [facility] HIB 4 Dose Schedule 2006-07-23 00:00:00 Completed [facility] MMR 2006-07-23 00:00:00 Completed [facility] Varicella (varivax)(chicken pox) 2006-07-23 00:00:00 Completed [facility] Pneumococcal 7 Conjugate, PCV7 (Prevnar7) 2006-07-23 00:00:00 Completed [facility] DTP 2006-07-23 00:00:00 Completed [facility] HEPATITIS A 2006-07-23 00:00:00 Completed [facility] HIB 4 Dose Schedule 2006-07-23 00:00:00 Completed [facility] MMR 2006-07-23 00:00:00 Completed [facility] Varicella (varivax)(chicken pox) 2006-07-23 00:00:00 Completed [facility] Pneumococcal 7 Conjugate, PCV7 (Prevnar7) 2006-07-23 00:00:00 Completed [facility] DTP 2006-07-23 00:00:00 Completed [facility] HEPATITIS A 2006-07-23 00:00:00 Completed [facility] HIB 4 Dose Schedule 2006-07-23 00:00:00 Completed [facility] MMR 2006-07-23 00:00:00 Completed [facility] Varicella (varivax)(chicken pox) 2006-07-23 00:00:00 Completed [facility] Pneumococcal 7 Conjugate, PCV7 (Prevnar7) 2006-07-23 00:00:00 Completed [facility] DTP 2006-07-23 00:00:00 Completed [facility] HEPATITIS A 2006-07-23 00:00:00 Completed [facility] HIB 4 Dose Schedule 2006-07-23 00:00:00 Completed [facility] MMR 2006-07-23 00:00:00 Completed [facility] Varicella (varivax)(chicken pox) 2006-07-23 00:00:00 Completed [facility] Pneumococcal 7 Conjugate, PCV7 (Prevnar7) 2006-07-23 00:00:00 Completed [facility] DTP 2006-07-23 00:00:00 Completed [facility] HEPATITIS A 2006-07-23 00:00:00 Completed [facility] HIB 4 Dose Schedule 2006-07-23 00:00:00 Completed [facility] MMR 2006-07-23 00:00:00 Completed [facility] Varicella (varivax)(chicken pox) 2006-07-23 00:00:00 Completed [facility] Pneumococcal 7 Conjugate, PCV7 (Prevnar7) 2006-07-23 00:00:00 Completed [facility] DTP 2006-07-23 00:00:00 Completed [facility] HEPATITIS A 2006-07-23 00:00:00 Completed [facility] HIB 4 Dose Schedule 2006-07-23 00:00:00 Completed [facility] MMR 2006-07-23 00:00:00 Completed [facility] Varicella (varivax)(chicken pox) 2006-07-23 00:00:00 Completed [facility] Pneumococcal 7 Conjugate, PCV7 (Prevnar7) 2006-07-23 00:00:00 Completed [facility] DTP 2006-07-23 00:00:00 Completed [facility] HEPATITIS A 2006-07-23 00:00:00 Completed [facility] HIB 4 Dose Schedule 2006-07-23 00:00:00 Completed [facility] MMR 2006-07-23 00:00:00 Completed [facility] Varicella (varivax)(chicken pox) 2006-07-23 00:00:00 Completed [facility] Pneumococcal 7 Conjugate, PCV7 (Prevnar7) 2006-07-23 00:00:00 Completed [facility] DTP 2006-07-23 00:00:00 Completed [facility] HEPATITIS A 2006-07-23 00:00:00 Completed [facility] HIB 4 Dose Schedule 2006-07-23 00:00:00 Completed [facility] MMR 2006-07-23 00:00:00 Completed [facility] Varicella (varivax)(chicken pox) 2006-07-23 00:00:00 Completed [facility] Pneumococcal 7 Conjugate, PCV7 (Prevnar7) 2006-07-23 00:00:00 Completed [facility] DTP 2006-07-23 00:00:00 Completed [facility] HEPATITIS A 2006-07-23 00:00:00 Completed [facility] DTP 2006-07-23 00:00:00 Completed [facility] HIB 4 Dose Schedule 2006-07-23 00:00:00 Completed [facility] MMR 2006-07-23 00:00:00 Completed [facility] HEPATITIS A 2006-07-23 00:00:00 Completed [facility] Varicella (varivax)(chicken pox) 2006-07-23 00:00:00 Completed [facility] Pneumococcal 7 Conjugate, PCV7 (Prevnar7) 2006-07-23 00:00:00 Completed [facility] DTP 2006-07-23 00:00:00 Completed [facility] HEPATITIS A 2006-07-23 00:00:00 Completed [facility] HIB 4 Dose Schedule 2006-07-23 00:00:00 Completed [facility] MMR 2006-07-23 00:00:00 Completed [facility] Varicella (varivax)(chicken pox) 2006-07-23 00:00:00 Completed [facility] Pneumococcal 7 Conjugate, PCV7 (Prevnar7) 2006-07-23 00:00:00 Completed [facility] HIB 4 Dose Schedule 2006-07-23 00:00:00 Completed [facility] DTP 2006-07-23 00:00:00 Completed [facility] HEPATITIS A 2006-07-23 00:00:00 Completed [facility] HIB 4 Dose Schedule 2006-07-23 00:00:00 Completed [facility] MMR 2006-07-23 00:00:00 Completed [facility] Varicella (varivax)(chicken pox) 2006-07-23 00:00:00 Completed [facility] Pneumococcal 7 Conjugate, PCV7 (Prevnar7) 2006-07-23 00:00:00 Completed [facility] DTP 2006-07-23 00:00:00 Completed [facility] HEPATITIS A 2006-07-23 00:00:00 Completed [facility] HIB 4 Dose Schedule 2006-07-23 00:00:00 Completed [facility] MMR 2006-07-23 00:00:00 Completed [facility] MMR 2006-07-23 00:00:00 Completed [facility] Varicella (varivax)(chicken pox) 2006-07-23 00:00:00 Completed [facility] Pneumococcal 7 Conjugate, PCV7 (Prevnar7) 2006-07-23 00:00:00 Completed [facility] DTP 2006-07-23 00:00:00 Completed [facility] HEPATITIS A 2006-07-23 00:00:00 Completed [facility] HIB 4 Dose Schedule 2006-07-23 00:00:00 Completed [facility] MMR 2006-07-23 00:00:00 Completed [facility] Varicella (varivax)(chicken pox) 2006-07-23 00:00:00 Completed [facility] Pneumococcal 7 Conjugate, PCV7 (Prevnar7) 2006-07-23 00:00:00 Completed [facility] Varicella (varivax)(chicken pox) 2006-07-23 00:00:00 Completed [facility] Pneumococcal 7 Conjugate, PCV7 (Prevnar7) 2006-07-23 00:00:00 Completed [facility] DTP 2006-07-23 00:00:00 Completed [facility] HEPATITIS A 2006-07-23 00:00:00 Completed [facility] HIB 4 Dose Schedule 2006-07-23 00:00:00 Completed [facility] MMR 2006-07-23 00:00:00 Completed [facility] Varicella (varivax)(chicken pox) 2006-07-23 00:00:00 Completed [facility] Pneumococcal 7 Conjugate, PCV7 (Prevnar7) 2006-07-23 00:00:00 Completed [facility] DTP 2006-07-23 00:00:00 Completed [facility] DTP 2006-07-23 00:00:00 Completed [facility] HEPATITIS A 2006-07-23 00:00:00 Completed [facility] HIB 4 Dose Schedule 2006-07-23 00:00:00 Completed [facility] MMR 2006-07-23 00:00:00 Completed [facility] HEPATITIS A 2006-07-23 00:00:00 Completed [facility] Varicella (varivax)(chicken pox) 2006-07-23 00:00:00 Completed [facility] Pneumococcal 7 Conjugate, PCV7 (Prevnar7) 2006-07-23 00:00:00 Completed [facility] HIB 4 Dose Schedule 2006-07-23 00:00:00 Completed [facility] DTP 2006-07-23 00:00:00 Completed [facility] HEPATITIS A 2006-07-23 00:00:00 Completed [facility] HIB 4 Dose Schedule 2006-07-23 00:00:00 Completed [facility] MMR 2006-07-23 00:00:00 Completed [facility] Varicella (varivax)(chicken pox) 2006-07-23 00:00:00 Completed [facility] Pneumococcal 7 Conjugate, PCV7 (Prevnar7) 2006-07-23 00:00:00 Completed [facility] DTP 2006-07-23 00:00:00 Completed [facility] HEPATITIS A 2006-07-23 00:00:00 Completed [facility] HIB 4 Dose Schedule 2006-07-23 00:00:00 Completed [facility] MMR 2006-07-23 00:00:00 Completed [facility] MMR 2006-07-23 00:00:00 Completed [facility] Varicella (varivax)(chicken pox) 2006-07-23 00:00:00 Completed [facility] Pneumococcal 7 Conjugate, PCV7 (Prevnar7) 2006-07-23 00:00:00 Completed [facility] DTP 2006-07-23 00:00:00 Completed [facility] HEPATITIS A 2006-07-23 00:00:00 Completed [facility] HIB 4 Dose Schedule 2006-07-23 00:00:00 Completed [facility] MMR 2006-07-23 00:00:00 Completed [facility] Varicella (varivax)(chicken pox) 2006-07-23 00:00:00 Completed [facility] Pneumococcal 7 Conjugate, PCV7 (Prevnar7) 2006-07-23 00:00:00 Completed [facility] Varicella (varivax)(chicken pox) 2006-07-23 00:00:00 Completed [facility] Pneumococcal 7 Conjugate, PCV7 (Prevnar7) 2006-07-23 00:00:00 Completed [facility] DTP 2006-07-23 00:00:00 Completed [facility] HEPATITIS A 2006-07-23 00:00:00 Completed [facility] DTP 2006-07-23 00:00:00 Completed [facility] HEPATITIS A 2006-07-23 00:00:00 Completed [facility] HIB 4 Dose Schedule 2006-07-23 00:00:00 Completed [facility] MMR 2006-07-23 00:00:00 Completed [facility] Varicella (varivax)(chicken pox) 2006-07-23 00:00:00 Completed [facility] Pneumococcal 7 Conjugate, PCV7 (Prevnar7) 2006-07-23 00:00:00 Completed [facility] DTP 2006-07-23 00:00:00 Completed [facility] HEPATITIS A 2006-07-23 00:00:00 Completed [facility] HIB 4 Dose Schedule 2006-07-23 00:00:00 Completed [facility] DTP 2006-07-23 00:00:00 Completed HEPATITIS A 2006-07-23 00:00:00 Completed [facility] HIB 4 Dose Schedule 2006-07-23 00:00:00 Completed MMR 2006-07-23 00:00:00 Completed Varicella (varivax)(chicken pox) 2006-07-23 00:00:00 Completed Pneumococcal 7 Conjugate, PCV7 (Prevnar7) 2006-07-23 00:00:00 Completed [facility] DTaP, Unspecified Formulation 2006-07-23 00:00:00 Completed [facility] Hib-HbOC 2006-07-23 00:00:00 Completed MMR 2006-07-23 00:00:00 Completed [facility] Proquad (MMR/VARICELLA) 2006-07-23 00:00:00 Completed Varicella (varivax)(chicken pox) 2006-07-23 00:00:00 Completed [facility] Pneumococcal 7 Conjugate, PCV7 (Prevnar7) 2006-07-23 00:00:00 Completed [facility] DTP 2006-07-23 00:00:00 Completed [facility] HEPATITIS A 2006-07-23 00:00:00 Completed [facility] HIB 4 Dose Schedule 2006-07-23 00:00:00 Completed [facility] MMR 2006-07-23 00:00:00 Completed [facility] Varicella (varivax)(chicken pox) 2006-07-23 00:00:00 Completed [facility] Pneumococcal 7 Conjugate, PCV7 (Prevnar7) 2006-07-23 00:00:00 Completed [facility] DTP 2006-07-23 00:00:00 Completed [facility] HEPATITIS A 2006-07-23 00:00:00 Completed [facility] HIB 4 Dose Schedule 2006-07-23 00:00:00 Completed [facility] MMR 2006-07-23 00:00:00 Completed [facility] Varicella (varivax)(chicken pox) 2006-07-23 00:00:00 Completed [facility] Pneumococcal 7 Conjugate, PCV7 (Prevnar7) 2006-07-23 00:00:00 Completed [facility] DTP 2006-07-23 00:00:00 Completed [facility] HEPATITIS A 2006-07-23 00:00:00 Completed [facility] HIB 4 Dose Schedule 2006-07-23 00:00:00 Completed [facility] MMR 2006-07-23 00:00:00 Completed [facility] Varicella (varivax)(chicken pox) 2006-07-23 00:00:00 Completed [facility] Pneumococcal 7 Conjugate, PCV7 (Prevnar7) 2006-07-23 00:00:00 Completed [facility] DTP 2006-07-23 00:00:00 Completed [facility] HEPATITIS A 2006-07-23 00:00:00 Completed [facility] HIB 4 Dose Schedule 2006-07-23 00:00:00 Completed [facility] MMR 2006-07-23 00:00:00 Completed [facility] Varicella (varivax)(chicken pox) 2006-07-23 00:00:00 Completed [facility] Pneumococcal 7 Conjugate, PCV7 (Prevnar7) 2006-07-23 00:00:00 Completed [facility] DTP 2006-07-23 00:00:00 Completed [facility] HEPATITIS A 2006-07-23 00:00:00 Completed [facility] HIB 4 Dose Schedule 2006-07-23 00:00:00 Completed [facility] MMR 2006-07-23 00:00:00 Completed [facility] Varicella (varivax)(chicken pox) 2006-07-23 00:00:00 Completed [facility] Pneumococcal 7 Conjugate, PCV7 (Prevnar7) 2006-07-23 00:00:00 Completed [facility] DTP 2006-07-23 00:00:00 Completed [facility] HEPATITIS A 2006-07-23 00:00:00 Completed [facility] HIB 4 Dose Schedule 2006-07-23 00:00:00 Completed [facility] MMR 2006-07-23 00:00:00 Completed [facility] Varicella (varivax)(chicken pox) 2006-07-23 00:00:00 Completed [facility] Pneumococcal 7 Conjugate, PCV7 (Prevnar7) 2006-07-23 00:00:00 Completed [facility] DTP 2006-07-23 00:00:00 Completed [facility] HEPATITIS A 2006-07-23 00:00:00 Completed [facility] HIB 4 Dose Schedule 2006-07-23 00:00:00 Completed [facility] MMR 2006-07-23 00:00:00 Completed [facility] Varicella (varivax)(chicken pox) 2006-07-23 00:00:00 Completed [facility] Pneumococcal 7 Conjugate, PCV7 (Prevnar7) 2006-07-23 00:00:00 Completed [facility] DTP 2006-07-23 00:00:00 Completed [facility] HEPATITIS A 2006-07-23 00:00:00 Completed [facility] HIB 4 Dose Schedule 2006-07-23 00:00:00 Completed [facility] MMR 2006-07-23 00:00:00 Completed [facility] Varicella (varivax)(chicken pox) 2006-07-23 00:00:00 Completed [facility] Pneumococcal 7 Conjugate, PCV7 (Prevnar7) 2006-07-23 00:00:00 Completed [facility] Pneumococcal conjugate P 2005-12-18 00:00:00 Completed varicella 2005-12-18 00:00:00 Completed Pneumococcal conjugate P 2005-12-18 00:00:00 Completed varicella 2005-12-18 00:00:00 Completed Varicella (varivax)(chicken pox) 2005-12-18 00:00:00 Completed [facility] Pneumococcal 7 Conjugate, PCV7 (Prevnar7) 2005-12-18 00:00:00 Completed [facility] Varicella (varivax)(chicken pox) 2005-12-18 00:00:00 Completed [facility] Pneumococcal 7 Conjugate, PCV7 (Prevnar7) 2005-12-18 00:00:00 Completed [facility] Varicella (varivax)(chicken pox) 2005-12-18 00:00:00 Completed [facility] Pneumococcal 7 Conjugate, PCV7 (Prevnar7) 2005-12-18 00:00:00 Completed [facility] Varicella (varivax)(chicken pox) 2005-12-18 00:00:00 Completed [facility] Pneumococcal 7 Conjugate, PCV7 (Prevnar7) 2005-12-18 00:00:00 Completed [facility] Varicella (varivax)(chicken pox) 2005-12-18 00:00:00 Completed [facility] Pneumococcal 7 Conjugate, PCV7 (Prevnar7) 2005-12-18 00:00:00 Completed [facility] Varicella (varivax)(chicken pox) 2005-12-18 00:00:00 Completed [facility] Pneumococcal 7 Conjugate, PCV7 (Prevnar7) 2005-12-18 00:00:00 Completed [facility] Varicella (varivax)(chicken pox) 2005-12-18 00:00:00 Completed [facility] Pneumococcal 7 Conjugate, PCV7 (Prevnar7) 2005-12-18 00:00:00 Completed [facility] Varicella (varivax)(chicken pox) 2005-12-18 00:00:00 Completed [facility] Pneumococcal 7 Conjugate, PCV7 (Prevnar7) 2005-12-18 00:00:00 Completed [facility] Varicella (varivax)(chicken pox) 2005-12-18 00:00:00 Completed [facility] Pneumococcal 7 Conjugate, PCV7 (Prevnar7) 2005-12-18 00:00:00 Completed [facility] Varicella (varivax)(chicken pox) 2005-12-18 00:00:00 Completed [facility] Pneumococcal 7 Conjugate, PCV7 (Prevnar7) 2005-12-18 00:00:00 Completed [facility] Varicella (varivax)(chicken pox) 2005-12-18 00:00:00 Completed [facility] Pneumococcal 7 Conjugate, PCV7 (Prevnar7) 2005-12-18 00:00:00 Completed [facility] Varicella (varivax)(chicken pox) 2005-12-18 00:00:00 Completed [facility] Pneumococcal 7 Conjugate, PCV7 (Prevnar7) 2005-12-18 00:00:00 Completed [facility] Varicella (varivax)(chicken pox) 2005-12-18 00:00:00 Completed [facility] Pneumococcal 7 Conjugate, PCV7 (Prevnar7) 2005-12-18 00:00:00 Completed [facility] Varicella (varivax)(chicken pox) 2005-12-18 00:00:00 Completed [facility] Pneumococcal 7 Conjugate, PCV7 (Prevnar7) 2005-12-18 00:00:00 Completed [facility] Varicella (varivax)(chicken pox) 2005-12-18 00:00:00 Completed [facility] Pneumococcal 7 Conjugate, PCV7 (Prevnar7) 2005-12-18 00:00:00 Completed [facility] Varicella (varivax)(chicken pox) 2005-12-18 00:00:00 Completed [facility] Pneumococcal 7 Conjugate, PCV7 (Prevnar7) 2005-12-18 00:00:00 Completed [facility] Varicella (varivax)(chicken pox) 2005-12-18 00:00:00 Completed [facility] Pneumococcal 7 Conjugate, PCV7 (Prevnar7) 2005-12-18 00:00:00 Completed [facility] Varicella (varivax)(chicken pox) 2005-12-18 00:00:00 Completed [facility] Pneumococcal 7 Conjugate, PCV7 (Prevnar7) 2005-12-18 00:00:00 Completed [facility] Varicella (varivax)(chicken pox) 2005-12-18 00:00:00 Completed [facility] Varicella (varivax)(chicken pox) 2005-12-18 00:00:00 Completed [facility] Pneumococcal 7 Conjugate, PCV7 (Prevnar7) 2005-12-18 00:00:00 Completed [facility] Pneumococcal 7 Conjugate, PCV7 (Prevnar7) 2005-12-18 00:00:00 Completed [facility] Varicella (varivax)(chicken pox) 2005-12-18 00:00:00 Completed [facility] Pneumococcal 7 Conjugate, PCV7 (Prevnar7) 2005-12-18 00:00:00 Completed [facility] Varicella (varivax)(chicken pox) 2005-12-18 00:00:00 Completed [facility] Pneumococcal 7 Conjugate, PCV7 (Prevnar7) 2005-12-18 00:00:00 Completed [facility] Varicella (varivax)(chicken pox) 2005-12-18 00:00:00 Completed [facility] Pneumococcal 7 Conjugate, PCV7 (Prevnar7) 2005-12-18 00:00:00 Completed [facility] Varicella (varivax)(chicken pox) 2005-12-18 00:00:00 Completed [facility] Pneumococcal 7 Conjugate, PCV7 (Prevnar7) 2005-12-18 00:00:00 Completed [facility] Varicella (varivax)(chicken pox) 2005-12-18 00:00:00 Completed [facility] Pneumococcal 7 Conjugate, PCV7 (Prevnar7) 2005-12-18 00:00:00 Completed [facility] Varicella (varivax)(chicken pox) 2005-12-18 00:00:00 Completed [facility] Pneumococcal 7 Conjugate, PCV7 (Prevnar7) 2005-12-18 00:00:00 Completed [facility] Varicella (varivax)(chicken pox) 2005-12-18 00:00:00 Completed [facility] Pneumococcal 7 Conjugate, PCV7 (Prevnar7) 2005-12-18 00:00:00 Completed [facility] Varicella (varivax)(chicken pox) 2005-12-18 00:00:00 Completed [facility] Pneumococcal 7 Conjugate, PCV7 (Prevnar7) 2005-12-18 00:00:00 Completed [facility] Varicella (varivax)(chicken pox) 2005-12-18 00:00:00 Completed [facility] Pneumococcal 7 Conjugate, PCV7 (Prevnar7) 2005-12-18 00:00:00 Completed [facility] Varicella (varivax)(chicken pox) 2005-12-18 00:00:00 Completed [facility] Pneumococcal 7 Conjugate, PCV7 (Prevnar7) 2005-12-18 00:00:00 Completed [facility] Varicella (varivax)(chicken pox) 2005-12-18 00:00:00 Completed [facility] Pneumococcal 7 Conjugate, PCV7 (Prevnar7) 2005-12-18 00:00:00 Completed [facility] Varicella (varivax)(chicken pox) 2005-12-18 00:00:00 Completed [facility] Pneumococcal 7 Conjugate, PCV7 (Prevnar7) 2005-12-18 00:00:00 Completed [facility] Varicella (varivax)(chicken pox) 2005-12-18 00:00:00 Completed [facility] Pneumococcal 7 Conjugate, PCV7 (Prevnar7) 2005-12-18 00:00:00 Completed [facility] Varicella (varivax)(chicken pox) 2005-12-18 00:00:00 Completed [facility] Pneumococcal 7 Conjugate, PCV7 (Prevnar7) 2005-12-18 00:00:00 Completed [facility] Varicella (varivax)(chicken pox) 2005-12-18 00:00:00 Completed [facility] Varicella (varivax)(chicken pox) 2005-12-18 00:00:00 Completed [facility] Pneumococcal 7 Conjugate, PCV7 (Prevnar7) 2005-12-18 00:00:00 Completed [facility] Pneumococcal 7 Conjugate, PCV7 (Prevnar7) 2005-12-18 00:00:00 Completed [facility] Varicella (varivax)(chicken pox) 2005-12-18 00:00:00 Completed [facility] Pneumococcal 7 Conjugate, PCV7 (Prevnar7) 2005-12-18 00:00:00 Completed [facility] Varicella (varivax)(chicken pox) 2005-12-18 00:00:00 Completed [facility] Pneumococcal 7 Conjugate, PCV7 (Prevnar7) 2005-12-18 00:00:00 Completed [facility] Varicella (varivax)(chicken pox) 2005-12-18 00:00:00 Completed [facility] Pneumococcal 7 Conjugate, PCV7 (Prevnar7) 2005-12-18 00:00:00 Completed [facility] Varicella (varivax)(chicken pox) 2005-12-18 00:00:00 Completed [facility] Pneumococcal 7 Conjugate, PCV7 (Prevnar7) 2005-12-18 00:00:00 Completed [facility] Varicella (varivax)(chicken pox) 2005-12-18 00:00:00 Completed [facility] Varicella (varivax)(chicken pox) 2005-12-18 00:00:00 Completed [facility] Pneumococcal 7 Conjugate, PCV7 (Prevnar7) 2005-12-18 00:00:00 Completed [facility] Pneumococcal 7 Conjugate, PCV7 (Prevnar7) 2005-12-18 00:00:00 Completed [facility] Varicella (varivax)(chicken pox) 2005-12-18 00:00:00 Completed [facility] Pneumococcal 7 Conjugate, PCV7 (Prevnar7) 2005-12-18 00:00:00 Completed [facility] Varicella (varivax)(chicken pox) 2005-12-18 00:00:00 Completed Pneumococcal 7 Conjugate, PCV7 (Prevnar7) 2005-12-18 00:00:00 Completed Pneumococcal 13 Conjugate, PCV13 (Prevnar 13) 2005-12-18 00:00:00 Completed Varicella (varivax)(chicken pox) 2005-12-18 00:00:00 Completed [facility] Pneumococcal 7 Conjugate, PCV7 (Prevnar7) 2005-12-18 00:00:00 Completed [facility] Varicella (varivax)(chicken pox) 2005-12-18 00:00:00 Completed [facility] Pneumococcal 7 Conjugate, PCV7 (Prevnar7) 2005-12-18 00:00:00 Completed [facility] Varicella (varivax)(chicken pox) 2005-12-18 00:00:00 Completed [facility] Pneumococcal 7 Conjugate, PCV7 (Prevnar7) 2005-12-18 00:00:00 Completed [facility] Varicella (varivax)(chicken pox) 2005-12-18 00:00:00 Completed [facility] Pneumococcal 7 Conjugate, PCV7 (Prevnar7) 2005-12-18 00:00:00 Completed [facility] Varicella (varivax)(chicken pox) 2005-12-18 00:00:00 Completed [facility] Pneumococcal 7 Conjugate, PCV7 (Prevnar7) 2005-12-18 00:00:00 Completed [facility] Varicella (varivax)(chicken pox) 2005-12-18 00:00:00 Completed [facility] Pneumococcal 7 Conjugate, PCV7 (Prevnar7) 2005-12-18 00:00:00 Completed [facility] Varicella (varivax)(chicken pox) 2005-12-18 00:00:00 Completed [facility] Pneumococcal 7 Conjugate, PCV7 (Prevnar7) 2005-12-18 00:00:00 Completed [facility] Varicella (varivax)(chicken pox) 2005-12-18 00:00:00 Completed [facility] Pneumococcal 7 Conjugate, PCV7 (Prevnar7) 2005-12-18 00:00:00 Completed [facility] Varicella (varivax)(chicken pox) 2005-12-18 00:00:00 Completed [facility] Pneumococcal 7 Conjugate, PCV7 (Prevnar7) 2005-12-18 00:00:00 Completed [facility] DTaP-Hep B-IPV 2005-07-22 00:00:00 Completed Hib (PRP-OMP) 2005-07-22 00:00:00 Completed Pneumococcal conjugate P 2005-07-22 00:00:00 Completed DTaP-Hep B-IPV 2005-07-22 00:00:00 Completed Hib (PRP-OMP) 2005-07-22 00:00:00 Completed Pneumococcal conjugate P 2005-07-22 00:00:00 Completed HIB 4 Dose Schedule 2005-07-22 00:00:00 Completed [facility] Hep B, Adol or Pedi Dosage 2005-07-22 00:00:00 Completed [facility] Polio (IPV/OPV) 2005-07-22 00:00:00 Completed [facility] Pneumococcal 7 Conjugate, PCV7 (Prevnar7) 2005-07-22 00:00:00 Completed [facility] DTP 2005-07-22 00:00:00 Completed [facility] Polio (IPV/OPV) 2005-07-22 00:00:00 Completed [facility] HIB 4 Dose Schedule 2005-07-22 00:00:00 Completed [facility] Hep B, Adol or Pedi Dosage 2005-07-22 00:00:00 Completed [facility] Pneumococcal 7 Conjugate, PCV7 (Prevnar7) 2005-07-22 00:00:00 Completed [facility] DTP 2005-07-22 00:00:00 Completed [facility] HIB 4 Dose Schedule 2005-07-22 00:00:00 Completed [facility] Hep B, Adol or Pedi Dosage 2005-07-22 00:00:00 Completed [facility] Polio (IPV/OPV) 2005-07-22 00:00:00 Completed [facility] Pneumococcal 7 Conjugate, PCV7 (Prevnar7) 2005-07-22 00:00:00 Completed [facility] DTP 2005-07-22 00:00:00 Completed [facility] HIB 4 Dose Schedule 2005-07-22 00:00:00 Completed [facility] Hep B, Adol or Pedi Dosage 2005-07-22 00:00:00 Completed [facility] Polio (IPV/OPV) 2005-07-22 00:00:00 Completed [facility] Pneumococcal 7 Conjugate, PCV7 (Prevnar7) 2005-07-22 00:00:00 Completed [facility] DTP 2005-07-22 00:00:00 Completed [facility] HIB 4 Dose Schedule 2005-07-22 00:00:00 Completed [facility] Hep B, Adol or Pedi Dosage 2005-07-22 00:00:00 Completed [facility] Polio (IPV/OPV) 2005-07-22 00:00:00 Completed [facility] Pneumococcal 7 Conjugate, PCV7 (Prevnar7) 2005-07-22 00:00:00 Completed [facility] DTP 2005-07-22 00:00:00 Completed [facility] HIB 4 Dose Schedule 2005-07-22 00:00:00 Completed [facility] Hep B, Adol or Pedi Dosage 2005-07-22 00:00:00 Completed [facility] Polio (IPV/OPV) 2005-07-22 00:00:00 Completed [facility] Pneumococcal 7 Conjugate, PCV7 (Prevnar7) 2005-07-22 00:00:00 Completed [facility] DTP 2005-07-22 00:00:00 Completed [facility] HIB 4 Dose Schedule 2005-07-22 00:00:00 Completed [facility] Hep B, Adol or Pedi Dosage 2005-07-22 00:00:00 Completed [facility] Polio (IPV/OPV) 2005-07-22 00:00:00 Completed [facility] Pneumococcal 7 Conjugate, PCV7 (Prevnar7) 2005-07-22 00:00:00 Completed [facility] DTP 2005-07-22 00:00:00 Completed [facility] HIB 4 Dose Schedule 2005-07-22 00:00:00 Completed [facility] Hep B, Adol or Pedi Dosage 2005-07-22 00:00:00 Completed [facility] Polio (IPV/OPV) 2005-07-22 00:00:00 Completed [facility] Pneumococcal 7 Conjugate, PCV7 (Prevnar7) 2005-07-22 00:00:00 Completed [facility] DTP 2005-07-22 00:00:00 Completed [facility] HIB 4 Dose Schedule 2005-07-22 00:00:00 Completed [facility] Hep B, Adol or Pedi Dosage 2005-07-22 00:00:00 Completed [facility] Polio (IPV/OPV) 2005-07-22 00:00:00 Completed [facility] Pneumococcal 7 Conjugate, PCV7 (Prevnar7) 2005-07-22 00:00:00 Completed [facility] DTP 2005-07-22 00:00:00 Completed [facility] HIB 4 Dose Schedule 2005-07-22 00:00:00 Completed [facility] Hep B, Adol or Pedi Dosage 2005-07-22 00:00:00 Completed [facility] Polio (IPV/OPV) 2005-07-22 00:00:00 Completed [facility] Pneumococcal 7 Conjugate, PCV7 (Prevnar7) 2005-07-22 00:00:00 Completed [facility] DTP 2005-07-22 00:00:00 Completed [facility] HIB 4 Dose Schedule 2005-07-22 00:00:00 Completed [facility] Hep B, Adol or Pedi Dosage 2005-07-22 00:00:00 Completed [facility] Polio (IPV/OPV) 2005-07-22 00:00:00 Completed [facility] Pneumococcal 7 Conjugate, PCV7 (Prevnar7) 2005-07-22 00:00:00 Completed [facility] DTP 2005-07-22 00:00:00 Completed [facility] HIB 4 Dose Schedule 2005-07-22 00:00:00 Completed [facility] Hep B, Adol or Pedi Dosage 2005-07-22 00:00:00 Completed [facility] Polio (IPV/OPV) 2005-07-22 00:00:00 Completed [facility] Pneumococcal 7 Conjugate, PCV7 (Prevnar7) 2005-07-22 00:00:00 Completed [facility] DTP 2005-07-22 00:00:00 Completed [facility] HIB 4 Dose Schedule 2005-07-22 00:00:00 Completed [facility] Hep B, Adol or Pedi Dosage 2005-07-22 00:00:00 Completed [facility] Polio (IPV/OPV) 2005-07-22 00:00:00 Completed [facility] Pneumococcal 7 Conjugate, PCV7 (Prevnar7) 2005-07-22 00:00:00 Completed [facility] DTP 2005-07-22 00:00:00 Completed [facility] HIB 4 Dose Schedule 2005-07-22 00:00:00 Completed [facility] Hep B, Adol or Pedi Dosage 2005-07-22 00:00:00 Completed [facility] Polio (IPV/OPV) 2005-07-22 00:00:00 Completed [facility] Pneumococcal 7 Conjugate, PCV7 (Prevnar7) 2005-07-22 00:00:00 Completed [facility] DTP 2005-07-22 00:00:00 Completed [facility] DTP 2005-07-22 00:00:00 Completed [facility] HIB 4 Dose Schedule 2005-07-22 00:00:00 Completed [facility] Hep B, Adol or Pedi Dosage 2005-07-22 00:00:00 Completed [facility] Polio (IPV/OPV) 2005-07-22 00:00:00 Completed [facility] Pneumococcal 7 Conjugate, PCV7 (Prevnar7) 2005-07-22 00:00:00 Completed [facility] DTP 2005-07-22 00:00:00 Completed [facility] HIB 4 Dose Schedule 2005-07-22 00:00:00 Completed [facility] Hep B, Adol or Pedi Dosage 2005-07-22 00:00:00 Completed [facility] HIB 4 Dose Schedule 2005-07-22 00:00:00 Completed [facility] Polio (IPV/OPV) 2005-07-22 00:00:00 Completed [facility] Pneumococcal 7 Conjugate, PCV7 (Prevnar7) 2005-07-22 00:00:00 Completed [facility] Hep B, Adol or Pedi Dosage 2005-07-22 00:00:00 Completed [facility] DTP 2005-07-22 00:00:00 Completed [facility] HIB 4 Dose Schedule 2005-07-22 00:00:00 Completed [facility] Hep B, Adol or Pedi Dosage 2005-07-22 00:00:00 Completed [facility] Polio (IPV/OPV) 2005-07-22 00:00:00 Completed [facility] Pneumococcal 7 Conjugate, PCV7 (Prevnar7) 2005-07-22 00:00:00 Completed [facility] DTP 2005-07-22 00:00:00 Completed [facility] HIB 4 Dose Schedule 2005-07-22 00:00:00 Completed [facility] Hep B, Adol or Pedi Dosage 2005-07-22 00:00:00 Completed [facility] Polio (IPV/OPV) 2005-07-22 00:00:00 Completed [facility] Pneumococcal 7 Conjugate, PCV7 (Prevnar7) 2005-07-22 00:00:00 Completed [facility] Polio (IPV/OPV) 2005-07-22 00:00:00 Completed [facility] DTP 2005-07-22 00:00:00 Completed [facility] HIB 4 Dose Schedule 2005-07-22 00:00:00 Completed [facility] Hep B, Adol or Pedi Dosage 2005-07-22 00:00:00 Completed [facility] Polio (IPV/OPV) 2005-07-22 00:00:00 Completed [facility] Pneumococcal 7 Conjugate, PCV7 (Prevnar7) 2005-07-22 00:00:00 Completed [facility] DTP 2005-07-22 00:00:00 Completed [facility] Pneumococcal 7 Conjugate, PCV7 (Prevnar7) 2005-07-22 00:00:00 Completed [facility] HIB 4 Dose Schedule 2005-07-22 00:00:00 Completed [facility] Hep B, Adol or Pedi Dosage 2005-07-22 00:00:00 Completed [facility] Polio (IPV/OPV) 2005-07-22 00:00:00 Completed [facility] Pneumococcal 7 Conjugate, PCV7 (Prevnar7) 2005-07-22 00:00:00 Completed [facility] DTP 2005-07-22 00:00:00 Completed [facility] HIB 4 Dose Schedule 2005-07-22 00:00:00 Completed [facility] Hep B, Adol or Pedi Dosage 2005-07-22 00:00:00 Completed [facility] Polio (IPV/OPV) 2005-07-22 00:00:00 Completed [facility] Pneumococcal 7 Conjugate, PCV7 (Prevnar7) 2005-07-22 00:00:00 Completed [facility] DTP 2005-07-22 00:00:00 Completed [facility] HIB 4 Dose Schedule 2005-07-22 00:00:00 Completed [facility] Hep B, Adol or Pedi Dosage 2005-07-22 00:00:00 Completed [facility] Polio (IPV/OPV) 2005-07-22 00:00:00 Completed [facility] Pneumococcal 7 Conjugate, PCV7 (Prevnar7) 2005-07-22 00:00:00 Completed [facility] DTP 2005-07-22 00:00:00 Completed [facility] HIB 4 Dose Schedule 2005-07-22 00:00:00 Completed [facility] Hep B, Adol or Pedi Dosage 2005-07-22 00:00:00 Completed [facility] Polio (IPV/OPV) 2005-07-22 00:00:00 Completed [facility] Pneumococcal 7 Conjugate, PCV7 (Prevnar7) 2005-07-22 00:00:00 Completed [facility] DTP 2005-07-22 00:00:00 Completed [facility] HIB 4 Dose Schedule 2005-07-22 00:00:00 Completed [facility] Hep B, Adol or Pedi Dosage 2005-07-22 00:00:00 Completed [facility] Polio (IPV/OPV) 2005-07-22 00:00:00 Completed [facility] Pneumococcal 7 Conjugate, PCV7 (Prevnar7) 2005-07-22 00:00:00 Completed [facility] DTP 2005-07-22 00:00:00 Completed [facility] HIB 4 Dose Schedule 2005-07-22 00:00:00 Completed [facility] Hep B, Adol or Pedi Dosage 2005-07-22 00:00:00 Completed [facility] Polio (IPV/OPV) 2005-07-22 00:00:00 Completed [facility] Pneumococcal 7 Conjugate, PCV7 (Prevnar7) 2005-07-22 00:00:00 Completed [facility] DTP 2005-07-22 00:00:00 Completed [facility] HIB 4 Dose Schedule 2005-07-22 00:00:00 Completed [facility] Hep B, Adol or Pedi Dosage 2005-07-22 00:00:00 Completed [facility] Polio (IPV/OPV) 2005-07-22 00:00:00 Completed [facility] Pneumococcal 7 Conjugate, PCV7 (Prevnar7) 2005-07-22 00:00:00 Completed [facility] DTP 2005-07-22 00:00:00 Completed [facility] HIB 4 Dose Schedule 2005-07-22 00:00:00 Completed [facility] Hep B, Adol or Pedi Dosage 2005-07-22 00:00:00 Completed [facility] Polio (IPV/OPV) 2005-07-22 00:00:00 Completed [facility] Pneumococcal 7 Conjugate, PCV7 (Prevnar7) 2005-07-22 00:00:00 Completed [facility] DTP 2005-07-22 00:00:00 Completed [facility] HIB 4 Dose Schedule 2005-07-22 00:00:00 Completed [facility] Hep B, Adol or Pedi Dosage 2005-07-22 00:00:00 Completed [facility] Polio (IPV/OPV) 2005-07-22 00:00:00 Completed [facility] Pneumococcal 7 Conjugate, PCV7 (Prevnar7) 2005-07-22 00:00:00 Completed [facility] DTP 2005-07-22 00:00:00 Completed [facility] HIB 4 Dose Schedule 2005-07-22 00:00:00 Completed [facility] Hep B, Adol or Pedi Dosage 2005-07-22 00:00:00 Completed [facility] Polio (IPV/OPV) 2005-07-22 00:00:00 Completed [facility] Pneumococcal 7 Conjugate, PCV7 (Prevnar7) 2005-07-22 00:00:00 Completed [facility] DTP 2005-07-22 00:00:00 Completed [facility] DTP 2005-07-22 00:00:00 Completed [facility] HIB 4 Dose Schedule 2005-07-22 00:00:00 Completed [facility] Hep B, Adol or Pedi Dosage 2005-07-22 00:00:00 Completed [facility] Polio (IPV/OPV) 2005-07-22 00:00:00 Completed [facility] Pneumococcal 7 Conjugate, PCV7 (Prevnar7) 2005-07-22 00:00:00 Completed [facility] DTP 2005-07-22 00:00:00 Completed [facility] HIB 4 Dose Schedule 2005-07-22 00:00:00 Completed [facility] Hep B, Adol or Pedi Dosage 2005-07-22 00:00:00 Completed [facility] Polio (IPV/OPV) 2005-07-22 00:00:00 Completed [facility] Pneumococcal 7 Conjugate, PCV7 (Prevnar7) 2005-07-22 00:00:00 Completed [facility] HIB 4 Dose Schedule 2005-07-22 00:00:00 Completed [facility] Hep B, Adol or Pedi Dosage 2005-07-22 00:00:00 Completed [facility] DTP 2005-07-22 00:00:00 Completed [facility] HIB 4 Dose Schedule 2005-07-22 00:00:00 Completed [facility] Hep B, Adol or Pedi Dosage 2005-07-22 00:00:00 Completed [facility] Polio (IPV/OPV) 2005-07-22 00:00:00 Completed [facility] Pneumococcal 7 Conjugate, PCV7 (Prevnar7) 2005-07-22 00:00:00 Completed [facility] DTP 2005-07-22 00:00:00 Completed [facility] HIB 4 Dose Schedule 2005-07-22 00:00:00 Completed [facility] Hep B, Adol or Pedi Dosage 2005-07-22 00:00:00 Completed [facility] Polio (IPV/OPV) 2005-07-22 00:00:00 Completed [facility] Pneumococcal 7 Conjugate, PCV7 (Prevnar7) 2005-07-22 00:00:00 Completed [facility] Polio (IPV/OPV) 2005-07-22 00:00:00 Completed [facility] DTP 2005-07-22 00:00:00 Completed [facility] HIB 4 Dose Schedule 2005-07-22 00:00:00 Completed [facility] Hep B, Adol or Pedi Dosage 2005-07-22 00:00:00 Completed [facility] Polio (IPV/OPV) 2005-07-22 00:00:00 Completed [facility] Pneumococcal 7 Conjugate, PCV7 (Prevnar7) 2005-07-22 00:00:00 Completed [facility] Pneumococcal 7 Conjugate, PCV7 (Prevnar7) 2005-07-22 00:00:00 Completed [facility] DTP 2005-07-22 00:00:00 Completed [facility] HIB 4 Dose Schedule 2005-07-22 00:00:00 Completed [facility] Hep B, Adol or Pedi Dosage 2005-07-22 00:00:00 Completed [facility] Polio (IPV/OPV) 2005-07-22 00:00:00 Completed [facility] Pneumococcal 7 Conjugate, PCV7 (Prevnar7) 2005-07-22 00:00:00 Completed [facility] DTP 2005-07-22 00:00:00 Completed [facility] DTP 2005-07-22 00:00:00 Completed [facility] HIB 4 Dose Schedule 2005-07-22 00:00:00 Completed [facility] Hep B, Adol or Pedi Dosage 2005-07-22 00:00:00 Completed [facility] Polio (IPV/OPV) 2005-07-22 00:00:00 Completed [facility] Pneumococcal 7 Conjugate, PCV7 (Prevnar7) 2005-07-22 00:00:00 Completed [facility] HIB 4 Dose Schedule 2005-07-22 00:00:00 Completed [facility] Hep B, Adol or Pedi Dosage 2005-07-22 00:00:00 Completed [facility] DTP 2005-07-22 00:00:00 Completed [facility] HIB 4 Dose Schedule 2005-07-22 00:00:00 Completed [facility] Hep B, Adol or Pedi Dosage 2005-07-22 00:00:00 Completed [facility] Polio (IPV/OPV) 2005-07-22 00:00:00 Completed [facility] Pneumococcal 7 Conjugate, PCV7 (Prevnar7) 2005-07-22 00:00:00 Completed [facility] DTP 2005-07-22 00:00:00 Completed [facility] HIB 4 Dose Schedule 2005-07-22 00:00:00 Completed [facility] Hep B, Adol or Pedi Dosage 2005-07-22 00:00:00 Completed [facility] Polio (IPV/OPV) 2005-07-22 00:00:00 Completed [facility] Pneumococcal 7 Conjugate, PCV7 (Prevnar7) 2005-07-22 00:00:00 Completed [facility] Polio (IPV/OPV) 2005-07-22 00:00:00 Completed [facility] DTP 2005-07-22 00:00:00 Completed [facility] HIB 4 Dose Schedule 2005-07-22 00:00:00 Completed [facility] Hep B, Adol or Pedi Dosage 2005-07-22 00:00:00 Completed [facility] Polio (IPV/OPV) 2005-07-22 00:00:00 Completed [facility] Pneumococcal 7 Conjugate, PCV7 (Prevnar7) 2005-07-22 00:00:00 Completed [facility] DTP 2005-07-22 00:00:00 Completed [facility] Pneumococcal 7 Conjugate, PCV7 (Prevnar7) 2005-07-22 00:00:00 Completed [facility] DTP 2005-07-22 00:00:00 Completed [facility] HIB 4 Dose Schedule 2005-07-22 00:00:00 Completed [facility] Hep B, Adol or Pedi Dosage 2005-07-22 00:00:00 Completed [facility] Polio (IPV/OPV) 2005-07-22 00:00:00 Completed [facility] Pneumococcal 7 Conjugate, PCV7 (Prevnar7) 2005-07-22 00:00:00 Completed [facility] DTP 2005-07-22 00:00:00 Completed [facility] HIB 4 Dose Schedule 2005-07-22 00:00:00 Completed [facility] Hep B, Adol or Pedi Dosage 2005-07-22 00:00:00 Completed [facility] DTP 2005-07-22 00:00:00 Completed HIB 4 Dose Schedule 2005-07-22 00:00:00 Completed [facility] Hep B, Adol or Pedi Dosage 2005-07-22 00:00:00 Completed Polio (IPV/OPV) 2005-07-22 00:00:00 Completed Pneumococcal 7 Conjugate, PCV7 (Prevnar7) 2005-07-22 00:00:00 Completed [facility] Pediarix (dtap/hep B/ipv) 2005-07-22 00:00:00 Completed Polio (IPV/OPV) 2005-07-22 00:00:00 Completed [facility] Pneumococcal 7 Conjugate, PCV7 (Prevnar7) 2005-07-22 00:00:00 Completed [facility] DTP 2005-07-22 00:00:00 Completed [facility] HIB 4 Dose Schedule 2005-07-22 00:00:00 Completed [facility] Hep B, Adol or Pedi Dosage 2005-07-22 00:00:00 Completed [facility] Polio (IPV/OPV) 2005-07-22 00:00:00 Completed [facility] Pneumococcal 7 Conjugate, PCV7 (Prevnar7) 2005-07-22 00:00:00 Completed [facility] DTP 2005-07-22 00:00:00 Completed [facility] HIB 4 Dose Schedule 2005-07-22 00:00:00 Completed [facility] Hep B, Adol or Pedi Dosage 2005-07-22 00:00:00 Completed [facility] Polio (IPV/OPV) 2005-07-22 00:00:00 Completed [facility] Pneumococcal 7 Conjugate, PCV7 (Prevnar7) 2005-07-22 00:00:00 Completed [facility] DTP 2005-07-22 00:00:00 Completed [facility] HIB 4 Dose Schedule 2005-07-22 00:00:00 Completed [facility] Hep B, Adol or Pedi Dosage 2005-07-22 00:00:00 Completed [facility] Polio (IPV/OPV) 2005-07-22 00:00:00 Completed [facility] Pneumococcal 7 Conjugate, PCV7 (Prevnar7) 2005-07-22 00:00:00 Completed [facility] DTP 2005-07-22 00:00:00 Completed [facility] HIB 4 Dose Schedule 2005-07-22 00:00:00 Completed [facility] Hep B, Adol or Pedi Dosage 2005-07-22 00:00:00 Completed [facility] Polio (IPV/OPV) 2005-07-22 00:00:00 Completed [facility] Pneumococcal 7 Conjugate, PCV7 (Prevnar7) 2005-07-22 00:00:00 Completed [facility] DTP 2005-07-22 00:00:00 Completed [facility] HIB 4 Dose Schedule 2005-07-22 00:00:00 Completed [facility] Hep B, Adol or Pedi Dosage 2005-07-22 00:00:00 Completed [facility] Polio (IPV/OPV) 2005-07-22 00:00:00 Completed [facility] Pneumococcal 7 Conjugate, PCV7 (Prevnar7) 2005-07-22 00:00:00 Completed [facility] DTP 2005-07-22 00:00:00 Completed [facility] HIB 4 Dose Schedule 2005-07-22 00:00:00 Completed [facility] Hep B, Adol or Pedi Dosage 2005-07-22 00:00:00 Completed [facility] Polio (IPV/OPV) 2005-07-22 00:00:00 Completed [facility] Pneumococcal 7 Conjugate, PCV7 (Prevnar7) 2005-07-22 00:00:00 Completed [facility] DTP 2005-07-22 00:00:00 Completed [facility] HIB 4 Dose Schedule 2005-07-22 00:00:00 Completed [facility] Hep B, Adol or Pedi Dosage 2005-07-22 00:00:00 Completed [facility] Polio (IPV/OPV) 2005-07-22 00:00:00 Completed [facility] Pneumococcal 7 Conjugate, PCV7 (Prevnar7) 2005-07-22 00:00:00 Completed [facility] DTP 2005-07-22 00:00:00 Completed [facility] HIB 4 Dose Schedule 2005-07-22 00:00:00 Completed [facility] Hep B, Adol or Pedi Dosage 2005-07-22 00:00:00 Completed [facility] Polio (IPV/OPV) 2005-07-22 00:00:00 Completed [facility] Pneumococcal 7 Conjugate, PCV7 (Prevnar7) 2005-07-22 00:00:00 Completed [facility] DTaP-Hep B-IPV 2005-04-22 00:00:00 Completed Hib (PRP-OMP) 2005-04-22 00:00:00 Completed Pneumococcal conjugate P 2005-04-22 00:00:00 Completed DTaP-Hep B-IPV 2005-04-22 00:00:00 Completed Hib (PRP-OMP) 2005-04-22 00:00:00 Completed Pneumococcal conjugate P 2005-04-22 00:00:00 Completed HIB 4 Dose Schedule 2005-04-22 00:00:00 Completed [facility] Polio (IPV/OPV) 2005-04-22 00:00:00 Completed [facility] Pneumococcal 7 Conjugate, PCV7 (Prevnar7) 2005-04-22 00:00:00 Completed [facility] Polio (IPV/OPV) 2005-04-22 00:00:00 Completed [facility] DTP 2005-04-22 00:00:00 Completed [facility] Hep B, Adol or Pedi Dosage 2005-04-22 00:00:00 Completed [facility] HIB 4 Dose Schedule 2005-04-22 00:00:00 Completed [facility] Pneumococcal 7 Conjugate, PCV7 (Prevnar7) 2005-04-22 00:00:00 Completed [facility] DTP 2005-04-22 00:00:00 Completed [facility] Hep B, Adol or Pedi Dosage 2005-04-22 00:00:00 Completed [facility] HIB 4 Dose Schedule 2005-04-22 00:00:00 Completed [facility] Polio (IPV/OPV) 2005-04-22 00:00:00 Completed [facility] Pneumococcal 7 Conjugate, PCV7 (Prevnar7) 2005-04-22 00:00:00 Completed [facility] DTP 2005-04-22 00:00:00 Completed [facility] Hep B, Adol or Pedi Dosage 2005-04-22 00:00:00 Completed [facility] HIB 4 Dose Schedule 2005-04-22 00:00:00 Completed [facility] Polio (IPV/OPV) 2005-04-22 00:00:00 Completed [facility] Pneumococcal 7 Conjugate, PCV7 (Prevnar7) 2005-04-22 00:00:00 Completed [facility] DTP 2005-04-22 00:00:00 Completed [facility] Hep B, Adol or Pedi Dosage 2005-04-22 00:00:00 Completed [facility] HIB 4 Dose Schedule 2005-04-22 00:00:00 Completed [facility] Polio (IPV/OPV) 2005-04-22 00:00:00 Completed [facility] Pneumococcal 7 Conjugate, PCV7 (Prevnar7) 2005-04-22 00:00:00 Completed [facility] DTP 2005-04-22 00:00:00 Completed [facility] Hep B, Adol or Pedi Dosage 2005-04-22 00:00:00 Completed [facility] HIB 4 Dose Schedule 2005-04-22 00:00:00 Completed [facility] Polio (IPV/OPV) 2005-04-22 00:00:00 Completed [facility] Pneumococcal 7 Conjugate, PCV7 (Prevnar7) 2005-04-22 00:00:00 Completed [facility] DTP 2005-04-22 00:00:00 Completed [facility] Hep B, Adol or Pedi Dosage 2005-04-22 00:00:00 Completed [facility] HIB 4 Dose Schedule 2005-04-22 00:00:00 Completed [facility] Polio (IPV/OPV) 2005-04-22 00:00:00 Completed [facility] Pneumococcal 7 Conjugate, PCV7 (Prevnar7) 2005-04-22 00:00:00 Completed [facility] DTP 2005-04-22 00:00:00 Completed [facility] Hep B, Adol or Pedi Dosage 2005-04-22 00:00:00 Completed [facility] HIB 4 Dose Schedule 2005-04-22 00:00:00 Completed [facility] Polio (IPV/OPV) 2005-04-22 00:00:00 Completed [facility] Pneumococcal 7 Conjugate, PCV7 (Prevnar7) 2005-04-22 00:00:00 Completed [facility] DTP 2005-04-22 00:00:00 Completed [facility] Hep B, Adol or Pedi Dosage 2005-04-22 00:00:00 Completed [facility] HIB 4 Dose Schedule 2005-04-22 00:00:00 Completed [facility] Polio (IPV/OPV) 2005-04-22 00:00:00 Completed [facility] Pneumococcal 7 Conjugate, PCV7 (Prevnar7) 2005-04-22 00:00:00 Completed [facility] DTP 2005-04-22 00:00:00 Completed [facility] Hep B, Adol or Pedi Dosage 2005-04-22 00:00:00 Completed [facility] HIB 4 Dose Schedule 2005-04-22 00:00:00 Completed [facility] Polio (IPV/OPV) 2005-04-22 00:00:00 Completed [facility] Pneumococcal 7 Conjugate, PCV7 (Prevnar7) 2005-04-22 00:00:00 Completed [facility] DTP 2005-04-22 00:00:00 Completed [facility] Hep B, Adol or Pedi Dosage 2005-04-22 00:00:00 Completed [facility] HIB 4 Dose Schedule 2005-04-22 00:00:00 Completed [facility] Polio (IPV/OPV) 2005-04-22 00:00:00 Completed [facility] Pneumococcal 7 Conjugate, PCV7 (Prevnar7) 2005-04-22 00:00:00 Completed [facility] DTP 2005-04-22 00:00:00 Completed [facility] Hep B, Adol or Pedi Dosage 2005-04-22 00:00:00 Completed [facility] HIB 4 Dose Schedule 2005-04-22 00:00:00 Completed [facility] Polio (IPV/OPV) 2005-04-22 00:00:00 Completed [facility] Pneumococcal 7 Conjugate, PCV7 (Prevnar7) 2005-04-22 00:00:00 Completed [facility] DTP 2005-04-22 00:00:00 Completed [facility] Hep B, Adol or Pedi Dosage 2005-04-22 00:00:00 Completed [facility] HIB 4 Dose Schedule 2005-04-22 00:00:00 Completed [facility] Polio (IPV/OPV) 2005-04-22 00:00:00 Completed [facility] Pneumococcal 7 Conjugate, PCV7 (Prevnar7) 2005-04-22 00:00:00 Completed [facility] DTP 2005-04-22 00:00:00 Completed [facility] Hep B, Adol or Pedi Dosage 2005-04-22 00:00:00 Completed [facility] HIB 4 Dose Schedule 2005-04-22 00:00:00 Completed [facility] Polio (IPV/OPV) 2005-04-22 00:00:00 Completed [facility] DTP 2005-04-22 00:00:00 Completed [facility] Pneumococcal 7 Conjugate, PCV7 (Prevnar7) 2005-04-22 00:00:00 Completed [facility] DTP 2005-04-22 00:00:00 Completed [facility] Hep B, Adol or Pedi Dosage 2005-04-22 00:00:00 Completed [facility] HIB 4 Dose Schedule 2005-04-22 00:00:00 Completed [facility] Polio (IPV/OPV) 2005-04-22 00:00:00 Completed [facility] Pneumococcal 7 Conjugate, PCV7 (Prevnar7) 2005-04-22 00:00:00 Completed [facility] Hep B, Adol or Pedi Dosage 2005-04-22 00:00:00 Completed [facility] DTP 2005-04-22 00:00:00 Completed [facility] Hep B, Adol or Pedi Dosage 2005-04-22 00:00:00 Completed [facility] HIB 4 Dose Schedule 2005-04-22 00:00:00 Completed [facility] HIB 4 Dose Schedule 2005-04-22 00:00:00 Completed [facility] Polio (IPV/OPV) 2005-04-22 00:00:00 Completed [facility] Pneumococcal 7 Conjugate, PCV7 (Prevnar7) 2005-04-22 00:00:00 Completed [facility] DTP 2005-04-22 00:00:00 Completed [facility] Hep B, Adol or Pedi Dosage 2005-04-22 00:00:00 Completed [facility] HIB 4 Dose Schedule 2005-04-22 00:00:00 Completed [facility] Polio (IPV/OPV) 2005-04-22 00:00:00 Completed [facility] Pneumococcal 7 Conjugate, PCV7 (Prevnar7) 2005-04-22 00:00:00 Completed [facility] DTP 2005-04-22 00:00:00 Completed [facility] Hep B, Adol or Pedi Dosage 2005-04-22 00:00:00 Completed [facility] HIB 4 Dose Schedule 2005-04-22 00:00:00 Completed [facility] Polio (IPV/OPV) 2005-04-22 00:00:00 Completed [facility] Pneumococcal 7 Conjugate, PCV7 (Prevnar7) 2005-04-22 00:00:00 Completed [facility] Polio (IPV/OPV) 2005-04-22 00:00:00 Completed [facility] DTP 2005-04-22 00:00:00 Completed [facility] Hep B, Adol or Pedi Dosage 2005-04-22 00:00:00 Completed [facility] HIB 4 Dose Schedule 2005-04-22 00:00:00 Completed [facility] Polio (IPV/OPV) 2005-04-22 00:00:00 Completed [facility] Pneumococcal 7 Conjugate, PCV7 (Prevnar7) 2005-04-22 00:00:00 Completed [facility] DTP 2005-04-22 00:00:00 Completed [facility] Pneumococcal 7 Conjugate, PCV7 (Prevnar7) 2005-04-22 00:00:00 Completed [facility] Hep B, Adol or Pedi Dosage 2005-04-22 00:00:00 Completed [facility] HIB 4 Dose Schedule 2005-04-22 00:00:00 Completed [facility] Polio (IPV/OPV) 2005-04-22 00:00:00 Completed [facility] Pneumococcal 7 Conjugate, PCV7 (Prevnar7) 2005-04-22 00:00:00 Completed [facility] DTP 2005-04-22 00:00:00 Completed [facility] Hep B, Adol or Pedi Dosage 2005-04-22 00:00:00 Completed [facility] HIB 4 Dose Schedule 2005-04-22 00:00:00 Completed [facility] Polio (IPV/OPV) 2005-04-22 00:00:00 Completed [facility] Pneumococcal 7 Conjugate, PCV7 (Prevnar7) 2005-04-22 00:00:00 Completed [facility] DTP 2005-04-22 00:00:00 Completed [facility] Hep B, Adol or Pedi Dosage 2005-04-22 00:00:00 Completed [facility] HIB 4 Dose Schedule 2005-04-22 00:00:00 Completed [facility] Polio (IPV/OPV) 2005-04-22 00:00:00 Completed [facility] Pneumococcal 7 Conjugate, PCV7 (Prevnar7) 2005-04-22 00:00:00 Completed [facility] DTP 2005-04-22 00:00:00 Completed [facility] Hep B, Adol or Pedi Dosage 2005-04-22 00:00:00 Completed [facility] HIB 4 Dose Schedule 2005-04-22 00:00:00 Completed [facility] Polio (IPV/OPV) 2005-04-22 00:00:00 Completed [facility] Pneumococcal 7 Conjugate, PCV7 (Prevnar7) 2005-04-22 00:00:00 Completed [facility] DTP 2005-04-22 00:00:00 Completed [facility] Hep B, Adol or Pedi Dosage 2005-04-22 00:00:00 Completed [facility] HIB 4 Dose Schedule 2005-04-22 00:00:00 Completed [facility] Polio (IPV/OPV) 2005-04-22 00:00:00 Completed [facility] Pneumococcal 7 Conjugate, PCV7 (Prevnar7) 2005-04-22 00:00:00 Completed [facility] DTP 2005-04-22 00:00:00 Completed [facility] Hep B, Adol or Pedi Dosage 2005-04-22 00:00:00 Completed [facility] HIB 4 Dose Schedule 2005-04-22 00:00:00 Completed [facility] Polio (IPV/OPV) 2005-04-22 00:00:00 Completed [facility] Pneumococcal 7 Conjugate, PCV7 (Prevnar7) 2005-04-22 00:00:00 Completed [facility] DTP 2005-04-22 00:00:00 Completed [facility] Hep B, Adol or Pedi Dosage 2005-04-22 00:00:00 Completed [facility] HIB 4 Dose Schedule 2005-04-22 00:00:00 Completed [facility] Polio (IPV/OPV) 2005-04-22 00:00:00 Completed [facility] Pneumococcal 7 Conjugate, PCV7 (Prevnar7) 2005-04-22 00:00:00 Completed [facility] DTP 2005-04-22 00:00:00 Completed [facility] Hep B, Adol or Pedi Dosage 2005-04-22 00:00:00 Completed [facility] HIB 4 Dose Schedule 2005-04-22 00:00:00 Completed [facility] Polio (IPV/OPV) 2005-04-22 00:00:00 Completed [facility] Pneumococcal 7 Conjugate, PCV7 (Prevnar7) 2005-04-22 00:00:00 Completed [facility] DTP 2005-04-22 00:00:00 Completed [facility] Hep B, Adol or Pedi Dosage 2005-04-22 00:00:00 Completed [facility] HIB 4 Dose Schedule 2005-04-22 00:00:00 Completed [facility] Polio (IPV/OPV) 2005-04-22 00:00:00 Completed [facility] Pneumococcal 7 Conjugate, PCV7 (Prevnar7) 2005-04-22 00:00:00 Completed [facility] DTP 2005-04-22 00:00:00 Completed [facility] Hep B, Adol or Pedi Dosage 2005-04-22 00:00:00 Completed [facility] HIB 4 Dose Schedule 2005-04-22 00:00:00 Completed [facility] Polio (IPV/OPV) 2005-04-22 00:00:00 Completed [facility] Pneumococcal 7 Conjugate, PCV7 (Prevnar7) 2005-04-22 00:00:00 Completed [facility] DTP 2005-04-22 00:00:00 Completed [facility] DTP 2005-04-22 00:00:00 Completed [facility] Hep B, Adol or Pedi Dosage 2005-04-22 00:00:00 Completed [facility] HIB 4 Dose Schedule 2005-04-22 00:00:00 Completed [facility] Polio (IPV/OPV) 2005-04-22 00:00:00 Completed [facility] Pneumococcal 7 Conjugate, PCV7 (Prevnar7) 2005-04-22 00:00:00 Completed [facility] DTP 2005-04-22 00:00:00 Completed [facility] Hep B, Adol or Pedi Dosage 2005-04-22 00:00:00 Completed [facility] Hep B, Adol or Pedi Dosage 2005-04-22 00:00:00 Completed [facility] HIB 4 Dose Schedule 2005-04-22 00:00:00 Completed [facility] Polio (IPV/OPV) 2005-04-22 00:00:00 Completed [facility] HIB 4 Dose Schedule 2005-04-22 00:00:00 Completed [facility] Pneumococcal 7 Conjugate, PCV7 (Prevnar7) 2005-04-22 00:00:00 Completed [facility] DTP 2005-04-22 00:00:00 Completed [facility] Hep B, Adol or Pedi Dosage 2005-04-22 00:00:00 Completed [facility] HIB 4 Dose Schedule 2005-04-22 00:00:00 Completed [facility] Polio (IPV/OPV) 2005-04-22 00:00:00 Completed [facility] Pneumococcal 7 Conjugate, PCV7 (Prevnar7) 2005-04-22 00:00:00 Completed [facility] DTP 2005-04-22 00:00:00 Completed [facility] Hep B, Adol or Pedi Dosage 2005-04-22 00:00:00 Completed [facility] HIB 4 Dose Schedule 2005-04-22 00:00:00 [facility] [facility] Polio (IPV/OPV) 2005-04-22 00:00:00 Completed [facility] Pneumococcal 7 Conjugate, PCV7 (Prevnar7) 2005-04-22 00:00:00 Completed [facility] Polio (IPV/OPV) 2005-04-22 00:00:00 Completed [facility] DTP 2005-04-22 00:00:00 Completed [facility] Hep B, Adol or Pedi Dosage 2005-04-22 00:00:00 Completed [facility] HIB 4 Dose Schedule 2005-04-22 00:00:00 Completed [facility] Polio (IPV/OPV) 2005-04-22 00:00:00 Completed [facility] Pneumococcal 7 Conjugate, PCV7 (Prevnar7) 2005-04-22 00:00:00 Completed [facility] Pneumococcal 7 Conjugate, PCV7 (Prevnar7) 2005-04-22 00:00:00 Completed [facility] DTP 2005-04-22 00:00:00 Completed [facility] Hep B, Adol or Pedi Dosage 2005-04-22 00:00:00 Completed [facility] HIB 4 Dose Schedule 2005-04-22 00:00:00 Completed [facility] Polio (IPV/OPV) 2005-04-22 00:00:00 Completed [facility] Pneumococcal 7 Conjugate, PCV7 (Prevnar7) 2005-04-22 00:00:00 Completed [facility] DTP 2005-04-22 00:00:00 Completed [facility] DTP 2005-04-22 00:00:00 Completed [facility] Hep B, Adol or Pedi Dosage 2005-04-22 00:00:00 Completed [facility] HIB 4 Dose Schedule 2005-04-22 00:00:00 Completed [facility] Polio (IPV/OPV) 2005-04-22 00:00:00 Completed [facility] Pneumococcal 7 Conjugate, PCV7 (Prevnar7) 2005-04-22 00:00:00 Completed [facility] Hep B, Adol or Pedi Dosage 2005-04-22 00:00:00 Completed [facility] HIB 4 Dose Schedule 2005-04-22 00:00:00 Completed [facility] DTP 2005-04-22 00:00:00 Completed [facility] Hep B, Adol or Pedi Dosage 2005-04-22 00:00:00 Completed [facility] HIB 4 Dose Schedule 2005-04-22 00:00:00 Completed [facility] Polio (IPV/OPV) 2005-04-22 00:00:00 Completed [facility] Pneumococcal 7 Conjugate, PCV7 (Prevnar7) 2005-04-22 00:00:00 Completed [facility] DTP 2005-04-22 00:00:00 Completed [facility] Hep B, Adol or Pedi Dosage 2005-04-22 00:00:00 Completed [facility] HIB 4 Dose Schedule 2005-04-22 00:00:00 Completed [facility] DTP 2005-04-22 00:00:00 Completed [facility] Polio (IPV/OPV) 2005-04-22 00:00:00 Completed [facility] Pneumococcal 7 Conjugate, PCV7 (Prevnar7) 2005-04-22 00:00:00 Completed [facility] Polio (IPV/OPV) 2005-04-22 00:00:00 Completed [facility] DTP 2005-04-22 00:00:00 Completed [facility] Hep B, Adol or Pedi Dosage 2005-04-22 00:00:00 Completed [facility] HIB 4 Dose Schedule 2005-04-22 00:00:00 Completed [facility] Polio (IPV/OPV) 2005-04-22 00:00:00 Completed [facility] Pneumococcal 7 Conjugate, PCV7 (Prevnar7) 2005-04-22 00:00:00 Completed [facility] Pneumococcal 7 Conjugate, PCV7 (Prevnar7) 2005-04-22 00:00:00 Completed [facility] Hep B, Adol or Pedi Dosage 2005-04-22 00:00:00 Completed [facility] DTP 2005-04-22 00:00:00 Completed [facility] Hep B, Adol or Pedi Dosage 2005-04-22 00:00:00 Completed [facility] HIB 4 Dose Schedule 2005-04-22 00:00:00 Completed [facility] Polio (IPV/OPV) 2005-04-22 00:00:00 Completed [facility] Pneumococcal 7 Conjugate, PCV7 (Prevnar7) 2005-04-22 00:00:00 Completed [facility] DTP 2005-04-22 00:00:00 Completed [facility] Hep B, Adol or Pedi Dosage 2005-04-22 00:00:00 Completed [facility] HIB 4 Dose Schedule 2005-04-22 00:00:00 Completed [facility] DTP 2005-04-22 00:00:00 Completed Hep B, Adol or Pedi Dosage 2005-04-22 00:00:00 Completed HIB 4 Dose Schedule 2005-04-22 00:00:00 Completed Polio (IPV/OPV) 2005-04-22 00:00:00 Completed Pneumococcal 7 Conjugate, PCV7 (Prevnar7) 2005-04-22 00:00:00 Completed Pediarix (dtap/hep B/ipv) 2005-04-22 00:00:00 Completed HIB 3 Dose Schedule 2005-04-22 00:00:00 Completed Pneumococcal 13 Conjugate, PCV13 (Prevnar 13) 2005-04-22 00:00:00 Completed Polio (IPV/OPV) 2005-04-22 00:00:00 Completed [facility] Pneumococcal 7 Conjugate, PCV7 (Prevnar7) 2005-04-22 00:00:00 Completed [facility] DTP 2005-04-22 00:00:00 Completed [facility] Hep B, Adol or Pedi Dosage 2005-04-22 00:00:00 Completed [facility] HIB 4 Dose Schedule 2005-04-22 00:00:00 Completed [facility] Polio (IPV/OPV) 2005-04-22 00:00:00 Completed [facility] Pneumococcal 7 Conjugate, PCV7 (Prevnar7) 2005-04-22 00:00:00 Completed [facility] DTP 2005-04-22 00:00:00 Completed [facility] Hep B, Adol or Pedi Dosage 2005-04-22 00:00:00 Completed [facility] HIB 4 Dose Schedule 2005-04-22 00:00:00 Completed [facility] Polio (IPV/OPV) 2005-04-22 00:00:00 Completed [facility] Pneumococcal 7 Conjugate, PCV7 (Prevnar7) 2005-04-22 00:00:00 Completed [facility] DTP 2005-04-22 00:00:00 Completed [facility] Hep B, Adol or Pedi Dosage 2005-04-22 00:00:00 Completed [facility] HIB 4 Dose Schedule 2005-04-22 00:00:00 Completed [facility] Polio (IPV/OPV) 2005-04-22 00:00:00 Completed [facility] Pneumococcal 7 Conjugate, PCV7 (Prevnar7) 2005-04-22 00:00:00 Completed [facility] DTP 2005-04-22 00:00:00 Completed [facility] Hep B, Adol or Pedi Dosage 2005-04-22 00:00:00 Completed [facility] HIB 4 Dose Schedule 2005-04-22 00:00:00 Completed [facility] Polio (IPV/OPV) 2005-04-22 00:00:00 Completed [facility] Pneumococcal 7 Conjugate, PCV7 (Prevnar7) 2005-04-22 00:00:00 Completed [facility] DTP 2005-04-22 00:00:00 Completed [facility] Hep B, Adol or Pedi Dosage 2005-04-22 00:00:00 Completed [facility] HIB 4 Dose Schedule 2005-04-22 00:00:00 Completed [facility] Polio (IPV/OPV) 2005-04-22 00:00:00 Completed [facility] Pneumococcal 7 Conjugate, PCV7 (Prevnar7) 2005-04-22 00:00:00 Completed [facility] DTP 2005-04-22 00:00:00 Completed [facility] Hep B, Adol or Pedi Dosage 2005-04-22 00:00:00 Completed [facility] HIB 4 Dose Schedule 2005-04-22 00:00:00 Completed [facility] Polio (IPV/OPV) 2005-04-22 00:00:00 Completed [facility] Pneumococcal 7 Conjugate, PCV7 (Prevnar7) 2005-04-22 00:00:00 Completed [facility] DTP 2005-04-22 00:00:00 Completed [facility] Hep B, Adol or Pedi Dosage 2005-04-22 00:00:00 Completed [facility] HIB 4 Dose Schedule 2005-04-22 00:00:00 Completed [facility] Polio (IPV/OPV) 2005-04-22 00:00:00 Completed [facility] Pneumococcal 7 Conjugate, PCV7 (Prevnar7) 2005-04-22 00:00:00 Completed [facility] DTP 2005-04-22 00:00:00 Completed [facility] Hep B, Adol or Pedi Dosage 2005-04-22 00:00:00 Completed [facility] HIB 4 Dose Schedule 2005-04-22 00:00:00 Completed [facility] Polio (IPV/OPV) 2005-04-22 00:00:00 Completed [facility] Pneumococcal 7 Conjugate, PCV7 (Prevnar7) 2005-04-22 00:00:00 Completed [facility] DTaP-Hep B-IPV 2005-02-12 00:00:00 Completed Hib (PRP-OMP) 2005-02-12 00:00:00 Completed Pneumococcal conjugate P 2005-02-12 00:00:00 Completed DTaP-Hep B-IPV 2005-02-12 00:00:00 Completed Hib (PRP-OMP) 2005-02-12 00:00:00 Completed Pneumococcal conjugate P 2005-02-12 00:00:00 Completed Polio (IPV/OPV) 2005-02-12 00:00:00 Completed [facility] Polio (IPV/OPV) 2005-02-12 00:00:00 Completed [facility] Pneumococcal 7 Conjugate, PCV7 (Prevnar7) 2005-02-12 00:00:00 Completed [facility] DTP 2005-02-12 00:00:00 Completed [facility] Hep B, Adol or Pedi Dosage 2005-02-12 00:00:00 Completed [facility] HIB 4 Dose Schedule 2005-02-12 00:00:00 Completed [facility] Pneumococcal 7 Conjugate, PCV7 (Prevnar7) 2005-02-12 00:00:00 Completed [facility] DTP 2005-02-12 00:00:00 Completed [facility] Hep B, Adol or Pedi Dosage 2005-02-12 00:00:00 Completed [facility] HIB 4 Dose Schedule 2005-02-12 00:00:00 Completed [facility] Polio (IPV/OPV) 2005-02-12 00:00:00 Completed [facility] Pneumococcal 7 Conjugate, PCV7 (Prevnar7) 2005-02-12 00:00:00 Completed [facility] DTP 2005-02-12 00:00:00 Completed [facility] Hep B, Adol or Pedi Dosage 2005-02-12 00:00:00 Completed [facility] HIB 4 Dose Schedule 2005-02-12 00:00:00 Completed [facility] Polio (IPV/OPV) 2005-02-12 00:00:00 Completed [facility] Pneumococcal 7 Conjugate, PCV7 (Prevnar7) 2005-02-12 00:00:00 Completed [facility] DTP 2005-02-12 00:00:00 Completed [facility] Hep B, Adol or Pedi Dosage 2005-02-12 00:00:00 Completed [facility] HIB 4 Dose Schedule 2005-02-12 00:00:00 Completed [facility] Polio (IPV/OPV) 2005-02-12 00:00:00 Completed [facility] Pneumococcal 7 Conjugate, PCV7 (Prevnar7) 2005-02-12 00:00:00 Completed [facility] DTP 2005-02-12 00:00:00 Completed [facility] Hep B, Adol or Pedi Dosage 2005-02-12 00:00:00 Completed [facility] HIB 4 Dose Schedule 2005-02-12 00:00:00 Completed [facility] Polio (IPV/OPV) 2005-02-12 00:00:00 Completed [facility] Pneumococcal 7 Conjugate, PCV7 (Prevnar7) 2005-02-12 00:00:00 Completed [facility] DTP 2005-02-12 00:00:00 Completed [facility] Hep B, Adol or Pedi Dosage 2005-02-12 00:00:00 Completed [facility] HIB 4 Dose Schedule 2005-02-12 00:00:00 Completed [facility] Polio (IPV/OPV) 2005-02-12 00:00:00 Completed [facility] Pneumococcal 7 Conjugate, PCV7 (Prevnar7) 2005-02-12 00:00:00 Completed [facility] DTP 2005-02-12 00:00:00 Completed [facility] Hep B, Adol or Pedi Dosage 2005-02-12 00:00:00 Completed [facility] HIB 4 Dose Schedule 2005-02-12 00:00:00 Completed [facility] Polio (IPV/OPV) 2005-02-12 00:00:00 Completed [facility] Pneumococcal 7 Conjugate, PCV7 (Prevnar7) 2005-02-12 00:00:00 Completed [facility] DTP 2005-02-12 00:00:00 Completed [facility] Hep B, Adol or Pedi Dosage 2005-02-12 00:00:00 Completed [facility] HIB 4 Dose Schedule 2005-02-12 00:00:00 Completed [facility] Polio (IPV/OPV) 2005-02-12 00:00:00 Completed [facility] Pneumococcal 7 Conjugate, PCV7 (Prevnar7) 2005-02-12 00:00:00 Completed [facility] DTP 2005-02-12 00:00:00 Completed [facility] Hep B, Adol or Pedi Dosage 2005-02-12 00:00:00 Completed [facility] HIB 4 Dose Schedule 2005-02-12 00:00:00 Completed [facility] Polio (IPV/OPV) 2005-02-12 00:00:00 Completed [facility] Pneumococcal 7 Conjugate, PCV7 (Prevnar7) 2005-02-12 00:00:00 Completed [facility] DTP 2005-02-12 00:00:00 Completed [facility] Hep B, Adol or Pedi Dosage 2005-02-12 00:00:00 Completed [facility] HIB 4 Dose Schedule 2005-02-12 00:00:00 Completed [facility] Polio (IPV/OPV) 2005-02-12 00:00:00 Completed [facility] Pneumococcal 7 Conjugate, PCV7 (Prevnar7) 2005-02-12 00:00:00 Completed [facility] DTP 2005-02-12 00:00:00 Completed [facility] Hep B, Adol or Pedi Dosage 2005-02-12 00:00:00 Completed [facility] HIB 4 Dose Schedule 2005-02-12 00:00:00 Completed [facility] Polio (IPV/OPV) 2005-02-12 00:00:00 Completed [facility] Pneumococcal 7 Conjugate, PCV7 (Prevnar7) 2005-02-12 00:00:00 Completed [facility] DTP 2005-02-12 00:00:00 Completed [facility] Hep B, Adol or Pedi Dosage 2005-02-12 00:00:00 Completed [facility] HIB 4 Dose Schedule 2005-02-12 00:00:00 Completed [facility] Polio (IPV/OPV) 2005-02-12 00:00:00 Completed [facility] Pneumococcal 7 Conjugate, PCV7 (Prevnar7) 2005-02-12 00:00:00 Completed [facility] DTP 2005-02-12 00:00:00 Completed [facility] Hep B, Adol or Pedi Dosage 2005-02-12 00:00:00 Completed [facility] HIB 4 Dose Schedule 2005-02-12 00:00:00 Completed [facility] DTP 2005-02-12 00:00:00 Completed [facility] Polio (IPV/OPV) 2005-02-12 00:00:00 Completed [facility] Pneumococcal 7 Conjugate, PCV7 (Prevnar7) 2005-02-12 00:00:00 Completed [facility] DTP 2005-02-12 00:00:00 Completed [facility] Hep B, Adol or Pedi Dosage 2005-02-12 00:00:00 Completed [facility] HIB 4 Dose Schedule 2005-02-12 00:00:00 Completed [facility] Polio (IPV/OPV) 2005-02-12 00:00:00 Completed [facility] Pneumococcal 7 Conjugate, PCV7 (Prevnar7) 2005-02-12 00:00:00 Completed [facility] Hep B, Adol or Pedi Dosage 2005-02-12 00:00:00 Completed [facility] DTP 2005-02-12 00:00:00 Completed [facility] HIB 4 Dose Schedule 2005-02-12 00:00:00 Completed [facility] Hep B, Adol or Pedi Dosage 2005-02-12 00:00:00 Completed [facility] HIB 4 Dose Schedule 2005-02-12 00:00:00 Completed [facility] Polio (IPV/OPV) 2005-02-12 00:00:00 Completed [facility] Pneumococcal 7 Conjugate, PCV7 (Prevnar7) 2005-02-12 00:00:00 Completed [facility] DTP 2005-02-12 00:00:00 Completed [facility] Hep B, Adol or Pedi Dosage 2005-02-12 00:00:00 Completed [facility] HIB 4 Dose Schedule 2005-02-12 00:00:00 Completed [facility] Polio (IPV/OPV) 2005-02-12 00:00:00 Completed [facility] Pneumococcal 7 Conjugate, PCV7 (Prevnar7) 2005-02-12 00:00:00 Completed [facility] DTP 2005-02-12 00:00:00 Completed [facility] Hep B, Adol or Pedi Dosage 2005-02-12 00:00:00 Completed [facility] HIB 4 Dose Schedule 2005-02-12 00:00:00 Completed [facility] Polio (IPV/OPV) 2005-02-12 00:00:00 Completed [facility] Pneumococcal 7 Conjugate, PCV7 (Prevnar7) 2005-02-12 00:00:00 Completed [facility] Polio (IPV/OPV) 2005-02-12 00:00:00 Completed [facility] DTP 2005-02-12 00:00:00 Completed [facility] Hep B, Adol or Pedi Dosage 2005-02-12 00:00:00 Completed [facility] HIB 4 Dose Schedule 2005-02-12 00:00:00 Completed [facility] Polio (IPV/OPV) 2005-02-12 00:00:00 Completed [facility] Pneumococcal 7 Conjugate, PCV7 (Prevnar7) 2005-02-12 00:00:00 Completed [facility] Pneumococcal 7 Conjugate, PCV7 (Prevnar7) 2005-02-12 00:00:00 Completed [facility] DTP 2005-02-12 00:00:00 Completed [facility] Hep B, Adol or Pedi Dosage 2005-02-12 00:00:00 Completed [facility] HIB 4 Dose Schedule 2005-02-12 00:00:00 Completed [facility] Polio (IPV/OPV) 2005-02-12 00:00:00 Completed [facility] Pneumococcal 7 Conjugate, PCV7 (Prevnar7) 2005-02-12 00:00:00 Completed [facility] DTP 2005-02-12 00:00:00 Completed [facility] Hep B, Adol or Pedi Dosage 2005-02-12 00:00:00 Completed [facility] HIB 4 Dose Schedule 2005-02-12 00:00:00 Completed [facility] Polio (IPV/OPV) 2005-02-12 00:00:00 Completed [facility] Pneumococcal 7 Conjugate, PCV7 (Prevnar7) 2005-02-12 00:00:00 Completed [facility] DTP 2005-02-12 00:00:00 Completed [facility] Hep B, Adol or Pedi Dosage 2005-02-12 00:00:00 Completed [facility] HIB 4 Dose Schedule 2005-02-12 00:00:00 Completed [facility] Polio (IPV/OPV) 2005-02-12 00:00:00 Completed [facility] Pneumococcal 7 Conjugate, PCV7 (Prevnar7) 2005-02-12 00:00:00 Completed [facility] DTP 2005-02-12 00:00:00 Completed [facility] Hep B, Adol or Pedi Dosage 2005-02-12 00:00:00 Completed [facility] HIB 4 Dose Schedule 2005-02-12 00:00:00 Completed [facility] Polio (IPV/OPV) 2005-02-12 00:00:00 Completed [facility] Pneumococcal 7 Conjugate, PCV7 (Prevnar7) 2005-02-12 00:00:00 Completed [facility] DTP 2005-02-12 00:00:00 Completed [facility] Hep B, Adol or Pedi Dosage 2005-02-12 00:00:00 Completed [facility] HIB 4 Dose Schedule 2005-02-12 00:00:00 Completed [facility] Polio (IPV/OPV) 2005-02-12 00:00:00 Completed [facility] Pneumococcal 7 Conjugate, PCV7 (Prevnar7) 2005-02-12 00:00:00 Completed [facility] DTP 2005-02-12 00:00:00 Completed [facility] Hep B, Adol or Pedi Dosage 2005-02-12 00:00:00 Completed [facility] HIB 4 Dose Schedule 2005-02-12 00:00:00 Completed [facility] Polio (IPV/OPV) 2005-02-12 00:00:00 Completed [facility] Pneumococcal 7 Conjugate, PCV7 (Prevnar7) 2005-02-12 00:00:00 Completed [facility] DTP 2005-02-12 00:00:00 Completed [facility] Hep B, Adol or Pedi Dosage 2005-02-12 00:00:00 Completed [facility] HIB 4 Dose Schedule 2005-02-12 00:00:00 Completed [facility] Polio (IPV/OPV) 2005-02-12 00:00:00 Completed [facility] Pneumococcal 7 Conjugate, PCV7 (Prevnar7) 2005-02-12 00:00:00 Completed [facility] DTP 2005-02-12 00:00:00 Completed [facility] Hep B, Adol or Pedi Dosage 2005-02-12 00:00:00 Completed [facility] HIB 4 Dose Schedule 2005-02-12 00:00:00 Completed [facility] Polio (IPV/OPV) 2005-02-12 00:00:00 Completed [facility] Pneumococcal 7 Conjugate, PCV7 (Prevnar7) 2005-02-12 00:00:00 Completed [facility] DTP 2005-02-12 00:00:00 Completed [facility] Hep B, Adol or Pedi Dosage 2005-02-12 00:00:00 Completed [facility] HIB 4 Dose Schedule 2005-02-12 00:00:00 Completed [facility] Polio (IPV/OPV) 2005-02-12 00:00:00 Completed [facility] Pneumococcal 7 Conjugate, PCV7 (Prevnar7) 2005-02-12 00:00:00 Completed [facility] DTP 2005-02-12 00:00:00 Completed [facility] Hep B, Adol or Pedi Dosage 2005-02-12 00:00:00 Completed [facility] HIB 4 Dose Schedule 2005-02-12 00:00:00 Completed [facility] Polio (IPV/OPV) 2005-02-12 00:00:00 Completed [facility] DTP 2005-02-12 00:00:00 Completed [facility] Pneumococcal 7 Conjugate, PCV7 (Prevnar7) 2005-02-12 00:00:00 Completed [facility] DTP 2005-02-12 00:00:00 Completed [facility] Hep B, Adol or Pedi Dosage 2005-02-12 00:00:00 Completed [facility] HIB 4 Dose Schedule 2005-02-12 00:00:00 Completed [facility] Polio (IPV/OPV) 2005-02-12 00:00:00 Completed [facility] Pneumococcal 7 Conjugate, PCV7 (Prevnar7) 2005-02-12 00:00:00 Completed [facility] Hep B, Adol or Pedi Dosage 2005-02-12 00:00:00 Completed [facility] DTP 2005-02-12 00:00:00 Completed [facility] Hep B, Adol or Pedi Dosage 2005-02-12 00:00:00 Completed [facility] HIB 4 Dose Schedule 2005-02-12 00:00:00 [facility] [facility] HIB 4 Dose Schedule 2005-02-12 00:00:00 Completed [facility] Polio (IPV/OPV) 2005-02-12 00:00:00 Completed [facility] Pneumococcal 7 Conjugate, PCV7 (Prevnar7) 2005-02-12 00:00:00 Completed [facility] DTP 2005-02-12 00:00:00 Completed [facility] Hep B, Adol or Pedi Dosage 2005-02-12 00:00:00 Completed [facility] HIB 4 Dose Schedule 2005-02-12 00:00:00 Completed [facility] Polio (IPV/OPV) 2005-02-12 00:00:00 Completed [facility] Pneumococcal 7 Conjugate, PCV7 (Prevnar7) 2005-02-12 00:00:00 Completed [facility] DTP 2005-02-12 00:00:00 Completed [facility] Hep B, Adol or Pedi Dosage 2005-02-12 00:00:00 Completed [facility] HIB 4 Dose Schedule 2005-02-12 00:00:00 Completed [facility] Polio (IPV/OPV) 2005-02-12 00:00:00 Completed [facility] Pneumococcal 7 Conjugate, PCV7 (Prevnar7) 2005-02-12 00:00:00 Completed [facility] Polio (IPV/OPV) 2005-02-12 00:00:00 Completed [facility] DTP 2005-02-12 00:00:00 Completed [facility] Hep B, Adol or Pedi Dosage 2005-02-12 00:00:00 Completed [facility] HIB 4 Dose Schedule 2005-02-12 00:00:00 Completed [facility] Polio (IPV/OPV) 2005-02-12 00:00:00 Completed [facility] Pneumococcal 7 Conjugate, PCV7 (Prevnar7) 2005-02-12 00:00:00 Completed [facility] Pneumococcal 7 Conjugate, PCV7 (Prevnar7) 2005-02-12 00:00:00 Completed [facility] DTP 2005-02-12 00:00:00 Completed [facility] Hep B, Adol or Pedi Dosage 2005-02-12 00:00:00 Completed [facility] HIB 4 Dose Schedule 2005-02-12 00:00:00 Completed [facility] Polio (IPV/OPV) 2005-02-12 00:00:00 Completed [facility] Pneumococcal 7 Conjugate, PCV7 (Prevnar7) 2005-02-12 00:00:00 Completed [facility] DTP 2005-02-12 00:00:00 Completed [facility] DTP 2005-02-12 00:00:00 Completed [facility] Hep B, Adol or Pedi Dosage 2005-02-12 00:00:00 Completed [facility] HIB 4 Dose Schedule 2005-02-12 00:00:00 Completed [facility] Polio (IPV/OPV) 2005-02-12 00:00:00 Completed [facility] Pneumococcal 7 Conjugate, PCV7 (Prevnar7) 2005-02-12 00:00:00 Completed [facility] Hep B, Adol or Pedi Dosage 2005-02-12 00:00:00 Completed [facility] HIB 4 Dose Schedule 2005-02-12 00:00:00 Completed [facility] DTP 2005-02-12 00:00:00 Completed [facility] DTP 2005-02-12 00:00:00 Completed [facility] Hep B, Adol or Pedi Dosage 2005-02-12 00:00:00 Completed [facility] HIB 4 Dose Schedule 2005-02-12 00:00:00 Completed [facility] Polio (IPV/OPV) 2005-02-12 00:00:00 Completed [facility] Pneumococcal 7 Conjugate, PCV7 (Prevnar7) 2005-02-12 00:00:00 Completed [facility] DTP 2005-02-12 00:00:00 Completed [facility] Hep B, Adol or Pedi Dosage 2005-02-12 00:00:00 Completed [facility] HIB 4 Dose Schedule 2005-02-12 00:00:00 Completed [facility] Polio (IPV/OPV) 2005-02-12 00:00:00 Completed [facility] Pneumococcal 7 Conjugate, PCV7 (Prevnar7) 2005-02-12 00:00:00 Completed [facility] Polio (IPV/OPV) 2005-02-12 00:00:00 Completed [facility] DTP 2005-02-12 00:00:00 Completed [facility] Hep B, Adol or Pedi Dosage 2005-02-12 00:00:00 Completed [facility] HIB 4 Dose Schedule 2005-02-12 00:00:00 Completed [facility] Polio (IPV/OPV) 2005-02-12 00:00:00 Completed [facility] Pneumococcal 7 Conjugate, PCV7 (Prevnar7) 2005-02-12 00:00:00 Completed [facility] Pneumococcal 7 Conjugate, PCV7 (Prevnar7) 2005-02-12 00:00:00 Completed [facility] Hep B, Adol or Pedi Dosage 2005-02-12 00:00:00 Completed [facility] HIB 4 Dose Schedule 2005-02-12 00:00:00 Completed [facility] DTP 2005-02-12 00:00:00 Completed [facility] Hep B, Adol or Pedi Dosage 2005-02-12 00:00:00 Completed [facility] HIB 4 Dose Schedule 2005-02-12 00:00:00 Completed [facility] Polio (IPV/OPV) 2005-02-12 00:00:00 Completed [facility] Pneumococcal 7 Conjugate, PCV7 (Prevnar7) 2005-02-12 00:00:00 Completed [facility] DTP 2005-02-12 00:00:00 Completed [facility] Hep B, Adol or Pedi Dosage 2005-02-12 00:00:00 Completed [facility] HIB 4 Dose Schedule 2005-02-12 00:00:00 Completed [facility] DTP 2005-02-12 00:00:00 Completed [facility] Hep B, Adol or Pedi Dosage 2005-02-12 00:00:00 Completed HIB 4 Dose Schedule 2005-02-12 00:00:00 Completed Polio (IPV/OPV) 2005-02-12 00:00:00 Completed Pneumococcal 7 Conjugate, PCV7 (Prevnar7) 2005-02-12 00:00:00 Completed [facility] (dtap/hep B/ipv) 2005-02-12 00:00:00 Completed HIB 3 Dose Schedule 2005-02-12 00:00:00 Completed Pneumococcal 13 Conjugate, PCV13 (Prevnar 13) 2005-02-12 00:00:00 Completed Polio (IPV/OPV) 2005-02-12 00:00:00 Completed [facility] Pneumococcal 7 Conjugate, PCV7 (Prevnar7) 2005-02-12 00:00:00 Completed [facility] DTP 2005-02-12 00:00:00 Completed [facility] Hep B, Adol or Pedi Dosage 2005-02-12 00:00:00 Completed [facility] HIB 4 Dose Schedule 2005-02-12 00:00:00 Completed [facility] Polio (IPV/OPV) 2005-02-12 00:00:00 Completed [facility] Pneumococcal 7 Conjugate, PCV7 (Prevnar7) 2005-02-12 00:00:00 Completed [facility] DTP 2005-02-12 00:00:00 Completed [facility] Hep B, Adol or Pedi Dosage 2005-02-12 00:00:00 Completed [facility] HIB 4 Dose Schedule 2005-02-12 00:00:00 Completed [facility] Polio (IPV/OPV) 2005-02-12 00:00:00 Completed [facility] Pneumococcal 7 Conjugate, PCV7 (Prevnar7) 2005-02-12 00:00:00 Completed [facility] DTP 2005-02-12 00:00:00 Completed [facility] Hep B, Adol or Pedi Dosage 2005-02-12 00:00:00 Completed [facility] HIB 4 Dose Schedule 2005-02-12 00:00:00 Completed [facility] Polio (IPV/OPV) 2005-02-12 00:00:00 Completed [facility] Pneumococcal 7 Conjugate, PCV7 (Prevnar7) 2005-02-12 00:00:00 Completed [facility] DTP 2005-02-12 00:00:00 Completed [facility] Hep B, Adol or Pedi Dosage 2005-02-12 00:00:00 Completed [facility] HIB 4 Dose Schedule 2005-02-12 00:00:00 Completed [facility] Polio (IPV/OPV) 2005-02-12 00:00:00 Completed [facility] Pneumococcal 7 Conjugate, PCV7 (Prevnar7) 2005-02-12 00:00:00 Completed [facility] DTP 2005-02-12 00:00:00 Completed [facility] Hep B, Adol or Pedi Dosage 2005-02-12 00:00:00 Completed [facility] HIB 4 Dose Schedule 2005-02-12 00:00:00 Completed [facility] Polio (IPV/OPV) 2005-02-12 00:00:00 Completed [facility] Pneumococcal 7 Conjugate, PCV7 (Prevnar7) 2005-02-12 00:00:00 Completed [facility] DTP 2005-02-12 00:00:00 Completed [facility] Hep B, Adol or Pedi Dosage 2005-02-12 00:00:00 Completed [facility] HIB 4 Dose Schedule 2005-02-12 00:00:00 Completed [facility] Polio (IPV/OPV) 2005-02-12 00:00:00 Completed [facility] Pneumococcal 7 Conjugate, PCV7 (Prevnar7) 2005-02-12 00:00:00 Completed [facility] DTP 2005-02-12 00:00:00 Completed [facility] Hep B, Adol or Pedi Dosage 2005-02-12 00:00:00 Completed [facility] HIB 4 Dose Schedule 2005-02-12 00:00:00 Completed [facility] Polio (IPV/OPV) 2005-02-12 00:00:00 Completed [facility] Pneumococcal 7 Conjugate, PCV7 (Prevnar7) 2005-02-12 00:00:00 Completed [facility] DTP 2005-02-12 00:00:00 Completed [facility] Hep B, Adol or Pedi Dosage 2005-02-12 00:00:00 Completed [facility] HIB 4 Dose Schedule 2005-02-12 00:00:00 Completed [facility] Polio (IPV/OPV) 2005-02-12 00:00:00 Completed [facility] Pneumococcal 7 Conjugate, PCV7 (Prevnar7) 2005-02-12 00:00:00 Completed [facility] Hep B, adolescent or ped 2004 00:00:00 Completed Hep B, adolescent or ped 2004 00:00:00 Completed Hep B, Adol or Pedi Dosage 2004 00:00:00 Completed [facility] Hep B, Adol or Pedi Dosage 2004 00:00:00 Completed [facility] Hep B, Adol or Pedi Dosage 2004 00:00:00 Completed [facility] Hep B, Adol or Pedi Dosage 2004 00:00:00 Completed [facility] Hep B, Adol or Pedi Dosage 2004 00:00:00 Completed [facility] Hep B, Adol or Pedi Dosage 2004 00:00:00 Completed [facility] Hep B, Adol or Pedi Dosage 2004 00:00:00 Completed [facility] Hep B, Adol or Pedi Dosage 2004 00:00:00 Completed [facility] Hep B, Adol or Pedi Dosage 2004 00:00:00 Completed [facility] Hep B, Adol or Pedi Dosage 2004 00:00:00 Completed [facility] Hep B, Adol or Pedi Dosage 2004 00:00:00 Completed [facility] Hep B, Adol or Pedi Dosage 2004 00:00:00 Completed [facility] Hep B, Adol or Pedi Dosage 2004 00:00:00 Completed [facility] Hep B, Adol or Pedi Dosage 2004 00:00:00 Completed [facility] Hep B, Adol or Pedi Dosage 2004 00:00:00 Completed [facility] Hep B, Adol or Pedi Dosage 2004 00:00:00 Completed [facility] Hep B, Adol or Pedi Dosage 2004 00:00:00 Completed [facility] Hep B, Adol or Pedi Dosage 2004 00:00:00 Completed [facility] Hep B, Adol or Pedi Dosage 2004 00:00:00 Completed [facility] Hep B, Adol or Pedi Dosage 2004 00:00:00 Completed [facility] Hep B, Adol or Pedi Dosage 2004 00:00:00 Completed [facility] Hep B, Adol or Pedi Dosage 2004 00:00:00 Completed [facility] Hep B, Adol or Pedi Dosage 2004 00:00:00 Completed [facility] Hep B, Adol or Pedi Dosage 2004 00:00:00 Completed [facility] Hep B, Adol or Pedi Dosage 2004 00:00:00 Completed [facility] Hep B, Adol or Pedi Dosage 2004 00:00:00 Completed [facility] Hep B, Adol or Pedi Dosage 2004 00:00:00 Completed [facility] Hep B, Adol or Pedi Dosage 2004 00:00:00 Completed [facility] Hep B, Adol or Pedi Dosage 2004 00:00:00 Completed [facility] Hep B, Adol or Pedi Dosage 2004 00:00:00 Completed [facility] Hep B, Adol or Pedi Dosage 2004 00:00:00 Completed [facility] Hep B, Adol or Pedi Dosage 2004 00:00:00 Completed [facility] Hep B, Adol or Pedi Dosage 2004 00:00:00 Completed [facility] Hep B, Adol or Pedi Dosage 2004 00:00:00 Completed [facility] Hep B, Adol or Pedi Dosage 2004 00:00:00 Completed [facility] Hep B, Adol or Pedi Dosage 2004 00:00:00 Completed [facility] Hep B, Adol or Pedi Dosage 2004 00:00:00 Completed [facility] Hep B, Adol or Pedi Dosage 2004 00:00:00 Completed [facility] Hep B, Adol or Pedi Dosage 2004 00:00:00 Completed [facility] Hep B, Adol or Pedi Dosage 2004 00:00:00 Completed [facility] Hep B, Adol or Pedi Dosage 2004 00:00:00 Completed [facility] Hep B, Adol or Pedi Dosage 2004 00:00:00 Completed [facility] Hep B, Adol or Pedi Dosage 2004 00:00:00 Completed [facility] Hep B, Adol or Pedi Dosage 2004 00:00:00 Completed [facility] Hep B, Adol or Pedi Dosage 2004 00:00:00 Completed Hep B, Adol or Pedi Dosage 2004 00:00:00 Completed [facility] Hep B, Adol or Pedi Dosage 2004 00:00:00 Completed [facility] Hep B, Adol or Pedi Dosage 2004 00:00:00 Completed [facility] Hep B, Adol or Pedi Dosage 2004 00:00:00 Completed [facility] Hep B, Adol or Pedi Dosage 2004 00:00:00 Completed [facility] Hep B, Adol or Pedi Dosage 2004 00:00:00 Completed [facility] Hep B, Adol or Pedi Dosage 2004 00:00:00 Completed [facility] Hep B, Adol or Pedi Dosage 2004 00:00:00 Completed [facility] DTP Unknown Completed [facility] HEPATITIS A Unknown Completed [facility] Hep B, Adol or Pedi Dosage Unknown Completed [facility] HIB 4 Dose Schedule Unknown Completed [facility] HPV Unknown Completed [facility] Influenza Virus Vaccine Unknown Completed [facility] Meningococcal Vaccine Unknown Completed [facility] MMR Unknown Completed [facility] Polio (IPV/OPV) Unknown Completed [facility] TDAP Unknown Completed [facility] Varicella (varivax)(chicken pox) Unknown Completed [facility] Pneumococcal 7 Conjugate, PCV7 (Prevnar7) Unknown Completed [facility] SARS-COV-2 COVID-19 PFIZER VACCINE Unknown Completed [facility] SARS-COV-2 COVID-19 PFIZER KARAN-SUCROSE VACCINE (VERONICA TOP) Unknown Completed [facility] DTP Unknown Completed [facility] HEPATITIS A Unknown Completed [facility] Hep B, Adol or Pedi Dosage Unknown Completed [facility] HIB 4 Dose Schedule Unknown Completed [facility] HPV Unknown Completed [facility] Influenza Virus Vaccine Unknown Completed [facility] Meningococcal Vaccine Unknown Completed [facility] MMR Unknown Completed [facility] Polio (IPV/OPV) Unknown Completed [facility] TDAP Unknown Completed [facility] Varicella (varivax)(chicken pox) Unknown Completed [facility] Pneumococcal 7 Conjugate, PCV7 (Prevnar7) Unknown Completed [facility] SARS-COV-2 COVID-19 PFIZER VACCINE Unknown Completed [facility] SARS-COV-2 COVID-19 PFIZER KARAN-SUCROSE VACCINE (VERONICA TOP) Unknown Completed [facility] DTP Unknown Completed [facility] HEPATITIS A Unknown Completed [facility] Hep B, Adol or Pedi Dosage Unknown Completed [facility] HIB 4 Dose Schedule Unknown Completed [facility] HPV Unknown Completed [facility] Influenza Virus Vaccine Unknown Completed [facility] Meningococcal Vaccine Unknown Completed [facility] MMR Unknown Completed [facility] Polio (IPV/OPV) Unknown Completed [facility] TDAP Unknown Completed [facility] Varicella (varivax)(chicken pox) Unknown Completed [facility] Pneumococcal 7 Conjugate, PCV7 (Prevnar7) Unknown Completed [facility] SARS-COV-2 COVID-19 PFIZER VACCINE Unknown Completed [facility] SARS-COV-2 COVID-19 PFIZER KARAN-SUCROSE VACCINE (VERONICA TOP) Unknown Completed [facility] DTaP, Unspecified Formulation Unknown Completed [facility] Pediarix (dtap/hep B/ipv) Unknown Completed [facility] Dtap/ipv Unknown Completed [facility] Influenza Virus Vaccine Quad IM, Preserv and ABX Free 6 MO-64 YRS (FLUCELVAX) Unknown Completed [facility] Influenza Virus Vaccine - Whole Unknown Completed [facility] Hib-HbOC Unknown Completed [facility] HIB 3 Dose Schedule Unknown Completed [facility] HPV9 Unknown Completed [facility] Meningococcal Polysaccharide (groups A, C, Y and W-135) conjugate vaccine (MCV4P) Unknown Completed [facility] Proquad (MMR/VARICELLA) Unknown Completed [facility] Pneumococcal 13 Conjugate, PCV13 (Prevnar 13) Unknown Completed [facility] Meningococcal B, OMV Unknown Completed [facility] DTP Unknown Completed [facility] HEPATITIS A Unknown Completed [facility] Hep B, Adol or Pedi Dosage Unknown Completed [facility] HIB 4 Dose Schedule Unknown Completed [facility] HPV Unknown Completed [facility] Influenza Virus Vaccine Unknown Completed [facility] Meningococcal Vaccine Unknown Completed [facility] MMR Unknown Completed [facility] Polio (IPV/OPV) Unknown Completed [facility] TDAP Unknown Completed [facility] Varicella (varivax)(chicken pox) Unknown Completed [facility] Pneumococcal 7 Conjugate, PCV7 (Prevnar7) Unknown Completed [facility] SARS-COV-2 COVID-19 PFIZER VACCINE Unknown Completed [facility] SARS-COV-2 COVID-19 PFIZER KARAN-SUCROSE VACCINE (VERONICA TOP) Unknown Completed [facility] DTaP, Unspecified Formulation Unknown Completed [facility] Pediarix (dtap/hep B/ipv) Unknown Completed [facility] Dtap/ipv Unknown Completed [facility] Influenza Virus Vaccine Quad IM, Preserv and ABX Free 6 MO-64 YRS (FLUCELVAX) Unknown Completed [facility] Influenza Virus Vaccine - Whole Unknown Completed [facility] Hib-HbOC Unknown Completed [facility] HIB 3 Dose Schedule Unknown Completed [facility] HPV9 Unknown Completed [facility] Meningococcal Polysaccharide (groups A, C, Y and W-135) conjugate vaccine (MCV4P) Unknown Completed [facility] Proquad (MMR/VARICELLA) Unknown Completed [facility] Pneumococcal 13 Conjugate, PCV13 (Prevnar 13) Unknown Completed [facility] Meningococcal B, OMV Unknown Completed [facility] DTP Unknown Completed [facility] HEPATITIS A Unknown Completed [facility] Hep B, Adol or Pedi Dosage Unknown Completed [facility] HIB 4 Dose Schedule Unknown Completed [facility] HPV Unknown Completed [facility] Influenza Virus Vaccine Unknown Completed [facility] Meningococcal Vaccine Unknown Completed [facility] MMR Unknown Completed [facility] Polio (IPV/OPV) Unknown Completed [facility] TDAP Unknown Completed [facility] Varicella (varivax)(chicken pox) Unknown Completed [facility] Pneumococcal 7 Conjugate, PCV7 (Prevnar7) Unknown Completed [facility] SARS-COV-2 COVID-19 PFIZER VACCINE Unknown Completed [facility] SARS-COV-2 COVID-19 PFIZER KARAN-SUCROSE VACCINE (VERONICA TOP) Unknown Completed [facility] DTaP, Unspecified Formulation Unknown Completed [facility] Pediarix (dtap/hep B/ipv) Unknown Completed [facility] Dtap/ipv Unknown Completed [facility] Influenza Virus Vaccine Quad IM, Preserv and ABX Free 6 MO-64 YRS (FLUCELVAX) Unknown Completed [facility] Influenza Virus Vaccine - Whole Unknown Completed [facility] Hib-HbOC Unknown Completed [facility] HIB 3 Dose Schedule Unknown Completed [facility] HPV9 Unknown Completed [facility] Meningococcal Polysaccharide (groups A, C, Y and W-135) conjugate vaccine (MCV4P) Unknown Completed [facility] Proquad (MMR/VARICELLA) Unknown Completed [facility] Pneumococcal 13 Conjugate, PCV13 (Prevnar 13) Unknown Completed [facility] Meningococcal B, OMV Unknown Completed [facility] DTP Unknown Completed [facility] HEPATITIS A Unknown Completed [facility] Hep B, Adol or Pedi Dosage Unknown Completed [facility] HIB 4 Dose Schedule Unknown Completed [facility] HPV Unknown Completed [facility] Influenza Virus Vaccine Unknown Completed [facility] Meningococcal Vaccine Unknown Completed [facility] MMR Unknown Completed [facility] Polio (IPV/OPV) Unknown Completed [facility] TDAP Unknown Completed [facility] Varicella (varivax)(chicken pox) Unknown Completed [facility] Pneumococcal 7 Conjugate, PCV7 (Prevnar7) Unknown Completed [facility] SARS-COV-2 COVID-19 PFIZER VACCINE Unknown Completed [facility] SARS-COV-2 COVID-19 PFIZER KARAN-SUCROSE VACCINE (VERONICA TOP) Unknown Completed [facility] DTaP, Unspecified Formulation Unknown Completed [facility] Pediarix (dtap/hep B/ipv) Unknown Completed [facility] Dtap/ipv Unknown Completed [facility] Influenza Virus Vaccine Quad IM, Preserv and ABX Free 6 MO-64 YRS (FLUCELVAX) Unknown Completed [facility] Influenza Virus Vaccine - Whole Unknown Completed [facility] Hib-HbOC Unknown Completed [facility] HIB 3 Dose Schedule Unknown Completed [facility] HPV9 Unknown Completed [facility] Meningococcal Polysaccharide (groups A, C, Y and W-135) conjugate vaccine (MCV4P) Unknown Completed [facility] Proquad (MMR/VARICELLA) Unknown Completed [facility] Pneumococcal 13 Conjugate, PCV13 (Prevnar 13) Unknown Completed [facility] Meningococcal B, OMV Unknown Completed [facility] DTP Unknown Completed [facility] HEPATITIS A Unknown Completed [facility] Hep B, Adol or Pedi Dosage Unknown Completed [facility] HIB 4 Dose Schedule Unknown Completed [facility] HPV Unknown Completed [facility] Influenza Virus Vaccine Unknown Completed [facility] Meningococcal Vaccine Unknown Completed [facility] MMR Unknown Completed [facility] Polio (IPV/OPV) Unknown Completed [facility] TDAP Unknown Completed [facility] Varicella (varivax)(chicken pox) Unknown Completed [facility] Pneumococcal 7 Conjugate, PCV7 (Prevnar7) Unknown Completed [facility] SARS-COV-2 COVID-19 PFIZER VACCINE Unknown Completed [facility] SARS-COV-2 COVID-19 PFIZER KARAN-SUCROSE VACCINE (VERONICA TOP) Unknown Completed [facility] DTaP, Unspecified Formulation Unknown Completed [facility] Pediarix (dtap/hep B/ipv) Unknown Completed [facility] Dtap/ipv Unknown Completed [facility] Influenza Virus Vaccine Quad IM, Preserv and ABX Free 6 MO-64 YRS (FLUCELVAX) Unknown Completed [facility] Influenza Virus Vaccine - Whole Unknown Completed [facility] Hib-HbOC Unknown Completed [facility] HIB 3 Dose Schedule Unknown Completed [facility] HPV9 Unknown Completed [facility] Meningococcal Polysaccharide (groups A, C, Y and W-135) conjugate vaccine (MCV4P) Unknown Completed [facility] Proquad (MMR/VARICELLA) Unknown Completed [facility] Pneumococcal 13 Conjugate, PCV13 (Prevnar 13) Unknown Completed [facility] Meningococcal B, OMV Unknown Completed [facility] DTP Unknown Completed [facility] HEPATITIS A Unknown Completed [facility] Hep B, Adol or Pedi Dosage Unknown Completed [facility] HIB 4 Dose Schedule Unknown Completed [facility] HPV Unknown Completed [facility] Influenza Virus Vaccine Unknown Completed [facility] Meningococcal Vaccine Unknown Completed [facility] MMR Unknown Completed [facility] Polio (IPV/OPV) Unknown Completed [facility] TDAP Unknown Completed [facility] Varicella (varivax)(chicken pox) Unknown Completed [facility] Pneumococcal 7 Conjugate, PCV7 (Prevnar7) Unknown Completed [facility] SARS-COV-2 COVID-19 PFIZER VACCINE Unknown Completed [facility] SARS-COV-2 COVID-19 PFIZER KARAN-SUCROSE VACCINE (VERONICA TOP) Unknown Completed [facility] DTaP, Unspecified Formulation Unknown Completed [facility] Pediarix (dtap/hep B/ipv) Unknown Completed [facility] Dtap/ipv Unknown Completed [facility] Influenza Virus Vaccine Quad IM, Preserv and ABX Free 6 MO-64 YRS (FLUCELVAX) Unknown Completed [facility] Influenza Virus Vaccine - Whole Unknown Completed [facility] Hib-HbOC Unknown Completed [facility] HIB 3 Dose Schedule Unknown Completed [facility] HPV9 Unknown Completed [facility] Meningococcal Polysaccharide (groups A, C, Y and W-135) conjugate vaccine (MCV4P) Unknown Completed [facility] Proquad (MMR/VARICELLA) Unknown Completed [facility] Pneumococcal 13 Conjugate, PCV13 (Prevnar 13) Unknown Completed [facility] Meningococcal B, OMV Unknown Completed [facility] DTP Unknown Completed [facility] HEPATITIS A Unknown Completed [facility] Hep B, Adol or Pedi Dosage Unknown Completed [facility] HIB 4 Dose Schedule Unknown Completed [facility] HPV Unknown Completed [facility] Influenza Virus Vaccine Unknown Completed [facility] Meningococcal Vaccine Unknown Completed [facility] MMR Unknown Completed [facility] Polio (IPV/OPV) Unknown Completed [facility] TDAP Unknown Completed [facility] Varicella (varivax)(chicken pox) Unknown Completed [facility] Pneumococcal 7 Conjugate, PCV7 (Prevnar7) Unknown Completed [facility] SARS-COV-2 COVID-19 PFIZER VACCINE Unknown Completed [facility] SARS-COV-2 COVID-19 PFIZER KARAN-SUCROSE VACCINE (VERONICA TOP) Unknown Completed [facility] DTaP, Unspecified Formulation Unknown Completed [facility] Pediarix (dtap/hep B/ipv) Unknown Completed [facility] Dtap/ipv Unknown Completed [facility] Influenza Virus Vaccine Quad IM, Preserv and ABX Free 6 MO-64 YRS (FLUCELVAX) Unknown Completed [facility] Influenza Virus Vaccine - Whole Unknown Completed [facility] Hib-HbOC Unknown Completed [facility] HIB 3 Dose Schedule Unknown Completed [facility] HPV9 Unknown Completed [facility] Meningococcal Polysaccharide (groups A, C, Y and W-135) conjugate vaccine (MCV4P) Unknown Completed [facility] Proquad (MMR/VARICELLA) Unknown Completed [facility] Pneumococcal 13 Conjugate, PCV13 (Prevnar 13) Unknown Completed [facility] Meningococcal B, OMV Unknown Completed [facility] DTP Unknown Completed [facility] HEPATITIS A Unknown Completed [facility] Hep B, Adol or Pedi Dosage Unknown Completed [facility] HIB 4 Dose Schedule Unknown Completed [facility] HPV Unknown Completed [facility] Influenza Virus Vaccine Unknown Completed [facility] Meningococcal Vaccine Unknown Completed [facility] MMR Unknown Completed [facility] Polio (IPV/OPV) Unknown Completed [facility] TDAP Unknown Completed [facility] Varicella (varivax)(chicken pox) Unknown Completed [facility] Pneumococcal 7 Conjugate, PCV7 (Prevnar7) Unknown Completed [facility] SARS-COV-2 COVID-19 PFIZER VACCINE Unknown Completed [facility] SARS-COV-2 COVID-19 PFIZER KARAN-SUCROSE VACCINE (VERONICA TOP) Unknown Completed [facility] DTaP, Unspecified Formulation Unknown Completed [facility] Pediarix (dtap/hep B/ipv) Unknown Completed [facility] Dtap/ipv Unknown Completed [facility] Influenza Virus Vaccine Quad IM, Preserv and ABX Free 6 MO-64 YRS (FLUCELVAX) Unknown Completed [facility] Influenza Virus Vaccine - Whole Unknown Completed [facility] Hib-HbOC Unknown Completed [facility] HIB 3 Dose Schedule Unknown Completed [facility] HPV9 Unknown Completed [facility] Meningococcal Polysaccharide (groups A, C, Y and W-135) conjugate vaccine (MCV4P) Unknown Completed [facility] Proquad (MMR/VARICELLA) Unknown Completed [facility] Pneumococcal 13 Conjugate, PCV13 (Prevnar 13) Unknown Completed [facility] Meningococcal B, OMV Unknown Completed [facility] Meningococcal Vaccine Unknown Completed [facility] TDAP Unknown Completed [facility] SARS-COV-2 COVID-19 PFIZER KARAN-SUCROSE VACCINE (VERONICA TOP) Unknown Completed [facility] DTaP, Unspecified Formulation Unknown Completed [facility] Dtap/ipv Unknown Completed [facility] Hib-HbOC Unknown Completed [facility] Proquad (MMR/VARICELLA) Unknown Completed [facility] DTP Unknown Completed [facility] HEPATITIS A Unknown Completed [facility] Hep B, Adol or Pedi Dosage Unknown Completed [facility] HIB 4 Dose Schedule Unknown Completed [facility] HPV Unknown Completed [facility] Influenza Virus Vaccine Unknown Completed [facility] MMR Unknown Completed [facility] Polio (IPV/OPV) Unknown Completed [facility] Varicella (varivax)(chicken pox) Unknown Completed [facility] Pneumococcal 7 Conjugate, PCV7 (Prevnar7) Unknown Completed [facility] SARS-COV-2 COVID-19 PFIZER VACCINE Unknown Completed [facility] Pediarix (dtap/hep B/ipv) Unknown Completed [facility] Influenza Virus Vaccine Quad IM, Preserv and ABX Free 6 MO-64 YRS (FLUCELVAX) Unknown Completed [facility] Influenza Virus Vaccine - Whole Unknown Completed [facility] HIB 3 Dose Schedule Unknown Completed [facility] HPV9 Unknown Completed [facility] Meningococcal Polysaccharide (groups A, C, Y and W-135) conjugate vaccine (MCV4P) Unknown Completed [facility] Pneumococcal 13 Conjugate, PCV13 (Prevnar 13) Unknown Completed [facility] Meningococcal B, OMV Unknown Completed [facility] Meningococcal Vaccine Unknown Completed [facility] TDAP Unknown Completed [facility] SARS-COV-2 COVID-19 PFIZER KARAN-SUCROSE VACCINE (VERONICA TOP) Unknown Completed [facility] DTaP, Unspecified Formulation Unknown Completed [facility] Dtap/ipv Unknown Completed [facility] Hib-HbOC Unknown Completed [facility] Proquad (MMR/VARICELLA) Unknown Completed [facility] DTP Unknown Completed [facility] HEPATITIS A Unknown Completed [facility] Hep B, Adol or Pedi Dosage Unknown Completed [facility] HIB 4 Dose Schedule Unknown Completed [facility] HPV Unknown Completed [facility] Influenza Virus Vaccine Unknown Completed [facility] MMR Unknown Completed [facility] Polio (IPV/OPV) Unknown Completed [facility] Varicella (varivax)(chicken pox) Unknown Completed [facility] Pneumococcal 7 Conjugate, PCV7 (Prevnar7) Unknown Completed [facility] SARS-COV-2 COVID-19 PFIZER VACCINE Unknown Completed [facility] Pediarix (dtap/hep B/ipv) Unknown Completed [facility] Influenza Virus Vaccine Quad IM, Preserv and ABX Free 6 MO-64 YRS (FLUCELVAX) Unknown Completed [facility] Influenza Virus Vaccine - Whole Unknown Completed [facility] HIB 3 Dose Schedule Unknown Completed [facility] HPV9 Unknown Completed [facility] Meningococcal Polysaccharide (groups A, C, Y and W-135) conjugate vaccine (MCV4P) Unknown Completed [facility] Pneumococcal 13 Conjugate, PCV13 (Prevnar 13) Unknown Completed [facility] Meningococcal B, OMV Unknown Completed [facility] DTP Unknown Completed [facility] HEPATITIS A Unknown Completed [facility] Hep B, Adol or Pedi Dosage Unknown Completed [facility] HIB 4 Dose Schedule Unknown Completed [facility] HPV Unknown Completed [facility] Influenza Virus Vaccine Unknown Completed [facility] Meningococcal Vaccine Unknown Completed [facility] MMR Unknown Completed [facility] Polio (IPV/OPV) Unknown Completed [facility] TDAP Unknown Completed [facility] Varicella (varivax)(chicken pox) Unknown Completed [facility] Pneumococcal 7 Conjugate, PCV7 (Prevnar7) Unknown Completed [facility] SARS-COV-2 COVID-19 PFIZER VACCINE Unknown Completed [facility] SARS-COV-2 COVID-19 PFIZER KARAN-SUCROSE VACCINE (VERONICA TOP) Unknown Completed [facility] DTaP, Unspecified Formulation Unknown Completed [facility] Pediarix (dtap/hep B/ipv) Unknown Completed [facility] Dtap/ipv Unknown Completed [facility] Influenza Virus Vaccine Quad IM, Preserv and ABX Free 6 MO-64 YRS (FLUCELVAX) Unknown Completed [facility] Influenza Virus Vaccine - Whole Unknown Completed [facility] Hib-HbOC Unknown Completed [facility] HIB 3 Dose Schedule Unknown Completed [facility] HPV9 Unknown Completed [facility] Meningococcal Polysaccharide (groups A, C, Y and W-135) conjugate vaccine (MCV4P) Unknown Completed [facility] Proquad (MMR/VARICELLA) Unknown Completed [facility] Pneumococcal 13 Conjugate, PCV13 (Prevnar 13) Unknown Completed [facility] Meningococcal B, OMV Unknown Completed [facility] DTP Unknown Completed [facility] HEPATITIS A Unknown Completed [facility] Hep B, Adol or Pedi Dosage Unknown Completed [facility] HIB 4 Dose Schedule Unknown Completed [facility] HPV Unknown Completed [facility] Influenza Virus Vaccine Unknown Completed [facility] Meningococcal Vaccine Unknown Completed [facility] MMR Unknown Completed [facility] Polio (IPV/OPV) Unknown Completed [facility] TDAP Unknown Completed [facility] Varicella (varivax)(chicken pox) Unknown Completed [facility] Pneumococcal 7 Conjugate, PCV7 (Prevnar7) Unknown Completed [facility] SARS-COV-2 COVID-19 PFIZER VACCINE Unknown Completed [facility] SARS-COV-2 COVID-19 PFIZER KARAN-SUCROSE VACCINE (VERONICA TOP) Unknown Completed [facility] DTaP, Unspecified Formulation Unknown Completed [facility] Pediarix (dtap/hep B/ipv) Unknown Completed [facility] Dtap/ipv Unknown Completed [facility] Influenza Virus Vaccine Quad IM, Preserv and ABX Free 6 MO-64 YRS (FLUCELVAX) Unknown Completed [facility] Influenza Virus Vaccine - Whole Unknown Completed [facility] Hib-HbOC Unknown Completed [facility] HIB 3 Dose Schedule Unknown Completed [facility] HPV9 Unknown Completed [facility] Meningococcal Polysaccharide (groups A, C, Y and W-135) conjugate vaccine (MCV4P) Unknown Completed [facility] Proquad (MMR/VARICELLA) Unknown Completed [facility] Pneumococcal 13 Conjugate, PCV13 (Prevnar 13) Unknown Completed [facility] Meningococcal B, OMV Unknown Completed [facility] DTP Unknown Completed [facility] HEPATITIS A Unknown Completed [facility] Hep B, Adol or Pedi Dosage Unknown Completed [facility] HIB 4 Dose Schedule Unknown Completed [facility] HPV Unknown Completed [facility] Influenza Virus Vaccine Unknown Completed [facility] Meningococcal Vaccine Unknown Completed [facility] MMR Unknown Completed [facility] Polio (IPV/OPV) Unknown Completed [facility] TDAP Unknown Completed [facility] Varicella (varivax)(chicken pox) Unknown Completed [facility] Pneumococcal 7 Conjugate, PCV7 (Prevnar7) Unknown Completed [facility] SARS-COV-2 COVID-19 PFIZER VACCINE Unknown Completed [facility] SARS-COV-2 COVID-19 PFIZER KARAN-SUCROSE VACCINE (VERONICA TOP) Unknown Completed [facility] DTaP, Unspecified Formulation Unknown Completed [facility] Pediarix (dtap/hep B/ipv) Unknown Completed [facility] Dtap/ipv Unknown Completed [facility] Influenza Virus Vaccine Quad IM, Preserv and ABX Free 6 MO-64 YRS (FLUCELVAX) Unknown Completed [facility] Influenza Virus Vaccine - Whole Unknown Completed [facility] Hib-HbOC Unknown Completed [facility] HIB 3 Dose Schedule Unknown Completed [facility] HPV9 Unknown Completed [facility] Meningococcal Polysaccharide (groups A, C, Y and W-135) conjugate vaccine (MCV4P) Unknown Completed [facility] Proquad (MMR/VARICELLA) Unknown Completed [facility] Pneumococcal 13 Conjugate, PCV13 (Prevnar 13) Unknown Completed [facility] Meningococcal B, OMV Unknown Completed [facility] DTP Unknown Completed [facility] HEPATITIS A Unknown Completed [facility] Hep B, Adol or Pedi Dosage Unknown Completed [facility] HIB 4 Dose Schedule Unknown Completed [facility] HPV Unknown Completed [facility] Influenza Virus Vaccine Unknown Completed [facility] Meningococcal Vaccine Unknown Completed [facility] MMR Unknown Completed [facility] Polio (IPV/OPV) Unknown Completed [facility] TDAP Unknown Completed [facility] Varicella (varivax)(chicken pox) Unknown Completed [facility] Pneumococcal 7 Conjugate, PCV7 (Prevnar7) Unknown Completed [facility] SARS-COV-2 COVID-19 PFIZER VACCINE Unknown Completed [facility] SARS-COV-2 COVID-19 PFIZER KARAN-SUCROSE VACCINE (VERONICA TOP) Unknown Completed [facility] DTaP, Unspecified Formulation Unknown Completed [facility] Pediarix (dtap/hep B/ipv) Unknown Completed [facility] Dtap/ipv Unknown Completed [facility] Influenza Virus Vaccine Quad IM, Preserv and ABX Free 6 MO-64 YRS (FLUCELVAX) Unknown Completed [facility] Influenza Virus Vaccine - Whole Unknown Completed [facility] Hib-HbOC Unknown Completed [facility] HIB 3 Dose Schedule Unknown Completed [facility] HPV9 Unknown Completed [facility] Meningococcal Polysaccharide (groups A, C, Y and W-135) conjugate vaccine (MCV4P) Unknown Completed [facility] Proquad (MMR/VARICELLA) Unknown Completed [facility] Pneumococcal 13 Conjugate, PCV13 (Prevnar 13) Unknown Completed [facility] Meningococcal B, OMV Unknown Completed [facility] Meningococcal Vaccine Unknown Completed [facility] TDAP Unknown Completed [facility] SARS-COV-2 COVID-19 PFIZER KARAN-SUCROSE VACCINE (VERONICA TOP) Unknown Completed [facility] DTaP, Unspecified Formulation Unknown Completed [facility] [facility] Dtap/ipv Unknown Completed [facility] Hib-HbOC Unknown Completed [facility] Proquad (MMR/VARICELLA) Unknown Completed [facility] DTP Unknown Completed [facility] HEPATITIS A Unknown Completed [facility] Hep B, Adol or Pedi Dosage Unknown Completed [facility] HIB 4 Dose Schedule Unknown Completed [facility] HPV Unknown Completed [facility] Influenza Virus Vaccine Unknown Completed [facility] MMR Unknown Completed [facility] Polio (IPV/OPV) Unknown Completed [facility] Varicella (varivax)(chicken pox) Unknown Completed [facility] Pneumococcal 7 Conjugate, PCV7 (Prevnar7) Unknown Completed [facility] SARS-COV-2 COVID-19 PFIZER VACCINE Unknown Completed [facility] Pediarix (dtap/hep B/ipv) Unknown Completed [facility] Influenza Virus Vaccine Quad IM, Preserv and ABX Free 6 MO-64 YRS (FLUCELVAX) Unknown Completed [facility] Influenza Virus Vaccine - Whole Unknown Completed [facility] HIB 3 Dose Schedule Unknown Completed [facility] HPV9 Unknown Completed [facility] Meningococcal Polysaccharide (groups A, C, Y and W-135) conjugate vaccine (MCV4P) Unknown Completed [facility] Pneumococcal 13 Conjugate, PCV13 (Prevnar 13) Unknown Completed [facility] Meningococcal B, OMV Unknown Completed [facility] DTP Unknown Completed [facility] HEPATITIS A Unknown Completed [facility] Hep B, Adol or Pedi Dosage Unknown Completed [facility] HIB 4 Dose Schedule Unknown Completed [facility] HPV Unknown Completed [facility] Influenza Virus Vaccine Unknown Completed [facility] Meningococcal Vaccine Unknown Completed [facility] MMR Unknown Completed [facility] Polio (IPV/OPV) Unknown Completed [facility] TDAP Unknown Completed [facility] Varicella (varivax)(chicken pox) Unknown Completed [facility] Pneumococcal 7 Conjugate, PCV7 (Prevnar7) Unknown Completed [facility] SARS-COV-2 COVID-19 PFIZER VACCINE Unknown Completed [facility] SARS-COV-2 COVID-19 PFIZER KARAN-SUCROSE VACCINE (VERONICA TOP) Unknown Completed [facility] DTaP, Unspecified Formulation Unknown Completed [facility] Pediarix (dtap/hep B/ipv) Unknown Completed [facility] Dtap/ipv Unknown Completed [facility] Influenza Virus Vaccine Quad IM, Preserv and ABX Free 6 MO-64 YRS (FLUCELVAX) Unknown Completed [facility] Influenza Virus Vaccine - Whole Unknown Completed [facility] Hib-HbOC Unknown Completed [facility] HIB 3 Dose Schedule Unknown Completed [facility] HPV9 Unknown Completed [facility] Meningococcal Polysaccharide (groups A, C, Y and W-135) conjugate vaccine (MCV4P) Unknown Completed [facility] Proquad (MMR/VARICELLA) Unknown Completed [facility] Pneumococcal 13 Conjugate, PCV13 (Prevnar 13) Unknown Completed [facility] Meningococcal B, OMV Unknown Completed [facility] DTP Unknown Completed [facility] HEPATITIS A Unknown Completed [facility] Hep B, Adol or Pedi Dosage Unknown Completed [facility] HIB 4 Dose Schedule Unknown Completed [facility] HPV Unknown Completed [facility] Influenza Virus Vaccine Unknown Completed [facility] Meningococcal Vaccine Unknown Completed [facility] MMR Unknown Completed [facility] Polio (IPV/OPV) Unknown Completed [facility] TDAP Unknown Completed [facility] Varicella (varivax)(chicken pox) Unknown Completed [facility] Pneumococcal 7 Conjugate, PCV7 (Prevnar7) Unknown Completed [facility] SARS-COV-2 COVID-19 PFIZER VACCINE Unknown Completed [facility] SARS-COV-2 COVID-19 PFIZER KARAN-SUCROSE VACCINE (VERONICA TOP) Unknown Completed [facility] DTaP, Unspecified Formulation Unknown Completed [facility] Pediarix (dtap/hep B/ipv) Unknown Completed [facility] Dtap/ipv Unknown Completed [facility] Influenza Virus Vaccine Quad IM, Preserv and ABX Free 6 MO-64 YRS (FLUCELVAX) Unknown Completed [facility] Influenza Virus Vaccine - Whole Unknown Completed [facility] Hib-HbOC Unknown Completed [facility] HIB 3 Dose Schedule Unknown Completed [facility] HPV9 Unknown Completed [facility] Meningococcal Polysaccharide (groups A, C, Y and W-135) conjugate vaccine (MCV4P) Unknown Completed [facility] Proquad (MMR/VARICELLA) Unknown Completed [facility] Pneumococcal 13 Conjugate, PCV13 (Prevnar 13) Unknown Completed [facility] Meningococcal B, OMV Unknown Completed [facility] Vital Signs Vital Name Observation Time Observation Value Comments S ource Systolic blood pressure 2024-01-28 15:36:00 106 mm[Hg] [facility] Diastolic blood pressure 2024-01-28 15:36:00 74 mm[Hg] [facility] Heart rate 2024-01-28 15:36:00 80 /min [facility] Body temperature 2024-01-28 15:36:00 36.78 Cynthia [facility] Respiratory rate 2024-01-28 15:36:00 20 /min [facility] Body weight 2024-01-28 15:36:00 101.878 kg [facility] Oxygen saturation in Arterial blood by Pulse oximetry 2024-01-28 15:36:00 99 /min [facility] Systolic blood pressure 2023-09-29 15:25:00 121 mm[Hg] [facility] Diastolic blood pressure 2023-09-29 15:25:00 65 mm[Hg] [facility] Heart rate 2023-09-29 15:25:00 71 /min [facility] Respiratory rate 2023-09-29 15:25:00 18 /min [facility] Body height 2023-09-29 15:25:00 180.3 cm [facility] Body weight 2023-09-29 15:25:00 97.07 kg [facility] BMI 2023-09-29 15:25:00 29.85 kg/m2 [facility] Body mass index (BMI) [Percentile] Per age and sex 2023-09-29 15:25:00 93.87 % [facility] Systolic blood pressure 2023-09-13 02:53:00 127 mm[Hg] [facility] Diastolic blood pressure 2023-09-13 02:53:00 89 mm[Hg] [facility] Heart rate 2023-09-13 02:53:00 91 /min [facility] Body temperature 2023-09-13 02:53:00 37.5 Cynthia [facility] Respiratory rate 2023-09-13 02:53:00 18 /min [facility] Body height 2023-09-13 02:53:00 180.3 cm [facility] Body weight 2023-09-13 02:53:00 99.791 kg [facility] BMI 2023-09-13 02:53:00 30.68 kg/m2 [facility] Body mass index (BMI) [Percentile] Per age and sex 2023-09-13 02:53:00 94.84 % [facility] Oxygen saturation in Arterial blood by Pulse oximetry 2023-09-13 02:53:00 99 /min [facility] Systolic blood pressure 2023-07-01 20:03:00 128 mm[Hg] [facility] Diastolic blood pressure 2023-07-01 20:03:00 82 mm[Hg] [facility] Heart rate 2023-07-01 20:03:00 91 /min [facility] Respiratory rate 2023-07-01 20:03:00 20 /min [facility] Body height 2023-07-01 20:03:00 177.8 cm [facility] Body weight 2023-07-01 20:03:00 107.956 kg [facility] BMI 2023-07-01 20:03:00 34.15 kg/m2 [facility] Body mass index (BMI) [Percentile] Per age and sex 2023-07-01 20:03:00 96.81 % [facility] Oxygen saturation in Arterial blood by Pulse oximetry 2023-07-01 20:03:00 98 /min [facility] Systolic blood pressure 2023-06-24 00:21:00 131 mm[Hg] [facility] Diastolic blood pressure 2023-06-24 00:21:00 81 mm[Hg] [facility] Heart rate 2023-06-24 00:21:00 111 /min [facility] Body temperature 2023-06-24 00:21:00 36.67 Cynthia [facility] Body height 2023-06-24 00:21:00 180.3 cm [facility] Body weight 2023-06-24 00:21:00 107.049 kg [facility] BMI 2023-06-24 00:21:00 32.92 kg/m2 [facility] Body mass index (BMI) [Percentile] Per age and sex 2023-06-24 00:21:00 96.20 % [facility] Systolic blood pressure 2023-06-17 15:10:00 102 mm[Hg] [facility] Diastolic blood pressure 2023-06-17 15:10:00 65 mm[Hg] [facility] Heart rate 2023-06-17 15:10:00 72 /min [facility] Body height 2023-06-17 15:10:00 180.3 cm [facility] Body weight 2023-06-17 15:10:00 109.408 kg [facility] BMI 2023-06-17 15:10:00 33.64 kg/m2 [facility] Body mass index (BMI) [Percentile] Per age and sex 2023-06-17 15:10:00 96.57 % [facility] Oxygen saturation in Arterial blood by Pulse oximetry 2023-06-17 15:10:00 100 /min [facility] Systolic blood pressure 2023-04-07 23:27:00 115 mm[Hg] [facility] Diastolic blood pressure 2023-04-07 23:27:00 70 mm[Hg] [facility] Heart rate 2023-04-07 23:27:00 103 /min [facility] Body temperature 2023-04-07 23:27:00 37.22 Cynthia [facility] Respiratory rate 2023-04-07 23:27:00 18 /min [facility] Body height 2023-04-07 23:27:00 177.8 cm [facility] Body weight 2023-04-07 23:27:00 107.094 kg [facility] BMI 2023-04-07 23:27:00 33.88 kg/m2 [facility] Body mass index (BMI) [Percentile] Per age and sex 2023-04-07 23:27:00 96.77 % [facility] Oxygen saturation in Arterial blood by Pulse oximetry 2023-04-07 23:27:00 97 /min [facility] Systolic blood pressure 2023-02-17 14:46:00 113 mm[Hg] [facility] Diastolic blood pressure 2023-02-17 14:46:00 77 mm[Hg] [facility] Heart rate 2023-02-17 14:46:00 118 /min [facility] Body temperature 2023-02-17 14:46:00 37.11 Cynthia [facility] Respiratory rate 2023-02-17 14:46:00 16 /min [facility] Body height 2023-02-17 14:46:00 177.8 cm [facility] Body weight 2023-02-17 14:46:00 103.964 kg [facility] BMI 2023-02-17 14:46:00 32.89 kg/m2 [facility] Body mass index (BMI) [Percentile] Per age and sex 2023-02-17 14:46:00 96.32 % [facility] Oxygen saturation in Arterial blood by Pulse oximetry 2023-02-17 14:46:00 98 /min [facility] Systolic blood pressure 2022-11-05 14:09:00 108 mm[Hg] [facility] Diastolic blood pressure 2022-11-05 14:09:00 73 mm[Hg] [facility] Heart rate 2022-11-05 14:09:00 87 /min [facility] Body temperature 2022-11-05 14:09:00 37.17 Cynthia [facility] Body height 2022-11-05 14:09:00 177.8 cm [facility] Body weight 2022-11-05 14:09:00 108.041 kg [facility] BMI 2022-11-05 14:09:00 34.18 kg/m2 [facility] Body mass index (BMI) [Percentile] Per age and sex 2022-11-05 14:09:00 97.54 % [facility] Systolic blood pressure 2022-10-08 16:11:00 121 mm[Hg] [facility] Diastolic blood pressure 2022-10-08 16:11:00 73 mm[Hg] [facility] Heart rate 2022-10-08 16:11:00 72 /min [facility] Body temperature 2022-10-08 16:11:00 36.72 Cynthia [facility] Respiratory rate 2022-10-08 16:11:00 18 /min [facility] Body height 2022-10-08 16:11:00 177.8 cm [facility] Body weight 2022-10-08 16:11:00 108.591 kg [facility] BMI 2022-10-08 16:11:00 34.35 kg/m2 [facility] Body mass index (BMI) [Percentile] Per age and sex 2022-10-08 16:11:00 97.63 % [facility] Systolic blood pressure 2022-10-05 16:38:00 123 mm[Hg] [facility] Diastolic blood pressure 2022-10-05 16:38:00 78 mm[Hg] [facility] Heart rate 2022-10-05 16:38:00 104 /min [facility] Body temperature 2022-10-05 16:38:00 37.17 Cynthia [facility] Respiratory rate 2022-10-05 16:38:00 18 /min [facility] Body height 2022-10-05 16:38:00 177.8 cm [facility] Body weight 2022-10-05 16:38:00 109.816 kg [facility] BMI 2022-10-05 16:38:00 34.74 kg/m2 [facility] Body mass index (BMI) [Percentile] Per age and sex 2022-10-05 16:38:00 97.77 % [facility] Oxygen saturation in Arterial blood by Pulse oximetry 2022-10-05 16:38:00 97 /min [facility] Systolic blood pressure 2022-07-09 13:48:00 112 mm[Hg] [facility] Diastolic blood pressure 2022-07-09 13:48:00 72 mm[Hg] [facility] Heart rate 2022-07-09 13:48:00 90 /min [facility] Body temperature 2022-07-09 13:48:00 36.61 Cynthia [facility] Respiratory rate 2022-07-09 13:48:00 18 /min [facility] Body height 2022-07-09 13:48:00 167.6 cm [facility] Body weight 2022-07-09 13:48:00 113.127 kg [facility] BMI 2022-07-09 13:48:00 40.25 kg/m2 [facility] Body mass index (BMI) [Percentile] Per age and sex 2022-07-09 13:48:00 98.93 % [facility] Systolic blood pressure 2022-06-11 19:09:00 120 mm[Hg] [facility] Diastolic blood pressure 2022-06-11 19:09:00 79 mm[Hg] [facility] Heart rate 2022-06-11 19:09:00 73 /min [facility] Body temperature 2022-06-11 19:09:00 36.89 Cynthia [facility] Respiratory rate 2022-06-11 19:09:00 14 /min [facility] Body height 2022-06-11 19:09:00 177.8 cm [facility] Body weight 2022-06-11 19:09:00 112.9 kg [facility] BMI 2022-06-11 19:09:00 35.71 kg/m2 [facility] Body mass index (BMI) [Percentile] Per age and sex 2022-06-11 19:09:00 98.16 % [facility] Oxygen saturation in Arterial blood by Pulse oximetry 2022-06-11 19:09:00 99 /min [facility] Systolic blood pressure 2022-06-04 15:41:00 112 mm[Hg] [facility] Diastolic blood pressure 2022-06-04 15:41:00 76 mm[Hg] [facility] Heart rate 2022-06-04 15:41:00 99 /min [facility] Body temperature 2022-06-04 15:41:00 36.94 Cynthia [facility] Respiratory rate 2022-06-04 15:41:00 18 /min [facility] Body height 2022-06-04 15:41:00 177.8 cm [facility] Body weight 2022-06-04 15:41:00 113.671 kg [facility] BMI 2022-06-04 15:41:00 35.96 kg/m2 [facility] Body mass index (BMI) [Percentile] Per age and sex 2022-06-04 15:41:00 98.23 % [facility] Systolic blood pressure 2022-03-30 21:00:00 111 mm[Hg] [facility] Diastolic blood pressure 2022-03-30 21:00:00 72 mm[Hg] [facility] Heart rate 2022-03-30 21:00:00 73 /min [facility] Body temperature 2022-03-30 21:00:00 36.78 Cynthia [facility] Respiratory rate 2022-03-30 21:00:00 16 /min [facility] Body height 2022-03-30 21:00:00 180.4 cm [facility] Body weight 2022-03-30 21:00:00 112.265 kg [facility] BMI 2022-03-30 21:00:00 34.51 kg/m2 [facility] Body mass index (BMI) [Percentile] Per age and sex 2022-03-30 21:00:00 97.88 % [facility] Oxygen saturation in Arterial blood by Pulse oximetry 2022-03-30 21:00:00 98 /min [facility] Systolic blood pressure 2022-02-25 18:12:00 123 mm[Hg] [facility] Diastolic blood pressure 2022-02-25 18:12:00 80 mm[Hg] [facility] Heart rate 2022-02-25 18:12:00 109 /min [facility] Body temperature 2022-02-25 18:12:00 37.11 Cynthia [facility] Respiratory rate 2022-02-25 18:12:00 18 /min [facility] Body height 2022-02-25 18:12:00 180.3 cm [facility] Body weight 2022-02-25 18:12:00 112.038 kg [facility] BMI 2022-02-25 18:12:00 34.45 kg/m2 [facility] Body mass index (BMI) [Percentile] Per age and sex 2022-02-25 18:12:00 97.89 % [facility] Oxygen saturation in Arterial blood by Pulse oximetry 2022-02-25 18:12:00 98 /min [facility] Systolic blood pressure 2021-12-24 05:55:00 133 mm[Hg] [facility] Diastolic blood pressure 2021-12-24 05:55:00 87 mm[Hg] [facility] Heart rate 2021-12-24 05:55:00 114 /min [facility] Body temperature 2021-12-24 05:55:00 37.33 Cynthia [facility] Respiratory rate 2021-12-24 05:55:00 18 /min [facility] Body height 2021-12-24 05:55:00 180.3 cm [facility] Body weight 2021-12-24 05:55:00 108.863 kg [facility] BMI 2021-12-24 05:55:00 33.47 kg/m2 [facility] Body mass index (BMI) [Percentile] Per age and sex 2021-12-24 05:55:00 97.60 % [facility] Oxygen saturation in Arterial blood by Pulse oximetry 2021-12-24 05:55:00 97 /min [facility] Systolic blood pressure 2021-11-25 14:09:00 100 mm[Hg] [facility] Diastolic blood pressure 2021-11-25 14:09:00 67 mm[Hg] [facility] Heart rate 2021-11-25 14:09:00 90 /min [facility] Body temperature 2021-11-25 14:09:00 36.72 Cynthia [facility] Respiratory rate 2021-11-25 14:09:00 18 /min [facility] Body height 2021-11-25 14:09:00 177.1 cm [facility] Body weight 2021-11-25 14:09:00 110.632 kg [facility] BMI 2021-11-25 14:09:00 35.27 kg/m2 [facility] Body mass index (BMI) [Percentile] Per age and sex 2021-11-25 14:09:00 98.21 % [facility] Oxygen saturation in Arterial blood by Pulse oximetry 2021-11-25 14:09:00 98 /min [facility] Systolic blood pressure 2021-06-03 07:12:00 122 mm[Hg] [facility] Diastolic blood pressure 2021-06-03 07:12:00 80 mm[Hg] [facility] Heart rate 2021-06-03 07:12:00 113 /min [facility] Body temperature 2021-06-03 07:12:00 36 Cynthia [facility] Respiratory rate 2021-06-03 07:12:00 20 /min [facility] Body height 2021-06-03 07:12:00 172.7 cm [facility] Body weight 2021-06-03 07:12:00 108.138 kg [facility] BMI 2021-06-03 07:12:00 36.25 kg/m2 [facility] Body mass index (BMI) [Percentile] Per age and sex 2021-06-03 07:12:00 98.58 % [facility] Oxygen saturation in Arterial blood by Pulse oximetry 2021-06-03 07:12:00 100 /min [facility] Systolic blood pressure 2021-04-01 03:45:00 102 mm[Hg] [facility] Diastolic blood pressure 2021-04-01 03:45:00 60 mm[Hg] [facility] Heart rate 2021-04-01 03:45:00 126 /min [facility] Body temperature 2021-04-01 03:45:00 37.89 Cynthia [facility] Oxygen saturation in Arterial blood by Pulse oximetry 2021-04-01 03:45:00 96 /min [facility] Respiratory rate 2021-04-01 01:47:00 22 /min [facility] Body weight 2021-04-01 01:47:00 107.049 kg [facility] Systolic blood pressure 2020-12-20 16:01:00 112 mm[Hg] [facility] Diastolic blood pressure 2020-12-20 16:01:00 73 mm[Hg] [facility] Heart rate 2020-12-20 16:01:00 79 /min [facility] Body temperature 2020-12-20 16:01:00 37.17 Cynthia [facility] Respiratory rate 2020-12-20 16:01:00 18 /min [facility] Body weight 2020-12-20 16:01:00 108.546 kg [facility] Oxygen saturation in Arterial blood by Pulse oximetry 2020-12-20 16:01:00 97 /min [facility] Systolic blood pressure 2020-08-21 00:26:00 118 mm[Hg] [facility] Diastolic blood pressure 2020-08-21 00:26:00 75 mm[Hg] [facility] Heart rate 2020-08-21 00:26:00 92 /min [facility] Body temperature 2020-08-21 00:26:00 37.39 Cynthia [facility] Respiratory rate 2020-08-21 00:26:00 17 /min [facility] Body weight 2020-08-21 00:26:00 109.226 kg [facility] Oxygen saturation in Arterial blood by Pulse oximetry 2020-08-21 00:26:00 99 /min [facility] Systolic blood pressure 2020-03-11 23:58:00 123 mm[Hg] [facility] Diastolic blood pressure 2020-03-11 23:58:00 74 mm[Hg] [facility] Heart rate 2020-03-11 23:58:00 90 /min [facility] Body temperature 2020-03-11 23:58:00 36.33 Cynthia [facility] Respiratory rate 2020-03-11 23:58:00 16 /min [facility] Body height 2020-03-11 23:58:00 160 cm [facility] Body weight 2020-03-11 23:58:00 106.595 kg [facility] BMI 2020-03-11 23:58:00 41.63 kg/m2 [facility] Oxygen saturation in Arterial blood by Pulse oximetry 2020-03-11 23:58:00 99 /min [facility] Systolic blood pressure 2020-01-16 13:32:00 131 mm[Hg] [facility] Diastolic blood pressure 2020-01-16 13:32:00 85 mm[Hg] [facility] Heart rate 2020-01-16 13:32:00 111 /min [facility] Body temperature 2020-01-16 13:32:00 37.06 Cynthia [facility] Respiratory rate 2020-01-16 13:32:00 16 /min [facility] Body height 2020-01-16 13:32:00 175.3 cm [facility] Body weight 2020-01-16 13:32:00 107.616 kg [facility] BMI 2020-01-16 13:32:00 35.04 kg/m2 [facility] Systolic blood pressure 2019-12-19 18:58:00 128 mm[Hg] [facility] Diastolic blood pressure 2019-12-19 18:58:00 80 mm[Hg] [facility] Heart rate 2019-12-19 18:58:00 93 /min [facility] Body temperature 2019-12-19 18:58:00 37.44 Cynthia [facility] Respiratory rate 2019-12-19 18:58:00 18 /min [facility] Body weight 2019-12-19 18:58:00 99.791 kg [facility] Oxygen saturation in Arterial blood by Pulse oximetry 2019-12-19 18:58:00 100 /min [facility] BP Systolic 2021-12-08 08:28:00 120 mm[Hg] [...] MOLECULAR FLU 2024-01-28 15:33:00 Unknown, Attend ing [facility] POCT MOLECULAR STREP 2024-01-28 15:31:00 Unknown, Attangela schultz [facility] POCT SARS-COV-2 ANTIGEN (BINAX NOW) 2024-01-28 15:25:00 Jonny Pickens [facility] MR KNEE RIGHT WO CONTRAST 2023-06-25 14:44:58 Russ Ulloa [facility] POCT SARS-COV-2 ANTIGEN (BINAX NOW) 2023-06-24 00:31:00 Brynn Ying [facility] POCT MOLECULAR STREP 2023-06-24 00:11:00 Unknown, Attangela schultz [facility] XR KNEE <3 VW RIGHT 2023-06-17 15:18:42 Dylan Ulloa [facility] POCT MOLECULAR FLU 2023-04-07 23:34:00 Unknown, Attend [facility] MENINGOCOCCAL B VACCINE, OMV, 2 DOSE, IM 2023-03-22 15:53:33 Marcela [facility] ASSIGNMENT OF BENEFITS 2023-03-22 15:24:13 Docto r Unassigned, [place] [facility] MENINGOCOCCAL B VACCINE, OMV, 2 DOSE, IM 2023-02-17 15:18:47 Marcela [facility] FLU VACC (), 6 MO-64 YRS, .5ML, IM, QUAD (FLUCELVAX) 2023-02-17 15:08:33 Marcela [facility] POCT SARS-COV-2 ANTIGEN (BINAX NOW) 2023-01-07 15:25:00 Brynn Ying [facility] PATIENT FINANCIAL POLICY 2022-07-09 13:18:07 Doctor Unassigned, [place] [facility] POCT TEST 2022-07-09 00:00:00 Shen Ying [facility] CONSENT/REFUSAL FOR DIAGNOSIS AND TREATMENT 2022-06-22 02:11:01 Doctor Unassigned, [place] [facility] POCT MOLECULAR FLU 2022-06-11 19:11:00 Unknown, Attend [facility] POCT TEST 2022-06-04 21:48:00 Shen Ying [facility] AUTHORIZATION TO RELEASE PHI TO [facility] 2022-06-04 06:01:00 Doctor Unassigned, [place] [facility] REFERRAL- REQUEST/RESPONSE 2022-04-22 06:01:00 Doctor Unassigned, [place] [facility] XR SCAPULA LEFT 2022-03-31 19:27:00 Sanjana Odonnell [facility] XR SHOULDER 2+ VW LEFT 2022-03-31 19:21:00 Ursula Odonnell [facility] XR CHEST 2 VW 2022-02-25 18:44:00 [facility] 2022-02-25 18:14:00 Unknown, Attend [facility] POCT MOLECULAR STREP 2022-02-25 18:10:00 Unknown, Atte marion [facility] ASSIGNMENT OF BENEFITS 2022-02-25 17:56:55 Docto r Unassigned, [place] [facility] CONSENT/REFUSAL FOR DIAGNOSIS AND TREATMENT 2021-12-24 05:46:57 Doctor Unassigned, [place] [facility] REFERRAL- REQUEST/RESPONSE 2021-12-08 05:01:00 Doctor Unassigned, [place] [facility] RAPID STREP SCREEN FOR GROUP A 2021-06-03 07:45:00 Kenyetta Mims [facility] COVID-19 (ID NOW RAPID TESTING) 2021-06-03 07:45:00 Kenyetta Mims [facility] NOTICE OF PRIVACY PRACTICES 2021-06-03 07:00:56 Doctor Unassigned, [place] [facility] CONSENT/REFUSAL FOR DIAGNOSIS AND TREATMENT 2021-06-03 07:00:24 Doctor Unassigned, [place] [facility] SARS-COV-2 COVID-19 VACCINE 12 YRS+,0.3ML,IM (PFIZER - VERONICA TOP) 2021-05-28 21:20:06 Doctor Unassigned, [place] [facility] RAPID STREP SCREEN FOR GROUP A 2021-04-01 02:09:00 Shantelle Mcallister [facility] RAPID INFLUENZA A/B 2021-04-01 02:09:00 Shantelle Mcallister [facility] COVID-19 (ID NOW RAPID TESTING) 2021-04-01 02:09:00 Shantelle Mcallister [facility] CONSENT/REFUSAL FOR DIAGNOSIS AND TREATMENT 2021-04-01 01:39:50 Doctor Unassigned, [place] [facility] [address] Us Pelvic Nonobstetric Complete 2021-01-31 00:00:00 50784 Us Soft Tissue Head Neck Real Time Imge Docmtn 2021-01-31 00:00:00 ASSIGNMENT OF BENEFITS 2020-12-20 15:41:26 Docto r Unassigned, [place] [facility] ASSIGNMENT OF BENEFITS 2020-01-16 13:07:47 Docto r Unassigned, [place] [facility] CONSENT/REFUSAL FOR DIAGNOSIS AND TREATMENT 2019-12-19 18:48:19 Doctor Unassigned, [place] [facility] ASSIGNMENT OF BENEFITS 2019-10-02 18:34:07 Docto r Unassigned, [place] [facility] Plan of Care Planned Activity Planned Date Details Comments Source Goal Plan of Care Note [code = 71426-2] Goal Plan of Care Note [code = 95047-3] Goal Plan of Care Note [code = 62972-9] Goal Plan of Care Note [code = 27908-5] Goal Plan of Care Note [code = 23944-5] Goal Plan of Care Note [code = 43592-0] Goal Plan of Care Note [code = 50065-7] Goal Plan of Care Note [code = 57717-4] Goal Plan of Care Note [code = 23106-5] Goal Plan of Care Note [code = 61508-7] Goal Plan of Care Note [code = 23661-4] Goal Plan of Care Note [code = 53678-7] Goal Plan of Care Note [code = 82171-3] Goal Plan of Care Note [code = 81870-1] Goal Plan of Care Note [code = 00674-7] Goal Plan of Care Note [code = 89496-1] Goal Plan of Care Note [code = 29624-5] Goal Plan of Care Note [code = 41523-3] Goal Plan of Care Note [code = 49435-9] Goal Plan of Care Note [code = 80512-2] Goal Plan of Care Note [code = 28618-5] Goal Plan of Care Note [code = 63259-9] Goal Plan of Care Note [code = 51037-4] Goal Plan of Care Note [code = 19892-3] Goal Plan of Care Note [code = 65726-1] Goal Plan of Care Note [code = 89315-8] Goal Plan of Care Note [code = 42837-2] Goal Plan of Care Note [code = 47661-5] Goal Plan of Care Note [code = 71358-3] Goal Plan of Care Note [code = 02725-9] Goal Plan of Care Note [code = 45460-2] Goal Plan of Care Note [code = 14013-2] Goal Plan of Care Note [code = 48520-3] Goal Plan of Care Note [code = 69624-6] Goal Plan of Care Note [code = 40548-4] Goal Plan of Care Note [code = 70797-9] Encounters Start Date/Time End Date/Time Encounter Type Admission Type Attending [facility] Facility Care Department Encounter ID Source 2021-10-22 15:01:02 Outpatient MAYTE MULTANI [facility] [id number] Common [facility] 2021-02-21 14:26:40 Emergency [facility] [id number] [facility] 2024-01-28 09:40:00 2024-01-28 10:00:00 Urgent Care Jonny Pickens Unknown, Attending [facility] 1.2.840.114 350.1.13.10 4.2.7.2.686 [id number] [facility] 2024-01-28 09:40:00 2024-01-28 09:40:00 Outpatient JONNY RIVERA [facility] [id number] [facility] 2023-11-25 09:00:00 2023-11-25 09:00:00 Outpatient R [facility] [id number] [facility] 2023-09-13 00:00:00 2023-10-16 18:20:58 Patient Secure Msg Doctor Unassigned, [place] [facility] 1.2840.114 350.1.13.10 4.2.7.2.686 [id number] [facility] 2023-10-15 00:00:00 2023-10-15 00:00:00 Telephone DominicRuss [facility] 1.2840.114 350.1.13.10 4.2.7.2.686 [id number] [facility] 2023-09-29 10:00:00 2023-09-29 10:36:49 Outpatient R HOLLY ROBLEDO [facility] [id number] [facility] 2023-09-29 10:00:00 2023-09-29 10:36:49 Office Visit Holly Robledo [facility] 1.2840.114 350.1.13.10 4.2.7.2.686 [id number] [facility] 2023-09-12 21:57:00 2023-09-12 22:18:00 Emergency X THAI [facility] ERT [id number] [facility] 2023-09-12 21:57:00 2023-09-12 22:18:00 Emergency Thai Currie [facility] 1.2840.114 350.1.13.10 4.2.7.2.686 [id number] [facility] 2023-07-29 00:00:00 2023-09-04 18:14:50 Patient Secure Msg Doctor Unassigned, [place] [facility] 1.2840.114 350.1.13.10 4.2.7.2.686 [id number] [facility] 2023-08-20 00:00:00 2023-08-20 00:00:00 Telephone Russ Ulloa [facility] 1.2.840.114 350.1.13.10 4.2.7.2.686 [id number] [facility] 2023-07-26 00:00:00 2023-07-26 00:00:00 Telephone Russ Ulloa [facility] 1.2.840.114 350.1.13.10 4.2.7.2.686 [id number] [facility] 2023-07-01 14:15:00 2023-07-01 14:15:00 Office Visit Russ Ulloa [facility] 1.2.840.114 350.1.13.10 4.2.7.2.686 [id number] [facility] 2023-07-01 14:15:00 2023-07-01 14:11:12 Outpatient R RUSS ULLOA CRAIG [facility] [id number] [facility] 2023-06-25 07:52:49 2023-06-25 23:59:00 Outpatient R RUSS ULLOA CRAIG [facility] [id number] [facility] 2023-06-25 07:52:49 2023-06-25 23:59:00 Hospital Encounter Russ Ulloa [facility] 1.2.840.114 350.1.13.10 4.2.7.2.686 [id number] [facility] 2023-06-23 18:00:00 2023-06-23 18:48:42 Outpatient R BRYNN YING [facility] [id number] [facility] 2023-06-23 18:00:00 2023-06-23 18:48:42 Urgent Care Brynn Ying Unknown, Attending [facility] 1.114 350.1.13.10 4.2.7.2.686 [id number] [facility] 2023-06-17 09:13:01 2023-06-17 23:59:00 Hospital Encounter Russ Ulloa [facility] 1.114 350.1.13.10 4.2.7.2.686 [id number] [facility] 2023-06-17 09:15:00 2023-06-17 09:46:40 Outpatient R RUSS ULLOA CRAIG [facility] [id number] [facility] 2023-06-17 09:15:00 2023-06-17 09:46:40 Office Visit Russ Ulloa [facility] 1.114 350.1.13.10 4.2.7.2.686 [id number] [facility] 2023-06-14 00:00:00 2023-06-14 00:00:00 Telephone [facility] 1.84.114 350.1.13.10 4.2.7.2.686 [id number] [facility] 2023-04-07 16:40:00 2023-04-07 18:27:51 Outpatient R GETACHEW NICOLE [facility] [id number] [facility] 2023-04-07 16:40:00 2023-04-07 18:27:51 Urgent Care Getachew Nicole Unknown, Attending [facility] 1.114 350.1.13.10 4.2.7.2.686 [id number] [facility] 2023-03-22 09:40:00 2023-03-22 09:40:00 Nurse Visit Nurse, Adc Fam [facility] 1..840.114 350.1.13.10 4.2.7.2.686 [id number] [facility] 2023-03-22 09:40:00 2023-03-22 09:32:57 Outpatient R OBI-ARCHIE , CLARIBEL OBI-ARCHIE , [facility] [id number] [facility] 2023-03-22 00:00:00 2023-03-22 00:00:00 Orders Only Doctor Unassigned, [place] [facility] 1.84.114 350.1.13.10 4.2.7.2.686 [id number] [facility] 2023-02-17 10:00:00 2023-02-17 10:40:00 [facility] 1..840.114 350.1.13.10 4.2.7.2.686 [id number] [facility] 2023-02-17 10:00:00 2023-02-17 10:00:00 Outpatient R OBI-ARCHIE , CLARIBEL OBI-ARCHIE , [facility] [id number] [facility] 2023-01-08 00:00:00 2023-01-08 00:00:00 Letter (Out) Ryan Cordero [facility] 1..114 350.1.13.10 4.2.7.2.686 [id number] [facility] 2023-01-07 10:00:00 2023-01-07 10:15:00 Laboratory Only Only, Ang Db Test Unknown, Attending Vanaphan, [facility] 1..840.114 350.1.13.10 4.2.7.2.686 [id number] [facility] 2023-01-07 10:00:00 2023-01-07 10:00:00 [facility] [id number] 2022-11-05 09:00:00 2022-11-05 09:21:[address] [facility] [id number] [facility] 2022-11-05 09:00:00 2022-11-05 09:21:52 Urgent Care Brynn Ying Unknown, Attending [facility] 1..840.114 350.1.13.10 4.2.7.2.686 [id number] [facility] 2022-10-08 11:00:00 2022-10-08 11:30:00 [facility] 1..840.114 350.1.13.10 4.2.7.2.686 [id number] [facility] 2022-10-08 11:00:00 2022-10-08 11:00:00 Outpatient R SEVEN RODRIGUEZ [facility] [id number] [facility] 2022-10-05 11:20:00 2022-10-05 11:58:20 Outpatient R JONNY PICKENS [facility] [id number] [facility] 2022-10-05 11:20:00 2022-10-05 11:58:20 Urgent Care Jonny Pickens Unknown, Attending [facility] 1..840.114 350.1.13.10 4.2.7.2.686 [id number] [facility] 2022-07-09 08:30:00 2022-07-09 09:13:28 [facility] [id number] [facility] 2022-07-09 08:30:00 2022-07-09 09:13:28 Office Visit Brynn Ying [facility] 1..840.114 350.1.13.10 4.2.7.2.686 [id number] [facility] 2022-07-09 00:00:00 2022-07-09 00:00:00 Orders Only Doctor Unassigned, [place] [facility] 1.840.114 350.1.13.10 4.2.7.2.686 [id number] [facility] 2022-06-21 20:11:00 2022-06-21 20:20:00 Emergency X [facility] ERT [id number] [facility] 2022-06-21 00:00:00 2022-06-21 00:00:00 Orders Only Doctor Unassigned, [place] [facility] 1.840.114 350.1.13.10 4.2.7.2.686 [id number] [facility] 2022-06-11 13:00:00 2022-06-11 13:30:26 Outpatient R SORIN ROSE [facility] [id number] [facility] 2022-06-11 13:00:00 2022-06-11 13:30:26 Urgent Care Edwardbettyaretha Edwardadrianayamile Unknown, Attending [facility] 1..840.114 350.1.13.10 4.2.7.2.686 [id number] [facility] 2022-06-05 00:00:00 2022-06-05 00:00:00 Telephone Stepan Brynn [facility] 1.2.840.114 350.1.13.10 4.2.7.2.686 [id number] [facility] 2022-06-04 09:30:00 2022-06-04 10:05:20 Outpatient R BRYNN YING [facility] [id number] [facility] 2022-06-04 09:30:00 2022-06-04 10:05:20 Office Visit Brynn Ying [facility] 1.2.840.114 350.1.13.10 4.2.7.2.686 [id number] [facility] 2022-06-04 00:00:00 2022-06-04 00:00:00 Letter (Out) Brynn Ying [facility] 1.2.840.114 350.1.13.10 4.2.7.2.686 [id number] [facility] 2022-06-04 00:00:00 2022-06-04 00:00:00 Orders Only Doctor Unassigned, [place] [facility] 1.2.840.114 350.1.13.10 4.2.7.2.686 [id number] [facility] 2022-04-23 00:00:00 2022-04-23 00:00:00 Patient Secure Msg Doctor Unassigned, [place] [facility] 1.2.840.114 350.1.13.10 4.2.7.2.686 [id number] [facility] 2022-04-22 00:00:00 2022-04-22 00:00:00 Orders Only Doctor Unassigned, [place] [facility] 1.2.840.114 350.1.13.10 4.2.7.2.686 [id number] [facility] 2022-03-31 13:08:18 2022-03-31 23:59:00 Outpatient R SANJANA ODONNELL [facility] [id number] [facility] 2022-03-31 13:08:18 2022-03-31 23:59:00 Hospital En[facility] 1.2.840.114 350.1.13.10 4.2.7.2.686 [id number] [facility] 2022-03-31 13:08:18 2022-03-31 23:59:00 Hospital Encounter Sanjana [facility]donnell [facility] 1.2.840.114 350.1.13.10 4.2.7.2.686 [id number] [facility] 2022-03-31 00:00:00 2022-03-31 00:00:00 Letter (Out) Provider, Ang Db Urgent Care [facility] 1..840.114 350.1.13.10 4.2.7.2.686 [id number] [facility] 2022-03-30 16:36:01 2022-03-30 23:59:00 Hospital Encounter Sanjana Odonnell [facility] 1.2.840.114 350.1.13.10 4.2.7.2.686 [id number] [facility] 2022-03-30 15:40:00 2022-03-30 17:01:43 Outpatient R SANJANA ODONNELL [facility] [id number] [facility] 2022-03-30 15:40:00 2022-03-30 17:01:43 Urgent Care Sanjana Odonnell Unknown, Attending [facility] 1.2.840.114 350.1.13.10 4.2.7.2.686 [id number] [facility] 2022-03-30 16:36:00 2022-03-30 16:36:00 Hospital Encounter Sanjana [facility]donnell [facility] 1.2840.114 350.1.13.10 4.2.7.2.686 [id number] [facility] 2022-03-30 00:00:00 2022-03-30 00:00:00 Letter (Out) Sanjana Odonnell [facility] 1.2.114 350.1.13.10 4.2.7.2.686 [id number] [facility] 2022-02-25 13:34:51 2022-02-25 23:59:00 Outpatient R SANJANA ODONNELL [facility] [id number] [facility] 2022-02-25 13:34:51 2022-02-25 23:59:00 Hospital Encounter Sanjana Odonnell [facility] 1.20.114 350.1.13.10 4.2.7.2.686 [id number] [facility] 2022-02-25 13:00:00 2022-02-25 13:20:00 Urgent Care Sanjana Odonnell Unknown, Attending [facility] 1.2840.114 350.1.13.10 4.2.7.2.686 [id number] [facility] 2022-02-25 00:00:00 2022-02-25 00:00:00 Orders Only Doctor Unassigned, [place] [facility] 1.2840.114 350.1.13.10 4.2.7.2.686 [id number] [facility] 2022-02-25 00:00:00 2022-02-25 00:00:00 Letter (Out) BelleSanjana [facility] 1.2.114 350.1.13.10 4.2.7.2.686 [id number] [facility] 2022-01-15 00:00:00 2022-01-15 00:00:00 Patient Secure Msg Doctor Unassigned, [place] [facility] 1..114 350.1.13.10 4.2.7.2.686 [id number] [facility] 2021-12-24 01:03:00 2021-12-24 01:19:00 Emergency X SHAW[facility] E[facility] [id number] [facility] 2021-12-24 01:03:00 2021-12-24 01:19:00 Emergency Ziyad Matos [facility] 1.0.114 350.1.13.10 4.2.7.2.686 [id number] [facility] 2021-12-24 00:00:00 2021-12-24 00:00:00 Orders Only Doctor Unassigned, [place] [facility] 1.0.114 350.1.13.10 4.2.7.2.686 [id number] [facility] 2021-12-08 00:00:00 2021-12-08 00:00:00 Outpatient Visit [id number] 2021-12-08 00:00:00 2021-12-08 00:00:00 Orders Only Doctor Unassigned, [place] [facility] 1.0.114 350.1.13.10 4.2.7.2.686 [id number] [facility] 2021-12-03 00:00:00 2021-12-03 00:00:00 Outpatient Visit [id number] 2021-11-25 09:00:00 2021-11-25 09:20:26 [facility] [id number] [facility] 2021-11-25 09:00:00 2021-11-25 09:20:26 Urgent Care Lucasmorgan [facility] .840.114 350.1.13.10 4.2.7.2.686 [id number] [facility] 2021-07-07 15:45:00 2021-07-07 15:45:00 Outpatient R RUSS ULLOA [facility] [id number] [facility] 2021-06-30 12:00:00 2021-06-30 12:19:15 Outpatient R ELISE LOOMIS [facility] [id number] [facility] 2021-06-03 01:15:00 2021-06-03 02:28:00 Emergency X KENYETTA MIMS [facility] ERT [id number] [facility] 2021-06-03 01:15:00 2021-06-03 02:28:00 Emergency Kenyetta Mims S [facility] .840.114 350.1.13.10 4.2.7.2.686 [id number] [facility] 2021-05-28 14:30:00 2021-05-28 14:30:00 Imm/Inj Visit Nurse, Adarsh Arambula [facility] Jonathan Bonilla [facility] .114 350.1.13.10 4.2.7.2.686 [id number] [facility] 2021-05-28 14:30:00 2021-05-28 14:28:03 [facility] [id number] [facility] 2021-04-25 13:30:00 2021-04-25 13:30:00 Outpatient Vahid RODRIGUEZ [facility] [id number] [facility] 2021-03-31 19:48:00 2021-03-31 21:51:00 Emergency X YOSSIELENA SHANTELLE [facility] [id number] [facility] 2021-03-31 19:48:00 2021-03-31 21:51:00 Emergency YossiBailey castellanoala [facility] 1.84.114 350.1.13.10 4.2.7.2.686 [id number] [facility] 2021-03-31 00:00:00 2021-03-31 00:00:00 Orders Only Doctor Unassigned, [place] [facility] 1.114 350.1.13.10 4.2.7.2.686 [id number] [facility] 2021-03-19 00:00:00 2021-03-19 00:00:00 Letter (Out) Rekha Kaba [facility] 1.114 350.1.13.10 4.2.7.2.686 [id number] [facility] 2021-03-18 10:53:08 2021-03-18 11:08:08 Laboratory Only Only, Ang Arielle Smith [facility] 1.84.114 350.1.13.10 4.2.7.2.686 [id number] [facility] 2021-03-18 11:00:00 2021-03-18 11:00:00 Outpatient Vahid ENRIQUEZARIELLE [facility] [id number] [facility] 2020-12-21 00:00:00 2020-12-21 00:00:00 Telephone Juan Pablo Sunni D [facility] 1.2.840.114 350.1.13.10 4.2.7.2.686 [id number] [facility] 2020-12-20 10:41:54 2020-12-20 11:01:54 Urgent Care Mina [facility] Efrain[facility] 1.2840.114 350.1.13.10 4.2.7.2.686 [id number] [facility] 2020-12-20 11:00:00 2020-12-20 11:00:00 Outpatient Vahid ENRIQUEZ ARIELLE [facility] [id number] [facility] 2020-12-20 00:00:00 2020-12-20 00:00:00 Letter (Out) Doctor Unassigned, [place] [facility] 1.2840.114 350.1.13.10 4.2.7.2.686 [id number] [facility] 2020-12-20 00:00:00 2020-12-20 00:00:00 Orders Only Doctor Unassigned, [place] [facility] 1.2840.114 350.1.13.10 4.2.7.2.686 [id number] [facility] 2020-12-20 00:00:00 2020-12-20 00:00:00 Letter (Out) Doctor Unassigned, [place] [facility] 1.2840.114 350.1.13.10 4.2.7.2.686 [id number] [facility] 2020-09-30 09:40:00 2020-09-30 09:40:00 Outpatient JONATHAN RUSH [facility] [id number] [facility] 2020-09-10 10:20:00 2020-09-10 10:20:00 [facility] [id number] [facility] 2020-08-20 19:13:14 2020-08-20 20:02:22 Urgent Care Provider, Frank [facility] Christen [facility] [address] .114 350.1.13.10 4.2.7.2.686 [id number] [facility] 2020-08-20 19:20:00 2020-08-20 19:20:00 Outpatient CHRISTEN PETERSON [facility] [id number] [facility] 2020-06-14 00:00:00 2020-06-14 00:00:00 Telephone Provider, Frank [facility] [address] .114 350.1.13.10 4.2.7.2.686 [id number] [facility] 2020-06-07 11:27:45 2020-06-07 11:47:45 Laboratory Only Lab, [facility] .114 350.1.13.10 4.2.7.2.686 [id number] [facility] 2020-06-07 11:40:00 2020-06-07 11:40:00 Outpatient HUAN ALVA [facility] [id number] [facility] 2020-06-07 00:00:00 2020-06-07 00:00:00 Letter (Out) Doctor Unassigned, [place] [facility] 1.114 350.1.13.10 4.2.7.2.686 [id number] [facility] 2020-03-11 18:00:00 2020-03-11 18:00:00 Outpatient R [facility] [id number] [facility] 2020-03-11 17:44:55 2020-03-11 17:59:55 Urgent Care Len Gill Unknown, Attending [facility] 1.114 350.1.13.10 4.2.7.2.686 [id number] [facility] 2020-01-16 08:14:45 2020-01-16 09:06:49 Office Visit Carlos Ford [facility] 2ND SHIFT [facility] 1.114 350.1.13.10 4.2.7.2.686 [id number] [facility] 2020-01-16 08:00:00 2020-01-16 08:00:00 Outpatient R CARLOS FORD [facility] [id number] [facility] 2020-01-16 00:00:00 2020-01-16 00:00:00 Orders Only Doctor Unassigned, [place] [facility] 1..114 350.1.13.10 4.2.7.2.686 [id number] [facility] 2019-12-21 00:00:00 2019-12-21 00:00:00 Telephone Swetha Canseco [facility] 1..114 350.1.13.10 4.2.7.2.686 [id number] [facility] 2019-12-19 13:59:00 2019-12-19 14:42:00 Emergency Joyce Patton [facility] 1.2.114 350.1.13.10 4.2.7.2.686 [id number] [facility] 2019-12-19 00:00:00 2019-12-19 00:00:00 Orders Only Doctor Unassigned, [place] [facility] 1.2.114 350.1.13.10 4.2.7.2.686 [id number] [facility] 2019-10-02 14:42:09 2019-10-02 14:54:35 Billing Encounter Len [facility] [id number] 350.1.13.10 4.2.7.2.686 [id number] [facility] 2019-10-02 13:40:00 2019-10-02 13:40:00 Outpatient R JAIRO LEN [facility] [id number] [facility] 2019-10-02 00:00:00 2019-10-02 00:00:00 Orders Only Doctor Unassigned, [place] [facility] 1.2840.114 350.1.13.10 4.2.7.2.686 [id number] [facility] Results Test Description Test Time Test Comments Results Result Co mments Source [facility] SARS-COV-2 ANTIGEN (BINAX NOW)2024-01-28 15:41:00* Test Item Value Reference Range Interpretation Comme nts POCT SARS-COV-2 ANTIGEN (test code = 93710-4) Not Detected Not Detected, See Comment On board controls acceptable with C Line (test code = 3574) Yes ANAYA (test code = ANAYA) accurate developme nt and interpretation of all internal controls Lab Interpretation (test code = 77842-9) Normal [facility] MOLECULAR [id number] 15:38:44* Test Item Value Reference Range Interpretation Comme nts POCT Molecular Strep (test c ode = 71879-7) Negative Negative Lab Interpretation (test cod e = 13133-4) [facility] [id number] 16:31:17 EXAM: MRI RIGHT KNEE HISTORY: Right [...] at the proximal aspect of the semimembranosus/medialgastrocnemius bursa.[facility] SARS-COV-2 ANTIGEN (BINAX NOW)2023-06-24 00:31:00* Test Item Value Reference Range Interpretation Comme nts POCT SARS-COV-2 ANTIGEN (jalen t code = 23116-8) Not Detected Not Detected On board controls acceptable with C Line (test code = 3574) Yes Lab Interpretation (test cod e = 69604-2) Normal [facility] MOLECULAR [id number] 00:19:45* Test Item Value Reference Range Interpretation Comme nts POCT Molecular Strep (test c ode = 43873-7) Negative Negative Lab Interpretation (test cod e = 26054-4) Normal [facility]3 VW [id number] 18:00:22EXAM: XR KNEE <3 VW RIGHT HISTORY: 17 years-old Female with right knee pain. COMPARISON: 06/30/2021. FINDINGS: Radiographs of the right knee redemonstrate elevated positioning of thepatella relativeto the femur. ?No acute displaced fracture or dislocation.Joint spaces are preserved. Alignment otherwise is within normal limits.Mild prepatellar soft tissue swelling is seen. Trace knee joint effusion. [facility] Molecular [id number] 00:16:11* Test Item Value Reference Range Interpretation Comme nts POCT Molecular FluA (test co de = 08848-8) Negative Negative POCT Molecular FluB (test co de = 54354-1) Negative Negative Lab Interpretation (test cod e = 40185-5) Normal [facility] SARS-COV-2 ANTIGEN (BINAX NOW)2023-01-07 15:25:00* Test Item Value Reference Range Interpretation Comme nts POCT SARS-COV-2 ANTIGEN (jalen t code = 99383-5) Not Detected Not Detected On board controls acceptable with C Line (test code = 3574) Yes [facility] [id number] 14:45:00* Test Item Value Reference Range Interpretation Comme nts POCT PREG (test code = 1605) Negative On board controls acceptable with C Line (test code = 3574) Yes POCT PREG LOT # (test code = 3575) POCT PREG TEST DATE ( test code = 3576) [facility] [id number] 14:45:00* Test Item Value Reference Range Interpretation Comme nts POCT PREG (test code = 1605) Negative On board controls acceptable with C Line (test code = 3574) Yes POCT PREG LOT # (test code = 3575) POCT PREG TEST DATE ( test code = 3576) [facility] MOLECULAR [id number] 19:23:08* Test Item Value Reference Range Interpretation Comme nts POCT Molecular FluA (test co de = 10242-7) Negative Negative POCT Molecular FluB (test co de = 13452-1) Negative Negative Lab Interpretation (test cod e = 20466-7) Normal [facility] [id number] 21:48:00* Test Item Value Reference Range Interpretation Comme nts POCT PREG (test code = 1605) Negative On board controls acceptable with C Line (test code = 3574) Yes POCT PREG LOT # (test code = 3575) POCT PREG TEST DATE ( test code = 3576) [facility] [id number] 21:48:00* Test Item Value Reference Range Interpretation Comme nts POCT PREG (test code = 1605) Negative On board controls acceptable with C Line (test code = 3574) Yes POCT PREG LOT # (test code = 3575) POCT PREG TEST DATE ( test code = 3576) [facility] MOLECULAR [id number] 18:25:56* Test Item Value Reference Range Interpretation Comme nts POCT Molecular FluA (test co de = 99047-2) Negative Negative POCT Molecular FluB (test co de = 08858-4) Negative Negative Lab Interpretation (test cod e = 39021-4) Normal [facility] [id number] 18:17:49* Test Item Value Reference Range Interpretation Comme nts POCT Molecular Strep (test c ode = 86232-1) Negative Negative Lab Interpretation (test cod e = 28707-6) Normal [facility] PRO[facility] (T3U, T4, T7, TSH) 2020-12-27 00:00:00* Test Item Value Reference Range Interpretation Comme nts T-UPTAKE (test code = 2817) 27.2 % THYROX. BIND. CAPAC. (test c ode = 82625) 1.2 T4 (THYROXINE) (test code = 2819) 8.3 UG/DL CORRECTED T4 (FTI) (test cod e = 2820) 6.9 UG/DL TSH, THIRD GENERATION (test code = 2821) 0.653 UIU/ML CBC W/AUTO [id number] 00:00:00* Test Item Value Reference Range Interpretation [...] ABS NUCLEATED RBCS (test cod e = 72506) 0.00 K/UL HEMOGLOBIN [id number] 00:00:00* Test Item Value Reference Range Interpretation Comme nts HEMOGLOBIN A1c (test code = 88786) 5.7 % COMPREHENSIVE METABOLIC [id number] 00:00:00* Test Item Value Reference Range Interpretation Comme nts GLUCOSE (test code = 2217) 97 MG/DL BUN (test code = 2208) 11 MG/DL CREATININE (test code = 2214) 0.80 MG/DL eGFR AMER. (test code = 76674) (NOTE) ML/MIN/1.73 eGFR NON- AMER. (test code = 10568) NO CALC ML/MIN/1.73 CALC BUN/CREAT (test code [...] (test code = 2219) 64 U/L LIPID [id number] 00:00:00* Test Item Value Reference Range Interpretation Comme nts CHOLESTEROL (test code = 2210) 102 MG/DL TRIGLYCERIDES (test code = 2232) 98 MG/DL HDL CHOLESTEROL (test code = 2220) 44 MG/DL CALC LDL CHOL (test code = 2237) 40 MG/DL RISK RATIO LDL/HDL (test cod e = 2238) 0.91 RATIO FSH + LH [id number] 00:00:00* Test Item Value Reference Range Interpretation Comme nts FOLLICLE STIM HORMONE (test code = 2700) 3.6 IU/L LUTEINIZING HORMONE (test co de = 2776) 8.8 IU/L THYROID II PROFILE (T3U, T4, T7, TSH)2020-12-27 00:00:00* Test Item Value Reference Range Interpretation Comme nts T-UPTAKE (test code = 2817) 27.2 % THYROX. BIND. CAPAC. (test c ode = 43880) 1.2 T4 (THYROXINE) (test code = 2819) 8.3 UG/DL CORRECTED T4 (FTI) (test cod e = 2820) 6.9 UG/DL TSH, THIRD GENERATION (test code = 2821) 0.653 UIU/ML CBC W/AUTO [id number] 00:00:00* Test Item Value Reference Range Interpretation [...] ABS NUCLEATED RBCS (test cod e = 10140) 0.00 K/UL HEMOGLOBIN [id number] 00:00:00* Test Item Value Reference Range Interpretation Comme nts HEMOGLOBIN A1c (test code = 06516) 5.7 % COMPREHENSIVE METABOLIC [id number] 00:00:00* Test Item Value Reference Range Interpretation Comme nts GLUCOSE (test code = 2217) 97 MG/DL BUN (test code = 2208) 11 MG/DL CREATININE (test code = 2214) 0.80 MG/DL eGFR AMER. (test code = 51566) (NOTE) ML/MIN/1.73 eGFR NON- AMER. (test code = 79878) NO CALC ML/MIN/1.73 CALC BUN/CREAT (test code [...] (test code = 2219) 64 U/L LIPID [id number] 00:00:00* Test Item Value Reference Range Interpretation Comme nts CHOLESTEROL (test code = 2210) 102 MG/DL TRIGLYCERIDES (test code = 2232) 98 MG/DL HDL CHOLESTEROL (test code = 2220) 44 MG/DL CALC LDL CHOL (test code = 2237) 40 MG/DL RISK RATIO LDL/HDL (test cod e = 2238) 0.91 RATIO FSH + LH [id number] 00:00:00* Test Item Value Reference Range Interpretation Comme nts FOLLICLE STIM HORMONE (test code = 2700) 3.6 IU/L LUTEINIZING HORMONE (test co de = 2776) 8.8 IU/L LIPID [id number] 00:00:00* Test Item Value Reference Range Interpretation Comme nts CHOLESTEROL (test code = 2210) 108 MG/DL TRIGLYCERIDES (test code = 2232) 105 MG/DL HDL CHOLESTEROL (test code = 2220) 45 MG/DL CALC LDL CHOL (test code = 2237) 42 MG/DL RISK RATIO LDL/HDL (test cod e = 2238) 0.93 RATIO LIPID [id number] 00:00:00* Test Item Value Reference Range Interpretation Comme nts CHOLESTEROL (test code = 2210) 108 MG/DL TRIGLYCERIDES (test code = 2232) 105 MG/DL HDL CHOLESTEROL (test code = 2220) 45 MG/DL CALC LDL CHOL (test code = 2237) 42 MG/DL RISK RATIO LDL/HDL (test cod e = 2238) 0.93 RATIO HEMOGLOBIN [id number] 00:00:00* Test Item Value Reference Range Interpretation Comme nts HEMOGLOBIN A1c (test code = 25377) 5.5 % HEMOGLOBIN [id number] 00:00:00* Test Item Value Reference Range Interpretation Comme nts HEMOGLOBIN A1c (test code = 64490) 5.5 % Notes Date/Time Note Provider Source [...] with steady gait, in no apparent distress[facility]23[facility] 21:52:09 Pt arrived ambulatory without assist. Pt grandmother with her, okay to discuss medical care in front of her. Pt states "I was using this thing to clean a fryer and I touched the wrong part, it burned my left hand." Gala An RN [facility] 2023-08-20 16:36:53 Received PT initial exam signature needed placed in providers box Janeth Dickey [facility] 2023-07-27 10:11:48 Faxed PT orders. Dari Fiore 07/27/2023 10:11 AM Dari Fiore [facility] 2023-07-26 10:02:15 Patient grandmother is calling wants orders for PT faxed to [facility] [employer] fax# [phone], she says she verified that they do take her insurance. Sophy Vazquez [facility] 2023-06-14 08:24:48 Referral has been placed for patient with Dr. Russ Ulloa OM IRONER [facility] 2023-06-14 08:15:09 Faby Oconnell is a 17 year old female and grandma is calling for a referral Patient is requesting a referral to: Dept: Orthopedics - [place] Reason for referral: Right knee pain Duration of problem: 1 year Internal / External referral: Internal Name of provider / location patient requesting: Dr. Russ Ulloa [address] [place] [address] Phone number: [phone] Fax number: [phone] Appt already scheduled?: No If yes, date of appt.: No OM [facility] Sonja Adame [facility] 2023-01-07 10:00:00 Formatting of this n ote [...] Joelle Sanchez RN 01/07/2023 10:10 AM T [facility]
[2024-03-29] MEDS ORDERED: IBUPROFEN 200 MG TAB PO ONE (12:37)
[2024-03-29 12:55] LABS: Specific Gravity 1.028 (1.005-1.030)
[2024-03-29 12:58] LABS: Specific Gravity 1.028 (1.005-1.030); Sqamous Epithelial <5 /HPF (None Seen); Urine Bacteria <20 /HPF (<20); Urine Bilirubin NEGATIVE (Negative); Urine Blood Negative (Negative); Urine Clarity Turbid (Clear); Urine Color Yellow (Yellow); Urine Culture Reflex Order NOT NEEDED; Urine Glucose NEGATIVE (Negative); Urine Ketones NEGATIVE (Negative); Urine Microscopic Reflex YN ORDER UMIC; Urine Mucus 1+ /HPF (None Seen); Urine Nitrite NEGATIVE (Negative); Urine Protein TRACE (Negative); Urine RBC None Seen /HPF (None Seen); Urine Urobilinogen 1+ (Normal); Urine WBC <5 /HPF (<5); Urine Yeast (Budding) Trace /HPF (None Seen); Urine pH 6.5 (5.0-7.0)
--- NOTE | 2024-03-29 13:13 | RAD REPORT ---
Procedure: Chest Pa And Lat (2 Views) HISTORY: Chest pain COMPARISON: 2022 FINDINGS: The lungs appear clear of acute infiltrate. No significant pleural effusion noted. The heart is normal size. IMPRESSION: No acute abnormality is displayed.
--- NOTE | 2024-03-29 13:47 | ER ---
Nurse's Notes [facility] Name: Faby Oconnell Age: 18 yrs Sex: Female : 2005 Arrival Date: 03/29/2024 Time: 12:12 Bed 10 Private MD: Diagnosis: Chest pain, unspecified-non cardiac Presentation: 03/29 12:33 Chief complaint: Patient states: she had a taken a CBD gummy last week for thanksgiving ap3 and was evaluated here after. patient reports having central chest pain since then of which she rates a 7/10 on the pain scale. Coronavirus screen: At this time, the client does not indicate any symptoms associated with coronavirus-19. Ebola Screen: No symptoms or risks identified at this time. Initial Sepsis Screen: Does the patient meet any 2 criteria? No. Patient's initial sepsis screen is negative. Does the patient have a suspected source of infection? No. Patient's initial sepsis screen is negative. Risk Assessment: Do you want to hurt yourself or someone else? Patient reports no desire to harm self or others. Onset of symptoms is unknown. 12:33 Method Of Arrival: Ambulatory ap3 12:33 Acuity: ONIEL 3 ap3 Triage Assessment: 12:35 General: Appears comfortable, Behavior is calm, quiet. Pain: Complains of pain in ap3 mid-sternal area Pain currently is 7 out of 10 on a pain scale. Neuro: Level of Consciousness is awake, alert, obeys commands, Oriented to person, place, time, situation, Appropriate for age. Cardiovascular: Patient's skin is warm and dry. Respiratory: Airway is patent Respiratory effort is even, unlabored, Respiratory pattern is regular, symmetrical. Historical: - Allergies: 12:35 No Known Allergies; ap3 - Home Meds: 12:35 None [Active]; ap3 - PMHx: 12:35 None; ap3 - Immunization history:: Adult Immunizations up to date. - Infectious Disease History:: Denies. - Social history:: Smoking status: Patient denies any tobacco usage or history of. - Family history:: not pertinent. Screenin:36 [facility] ED Fall Risk Assessment (Adult) History of falling in the last 3 months, ap3 including since admission No falls in past 3 months (0 pts) Confusion or Disorientation No (0 pts) Intoxicated or Sedated No (0 pts) Impaired Gait No (0 pts) Mobility Assist Device Used No (0 pt) Altered Elimination No (0 pt) Score/Fall Risk Level 0 - 2 = Low Risk Oriented to surroundings, Maintained a safe environment, Educated pt \T\ family on fall prevention, incl call for assistance when getting out of bed, Assessed \T\ reinforced patient's understanding of fall precautions, Hourly rounding (assess needs \T\ fall precautionary measures) done, Used ambulatory aids as needed (educated on \T\ assisted with), Used gait belt as appropriate. Abuse screen: Denies threats or abuse. Nutritional screening: No deficits noted. Tuberculosis screening: No symptoms or risk factors identified. Vital Signs: 12:33 BP 129 / 62; Pulse 83; Resp 18; Temp 97.4; Pulse Ox 100% ; Weight 102.06 kg; Pain 7/10; ap3 12:33 Pain Scale: Adult ap3 ED Course: 12:14 Patient arrived in ED. mr 12:19 Panfilo Giron MD is Attending Physician. sujatha 12:35 Triage completed. ap3 12:36 Arm band placed on left wrist. ap3 12:36 Patient maintains SpO2 saturation greater than 95% on room air. ap3 12:46 Urinalysis w/ reflexes Sent. ap3 12:46 Test, Urine Sent. ap3 12:51 Chest Pa And Lat (2 Views) XRAY In Process Unspecified. EDMS 13:08 Soniya Tristan, DORON is Primary Nurse. iw 13:47 Sincere Laura DO is Referral Physician. sujatha Administered Medications: 12:46 Drug: Ibuprofen PO 600 mg PO once Route: PO; ap3 13:00 Follow up: Response: No adverse reaction iw Outcome: 13:47 Discharge ordered by . [facility] 14:21 Patient left the ED. bd Signatures: Dispatcher [employer] EDMS Evi Lepe Corey, MD MD cha Rivera, Mary, [facility] mr Soniya Tristan, Elise Garland RN, RN RN ap3
--- NOTE | 2024-03-29 13:47 | EDPHYS ---
Physician Documentation [facility] Name: Faby Oconnell Age: 18 yrs Sex: Female : 2005 Arrival Date: 03/29/2024 Time: 12:12 Bed 10 Private MD: ED Physician Panfilo Giron HPI: 03/29 13:41 This 18 yrs old Black Female presents to ER via Ambulatory with complaints of Chest sujatha Pain. 13:41 The patient or guardian reports chest pain that is located primarily in the anterior sujatha chest wall, bilaterally. The pain does not radiate. Associated signs and symptoms: The patient has no apparent associated signs or symptoms. The chest pain is described as aching. Duration: The patient or guardian reports multiple episodes, with no pattern. Modifying factors: The symptoms are alleviated by nothing. the symptoms are aggravated by nothing. Severity of pain: At its worst the pain was mild. The patient has not experienced similar symptoms in the past. Historical: - Allergies: 12:35 No Known Allergies; ap3 - Home Meds: 12:35 None [Active]; ap3 - PMHx: 12:35 None; ap3 - Immunization history:: Adult Immunizations up to date. - Infectious Disease History:: Denies. - Social history:: Smoking status: Patient denies any tobacco usage or history of. - Family history:: not pertinent. ROS: 13:41 Constitutional: Negative for fever, chills, and weight loss, Eyes: Negative for injury, sujatha pain, redness, and discharge, ENT: Negative for injury, pain, and discharge, Neck: Negative for injury, pain, and swelling, Respiratory: Negative for shortness of breath, cough, wheezing, and pleuritic chest pain, Abdomen/GI: Negative for abdominal pain, nausea, vomiting, diarrhea, and constipation, Back: Negative for injury and pain, : Negative for injury, bleeding, discharge, and swelling, MS/Extremity: Negative for injury and deformity, Skin: Negative for injury, rash, and discoloration, Neuro: Negative for headache, weakness, numbness, tingling, and seizure, Psych: Negative for depression, anxiety, suicide ideation, homicidal ideation, and hallucinations, Allergy/Immunology: Negative for hives, rash, and allergies, Endocrine: Negative for neck swelling, polydipsia, polyuria, polyphagia, and marked weight changes, 13:41 Cardiovascular: Positive for chest pain, 13:41 Respiratory: Positive for cough, Negative for orthopnea, shortness of breath, Exam: 13:41 Constitutional: This is a well developed, well nourished patient who is awake, alert, sujatha and in no acute distress. Head/Face: Normocephalic, atraumatic. Eyes: Pupils equal round and reactive to light, extra-ocular motions intact. Lids and lashes normal. Conjunctiva and sclera are non-icteric and not injected. Cornea within normal limits. Periorbital areas with no swelling, redness, or edema. ENT: Nares patent. No nasal discharge, no septal abnormalities noted. Tympanic membranes are normal and external auditory canals are clear. Oropharynx with no redness, swelling, or masses, exudates, or evidence of obstruction, uvula midline. Mucous membranes moist. Neck: Trachea midline, no thyromegaly or masses palpated, and no cervical lymphadenopathy. Supple, full range of motion without nuchal rigidity, or vertebral point tenderness. No Meningismus. Chest/axilla: Normal chest wall appearance and motion. Nontender with no deformity. No lesions are appreciated. Cardiovascular: Regular rate and rhythm with a normal S1 and S2. No gallops, murmurs, or rubs. Normal PMI, no JVD. No pulse deficits. Respiratory: Lungs have equal breath sounds bilaterally, clear to auscultation and percussion. No rales, rhonchi or wheezes noted. No increased work of breathing, no retractions or nasal flaring. Abdomen/GI: Soft, non-tender, with normal bowel sounds. No distension or tympany. No guarding or rebound. No evidence of tenderness throughout. Back: No spinal tenderness. No costovertebral tenderness. Full range of motion. Skin: Warm, dry with normal turgor. Normal color with no rashes, no lesions, and no evidence of cellulitis. MS/ Extremity: Pulses equal, no cyanosis. Neurovascular intact. Full, normal range of motion., bilateral aka Neuro: Awake and alert, GCS 15, oriented to person, place, time, and situation. Cranial nerves II-XII grossly intact. Motor strength 5/5 in all extremities. Sensory grossly intact. Cerebellar exam normal. Normal gait. Psych: Awake, alert, with orientation to person, place and time. Behavior, mood, and affect are within normal limits. 13:41 ECG was reviewed by the Attending Physician. Vital Signs: 12:33 BP 129 / 62; Pulse 83; Resp 18; Temp 97.4; Pulse Ox 100% ; Weight 102.06 kg; Pain 7/10; ap3 12:33 Pain Scale: Adult ap3 MDM: 12:19 Medical Screening Exam initiated sujatha 13:45 HEART Score: History: Slightly Suspicious (0), ECG: Normal (0), Age: < or = 45 years sujatha (0), Risk Factors: No Risk Factors Known (0). JOJO Risk Score: TOTAL SCORE = 0. Data reviewed: vital signs, nurses notes, EKG, radiologic studies, plain films. Consideration of Admission/Observation Escalation of care including admission/observation considered. I considered the following discharge prescriptions or medication management in the emergency department Medications were administered in the Emergency Department. See MAR. Independent interpretation of the following test(s) in the Emergency Department EKG: See my EKG interpretation above. Test considered but Not performed: Labs: no labs necessary. Historians other than the Patient: pt well informed. Care significantly affected by the following chronic conditions: none. Counseling: I had a detailed discussion with the patient and/or guardian regarding the historical points, exam findings, and any diagnostic results supporting the discharge/admit diagnosis, lab results, radiology results. 12 12:20 Order name: Urinalysis w/ reflexes [facility] 03/29 12:20 Order name: Test, Urine [facility] 03/29 12:20 Order name: Chest Pa And Lat (2 Views) XRAY [facility] 03/29 12:20 Order name: EKG - Nurse/Tech; Complete Time: 13:08 [facility] EC:41 Rate is 78 beats/min. Rhythm is regular. QRS [place] is Normal. VT interval is normal. QRS sujatha interval is normal. No Q waves. T waves are Normal. Clinical impression: Normal ECG, NSR w/ Non-specific ST/T Changes, and No evidence of ischemia. Interpreted by me. Reviewed by me. Administered Medications: 12:46 Drug: Ibuprofen PO 600 mg PO once Route: PO; ap3 13:00 Follow up: Response: No adverse reaction iw Disposition Summary: 03/29/24 13:47 Discharge Ordered Notes: Location: Home sujatha Problem: new sujatha Symptoms: have improved sujatha Condition: Stable sujatha Diagnosis - Chest pain, unspecified - non cardiac sujatha Followup: sujatha - With: Private Physician - When: 2 - 3 days - Reason: Recheck today's complaints, Continuance of care, Re-evaluation by your physician Followup: sujatha - With: Sincere Laura DO - When: 2 - 3 days - Reason: Recheck today's complaints, Re-evaluation by your physician Discharge Instructions: - Discharge Summary Sheet sujatha - Nonspecific Chest Pain, Adult sujatha - Substance Use Disorder sujatha - Nonspecific Chest Pain, Adult, [id number] sujatha - Substance Use Disorder and Mental Illness [facility] Forms: - Medication Reconciliation Form sujatha - Antibiotic Education sujatha - Prescription Opioid Use sujatha - Patient Portal Instructions [facility] - Leadership Thank You Letter [facility] Prescriptions: - Pepcid 20 mg Oral tablet - take 1 tablet ORAL route every 12 hours for 21 days; 42 tablet; Refills: 0, sujatha Product Selection Permitted Signatures: Dispatcher [employer] EDPanfilo Liriano MD MD cha Prokisch, Amanda, RN RN ap3 Soniya Tristan RN iw Corrections: (The following items were deleted from the chart) 12:21 12:21 Chest Pa And Lat (2 Views)+RAD.RAD.BRZ ordered. EDMS EDMS 12:21 12:21 Urinalysis+U.LAB.BRZ ordered. EDMS EDMS 12:21 12:21 Test, Urine+UC.LAB.BRZ ordered. EDMS EDMS
[2024-03-29 18:17] VITALS: BP 129/62; TEMP 97.4; O2SAT 100
== END 2024-03-29 14:21 | disposition home or self-care (01) ==
LOC: ER 12:12
DX: R07.89 Other chest pain (principal); R05.9 Cough, unspecified
CPT/HCPCS: 71046; 81001; 81025; 99283